=== PATIENT | male | born 1955 | race Caucasian/White ===

== ENCOUNTER 2018-03-29 10:01 | Emergency (ER) | payer BC ==
[2018-03-29 10:10] VITALS: RESP 18
[2018-03-29] MEDS ORDERED: SODIUM CHLORIDE 0.9% 1,000 ML IV STA (10:27)
--- NOTE | 2018-03-29 10:34 | ED ---
General Adult HPI <Raimundo Barksdale - Last Filed: 03/29/18 13:55> - General Source: patient Mode of arrival: ambulatory Limitations: no limitations <William Frazier - Last Filed: 03/29/18 14:09> - General Chief complaint: Urogenital Stated complaint: Not able to urinate Time Seen by Provider: 03/29/18 10:11 - History of Present Illness Initial comments: 62-year-old male with a past medical history of asthma, hypertension presents to the emergency department for a chief complaint of hematuria 4 days. Patient states he was passing clots in his urine 4 days ago. He states that yesterday the hematuria improved but today worsened again. He states he also has urinary urgency and frequency. He denies burning sensation or pain when urinating but does state he has discomfort. Patient states he also has difficulty urinating and is only able to urinate small amounts at a time. He also states he had lab work done that showed worsening renal function and is concerned about this. Patient denies any abdominal or flank pain. Patient denies a history of smoking. Patient has no other complaints at this time including shortness of breath, chest pain, abdominal pain, nausea or vomiting, headache, or visual changes. (William Frazier) - Related Data Home Medications Medication Instructions Recorded Confirmed Advair (Unknown Dose) 1 puff INHALATION RT-BID 03/29/18 03/29/18 Albuterol Inhaler [Ventolin Hfa 1 - 2 puff INHALATION RT-Q6H PRN 03/29/18 Inhaler] Aspirin EC [Ecotrin Low Dose] 81 mg PO DAILY 03/29/18 03/29/18 Calcium Carbonate [Calcium] 600 mg PO DAILY 03/29/18 03/29/18 Cholecalciferol [Vitamin D3] 400 unit PO DAILY 03/29/18 03/29/18 Fluticasone Nasal [place] [Flonase 2 spr EA NOSTRIL DAILY 03/29/18 03/29/18 Nasal [place]] Glucosamine Sulfate 500 mg PO DAILY 03/29/18 03/29/18 Lisinopril-Hctz 20-12.5 mg 1 tab PO DAILY 03/29/18 03/29/18 [Zestoretic 20-12.5] Montelukast [Singulair] 10 mg PO HS 03/29/18 03/29/18 Multivitamins, Thera [Multivitamin 1 tab PO DAILY 03/29/18 03/29/18 (formulary)] [place]-3 Fatty Acids/Fish Oil [Fish 1 cap PO DAILY 03/29/18 03/29/18 Oil 1,000 mg Softgel] Tadalafil [Cialis] 5 mg PO DAILY 03/29/18 03/29/18 Ubidecarenone [Co Q-10] 100 mg PO DAILY 03/29/18 03/29/18 Vitamin B Complex 1 cap PO DAILY 03/29/18 03/29/18 Allergies Allergy/AdvReac Type Severity Reaction Status Date / Time No Known Allergies Allergy Verified 03/29/18 10:34 Review of Systems ROS Other: All systems not noted in ROS Statement are negative. <Raimundo Barksdale - Last Filed: 03/29/18 13:55> ROS Other: All systems not noted in ROS Statement are negative. <William Frazier P - Last Filed: 03/29/18 14:09> ROS Statement: Those systems with pertinent positive or pertinent negative responses have been documented in the HPI. Past Medical History Past Medical History: Asthma, Hypertension Additional Past Medical History / Comment(s): erectile dysfunction History of Any Multi-Drug Resistant Organisms: None Reported Past Surgical History: Adenoidectomy, Tonsillectomy Additional Past Surgical History / Comment(s): Rhinoplasty, Uvula removed Past Psychological History: No Psychological Hx Reported Smoking Status: Never smoker Past Alcohol Use History: Occasional Past Drug Use History: None Reported <William Frazier P - Last Filed: 03/29/18 14:09> General Exam Limitations: no limitations General appearance: alert, in no apparent distress Head exam: Present: atraumatic, normocephalic, normal inspection Eye exam: Present: normal appearance, PERRL, EOMI. Absent: scleral icterus, conjunctival injection, periorbital swelling ENT exam: Present: normal exam, mucous membranes moist Neck exam: Present: normal inspection, full ROM. Absent: tenderness, meningismus, lymphadenopathy Respiratory exam: Present: normal lung sounds bilaterally. Absent: respiratory distress, wheezes, rales, rhonchi, stridor Cardiovascular Exam: Present: regular rate, normal rhythm, normal heart sounds. Absent: systolic murmur, diastolic murmur, rubs, gallop, clicks GI/Abdominal exam: Present: soft, tenderness (minimal tenderness over suprapubic area without gaurding), normal bowel sounds. Absent: distended, guarding, rebound, rigid Back exam: Absent: CVA tenderness (R), CVA tenderness (L) Neurological exam: Present: alert, oriented X3, CN II-XII intact Psychiatric exam: Present: normal affect, normal mood <William Frazier - Last Filed: 03/29/18 14:09> Course <Raimundo Barksdale - Last Filed: 03/29/18 13:55> <William Frazier - Last Filed: 03/29/18 14:09> Vital Signs 03/29/18 10:04 Temperature 97.8 F Pulse Rate 87 Respiratory 18 Rate Blood Pressure 130/87 O2 Sat by Pulse 100 Oximetry - Reevaluation(s) Reevaluation #1: 03/29/18 14:06 Patient informed that vascular surgeon at [facility] feels the are of the IVC may be part of the mass rather than thrombus. (William Frazier) Medical Decision Making - Lab Data Result diagrams: 03/29/18 10:49 03/29/18 10:49 <Raimundo Barksdale - Last Filed: 03/29/18 13:55> - Lab Data Result diagrams: 03/29/18 10:49 03/29/18 10:49 <William Frazier - Last Filed: 03/29/18 14:09> - Medical Decision Making Patient with yves hematuria. Imaging reveals left renal mass, there is concern for left renal vein thrombosis with extension and IVC. I did discuss this with vascular surgery Dr. Sheth, he recommends transfer. I discussed the case with Dr. Alston, vascular surgeon at [facility]. He feels this may represent tumor extension rather than thrombus. At this time patient will be transferred for both vascular surgery and urology evaluation. Mary catheter in place. Vitals stable, hemoglobin stable. ER accepting physician Dr. Morales. (Raimundo Barksdale) 62-year-old male presents to the emergency department for a chief complaint of hematuria and difficulty urinating 3 days. Patient states that hematuria worsened today. Patient does admit to minor left flank pain over the past few weeks but denies any pain today. On exam no abdominal tenderness or CVA tenderness. Patient does appear to have dark red blood in the urine. He complains of difficulty urinating and cannot give a sample so indwelling Mary catheter is placed. CBC shows a hgb of 10.7 which is stable from 2 weeks ago. INR 1.1. CMP shows a creatinine of 1.84 which is increased from 1.62 weeks ago. Ultrasound was initially ordered to evaluate for mass which did show a mass like area lateral to the left kidney with the hemorrhage or mass filling the left renal pelvis and the dependent portion of the urinary bladder. CT with contrast was recommended. However I did contact radiology and as patient does have worsening renal function with elevated creatinine radiologist recommends against IV contrast. CT abdomen and pelvis does show a large left renal mass or neoplasm with metastatic disease to the liver. 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 Tumor filled IVC on recent ultrasound as well. Dr. Barksdale spoke with vascular surgeon Dr. Sheth due to IVC thrombus. Dr. Singh recommends against anticoagulation at this time as patient is having significant hematuria. Coupled with patient's hematuria he recommends transfer to another facility for higher level of care. Dr. Barksdale also spoke with the patient and he is informed he has a renal mass as well as a possible thrombus in the IVC and this is why he will be transferred. Patient agrees with this and voices understanding. Patient and patient's agree with transfer to [facility]. (William Frazier) - Lab Data Lab Results 03/29/18 03/29/18 03/29/18 Range/Units 10:49 10:49 10:49 WBC 10.5 (3.8-10.6) k/uL RBC 4.10 L (4.30-5.90) m/uL Hgb 10.7 L (13.0-17.5) gm/dL Hct 34.5 L (39.0-53.0) % MCV 84.1 (80.0-100.0) fL MCH 26.0 (25.0-35.0) pg MCHC 30.9 L (31.0-37.0) g/dL RDW 13.2 (11.5-15.5) % Plt Count 438 (150-450) k/uL Neutrophils % 78 % Lymphocytes % 12 % Monocytes % 7 % Eosinophils % 2 % Basophils % 1 % Neutrophils # 8.2 H (1.3-7.7) k/uL Lymphocytes # 1.3 (1.0-4.8) k/uL Monocytes # 0.7 (0-1.0) k/uL Eosinophils # 0.2 (0-0.7) k/uL Basophils # 0.1 (0-0.2) k/uL Hypochromasia Slight PT 11.0 (9.0-12.0) sec INR 1.1 (<1.2) APTT 23.5 (22.0-30.0) sec Sodium 142 (137-145) mmol/L Potassium 4.9 (3.5-5.1) mmol/L Chloride 104 (98-107) mmol/L Carbon Dioxide 27 (22-30) mmol/L Anion Gap 11 mmol/L BUN 31 H (9-20) mg/dL Creatinine 1.84 H (0.66-1.25) mg/dL Est GFR (CKD-EPI)AfAm 44 (>60 ml/min/1.73 sqM) Est GFR (CKD-EPI)NonAf 38 (>60 ml/min/1.73 sqM) Glucose 100 H (74-99) mg/dL Calcium 10.6 H (8.4-10.2) mg/dL Total Bilirubin 0.5 (0.2-1.3) mg/dL AST 31 (17-59) U/L ALT 32 (21-72) U/L Alkaline Phosphatase 74 (38-126) U/L Total Protein 8.3 H (6.3-8.2) g/dL Albumin 4.1 (3.5-5.0) g/dL Urine Color Urine Appearance (Clear) Urine RBC (0-5) /hpf Urine WBC (0-5) /hpf 03/29/18 Range/Units 11:35 WBC (3.8-10.6) k/uL RBC (4.30-5.90) m/uL Hgb (13.0-17.5) gm/dL Hct (39.0-53.0) % MCV (80.0-100.0) fL MCH (25.0-35.0) pg MCHC (31.0-37.0) g/dL RDW (11.5-15.5) % Plt Count (150-450) k/uL Neutrophils % % Lymphocytes % % Monocytes % % Eosinophils % % Basophils % % Neutrophils # (1.3-7.7) k/uL Lymphocytes # (1.0-4.8) k/uL Monocytes # (0-1.0) k/uL Eosinophils # (0-0.7) k/uL Basophils # (0-0.2) k/uL Hypochromasia PT (9.0-12.0) sec INR (<1.2) APTT (22.0-30.0) sec Sodium (137-145) mmol/L Potassium (3.5-5.1) mmol/L Chloride (98-107) mmol/L Carbon Dioxide (22-30) mmol/L Anion Gap mmol/L BUN (9-20) mg/dL Creatinine (0.66-1.25) mg/dL Est GFR (CKD-EPI)AfAm (>60 ml/min/1.73 sqM) Est GFR (CKD-EPI)NonAf (>60 ml/min/1.73 sqM) Glucose (74-99) mg/dL Calcium (8.4-10.2) mg/dL Total Bilirubin (0.2-1.3) mg/dL AST (17-59) U/L ALT (21-72) U/L Alkaline Phosphatase (38-126) U/L Total Protein (6.3-8.2) g/dL Albumin (3.5-5.0) g/dL Urine Color Dark Red Urine Appearance Bloody (Clear) Urine RBC >182 H (0-5) /hpf Urine WBC >182 H (0-5) /hpf Disposition - Out of Hospital Transfer - Req. Specs Out of Hospital Transfer - Requested Specifics: Other Emergency Center ( Transferred to [facility]) <Raimundo Barksdale N - Last Filed: 03/29/18 13:55> Is patient prescribed a controlled substance at d/c from ED?: No <William Frazier - Last Filed: 11/06/18 14:09> Clinical Impression: Renal mass, Hematuria Disposition: OTHER INSTITUTION NOT DEFINED Condition: Good Referrals: Eli Owen III, MD [Primary Care Provider] - 1-2 days
[2018-03-29 11:00] LABS: Basophils # (A) 0.1 k/uL (0-0.2); Basophils % (A) 1 %; Eosinophils # (A) 0.2 k/uL (0-0.7); Eosinophils % (A) 2 %; HCT 34.5 % (39.0-53.0); HGB 10.7 gm/dL (13.0-17.5); Hypochromasia Slight; Lymphocytes # (A) 1.3 k/uL (1.0-4.8); Lymphocytes % (A) 12 %; MCHC 30.9 g/dL (31.0-37.0); MCV 84.1 fL (80.0-100.0); Monocytes # (A) 0.7 k/uL (0-1.0); Monocytes % (A) 7 %; Neutrophils # (A) 8.2 k/uL (1.3-7.7); Neutrophils % (A) 78 %; Platelet Count 438 k/uL (150-450); RDW 13.2 % (11.5-15.5); WBC 10.5 k/uL (3.8-10.6)
[2018-03-29 11:08] LABS: INR 1.1 (<1.2); Partial Thromboplastin Time 23.5 sec (22.0-30.0)
[2018-03-29 11:12] LABS: Albumin 4.1 g/dL (3.5-5.0); Calcium 10.6 mg/dL (8.4-10.2); Potassium 4.9 mmol/L (3.5-5.1); Total Bilirubin 0.5 mg/dL (0.2-1.3); Total Protein 8.3 g/dL (6.3-8.2)
[2018-03-29 12:06] LABS: RBC,Urine >182 /hpf (0-5); WBC,Urine >182 /hpf (0-5)
[2018-03-29 12:07] LABS: Appearance,Urine Bloody (Clear); Color,Urine Dark Red
--- NOTE | 2018-03-29 12:07 | US ---
EXAMINATION TYPE: US kidneys/renal and bladder DATE OF EXAM: 03/29/2018 COMPARISON: NONE CLINICAL HISTORY: Pain. Difficulty urinating, hematuria for 2 days EXAM MEASUREMENTS: Right Kidney: 12.9 x 5.0 x 5.9 cm Left Kidney: 15.9 x 7.5 x 5.0 cm Right Kidney: enlarged, no evidence of hydronephrosis Left Kidney: enlarged. There is a simple cystic area upper pole = 2.6cm. Mass-like area laterally = 1 5.6 x 8.9 x 8.7cm . There may be hypoechoic but solid or debris filled renal pelvis. Bladder: solid component posteriorly = 5.8 x 4.4cm Bilateral Jets seen: no Isoechoic area adjacent to liver and right kidney = 8.8 x 4.1 x 4.1cm IMPRESSION: 1. Masslike area lateral to the left kidney. Workup for renal cell carcinoma is recommended. 2. Debris, hemorrhage, or mass filling the left renal pelvis and dependent portion of the urinary anusha dder. Differential could include transitional cell carcinoma. Recommendations: 1. CT abdomen pelvis w contrast. Renal and renal collecting system neoplasm and/or urinary bladder ne oplasm should be worked up. 2. Report was called to the ER, [facility] by Dr Long by Telephone 03-29-18 12:04 hours.
[2018-03-29] MEDS ORDERED: LIDOCAINE URO-JET JELLY 2% 5 ML KIT URETHRAL ONE (12:10)
--- NOTE | 2018-03-29 13:09 | CT ---
EXAMINATION TYPE: CT abdomen pelvis wo con DATE OF EXAM: 03/29/2018 HISTORY: Pain. Abnormal ultrasound. CT DLP: 847 mGycm. Automated Exposure Control for Dose Reduction was Utilized. TECHNIQUE: CT scan of the abdomen and pelvis is performed without oral or IV contrast. COMPARISON: Same day renal ultrasound FINDINGS: Within the limitations of a non-contrast study, the following observations are made. LUNG BASES: Coronary artery calcification distal RCA distribution is present which is noted marker fo r underlying coronary artery disease. LIVER/GB: There are at least 3 suspicious heterogeneous hypodense lesions throughout the liver, for r eference posterior segment right hepatic dome lesion measures 3.9 cm long axis image 11. For referenc e anterior segment right hepatic lobe lesion measures 2.2 cm long axis axial image 17. For reference lateral inferior posterior segment right hepatic lobe lesion measures 3.1 cm long axis axial image 31 . PANCREAS: No significant abnormality is seen. SPLEEN: No significant abnormality is seen. ADRENALS: No significant abnormality is seen. KIDNEYS: Right kidney is normal in size without calculus or hydronephrosis. Left kidney is asymmetric ally enlarged with heterogeneous tissue and partial calcification felt to reflect large mass or neopl asm occupying majority of left kidney. Adjacent nodularity could reflect prominent collateral vessels , cannot exclude adjacent adenopathy. There is enlarged slightly hyperdense left renal vein extending into IVC. Tumor thrombus is suspected. Mary catheter is seen within urinary bladder which is decompressed and thus suboptimally evaluated. BOWEL: Small hiatal hernia is present. No suspicious bowel dilatation is seen. GENITAL ORGANS: No gross abnormality seen. LYMPH NODES: No greater than 1cm abdominal or pelvic lymph nodes are appreciated. OSSEOUS STRUCTURES: Severe disc space narrowing with moderate spurring L5-S1 level is present. There is facet arthropathy lower lumbar spine. There is mild to moderate narrowing and spurring bilateral h ip joints. OTHER: Few scattered pelvic phleboliths are seen. IMPRESSION: Suspect large left renal mass or neoplasm. Metastatic disease to liver is noted. 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 This is likely w hat is causing the suspicious lesion near lisa hepatis, tumor filled IVC on recent ultrasound.
[2018-03-29 14:52] VITALS: BP 161/95; PULSE 72; TEMP 98.3
== END 2018-03-29 14:52 | disposition other institution (70) ==
LOC: EC 10:01
DX: N28.89 Other specified disorders of kidney and ureter (principal); R79.89 Other specified abnormal findings of blood chemistry; J45.909 Unspecified asthma, uncomplicated; I10 Essential (primary) hypertension; Z79.51 Long term (current) use of inhaled steroids; Z79.82 Long term (current) use of aspirin; Z79.899 Other long term (current) drug therapy
CPT/HCPCS: 36415; 51702; 74176; 76770; 80053; 81001; 85025; 85610; 85730; 96360; 96361; 99284

== ENCOUNTER 2018-04-02 02:55 | Emergency (ER) | payer BC ==
[2018-04-02 03:02] VITALS: BP 162/90; PULSE 86; RESP 16; TEMP 98
[2018-04-02] MEDS ORDERED: LIDOCAINE URO-JET JELLY 2% 5 ML KIT URETHRAL ONE (03:11)
--- NOTE | 2018-04-02 03:16 | ED ---
General Adult HPI - General Chief complaint: Urogenital Stated complaint: Male Time Seen by Provider: 04/02/18 03:04 Source: patient Mode of arrival: ambulatory Limitations: no limitations - History of Present Illness Initial comments: This patient is a 62-year-old man presenting with complaint that he has not been able to pass any urine this morning. The patient states that he woke with an urge to urinate around 2 AM and then was not able to pass any urine. He has recently had urinary retention, being seen here for this same problem on Wednesday. He was discharged with a Mary catheter in and saw the neurologists at [facility] on . He had a the catheter removed at that consultation, and had been able to urinate until this morning. There had been some blood in the urine. Patient denies fever or chills. No chest pain or dyspnea. No diaphoresis. No abdominal pain though there is the suprapubic pressure and sensation urinate. -: hour(s) Location: abdomen Quality: other (Pressure) Consistency: constant Improves with: none Worsens with: none Associated Symptoms: denies other symptoms Treatments Prior to Arrival: none - Related Data Home Medications Medication Instructions Recorded Confirmed Advair (Unknown Dose) 1 puff INHALATION RT-BID 03/29/18 03/29/18 Albuterol Inhaler [Ventolin Hfa 1 - 2 puff INHALATION RT-Q6H PRN 03/29/18 Inhaler] Aspirin EC [Ecotrin Low Dose] 81 mg PO DAILY 03/29/18 03/29/18 Calcium Carbonate [Calcium] 600 mg PO DAILY 03/29/18 03/29/18 Cholecalciferol [Vitamin D3] 400 unit PO DAILY 03/29/18 03/29/18 Fluticasone Nasal [place] [Flonase 2 spr EA NOSTRIL DAILY 03/29/18 03/29/18 Nasal [place]] Glucosamine Sulfate 500 mg PO DAILY 03/29/18 03/29/18 Lisinopril-Hctz 20-12.5 mg 1 tab PO DAILY 03/29/18 03/29/18 [Zestoretic 20-12.5] Montelukast [Singulair] 10 mg PO HS 03/29/18 03/29/18 Multivitamins, Thera [Multivitamin 1 tab PO DAILY 03/29/18 03/29/18 (formulary)] [place]-3 Fatty Acids/Fish Oil [Fish 1 cap PO DAILY 03/29/18 03/29/18 Oil 1,000 mg Softgel] Tadalafil [Cialis] 5 mg PO DAILY 03/29/18 03/29/18 Ubidecarenone [Co Q-10] 100 mg PO DAILY 03/29/18 03/29/18 Vitamin B Complex 1 cap PO DAILY 03/29/18 03/29/18 Allergies Allergy/AdvReac Type Severity Reaction Status Date / Time No Known Allergies Allergy Verified 04/02/18 03:02 Review of Systems ROS Statement: Those systems with pertinent positive or pertinent negative responses have been documented in the HPI. ROS Other: All systems not noted in ROS Statement are negative. Constitutional: Denies: fever, chills, weakness Respiratory: Denies: cough, dyspnea Cardiovascular: Denies: chest pain, palpitations Gastrointestinal: Reports: as per HPI. Denies: abdominal pain, nausea, vomiting Genitourinary: Reports: urgency, hematuria. Denies: dysuria, frequency, discharge, testicular pain, testicular mass Musculoskeletal: Denies: back pain Skin: Denies: rash Past Medical History Past Medical History: Asthma, Hypertension Additional Past Medical History / Comment(s): erectile dysfunction History of Any Multi-Drug Resistant Organisms: None Reported Past Surgical History: Adenoidectomy, Tonsillectomy Additional Past Surgical History / Comment(s): Rhinoplasty, Uvula removed Past Psychological History: No Psychological Hx Reported Smoking Status: Never smoker Past Alcohol Use History: Occasional Past Drug Use History: None Reported General Exam Limitations: no limitations General appearance: alert, in no apparent distress Head exam: Present: atraumatic, normocephalic Respiratory exam: Present: normal lung sounds bilaterally. Absent: respiratory distress, wheezes, rales, rhonchi, stridor Cardiovascular Exam: Present: regular rate, normal rhythm, normal heart sounds. Absent: systolic murmur, diastolic murmur, rubs, gallop GI/Abdominal exam: Present: soft, tenderness (Minimal suprapubic tenderness.). Absent: distended, guarding, rebound, rigid, mass Extremities exam: Present: normal inspection Back exam: Present: normal inspection. Absent: CVA tenderness (R), CVA tenderness (L) Neurological exam: Present: alert, normal gait Skin exam: Present: warm, dry, intact, normal color. Absent: rash Course Vital Signs 04/02/18 02:59 Temperature 98 F Pulse Rate 86 Respiratory 16 Rate Blood Pressure 162/90 O2 Sat by Pulse 97 Oximetry Disposition Clinical Impression: Hematuria, Urinary retention Disposition: HOME SELF-CARE Condition: Fair Instructions: Urinary Retention in Men (ED) Is patient prescribed a controlled substance at d/c from ED?: No Referrals: Eli Owen III, MD [Primary Care Provider] - 1-2 days Claude Erwin MD [STAFF PHYSICIAN] - 1-2 days
== END 2018-04-02 03:41 | disposition home or self-care (01) ==
LOC: EC 02:55
DX: R33.9 Retention of urine, unspecified (principal); R31.9 Hematuria, unspecified; J45.909 Unspecified asthma, uncomplicated; I10 Essential (primary) hypertension; N52.9 Male erectile dysfunction, unspecified; Z79.51 Long term (current) use of inhaled steroids; Z79.82 Long term (current) use of aspirin; Z79.899 Other long term (current) drug therapy
CPT/HCPCS: 99283

== ENCOUNTER 2018-04-12 06:56 | Emergency (ER) | payer BC ==
--- NOTE | 2018-04-12 07:49 | ED ---
General Adult HPI - General Chief complaint: Urogenital Stated complaint: Urine Retention Time Seen by Provider: 04/12/18 07:38 Source: patient, RN notes reviewed Mode of arrival: ambulatory Limitations: no limitations - History of Present Illness Initial comments: Patient is a 62-year-old male presenting to the emergency room today with a chief complaint of blocked Mary catheter. Patient does admit that he has a history of a left-sided kidney mass. He states he's been seen here in the emergency room approximately a week and a half ago had a Mary catheter placed. He states he was in for 2 days he follow-up with his urologist through [facility] took the Mary catheter out. He states 2 days later he was having difficulty with urination and had to return here to the emergency room abdomen the Mary catheter placed. He states he's had this catheter now for the past 10 days. States he was doing well until early this morning noticed that he was passing some large clots. He states he does not feel that anything is passed into the bag and does feel some discomfort to the lower abdomen with some fullness. Patient does admit to feeling tired at times the last few days. He denies any other complaints or symptoms. Patient denies any recent fever, chills, shortness of breath, chest pain, back pain, abdominal pain, nausea or vomiting, numbness or tingling, headaches or visual changes, or any other complaints. - Related Data Home Medications Medication Instructions Recorded Confirmed Advair (Unknown Dose) 1 puff INHALATION RT-BID 03/29/18 04/12/18 Montelukast [Singulair] 10 mg PO HS 03/29/18 04/12/18 Acetaminophen [Tylenol Extra 500 mg PO Q6H PRN 04/12/18 04/12/18 Strength] Cetirizine HCl [Zyrtec] 10 mg PO DAILY 04/12/18 04/12/18 Eye Vitamin (Unknown) 1 tab PO DAILY 04/12/18 04/12/18 Fluticasone Nasal [place] [Flonase 2 spr EA NOSTRIL DAILY 04/12/18 04/12/18 Nasal [place]] amLODIPine [Norvasc] 5 mg PO DAILY 04/12/18 04/12/18 Previous Rx's Medication Instructions Recorded Sulfamethox-Tmp 800-160Mg [Bactrim 1 tab PO Q12HR #20 tab 04/12/18 DS 800-160 mg] Allergies Allergy/AdvReac Type Severity Reaction Status Date / Time No Known Allergies Allergy Verified 04/12/18 07:56 Review of Systems ROS Statement: Those systems with pertinent positive or pertinent negative responses have been documented in the HPI. ROS Other: All systems not noted in ROS Statement are negative. Past Medical History Past Medical History: Asthma, Hypertension Additional Past Medical History / Comment(s): erectile dysfunction History of Any Multi-Drug Resistant Organisms: None Reported Past Surgical History: Adenoidectomy, Tonsillectomy Additional Past Surgical History / Comment(s): Rhinoplasty, Uvula removed Past Psychological History: No Psychological Hx Reported Smoking Status: Never smoker Past Alcohol Use History: Occasional Past Drug Use History: None Reported General Exam - General Exam Comments Initial Comments: General: The patient is awake and alert, in no distress, and does not appear acutely ill. Eye: There is normal conjunctiva bilaterally. No signs of icterus. Ears, nose, mouth and throat: There are moist mucous membranes and no oral lesions. Neck: The neck is supple, there is no tenderness or JVD. Cardiovascular: There is a regular rate and rhythm. No murmur, rub or gallop is appreciated. Respiratory: Lungs are clear to auscultation, respirations are non-labored, breath sounds are equal. No wheezes, stridor, rales, or rhonchi. Gastrointestinal: Soft and palpation. No CVA tenderness, rebound or guarding. Musculoskeletal: Normal ROM, no tenderness. Sensation intact. Neurological: A&O x 3. CN II-XII intact, There are no obvious motor or sensory deficits. Coordination appears grossly intact. Speech is normal. Skin: Skin is warm and dry and no rashes or lesions are noted. Psychiatric: Cooperative, appropriate mood & affect, normal judgment. Limitations: no limitations Course Vital Signs 04/12/18 04/12/18 04/12/18 07:31 08:16 09:18 Temperature 98.3 F Pulse Rate 123 H 78 66 Respiratory 18 18 18 Rate Blood Pressure 150/95 151/95 O2 Sat by Pulse 96 98 97 Oximetry Medical Decision Making - Medical Decision Making Patient's labs been reviewed. Hemoglobin 10.5 stem compared to previous. Patient's urinalysis does show greater than 2 red and white cells. Patient doing well at this time. Full catheter was flushed by nursing staff has flowing freely. Patient will be started on antibiotic to cover for possible infection. Advised follow-up urologist over the next 2 days. Advised return if any symptoms increase worsen. - Lab Data Result diagrams: 04/12/18 08:00 04/12/18 08:00 Lab Results 04/12/18 04/12/18 04/12/18 Range/Units 08:00 08:00 08:15 WBC 8.2 (3.8-10.6) k/uL RBC 3.94 L (4.30-5.90) m/uL Hgb 10.5 L (13.0-17.5) gm/dL Hct 33.4 L (39.0-53.0) % MCV 84.9 (80.0-100.0) fL MCH 26.6 (25.0-35.0) pg MCHC 31.3 (31.0-37.0) g/dL RDW 14.3 (11.5-15.5) % Plt Count 405 (150-450) k/uL Neutrophils % 80 % Lymphocytes % 11 % Monocytes % 6 % Eosinophils % 2 % Basophils % 0 % Neutrophils # 6.6 (1.3-7.7) k/uL Lymphocytes # 0.9 L (1.0-4.8) k/uL Monocytes # 0.5 (0-1.0) k/uL Eosinophils # 0.2 (0-0.7) k/uL Basophils # 0.0 (0-0.2) k/uL Hypochromasia Slight Sodium 141 (137-145) mmol/L Potassium 4.4 (3.5-5.1) mmol/L Chloride 104 (98-107) mmol/L Carbon Dioxide 26 (22-30) mmol/L Anion Gap 11 mmol/L BUN 18 (9-20) mg/dL Creatinine 1.30 H (0.66-1.25) mg/dL Est GFR (CKD-EPI)AfAm 67 (>60 ml/min/1.73 sqM) Est GFR (CKD-EPI)NonAf 58 (>60 ml/min/1.73 sqM) Glucose 116 H (74-99) mg/dL Calcium 9.7 (8.4-10.2) mg/dL Total Bilirubin 0.5 (0.2-1.3) mg/dL AST 21 (17-59) U/L ALT 30 (21-72) U/L Alkaline Phosphatase 72 (38-126) U/L Total Protein 7.9 (6.3-8.2) g/dL Albumin 4.0 (3.5-5.0) g/dL Urine Color Red Urine Appearance Bloody (Clear) Urine RBC >182 H (0-5) /hpf Urine WBC >182 H (0-5) /hpf Disposition Clinical Impression: Hematuria, UTI (urinary tract infection) Disposition: HOME SELF-CARE Condition: Good Instructions: Urinary Tract Infection in Men (ED) Additional Instructions: Please use medication as discussed. Please follow-up with urologist/family doctor in the next 2 days of symptoms have not improved. Please return to emergency room if the symptoms increase or worsen or for any other concerns. Prescriptions: Sulfamethox-Tmp 800-160Mg [Bactrim DS 800-160 mg] 1 tab PO Q12HR #20 tab Is patient prescribed a controlled substance at d/c from ED?: No Referrals: Eli Owen III, MD [Primary Care Provider] - 1-2 days Time of Disposition: 10:25
[2018-04-12 08:38] LABS: Calcium 9.7 mg/dL (8.4-10.2); Potassium 4.4 mmol/L (3.5-5.1); Total Bilirubin 0.5 mg/dL (0.2-1.3); Total Protein 7.9 g/dL (6.3-8.2)
[2018-04-12 09:35] LABS: Basophils % (A) 0 %; Eosinophils # (A) 0.2 k/uL (0-0.7); Eosinophils % (A) 2 %; HCT 33.4 % (39.0-53.0); HGB 10.5 gm/dL (13.0-17.5); Hypochromasia Slight; Lymphocytes # (A) 0.9 k/uL (1.0-4.8); Lymphocytes % (A) 11 %; MCH 26.6 pg (25.0-35.0); MCHC 31.3 g/dL (31.0-37.0); MCV 84.9 fL (80.0-100.0); Mean Platelet Volume 6.6; Monocytes # (A) 0.5 k/uL (0-1.0); Monocytes % (A) 6 %; Neutrophils # (A) 6.6 k/uL (1.3-7.7); Neutrophils % (A) 80 %; Platelet Count 405 k/uL (150-450); RBC 3.94 m/uL (4.30-5.90); RDW 14.3 % (11.5-15.5); WBC 8.2 k/uL (3.8-10.6)
[2018-04-12 10:07] LABS: RBC,Urine >182 /hpf (0-5); WBC,Urine >182 /hpf (0-5)
[2018-04-12 10:13] LABS: Color,Urine Red
[2018-04-12 10:14] LABS: Appearance,Urine Bloody (Clear)
[2018-04-12 11:03] VITALS: BP 171/97; PULSE 68; RESP 16; TEMP 97.7
== END 2018-04-12 11:03 | disposition home or self-care (01) ==
LOC: EC 06:56
DX: N39.0 Urinary tract infection, site not specified (principal); J45.909 Unspecified asthma, uncomplicated; I10 Essential (primary) hypertension; Z79.51 Long term (current) use of inhaled steroids; Z79.899 Other long term (current) drug therapy
CPT/HCPCS: 36415; 80053; 81001; 85025; 87086; 99283

== ENCOUNTER 2018-04-12 13:14 | Emergency (ER) | payer BC ==
[2018-04-12 13:21] VITALS: RESP 18; TEMP 97.8
--- NOTE | 2018-04-12 14:41 | ED ---
General Adult HPI - General Chief complaint: Urogenital Stated complaint: catheter problems-revisit Time Seen by Provider: 04/12/18 13:24 Source: patient, RN notes reviewed Mode of arrival: ambulatory Limitations: no limitations - History of Present Illness Initial comments: Patient 62-year-old male presented to the emergency room today with a chief complaint of hematuria. Patient was seen here the emergency room by myself earlier this morning for the same complaint. He did have a Mary catheter was placed 10 days ago. Has been following up with his urologist. Patient was seen this morning because he noticed that the Mary catheter was not draining. Patient did have Mary catheter irrigated here in the emergency room was straining prior to discharge. He states he went home. He states the symptoms that the catheter is plugged up once again. He did talk to his urologist office in the medical system advised come back here to the emergency room. Patient denies any other complaints or symptoms at this time. Patient denies any recent fever, chills, shortness of breath, chest pain, back pain, abdominal pain, nausea or vomiting, numbness or tingling, constipation or diarrhea, headaches or visual changes, or any other complaints. - Related Data Home Medications Medication Instructions Recorded Confirmed Advair (Unknown Dose) 1 puff INHALATION RT-BID 03/29/18 04/12/18 Montelukast [Singulair] 10 mg PO HS 03/29/18 04/12/18 Acetaminophen [Tylenol Extra 500 mg PO Q6H PRN 04/12/18 04/12/18 Strength] Cetirizine HCl [Zyrtec] 10 mg PO DAILY 04/12/18 04/12/18 Eye Vitamin (Unknown) 1 tab PO DAILY 04/12/18 04/12/18 Fluticasone Nasal [place] [Flonase 2 spr EA NOSTRIL DAILY 04/12/18 04/12/18 Nasal [place]] Lisinopril-Hctz 20-12.5 mg 1 tab PO DAILY 04/12/18 04/12/18 [Zestoretic 20-12.5] Tamsulosin [Flomax] 0.4 mg PO DAILY 04/12/18 04/12/18 amLODIPine [Norvasc] 5 mg PO DAILY 04/12/18 04/12/18 Previous Rx's Medication Instructions Recorded Sulfamethox-Tmp 800-160Mg [Bactrim 1 tab PO Q12HR #20 tab 04/12/18 DS 800-160 mg] Allergies Allergy/AdvReac Type Severity Reaction Status Date / Time No Known Allergies Allergy Verified 04/12/18 13:27 Review of Systems ROS Statement: Those systems with pertinent positive or pertinent negative responses have been documented in the HPI. ROS Other: All systems not noted in ROS Statement are negative. Past Medical History Past Medical History: Asthma, Hypertension Additional Past Medical History / Comment(s): erectile dysfunction History of Any Multi-Drug Resistant Organisms: None Reported Past Surgical History: Adenoidectomy, Tonsillectomy Additional Past Surgical History / Comment(s): Rhinoplasty, Uvula removed Past Psychological History: No Psychological Hx Reported Smoking Status: Never smoker Past Alcohol Use History: Occasional Past Drug Use History: None Reported General Exam - General Exam Comments Initial Comments: General: The patient is awake and alert, in no distress, and does not appear acutely ill. Eye: There is normal conjunctiva bilaterally. No signs of icterus. Ears, nose, mouth and throat: There are moist mucous membranes and no oral lesions. Neck: The neck is supple. Cardiovascular: There is a regular rate and rhythm. No murmur, rub or gallop is appreciated. Respiratory: Lungs are clear to auscultation, respirations are non-labored, breath sounds are equal. No wheezes, stridor, rales, or rhonchi. Gastrointestinal: Soft on palpation. Musculoskeletal: Normal ROM, no tenderness. Neurological: A&O x 3. CN II-XII intact, There are no obvious motor or sensory deficits. Coordination appears grossly intact. Speech is normal. Skin: Skin is warm and dry and no rashes or lesions are noted. Psychiatric: Cooperative, appropriate mood & affect, normal judgment. Limitations: no limitations Course Vital Signs 04/12/18 13:19 Temperature 97.8 F Pulse Rate 86 Respiratory 18 Rate Blood Pressure 125/79 O2 Sat by Pulse 99 Oximetry Medical Decision Making - Medical Decision Making Patient's Mary catheter was irrigated emergency room by nursing staff. They' re able to get the Mary catheter clear of clots. A larger Mary catheter was placed. Patient doing well at this time. Does admit to some spasms. Patient advised continue antibiotics of her previous prescribed. We'll given a prescription Pyridium. Patient is advised to follow-up with his urologist tomorrow. Advised to return here to the emergency room if symptoms increase or worsen or for any other concerns. Disposition Clinical Impression: Hematuria, Urinary retention, UTI (urinary tract infection) Disposition: HOME SELF-CARE Condition: Good Instructions: Urinary Tract Infection in Men (ED) Additional Instructions: Please follow-up with the urologist tomorrow as discussed. Please return to emergency room if symptoms increase or worsen or for concerns. Is patient prescribed a controlled substance at d/c from ED?: No Referrals: Eli Owen III, MD [Primary Care Provider] - 1-2 days
[2018-04-12] MEDS ORDERED: LIDOCAINE URO-JET JELLY 2% 5 ML KIT URETHRAL ONE (14:56)
[2018-04-12 17:33] VITALS: BP 161/64; PULSE 60
== END 2018-04-12 17:54 | disposition home or self-care (01) ==
LOC: EC 13:14
DX: N39.0 Urinary tract infection, site not specified (principal); T83.098A Other mechanical complication of other urinary catheter, initial encounter; J45.909 Unspecified asthma, uncomplicated; I10 Essential (primary) hypertension; Z79.51 Long term (current) use of inhaled steroids; Z79.899 Other long term (current) drug therapy
CPT/HCPCS: 51702; 99283

== ENCOUNTER → 2018-04-20 | Outpatient (CLI) | payer BC ==
--- NOTE | 2018-04-20 11:34 | CT ---
EXAMINATION TYPE: CT brain wo/w con DATE OF EXAM: 04/20/2018 COMPARISON: Correlation CT abdomen 03/29/2018 HISTORY: 62-year-old male diagnosed with Kidney cancer TECHNIQUE: Examination was done in axial plane before and after intravenous contrast. 100 mL Isovue -300 was administered. Coronal and sagittal reconstructions performed. CT DLP: 2197.60 mGycm Automated exposure control for dose reduction was used. FINDINGS: There is no evidence of acute intracranial hemorrhage, acute ischemic changes, mass, mass-effect, or extra-axial fluid collection. There is no effacement of cerebral sulci or basal subarachnoid cister ns. There is no hydrocephalus. There is no midline shift. Vernon-white matter distinction is preserv ed. Mild patchy white matter hypodensities in both cerebral hemispheres with focal patchy areas such as i n the right cross radiata likely relating to changes of chronic small vessel ischemic disease. No enhancing intracranial lesion. Dural venous sinuses are patent. Moderate mucosal thickening ethmoid air cells and mild to moderate within the maxillary sinuses. Mast oid air cells well pneumatized. Orbits and globes appear intact. IMPRESSION: 1. Mild patchy changes of chronic small vessel ischemic disease. No acute intracranial abnormality se en. No suspicious intracranial enhancing lesions by CT. MRI could provide more sensitive evaluation i f indicated. 2. Moderate chronic maxillary and ethmoid sinus disease.
--- NOTE | 2018-04-20 12:15 | CT ---
EXAMINATION TYPE: CT chest wo/w con DATE OF EXAM: 04/20/2018 COMPARISON: Correlation CT abdomen 03/29/2018 HISTORY: 62-year-old male diagnosed with Kidney cancer TECHNIQUE: Contiguous axial scanning of the chest before and after the administration of 100 ml mL of Isovue 300. Coronal/sagittal reconstructions performed. CT DLP: 954.10mGycm. Automatic exposure control utilized for a dose reduction. FINDINGS: Heart normal size without pericardial effusion. Coronary vessel calcifications are present. Mild aneurysm ascending aorta measured at 4.0 cm. Conventional arch vessel branching anatomy. No thoracic lymphadenopathy by CT size criteria. Minimal subpleural scarring posterior left apex. Strandy atelectasis at both lung bases without pleur al effusion. No suspicious pulmonary nodule identified. Small hiatal hernia. Liver lesions as described on recent body CT. Additional abnormal dilatation and some nodular enhance ment within the visualized IVC and large very heterogeneously enhancing left renal mass. Abnormal dis tention and some enhancement within the left renal vein is well also is described on patient's recent abdominal CT. Bones: 1.8 cm lytic lesion within the left T12 pedicle is suspicious. IMPRESSION: 1. No suspicious pulmonary nodule or thoracic lymphadenopathy. 2. 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 Hepatic lesions suspicious for liver metastases also described previously. 3. A 1.8 cm lytic lesion within the left T12 pedicle is suspicious for a lytic osseous metastasis. 4. Incidental mild aneurysm ascending aorta 4.0 cm. Small hiatal hernia.
== END | disposition home or self-care (01) ==
LOC: RADCTMAIN 09:29
PROVIDERS: ATTEND Urology
DX: I67.82 Cerebral ischemia (principal); K76.9 Liver disease, unspecified; M89.9 Disorder of bone, unspecified; C64.2 Malignant neoplasm of left kidney, except renal pelvis
CPT/HCPCS: 70470; 71270; Q9967

== ENCOUNTER 2018-09-25 17:00 | Observation (INO) | payer BC ==
[2018-09-25] MEDS ORDERED: DIPH,PERTUS(ACELL)TETVAC-LF 0.5 ML VIAL IM ONE (17:11)
[2018-09-25] MEDS ORDERED: HYDROmorphone 1 MG/ML 1 ML SYRINGE IVP STA (17:12)
[2018-09-25] MEDS ORDERED: ceFAZolin IN SWFI 2 GM/20 ML SYRINGE IVP STA (17:12)
[2018-09-25 17:35] LABS: Anisocytosis Slight; Basophils # (A) 0.1 k/uL (0-0.2); Basophils % (A) 1 %; Eosinophils # (A) 0.7 k/uL (0-0.7); Eosinophils % (A) 9 %; HGB 12.2 gm/dL (13.0-17.5); Lymphocytes # (A) 1.5 k/uL (1.0-4.8); Lymphocytes % (A) 18 %; MCH 28.2 pg (25.0-35.0); MCV 85.5 fL (80.0-100.0); Mean Platelet Volume 6.8; Monocytes # (A) 0.5 k/uL (0-1.0); Monocytes % (A) 6 %; Neutrophils # (A) 5.5 k/uL (1.3-7.7); Neutrophils % (A) 65 %; Platelet Count 223 k/uL (150-450); RBC 4.33 m/uL (4.30-5.90); RDW 16.3 % (11.5-15.5); WBC 8.4 k/uL (3.8-10.6)
--- NOTE | 2018-09-25 17:37 | ED ---
Skin/Abscess/FB HPI - General Chief complaint: Skin/Abscess/Foreign Body Stated complaint: Impaled Object Time Seen by Provider: 09/25/18 17:05 Source: patient, RN notes reviewed, old records reviewed Mode of arrival: EMS Limitations: no limitations - History of Present Illness Initial comments: 62-year-old male with history of renal carcinoma currently on immunotherapy for renal carcinoma presents emergency department today after being impaled on his right leg with a piece of Baobaberry hoffmann. Patient reports he was gardening and had the which sticks in a pile. He tripped over some chicken wire and reports the raspberry hoffmann branch ran into his leg. Patient reports that he has normal sensation of his lower extremities. With history of renal carcinoma he has been off of his diuretic medication due to worsening kidney function. Therefore he is had some lower extremity edema. He reports that been chronic. Patient is nondiabetic. - Related Data Home Medications Medication Instructions Recorded Confirmed Montelukast [Singulair] 10 mg PO HS 03/29/18 09/25/18 Acetaminophen [Tylenol Extra 500 mg PO Q6H PRN 04/12/18 09/25/18 Strength] Cetirizine HCl [Zyrtec] 10 mg PO DAILY 04/12/18 09/25/18 Eye Vitamin (Unknown) 1 tab PO DAILY 04/12/18 09/25/18 Fluticasone Nasal [place] [Flonase 2 spr EA NOSTRIL DAILY 04/12/18 09/25/18 Nasal [place]] Fluticasone/Salmeterol [Advair 1 puff INHALATION RT-BID 09/25/18 09/25/18 250-50 Diskus] Metoprolol Tartrate [Lopressor] 12.5 mg PO BID 09/25/18 09/25/18 Opdivo (Mg Unknown) dose IV Q14D 09/25/18 amLODIPine [Norvasc] 10 mg PO DAILY 09/25/18 09/25/18 Allergies Allergy/AdvReac Type Severity Reaction Status Date / Time No Known Allergies Allergy Verified 09/25/18 17:50 Review of Systems ROS Statement: Those systems with pertinent positive or pertinent negative responses have been documented in the HPI. ROS Other: All systems not noted in ROS Statement are negative. Past Medical History Past Medical History: Asthma, Cancer, Hypertension Additional Past Medical History / Comment(s): erectile dysfunction History of Any Multi-Drug Resistant Organisms: None Reported Past Surgical History: Adenoidectomy, Tonsillectomy Additional Past Surgical History / Comment(s): Rhinoplasty, Uvula removed, renal CA Past Psychological History: No Psychological Hx Reported Smoking Status: Never smoker Past Alcohol Use History: Occasional Past Drug Use History: None Reported General Exam - General Exam Comments Initial Comments: 62-year-old male. Pleasant. No significant distress. Limitations: no limitations General appearance: alert, in no apparent distress Head exam: Present: atraumatic, normocephalic, normal inspection Eye exam: Present: normal appearance, PERRL, EOMI. Absent: scleral icterus, conjunctival injection, periorbital swelling ENT exam: Present: normal exam, mucous membranes moist Neck exam: Present: normal inspection. Absent: tenderness, meningismus, lymp hadenopathy Respiratory exam: Present: normal lung sounds bilaterally. Absent: respiratory distress, wheezes, rales, rhonchi, stridor Cardiovascular Exam: Present: regular rate, normal rhythm, normal heart sounds. Absent: systolic murmur, diastolic murmur, rubs, gallop, clicks GI/Abdominal exam: Present: soft, normal bowel sounds. Absent: distended, tenderness, guarding, rebound, rigid Extremities exam: Present: normal inspection, full ROM, normal capillary refill, other (Bilateral peripheral edema. 2 second capillary refill. 2+ dorsalis pedis pulse.). Absent: tenderness, pedal edema, joint swelling, calf tenderness Right Lower Leg exam: Present: full ROM, swelling. Absent: normal inspection (Patient has a 0.5 inch wooden stick impaled within the mid leg, thorns noted from stick. Stick was greater than 1 foot sticking out. ) Ankle exam: Present: normal inspection, full ROM, swelling Foot/Toe exam: Present: normal inspection, swelling Neurovascular tendon exam: Present: no vascular compromise Gait: observed and limited by pain Back exam: Present: normal inspection Neurological exam: Present: alert, oriented X3, CN II-XII intact Psychiatric exam: Present: normal affect Skin exam: Present: warm, dry, intact, normal color. Absent: rash Course Vital Signs 09/25/18 17:16 Temperature 98.2 F Pulse Rate 78 Respiratory 18 Rate Blood Pressure 162/100 O2 Sat by Pulse 98 Oximetry Medical Decision Making - Medical Decision Making 62-year-old male presents emergency department today for injury of a raspberry hoffmann branch being impaled in his right lower extremity. Patient was started on Kefzol and given updated TDAP. Patient x-ray does show that the retained foreign body is somewhat deep in the soft tissue. Concern for possible injury to the anterior tibial artery if we remove this, as well as susceptible to infection due to immunocompromise from immunosuppression. He has a 2+ to self pedis pulse. Normal sensation distally. Patient case discussed with Dr. Sesay. Recommended discussing with on-call orthopedic. Discussed case with ANGELA Sarkar. She recommended with the Patient to OR for concern for retained foreign body due to thorns attached at this stick. He was started on Zosyn as well. I did administer possibly 10 mL of lidocaine around the area of the entry point from this branch, and trimmed the branch to 3 inches from wound. Tolerated procedure well. Patiently going straight to the OR from em ergency room. - Lab Data Result diagrams: 09/25/18 17:18 09/25/18 17:18 Lab Results 09/25/18 09/25/18 09/25/18 Range/Units 17:18 17:18 17:18 WBC 8.4 (3.8-10.6) k/uL RBC 4.33 (4.30-5.90) m/uL Hgb 12.2 L (13.0-17.5) gm/dL Hct 37.0 L (39.0-53.0) % MCV 85.5 (80.0-100.0) fL MCH 28.2 (25.0-35.0) pg MCHC 33.0 (31.0-37.0) g/dL RDW 16.3 H (11.5-15.5) % Plt Count 223 (150-450) k/uL Neutrophils % 65 % Lymphocytes % 18 % Monocytes % 6 % Eosinophils % 9 % Basophils % 1 % Neutrophils # 5.5 (1.3-7.7) k/uL Lymphocytes # 1.5 (1.0-4.8) k/uL Monocytes # 0.5 (0-1.0) k/uL Eosinophils # 0.7 (0-0.7) k/uL Basophils # 0.1 (0-0.2) k/uL Anisocytosis Slight PT 10.4 (9.0-12.0) sec INR 1.0 (<1.2) APTT 22.6 (22.0-30.0) sec Sodium 140 (137-145) mmol/L Potassium 4.7 (3.5-5.1) mmol/L Chloride 107 (98-107) mmol/L Carbon Dioxide 25 (22-30) mmol/L Anion Gap 8 mmol/L BUN 29 H (9-20) mg/dL Creatinine 1.84 H (0.66-1.25) mg/dL Est GFR (CKD-EPI)AfAm 44 (>60 ml/min/1.73 sqM) Est GFR (CKD-EPI)NonAf 38 (>60 ml/min/1.73 sqM) Glucose 108 H (74-99) mg/dL Calcium 10.0 (8.4-10.2) mg/dL Total Bilirubin 0.5 (0.2-1.3) mg/dL AST 20 (17-59) U/L ALT 27 (21-72) U/L Alkaline Phosphatase 73 (38-126) U/L Total Protein 8.3 H (6.3-8.2) g/dL Albumin 4.9 (3.5-5.0) g/dL - Radiology Data Radiology results: report reviewed X-ray shows evidence of soft tissue foreign body, no fracture. Disposition Clinical Impression: Foreign body of lower leg, History of renal carcinoma, Peripheral edema Disposition: ADMITTED IP TO THIS [facility] Condition: Stable Is patient prescribed a controlled substance at d/c from ED?: No Referrals: Nonstaff,Physician [Primary Care Provider] - 1-2 days Time of Disposition: 19:28
[2018-09-25 17:54] LABS: Albumin 4.9 g/dL (3.5-5.0); Potassium 4.7 mmol/L (3.5-5.1); Total Bilirubin 0.5 mg/dL (0.2-1.3); Total Protein 8.3 g/dL (6.3-8.2)
[2018-09-25 17:56] LABS: Partial Thromboplastin Time 22.6 sec (22.0-30.0); Prothrombin Time 10.4 sec (9.0-12.0)
--- NOTE | 2018-09-25 18:12 | XR ---
EXAMINATION TYPE: XR tibia fibula RT DATE OF EXAM: 09/25/2018 COMPARISON: NONE HISTORY: Pain TECHNIQUE: 4 views FINDINGS: I see no fracture nor dislocation. Joint spaces are normal. There is linear density at the anterior mid tibia consistent with of foreign body in the soft tissues. Knee joint and ankle joint ap pear intact. IMPRESSION: Soft tissue foreign body. No fracture.
[2018-09-25] MEDS ORDERED: PIPERACILLIN-TAZOBACTAM 3.375 GM in SODIUM CHLORIDE 0.9% 100 ML IVPB STA (19:20)
[2018-09-25] MEDS ORDERED: ONDANSETRON 4 MG/2 ML VIAL IVP PRN (19:28)
[2018-09-25] MEDS ORDERED: IBUPROFEN 400 MG TAB PO PRN (19:28)
[2018-09-25] MEDS ORDERED: HYDROmorphone 1 MG/ML 1 ML SYRINGE IVP PRN ×2 (19:28→20:45)
[2018-09-25] MEDS ORDERED: NALOXONE 0.4 MG/ML 1 ML VIAL IV PRN (19:28)
[2018-09-25] MEDS ORDERED: HYDROmorphone 0.5 MG/0.5 ML SYRINGE IVP PRN ×3 (19:28→20:45)
[2018-09-25] MEDS ORDERED: ACETAMINOPHEN TAB 325 MG TAB PO PRN (19:28)
[2018-09-25] MEDS ORDERED: LORazepam 2 MG/ML INJ IV PRN (19:28)
[2018-09-25] MEDS ORDERED: fentaNYL (PF) 50 MCG/ML 2 ML AMP IV PRN (19:48)
[2018-09-25] MEDS ORDERED: ACETAMINOPHEN TAB 500 MG TAB PO PRN (19:50)
--- NOTE | 2018-09-25 19:59 | P.HPOR ---
History of Present Illness H&P Date: 09/25/18 Chief Complaint: Right leg foreign body, puncture This is a 62-year-old male admitted through the emergency department with history of fall in his yard, sustaining injury to his right anterior leg. He states that the branch of a raspberry [place] went into his lower leg. He presents to the ER with the branches sticking out the anterior aspect of the lower leg. He has past medical history of current treatment for renal cell carcinoma which is metastatic. He is currently receiving immunotherapy with Opdivo. He recently had his seventh treatment. He states that he is otherwise fairly healthy. Past Medical History Past Medical History: Asthma, Cancer, Hypertension Additional Past Medical History / Comment(s): erectile dysfunction History of Any Multi-Drug Resistant Organisms: None Reported Past Surgical History: Adenoidectomy, Tonsillectomy Additional Past Surgical History / Comment(s): Rhinoplasty, Uvula removed, renal CA Past Psychological History: No Psychological Hx Reported Smoking Status: Never smoker Past Alcohol Use History: Occasional Past Drug Use History: None Reported Medications and Allergies Home Medications Medication Instructions Recorded Confirmed Type Montelukast [Singulair] 10 mg PO HS 03/29/18 09/25/18 History Acetaminophen [Tylenol Extra 500 mg PO Q6H PRN 04/12/18 09/25/18 History Strength] Cetirizine HCl [Zyrtec] 10 mg PO DAILY 04/12/18 09/25/18 History Eye Vitamin (Unknown) 1 tab PO DAILY 04/12/18 09/25/18 History Fluticasone Nasal [place] [Flonase 2 spr EA NOSTRIL DAILY 04/12/18 09/25/18 History Nasal [place]] Fluticasone/Salmeterol [Advair 1 puff INHALATION RT-BID 09/25/18 09/25/18 History 250-50 Diskus] Metoprolol Tartrate [Lopressor] 12.5 mg PO BID 09/25/18 09/25/18 History Opdivo (Mg Unknown) dose IV Q14D 09/25/18 History amLODIPine [Norvasc] 10 mg PO DAILY 09/25/18 09/25/18 History Allergies Allergy/AdvReac Type Severity Reaction Status Date / Time No Known Allergies Allergy Verified 09/25/18 17:50 Physical Examination This is a pleasant 62-year-old male in no acute distress. He is alert and oriented 3. Exam of the lower extremities reveals a dressing in place. Photos of the leg prior to dressing reveals a long branch measuring about 1 inch in diameter impaling the proximal aspect of the lower leg anteriorly. He currently has full foot and ankle motion. Pedal pulses +1/4. Neurovascular status to the lower extremity is intact. No other orthopedic injuries noted. Results X-rays of the right lower extremity reveal a radiopaque oblong foreign body in the proximal aspect of the lower leg. No bony injury noted. - Labs Labs: Abnormal Lab Results - Last 24 Hours (Table) 09/25/18 09/25/18 Range/Units 17:18 17:18 Hgb 12.2 L (13.0-17.5) gm/dL Hct 37.0 L (39.0-53.0) % RDW 16.3 H (11.5-15.5) % BUN 29 H (9-20) mg/dL Creatinine 1.84 H (0.66-1.25) mg/dL Glucose 108 H (74-99) mg/dL Total Protein 8.3 H (6.3-8.2) g/dL H & H 09/25/18 Range/Units 17:18 Hgb 12.2 L (13.0-17.5) gm/dL Hct 37.0 L (39.0-53.0) % Coagulation 09/25/18 Range/Units 17:18 INR 1.0 (<1.2) Result Diagrams: 09/25/18 17:18 09/25/18 17:18 Assessment and Plan (1) Foreign body of lower leg Current Visit: Yes Status: Acute Code(s): S80.859A - SUPERFICIAL FOREIGN BODY, UNSPECIFIED LOWER LEG, INIT ENCNTR SNOMED Code(s): 678262853 (2) History of renal carcinoma Current Visit: Yes Status: Acute Code(s): Z85.528 - PERSONAL HISTORY OF OTHER MALIGNANT NEOPLASM OF KIDNEY SNOMED Code(s): 371034443 (3) Peripheral edema Current Visit: Yes Status: Acute Code(s): R60.9 - EDEMA, UNSPECIFIED SNOMED Code(s): 965596926 Plan: The clinical and x-ray findings are discussed with the patient and his . It is recommended he go to OR this evening for removal foreign body and irrigation and debridement of the wound. We discussed the possibility of a second procedure. We may pack the wound open depending on her findings today. We'll consult Dr. Licea for infectious disease evaluation and internal medicine for medical management.
[2018-09-25] MEDS ORDERED: PROPOFOL 10 MG/ML 20 ML VIAL IV ONE (20:13)
[2018-09-25] MEDS ORDERED: LIDOCAINE 1% INJ 10MG/ML (20 ML MDV) ONE (20:13)
[2018-09-25] MEDS ORDERED: fentaNYL (PF) 50 MCG/ML 2 ML AMP ONE (20:13)
[2018-09-25] MEDS ORDERED: KETAMINE 10 MG/ML 20 ML VIAL ONE (20:13)
[2018-09-25] MEDS ORDERED: IV FLUID CONTINUATION 900 ML IV ONE (20:13)
[2018-09-25] MEDS ORDERED: BUPIVACAINE (PF) 0.5% 30 ML VIAL SQ ONE (20:34)
--- NOTE | 2018-09-25 20:39 | P.OP ---
Date of Procedure: 09/25/18 Preoperative Diagnosis: Foreign body right lower leg Postoperative Diagnosis: Foreign body right lower leg Procedure(s) Performed: Removal foreign body right lower leg and irrigation and debridement of the right lower leg Anesthesia: CARLEEN Surgeon: Helio Quintana Private Duty Aide #1: Pam Stephens Estimated Blood Loss (ml): 25 Pathology: none sent Condition: stable Disposition: PACU Indications for Procedure: This is a 62-year-old gentleman that was working in his yard earlier today. He apparently slipped and fell and landed onto a raspberry branch which was impaled into his right lower leg. The branch has thorns which prohibited the emergency room from removing the branch. The patient was then seen and evaluated, and after discussing the surgical and nonsurgical treatment options with him at length, I recommended that we remove the branch in the operating room with a thorough irrigation debridement to remove any remaining thorns which may be left behind. We also discussed the possibility of infection from this injury and informed consent was obtained. Operative Findings: The operative findings are consistent with a foreign body in the right lower leg. Description of Procedure: Patient was seen and evaluated in the preoperative area, consent was reviewed, and the operative site was marked with a skin marker. The patient was then brought to the operating room and given preoperative intravenous antibiotics. A general anesthetic was administered by the anesthesia department. His right lower leg was then prepped and draped in usual sterile fashion. A universal timeout was then performed which confirmed the patient's name, surgical site, ALLERGIES, and consent. The entry point of the branch was then inspected. The branch was then removed without incident and the wound was carefully inspected. Any remaining debris was removed. Was then irrigated with antibiotic solution. The wound was left open with moist dressing. Sterile dressing was then applied, the patient was transferred recovery room in stable condition. The medical assistant cardiology ANGELA Sarkar was required due the complexity of the surgery, the need for skilled catering assistant.
[2018-09-25] MEDS ORDERED: HYDROcodone/APAP 5-325MG 1 EACH TAB PO PRN ×2 (20:45)
[2018-09-25] MEDS: SYMBICORT 80-4.5 MCG INHALER INHALATION SCH (21:24)
[2018-09-25] MEDS: MONTELUKAST 10 MG TAB PO SCH (22:19)
[2018-09-25] MEDS: METOPROLOL TARTRATE 12.5 MG TAB PO SCH (22:19)
[2018-09-25] MEDS: SODIUM CHLORIDE 0.9% 1,000 ML IV SCH (22:20)
[2018-09-26] MEDS ORDERED: ceFAZolin 2 GM in SODIUM CHLORIDE 0.9% 100 ML IVPB SCH ×2
[2018-09-26] MEDS ORDERED: ceFAZolin IN SWFI 2 GM/20 ML SYRINGE IVP SCH (02:00)
[2018-09-26] MEDS ORDERED: PIPERACILLIN-TAZOBACTAM 3.375 GM in SODIUM CHLORIDE 0.9% 100 ML IVPB SCH (04:00)
--- NOTE | 2018-09-26 05:19 | P.CONS ---
History of Present Illness - Reason for Consult Consult date: 09/26/18 medical management of hypertension Requesting physician: Helio Quintana - Chief Complaint Medical management of hypertension - History of Present Illness The patient is a 62-year-old male with a past medical history of stage IV renal cell carcinoma with metastasis to liver IVC and thoracic vertebrae status post renal embolization currently on immunotherapy with Optivo, who presents to the ER with injury to his right anterior leg. Apparently the patient was doing yard work earlier today attempted to climb over a chicken wire fence and fell and a raspberry bushes and impaled his right anterior leg, patient was in significant pain 10 out of 10. Orthopedics was consulted patient was seen by Dr. Quintana and the patient had a removal of the foreign body of the right lower leg and irrigation and debridement of the right lower leg secondary to the foreign body, patient reports receiving a tetanus shot. He also has a history of hypertension he denies any chest pain or shortness of breath, he otherwise has no other complaints. X-rays of his right tibia-fibula shows soft tissue foreign body with no fracture Review of Systems Pertinent positives per HPI all other systems otherwise negative Past Medical History Past Medical History: Asthma, Cancer, Hypertension Additional Past Medical History / Comment(s): erectile dysfunction History of Any Multi-Drug Resistant Organisms: None Reported Past Surgical History: Adenoidectomy, Tonsillectomy Additional Past Surgical History / Comment(s): Rhinoplasty, Uvula removed, renal CA Past Anesthesia/Blood Transfusion Reactions: No Reported Reaction Past Psychological History: No Psychological Hx Reported Smoking Status: Never smoker Past Alcohol Use History: Occasional Past Drug Use History: None Reported - Past Family History Mother Family Medical History: Hypertension Brother(s) Family Medical History: Rheumatoid Arthritis (RA) Father Family Medical History: No Reported History Medications and Allergies Home Medications Medication Instructions Recorded Confirmed Type Montelukast [Singulair] 10 mg PO HS 03/29/18 09/25/18 History Acetaminophen [Tylenol Extra 500 mg PO Q6H PRN 04/12/18 09/25/18 History Strength] Cetirizine HCl [Zyrtec] 10 mg PO DAILY 04/12/18 09/25/18 History Eye Vitamin (Unknown) 1 tab PO DAILY 04/12/18 09/25/18 History Fluticasone Nasal [place] [Flonase 2 spr EA NOSTRIL DAILY 04/12/18 09/25/18 Histo ry Nasal [place]] Fluticasone/Salmeterol [Advair 1 puff INHALATION RT-BID 09/25/18 09/25/18 His tory 250-50 Diskus] Metoprolol Tartrate [Lopressor] 12.5 mg PO BID 09/25/18 09/25/18 History Opdivo (Mg Unknown) dose IV Q14D 09/25/18 History amLODIPine [Norvasc] 10 mg PO DAILY 09/25/18 09/25/18 History Allergies Allergy/AdvReac Type Severity Reaction Status Date / Time No Known Allergies Allergy Verified 09/25/18 17:50 Physical Exam Vitals: Vital Signs Temp Pulse Pulse Resp BP BP Pulse Ox 09/26/18 01:49 98.0 F 75 18 164/78 94 L 09/25/18 23:30 61 151/80 94 L 09/25/18 23:15 62 18 161/85 95 09/25/18 23:00 62 162/88 97 09/25/18 22:45 61 169/87 97 09/25/18 22:30 60 162/85 94 L 09/25/18 22:15 68 176/66 91 L 09/25/18 22:00 61 166/86 96 09/25/18 21:45 65 175/90 96 09/25/18 21:30 70 173/90 97 09/25/18 21:15 97.8 F 70 18 173/90 95 09/25/18 21:01 69 20 170/87 98 09/25/18 20:45 99.6 F 71 14 181/87 97 09/25/18 19:53 68 18 154/95 98 09/25/18 17:16 98.2 F 78 18 162/100 98 Intake and Output 09/25/18 09/25/18 09/26/18 14:59 22:59 06:59 Intake Total 20 580 Output Total 1000 Balance -980 580 Intake: IV 20 Intake, IV Titration 40 Amount Sodium Chloride 0.9% 1, 40 000 ml @ 20 mls/hr IV . Q24H [facility] Rx#:[id number] Oral 540 Output: Urine 1000 Other: Voiding Method Toilet Urinal Weight 117.934 kg Constitutional: No acute distress, conversant, pleasant Eyes: Anicteric sclerae, moist conjunctiva, no lid-lag, PERRLA ENMT: NC/AT,Oropharynx clear, no erythema, exudates Neck:Supple, FROM, no masses, or JVD, No carotid bruits; No thyromegaly Lungs: Clear to auscultation, Clear to percussion, Normal respiratory effort, no accessory muscle use Cardiovascular: Heart regular in rate and rhythm, No murmurs, gallops, or rubs no peripheral edema Abdominal: Soft Nontender, nom distended, no guarding, no rebound or rigidity, Normoactive bowel sounds No hepatomegaly, No splenomegaly, No palpable mass No abdominal wall hernia noted Skin: Normal temperature, tone, texture, turgor, No induration No subcutaneous nodules, No rash, lesions, No ulcers Extremities: Right anterior leg wrapped in Jimmy wraps at the level of the calf, normal sensation and neurovascular intact Psychiatric: Alert and oriented to person, place and time, Appropriate affect Intact judgement Neuro: Muscles Strength 5/5 in all 4 extremities, Sensation to light touch grossly present throughout, Cranial nerves II-XII grossly intact. No focal sensory deficits Results CBC & Chem 7: 09/25/18 17:18 09/25/18 17:18 Labs: Abnormal Lab Results - Last 24 Hours (Table) 09/25/18 09/25/18 Range/Units 17:18 17:18 Hgb 12.2 L (13.0-17.5) gm/dL Hct 37.0 L (39.0-53.0) % RDW 16.3 H (11.5-15.5) % BUN 29 H (9-20) mg/dL Creatinine 1.84 H (0.66-1.25) mg/dL Glucose 108 H (74-99) mg/dL Total Protein 8.3 H (6.3-8.2) g/dL Assessment and Plan (1) Essential hypertension Current Visit: Yes Status: Acute Code(s): I10 - ESSENTIAL (PRIMARY) HYPERTENSION SNOMED Code(s): 80627764 (2) Foreign body of lower leg Current Visit: Yes Status: Acute Code(s): S80.859A - SUPERFICIAL FOREIGN BODY, UNSPECIFIED LOWER LEG, INIT ENCNTR SNOMED Code(s): 149854213 (3) History of renal carcinoma Current Visit: Yes Status: Acute Code(s): Z85.528 - PERSONAL HISTORY OF OTHER MALIGNANT NEOPLASM OF KIDNEY SNOMED Code(s): 060243005 (4) Chronic kidney disease, stage 3 Current Visit: Yes Status: Acute Code(s): N18.3 - CHRONIC KIDNEY DISEASE, STAGE 3 (MODERATE) SNOMED Code(s): 976923338 Plan: The patient is admitted to the primary orthopedic service after having impaled his leg with a foreign body after fall while doing yard work at home, the patient is status post debridement and irrigation and removal of the foreign body. We'll defer all analgesic therapy to primary team. The patient is doing well he denies any chest pain but his blood pressure is elevated. Patient reports he does have a follow-up appointment with his primary care physician in couple weeks and would like to discuss this hypertensive regimen with his PCP. Patient stable for discharge when ready by the primary team. We appreciate this opportunity to be involved in this patient's care for any further questions please not hesitate to contact the [facility] inpatient team
[2018-09-26] MEDS: SYMBICORT 80-4.5 MCG INHALER INHALATION SCH ×2 (07:37→20:32)
[2018-09-26 09:05] LABS: Anisocytosis Slight; Basophils % (A) 0 %; Eosinophils # (A) 0.1 k/uL (0-0.7); Eosinophils % (A) 1 %; HCT 36.9 % (39.0-53.0); HGB 11.7 gm/dL (13.0-17.5); Lymphocytes # (A) 1.1 k/uL (1.0-4.8); Lymphocytes % (A) 12 %; MCH 27.5 pg (25.0-35.0); MCHC 31.8 g/dL (31.0-37.0); MCV 86.5 fL (80.0-100.0); Mean Platelet Volume 7.1; Monocytes # (A) 0.7 k/uL (0-1.0); Monocytes % (A) 8 %; Neutrophils # (A) 7.1 k/uL (1.3-7.7); Neutrophils % (A) 78 %; Platelet Count 231 k/uL (150-450); RBC 4.27 m/uL (4.30-5.90); RDW 16.6 % (11.5-15.5); WBC 9.2 k/uL (3.8-10.6)
[2018-09-26] MEDS: LORATADINE 10 MG TAB PO SCH (09:22)
[2018-09-26] MEDS: VIT A,C & E-LUTEIN-MINERALS 1 EACH TAB PO SCH (09:22)
[2018-09-26] MEDS: FLUTICASONE 50MCG/SPRAY NASAL 16GM EA NOSTRIL SCH (09:22)
[2018-09-26] MEDS: METOPROLOL TARTRATE 12.5 MG TAB PO SCH ×2 (09:22→21:51)
[2018-09-26] MEDS: amLODIPine 10 MG TAB PO SCH (09:22)
--- NOTE | 2018-09-26 09:26 | P.PN ---
Subjective Progress Note Date: 09/26/18 The patient was seen and examined at the bedside on 09/26/18. He reports continued RLE pain which has improved. He also endorsed chronic LLE edema since his forestry technical officer discontinued his diuretic due to worsening CKD. He is otherwise denying any active complaints. Denying fever, chills, chest pain, or SOB. Objective - Vital Signs Vital signs: Vital Signs Temp 98.8 F 09/26/18 08:08 Pulse 70 09/26/18 08:08 Resp 15 09/26/18 08:08 BP 165/84 09/26/18 08:08 Pulse Ox 99 09/26/18 08:08 Intake & Output 09/25/18 09/26/18 09/26/18 18:59 06:59 18:59 Intake Total 600 480 Output Total 1000 Balance -400 480 Weight 117.934 kg Intake: IV 20 Intake, IV Titration 40 Amount Sodium Chloride 0.9% 1, 40 000 ml @ 20 mls/hr IV . Q24H [facility] Rx#:[id number] Oral 540 480 Output: Urine 1000 Other: Voiding Method Toilet Urinal # Voids 3 - Exam General: Non-toxic, in no acute distress, appears stated age, obese HEENT: NC/AT, anicteric sclerae, moist conjunctiva, no lid-lag, PERRLA Cardiovascular: S1/S2 wnl, no murmurs, rubs, or gallops Lungs: Clear to auscultation, normal respiratory effort, no accessory muscle use Abdominal: Soft, non-tender, non-distended, no guarding, rebound, or rigidity Skin: Warm, dry Extremities: RLE RANDY bandage from ankle to mid-thigh in place, clean, and dry; LLE 2+ pitting edema, non-tender, some chronic venous stasis changes Psychiatric: Alert and oriented to person, place and time, appropriate affect Neuro: CN II-XII grossly intact, Speech intact, Sensation to light touch grossly intact throughout - Labs CBC & Chem 7: 09/25/18 17:18 09/25/18 17:18 Labs: Abnormal Lab Results - Last 24 Hours (Table) 09/25/18 09/25/18 Range/Units 17:18 17:18 Hgb 12.2 L (13.0-17.5) gm/dL Hct 37.0 L (39.0-53.0) % RDW 16.3 H (11.5-15.5) % BUN 29 H (9-20) mg/dL Creatinine 1.84 H (0.66-1.25) mg/dL Glucose 108 H (74-99) mg/dL Total Protein 8.3 H (6.3-8.2) g/dL Assessment and Plan Plan: LLE trauma s/p debridement and foreign body removal -Management and pain control as per the primary team HTN -Patient wishes to f/u with his PCP and Cane Pusher regarding his HTN CKD stage 3b -Stable, monitor Metastatic renal cell carcinoma, on immunotherapy -Follows w/ Oncology We appreciate the opportunity to be involved in this patient's care. We will follow the patient along with you. Please feel free to contact the [facility] inpatient team for any further questions.
--- NOTE | 2018-09-26 09:28 | P.PN ---
Subjective Progress Note Date: 09/26/18 Principal diagnosis: This is a 62-year-old male who is status post removal of foreign body and irrigation and debridement of the right lower leg. This is postoperative day #1. Patient states that he has been up and walking to the bathroom and back. Patient states that his pain is controlled, but he does have some pain with weightbearing. Patient denies any new complaints today. Objective - Vital Signs Vital signs: Vital Signs Temp 98.8 F 09/26/18 08:08 Pulse 70 09/26/18 08:08 Resp 15 09/26/18 08:08 BP 165/84 09/26/18 08:08 Pulse Ox 99 09/26/18 08:08 Intake & Output 09/25/18 09/26/18 09/26/18 18:59 06:59 18:59 Intake Total 600 480 Output Total 1000 Balance -400 480 Weight 117.934 kg Intake: IV 20 Intake, IV Titration 40 Amount Sodium Chloride 0.9% 1, 40 000 ml @ 20 mls/hr IV . Q24H [facility] Rx#:[id number] Oral 540 480 Output: Urine 1000 Other: Voiding Method Toilet Urinal # Voids 3 - Exam On exam patient is resting comfortably in bed no acute distress. Dressing is removed and there is mild bloody drainage present on bandage. Minimal erythema. No active drainage. Patient has full range of motion of the right ankle and foot. Sensation intact. There is mild swelling of the left lower extremity. Calf is soft and nontender to palpation. Neurovascular status and circulatory status are intact. - Labs CBC & Chem 7: 09/26/18 08:08 09/25/18 17:18 Labs: Abnormal Lab Results - Last 24 Hours (Table) 09/25/18 09/25/18 09/26/18 Range/Units 17:18 17:18 08:08 RBC 4.27 L (4.30-5.90) m/uL Hgb 12.2 L 11.7 L (13.0-17.5) gm/dL Hct 37.0 L 36.9 L (39.0-53.0) % RDW 16.3 H 16.6 H (11.5-15.5) % BUN 29 H (9-20) mg/dL Creatinine 1.84 H (0.66-1.25) mg/dL Glucose 108 H (74-99) mg/dL Total Protein 8.3 H (6.3-8.2) g/dL Assessment and Plan Assessment: Status post removal of foreign body and I&D of the right lower leg. Puncture wound (1) Foreign body of lower leg Current Visit: Yes Status: Acute Code(s): S80.859A - SUPERFICIAL FOREIGN BODY, UNSPECIFIED LOWER LEG, INIT ENCNTR SNOMED Code(s): 641060840 Plan: #1.Daily dressing changes. #2.IV antibiotics per Dr. Licea. #3. Continue routine postoperative care and pain control. #4. Rest and elevate the right lower extremity. #5. Weightbearing as tolerated. #6. Anticipate discharge home in the next 1-2 days.
[2018-09-26] MEDS: MONTELUKAST 10 MG TAB PO SCH (21:51)
[2018-09-26] MEDS: SODIUM CHLORIDE 0.9% 1,000 ML IV SCH (21:51)
[2018-09-26] MEDS: AMPICILLIN-SULBACTAM 3 GM in SODIUM CHLORIDE 0.9% 100 ML IVPB SCH (21:51)
--- NOTE | 2018-09-26 23:35 | P.CON ---
Consult Note - . Consult date: 09/26/18 Assessment/Plan:: This is a 62-year-old male who gives history of working in his yard and fell onto a raspberry branch that if held into his leg proximal 0.3 inches. EMS was called and patient came into [facility] emergency ce nter for evaluation. He was afebrile with white count of 8.4, creatinine 1.84 with baseline of 1.6. Patient was started on Zosyn and his tetanus status was updated. Blood culture status received. Patient was taken to surgery by Dr. Quintana with removal of the foreign body right lower extremity and irrigation and debridement was done. Patient has significant history for stage IV renal carcinoma status post arterial embolization and currently on immunotherapy with Opdivo. His last infusion was on and he receives this every 2 weeks. Patient states that he has chronic lower extremity edema which she believes is medication related. Please see the consult note is dictated by nurse practitioner Mrs. Martha Ramirez. Pleasant 62-year-old male who has a history of renal cell carcinoma and immunotherapy and has been doing quite well. Was doing yardwork as noted and lost his balance stepping over a chicken wire fence. As he fell and landed on a pile of branches and became impaled on his right leg with a branch. This is been surgically removed and is feeling somewhat better. He was immunocompromised status the consult was requested. At this time the patient is being treated with antibiotic therapy with Unasyn for the pathogen is related to with type injuries. Was suggested at the time of dressing change today silver alginate rope deep applied into the site. And then with home care this can be changed in the outpatient setting. As long as he does well overnight should be ready for transition to oral antibiotic therapy with Augmentin. Surgical note relates that there was no bony involvement. I agree with evaluation, assessment and plan is to see by nurse practitioner Mrs. Martha Ramirez.
[2018-09-27 01:13] VITALS: RESP 16; TEMP 98.1
[2018-09-27] MEDS: AMPICILLIN-SULBACTAM 3 GM in SODIUM CHLORIDE 0.9% 100 ML IVPB SCH ×2 (04:12→08:41)
[2018-09-27] MEDS: SYMBICORT 80-4.5 MCG INHALER INHALATION SCH (07:39)
[2018-09-27 08:28] VITALS: PULSE 61
[2018-09-27] MEDS: METOPROLOL TARTRATE 12.5 MG TAB PO SCH (08:42)
[2018-09-27] MEDS: VIT A,C & E-LUTEIN-MINERALS 1 EACH TAB PO SCH (08:42)
[2018-09-27] MEDS: amLODIPine 10 MG TAB PO SCH (08:42)
[2018-09-27] MEDS: LORATADINE 10 MG TAB PO SCH (08:42)
[2018-09-27] MEDS: FLUTICASONE 50MCG/SPRAY NASAL 16GM EA NOSTRIL SCH (08:42)
--- NOTE | 2018-09-27 11:28 | P.PN ---
Subjective Progress Note Date: 09/27/18 The patient was seen and examined at the bedside on 09/27/18. The patient notes that his right lower extremity pain has improved significantly, brought on only with ambulation. He is otherwise in good spirits and denying any additional complaints including fever, chills, chest pain, SOB, nausea, or vomiting. Objective - Vital Signs Vital signs: Vital Signs Temp 98.1 F 09/27/18 08:28 Pulse 61 09/27/18 08:28 Resp 16 09/27/18 08:28 BP 152/76 09/27/18 08:28 Pulse Ox 96 09/27/18 08:28 Intake & Output 09/26/18 09/27/18 09/27/18 18:59 06:59 18:59 Intake Total 1280 1580 240 Balance 1280 1580 240 Intake: Intake, IV Titration 440 Amount Ampicillin-Sulbactam 3 gm 200 In Sodium Chloride 0.9% 100 ml @ 200 mls/hr IVPB Q6H [facility] Rx#:[id number] Sodium Chloride 0.9% 1, 240 000 ml @ 20 mls/hr IV . Q24H [facility] Rx#:[id number] Oral 1280 1140 240 Other: Voiding Method Toilet Urinal # Voids 2 2 - Exam General: Non-toxic, in no acute distress, appears stated age, obese HEENT: NC/AT, anicteric sclerae, moist conjunctiva, no lid-lag, PERRLA Cardiovascular: S1/S2 wnl, no murmurs, rubs, or gallops Lungs: Clear to auscultation, normal respiratory effort, no accessory muscle use Abdominal: Soft, non-tender, non-distended, no guarding, rebound, or rigidity Skin: Warm, dry Extremities: RLE RANDY bandage from ankle to mid-thigh in place, clean, and dry; LLE 2+ pitting edema, non-tender, some chronic venous stasis changes Psychiatric: Alert and oriented to person, place and time, appropriate affect Neuro: CN II-XII grossly intact, Speech intact, Sensation to light touch grossly intact throughout - Labs CBC & Chem 7: 09/26/18 08:08 09/25/18 17:18 Labs: Microbiology - Last 24 Hours (Table) 09/25/18 17:18 Blood Culture - Preliminary Blood No Growth after 24 hours Assessment and Plan Plan: RLE trauma s/p debridement and foreign body removal -Management and pain control as per the primary team -Infectious disease consulted, recommendations appreciated, currently on Unasyn, for likely switch to Augmentin today HTN -Patient wishes to f/u with his PCP and Silviculture Forester regarding his HTN CKD stage 3b -Stable, monitor Metastatic renal cell carcinoma, on immunotherapy -Follows w/ Oncology We appreciate the opportunity to be involved in this patient's care. We will follow the patient along with you. Please feel free to contact the [facility] inpatient team for any further questions.
--- NOTE | 2018-09-27 12:04 | P.DS ---
Providers Date of admission: 09/25/18 19:09 Expected date of discharge: 09/27/18 Attending physician: Helio Quintana Consults: 09/25/18 19:28 Consult Physician Stat Consulting Provider: Paulie Licea Consult Reason/Comments: Foreign body leg Do you want consulting provider notified?: Yes 09/25/18 20:45 Consult Physician Routine Consulting Provider: La Millan Consult Reason/Comments: Medical management Do you want consulting provider notified?: Yes Primary care physician: Physician Nonstaff - Discharge Diagnosis(es) (1) Foreign body of lower leg Current Visit: Yes Status: Acute Hospital Course: This is a 62-year-old male who sustained an injury to the right lower leg. Patient had a fall at home and his right lower leg was punctured by a raspberry hoffmann. The patient presented for evaluation in the emergency room. After discussion and consideration patient elects to proceed with foreign body removal and irrigation and debridement of the right lower leg. The patient is seen preoperatively by Dr. Quintana. Patient is admitted to [facility] on 09/25/2018 for foreign body removal and irrigation and debridement of the right lower leg. The procedures performed without complication or sequelae. The patient is doing well postoperatively. Labs and vital signs are stable on day of discharge. On day of discharge patient's wound is healing well. There is minimal erythema. There is no drainage noted at this time. There is minimal soft tissue swelling to the knee. Patient has full foot and ankle motion without difficulty or pain. Calf is soft and nontender to palpation. Neurovascular status to the right lower extremity is intact. Patient is discharged home in good condition. Opioid start talking form is reviewed and signed at patient bedside. Please see med rec for accurate list of home medications. Patient Condition at Discharge: Stable Plan - Discharge Summary Discharge Rx Participant: No New Discharge Prescriptions: New HYDROcodone/APAP 5-325MG [Lisman 5-325] 1 - 2 tab PO Q6HR PRN #30 tab PRN Reason: Pain Sennosides [Senokot] 1 tab PO BID #60 tablet No Action Montelukast [Singulair] 10 mg PO HS Cetirizine HCl [Zyrtec] 10 mg PO DAILY Acetaminophen [Tylenol Extra Strength] 500 mg PO Q6H PRN PRN Reason: Pain Eye Vitamin (Unknown) 1 tab PO DAILY Fluticasone Nasal [place] [Flonase Nasal [place]] 2 spr EA NOSTRIL DAILY Metoprolol Tartrate [Lopressor] 12.5 mg PO BID Fluticasone/Salmeterol [Advair 250-50 Diskus] 1 puff INHALATION RT-BID amLODIPine [Norvasc] 10 mg PO DAILY Discharge Medication List Montelukast [Singulair] 10 mg PO HS 03/29/18 [History] Acetaminophen [Tylenol Extra Strength] 500 mg PO Q6H PRN 04/12/18 [History] Cetirizine HCl [Zyrtec] 10 mg PO DAILY 04/12/18 [History] Eye Vitamin (Unknown) 1 tab PO DAILY 04/12/18 [History] Fluticasone Nasal [place] [Flonase Nasal [place]] 2 spr EA NOSTRIL DAILY 04/12/18 [History] Fluticasone/Salmeterol [Advair 250-50 Diskus] 1 puff INHALATION RT-BID 09/25/18 [History] Metoprolol Tartrate [Lopressor] 12.5 mg PO BID 09/25/18 [History] amLODIPine [Norvasc] 10 mg PO DAILY 09/25/18 [History] HYDROcodone/APAP 5-325MG [Lisman 5-325] 1 - 2 tab PO Q6HR PRN #30 tab 09/27/18 [Rx] Sennosides [Senokot] 1 tab PO BID #60 tablet 09/27/18 [Rx] Follow up Appointment(s)/Referral(s): [facility], [NON-STAFF] - Nonstaff,Physician [Primary Care Provider] - 1-2 days Helio Quintana DO [Doctor of Osteopathic Medicine] - 10/07/18 9:45 am Activity/Diet/Wound Care/Special Instructions: Per Dr. Licea's order: cleanse leg wound with normal saline then apply Aquacel Silver, cover with 4x4, and wrap with Kerlix every two days. Antibiotics per Dr. Licea. Please follow up with [facility] and call with any questions or concerns, . Discharge Disposition: HOME SELF-CARE
[2018-09-27 15:05] VITALS: BP 162/85
--- NOTE | 2018-09-27 21:54 | P.PN ---
Subjective Progress Note Date: 09/27/18 This is a 62-year-old male who gives history of working in his yard and fell onto a raspberry branch that if held into his leg proximal 0.3 inches. EMS was called and patient came into [facility] emergency center for evaluation. He was afebrile with white count of 8.4, creatinine 1.84 with baseline of 1.6. Patient was started on Zosyn and his tetanus status was updated. Blood culture status received. Patient was taken to surgery by Dr. Quintana with removal of the foreign body right lower extremity and irrigation and debridement was done. Patient has significant history for stage IV renal carcinoma status post arterial embolization and currently on immunotherapy with Opdivo. His last infusion was on and he receives this every 2 weeks. Patient states that he has chronic lower extremity edema which she believes is medication related. 09/27/2018 the patient is feeling somewhat better today. For discharge home. Dressing change will occur today. Objective - Vital Signs Vital signs: Vital Signs Temp 98.1 F 09/27/18 14:53 Pulse 61 09/27/18 14:53 Resp 16 09/27/18 14:53 BP 162/85 09/27/18 14:53 Pulse Ox 97 09/27/18 14:53 Intake & Output 09/27/18 09/27/18 09/28/18 06:59 18:59 06:59 Intake Total 1580 600 Balance 1580 600 Intake: Intake, IV Titration 440 Amount Ampicillin-Sulbactam 3 gm 200 In Sodium Chloride 0.9% 100 ml @ 200 mls/hr IVPB Q6H ROSALIO Rx#:[id number] Sodium Chloride 0.9% 1, 240 000 ml @ 20 mls/hr IV . Q24H ROSALIO Rx#:[id number] Oral 1140 600 Other: Voiding Method Toilet Urinal # Voids 2 - Exam Gen: This is a 62-year-old male. He is resting bed appears to be comfortable and in no acute distress. HEENT: Head is atraumatic, normocephalic. Pupils equal, round. Sclerae is anicteric. Conjunctiva pink. Mucous members of the mouth are moist. NECK: Supple. No JVD. No lymphadenopathy. No thyromegaly. LUNGS: Clear to auscultation. No wheezes or rhonchi. No intercostal retractions. HEART: Regular rate and rhythm. No murmur. ABDOMEN: Soft. Bowel sounds are present. No masses. No tenderness. EXTREMITIES: 1+ bilateral pedal edema. Right lower dressing is removed. Injury site is cleansed with saline and the packing is removed. Silver alginate rope is packed into the site. Tolerates it well Dorsalis pedis +2 bilaterally. Capillary refill immediate. NEUROLOGICAL: Patient is awake, alert and oriented x3. - Labs CBC & Chem 7: 09/26/18 08:08 09/25/18 17:18 Labs: Microbiology - Last 24 Hours (Table) 09/25/18 17:18 Blood Culture - Preliminary Blood No Growth after 48 hours Laboratory Results WBC 9.2 k/uL (3.8-10.6) 09/26/18 08:08 RBC 4.27 m/uL (4.30-5.90) L 09/26/18 08:08 Hgb 11.7 gm/dL (13.0-17.5) L 09/26/18 08:08 Hct 36.9 % (39.0-53.0) L 09/26/18 08:08 MCV 86.5 fL (80.0-100.0) 09/26/18 08:08 MCH 27.5 pg (25.0-35.0) 09/26/18 08:08 MCHC 31.8 g/dL (31.0-37.0) 09/26/18 08:08 RDW 16.6 % (11.5-15.5) H 09/26/18 08:08 Plt Count 231 k/uL (150-450) 09/26/18 08:08 Neutrophils % 78 % 09/26/18 08:08 Lymphocytes % 12 % 09/26/18 08:08 Monocytes % 8 % 09/26/18 08:08 Eosinophils % 1 % 09/26/18 08:08 Basophils % 0 % 09/26/18 08:08 Neutrophils # 7.1 k/uL (1.3-7.7) 09/26/18 08:08 Lymphocytes # 1.1 k/uL (1.0-4.8) 09/26/18 08:08 Monocytes # 0.7 k/uL (0-1.0) 09/26/18 08:08 Eosinophils # 0.1 k/uL (0-0.7) 09/26/18 08:08 Basophils # 0.0 k/uL (0-0.2) 09/26/18 08:08 Anisocytosis Slight 09/26/18 08:08 PT 10.4 sec (9.0-12.0) 09/25/18 17:18 INR 1.0 (<1.2) 09/25/18 17:18 APTT 22.6 sec (22.0-30.0) 09/25/18 17:18 Sodium 140 mmol/L (137-145) 09/25/18 17:18 Potassium 4.7 mmol/L (3.5-5.1) 09/25/18 17:18 Chloride 107 mmol/L (98-107) 09/25/18 17:18 Carbon Dioxide 25 mmol/L (22-30) 09/25/18 17:18 Anion Gap 8 mmol/L 09/25/18 17:18 BUN 29 mg/dL (9-20) H 09/25/18 17:18 Creatinine 1.84 mg/dL (0.66-1.25) H 09/25/18 17:18 Est GFR (CKD-EPI)AfAm 44 (>60 ml/min/1.73 sqM) 09/25/18 17:18 Est GFR (CKD-EPI)NonAf 38 (>60 ml/min/1.73 sqM) 09/25/18 17:18 Glucose 108 mg/dL (74-99) H 09/25/18 17:18 Calcium 10.0 mg/dL (8.4-10.2) 09/25/18 17:18 Total Bilirubin 0.5 mg/dL (0.2-1.3) 09/25/18 17:18 AST 20 U/L (17-59) 09/25/18 17:18 ALT 27 U/L (21-72) 09/25/18 17:18 Alkaline Phosphatase 73 U/L (38-126) 09/25/18 17:18 Total Protein 8.3 g/dL (6.3-8.2) H 09/25/18 17:18 Albumin 4.9 g/dL (3.5-5.0) 09/25/18 17:18 Microbiology 09/25/18 17:18 Blood Blood Culture - Preliminary No Growth after 48 hours Assessment and Plan (1) Foreign body of lower leg Narrative/Plan: Pleasant 62-year-old male who has a history of renal cell carcinoma and immunotherapy and has been doing quite well. Was doing yardwork as noted and lo st his balance stepping over a chicken wire fence. As he fell and landed on a pile of branches and became impaled on his right leg with a branch. This is been surgically removed and is feeling somewhat better. He was immunocompromised status the consult was requested. At this time the patient is being treated with antibiotic therapy with Unasyn for the pathogen is related to with type injuries. Was suggested at the time of dressing change today silver alginate rope deep applied into the site. And then with home care this can be changed in the outpatient setting. As long as he does well overnight should be ready for transition to oral antibiotic therapy with Augmentin. Surgical note r elates that there was no bony involvement. 09/27/2018 patient is now had marked improvement. The surgical site is cleansed and the wound is packed with the silver alginate rope. Tolerates that well. He will be changed 3 times a week with home health care. If any further concerns he can follow in the office. Status: Acute Code(s): S80.859A - SUPERFICIAL FOREIGN BODY, UNSPECIFIED LOWER LEG, INIT ENCNTR SNOMED Code(s): 821922531 (2) History of renal carcinoma Status: Acute Code(s): Z85.528 - PERSONAL HISTORY OF OTHER MALIGNANT NEOPLASM OF KIDNEY SNOMED Code(s): 982588333 (3) Peripheral edema Status: Acute Code(s): R60.9 - EDEMA, UNSPECIFIED SNOMED Code(s): 897656640
--- NOTE | 2018-09-30 11:29 | CDI ---
Outpatient Documentation Clarification Form Date: 09-30-18 CDS/Gravel Roofer Name: BATSHEVA PERKINS Phone: If you have question, contact Karen Christianson Cat Breeder at [phone] M-F 8:30 am to 6pm. Patient Name: NICK SPRINGER Admit Date: 09-25-18 Discharge Date: 09-25-18 ATTENTION: The Clinical Documentation Specialists (CDI) and [facility] Coding Staff appreciate your assistance in clarifying documentation. Please respond to the clarification below the line at the bottom and electronically sign. The CDI & [facility] Coding staff will review the response and follow-up if needed. Please note: Queries are made part of the Legal Health Record. If you have any questions, please contact the author of this message via ITS or call the Cat Breeder. Dr. Quintana, Please specify the size of the surface area for debridement on patient's lower leg. Thank you, ANEUDY Nichols The surface area of the debridement was 2 x 2 centimeters MTDD
== END 2018-09-27 17:14 | disposition home or self-care (01) ==
LOC: EC 17:00 → 4SSUR 19:09
PROVIDERS: ADMIT Orthopaedic Surgery; ATTEND Orthopaedic Surgery
DX: M79.5 Residual foreign body in soft tissue (principal); N52.9 Male erectile dysfunction, unspecified; J45.909 Unspecified asthma, uncomplicated; I12.9 Hypertensive chronic kidney disease with stage 1 through stage 4 chronic kidney disease, or unspecified chronic kidney disease; N18.4 Chronic kidney disease, stage 4 (severe); E66.9 Obesity, unspecified; Z68.32 Body mass index [BMI] 32.0-32.9, adult; C64.9 Malignant neoplasm of unspecified kidney, except renal pelvis; C78.7 Secondary malignant neoplasm of liver and intrahepatic bile duct; C79.51 Secondary malignant neoplasm of bone; Y93.H2 Activity, gardening and landscaping; Y92.007 Garden or yard of unspecified non-institutional (private) residence as the place of occurrence of the external cause; W01.0XXA Fall on same level from slipping, tripping and stumbling without subsequent striking against object, initial encounter; Z79.899 Other long term (current) drug therapy; Z82.49 Family history of ischemic heart disease and other diseases of the circulatory system; Z82.61 Family history of arthritis; Z23 Encounter for immunization
CPT/HCPCS: 11043; 90471; 96374; 96375; 99285; 36415; 94640 ×4; 80053; 85025 ×2; 85610; 85730; 87040; 73590; 90715; G0378 ×3; J2543; J2001; J3010; J1170 ×2; J0295 ×2; J2704; J0690

== ENCOUNTER → 2019-05-23 | Outpatient (CLI) | payer BC ==
[2019-05-23 10:12] LABS: Basophils # (A) 0.1 k/uL (0-0.2); Basophils % (A) 1 %; Eosinophils # (A) 0.8 k/uL (0-0.7); Eosinophils % (A) 11 %; HCT 49.6 % (39.0-53.0); HGB 16.8 gm/dL (13.0-17.5); Lymphocytes # (A) 1.1 k/uL (1.0-4.8); Lymphocytes % (A) 16 %; MCH 30.9 pg (25.0-35.0); MCHC 33.9 g/dL (31.0-37.0); MCV 91.2 fL (80.0-100.0); Mean Platelet Volume 6.8; Monocytes # (A) 0.6 k/uL (0-1.0); Monocytes % (A) 9 %; Neutrophils # (A) 4.3 k/uL (1.3-7.7); Neutrophils % (A) 61 %; Platelet Count 224 k/uL (150-450); RBC 5.44 m/uL (4.30-5.90); RDW 12.7 % (11.5-15.5)
[2019-05-23 17:02] LABS: Albumin 5.3 g/dL (3.80-4.90); Albumin/Globulin Ratio 2.04 (1.60-3.17); Anion Gap 11.7 mmol/L (4.00-12.00); BUN/Creat Ratio 11.76 Ratio (12.00-20.00); Carbon Dioxide 30.3 mmol/L (21.6-31.8); Globulin 2.6 g/dL (1.6-3.3); Non-African American GFR(CKD) 41.4 (60.0-200.0); Potassium 3.8 mmol/L (3.5-5.5); Total Bilirubin 0.6 mg/dL (0.2-1.2); Total Protein 7.9 g/dL (6.2-8.2)
== END | disposition home or self-care (01) ==
LOC: LABWHC1 09:32
PROVIDERS: ATTEND Internal Medicine Hematology & Oncology
DX: C64.2 Malignant neoplasm of left kidney, except renal pelvis (principal)
CPT/HCPCS: 36415; 80053; 82533; 84443; 85025

== ENCOUNTER → 2019-06-20 | Outpatient (CLI) | payer BC ==
[2019-06-20 09:12] LABS: Basophils # (A) 0.1 k/uL (0-0.2); Basophils % (A) 1 %; Eosinophils # (A) 0.7 k/uL (0-0.7); Eosinophils % (A) 9 %; HCT 47.9 % (39.0-53.0); Lymphocytes # (A) 1.4 k/uL (1.0-4.8); Lymphocytes % (A) 18 %; MCH 30.4 pg (25.0-35.0); MCHC 33.4 g/dL (31.0-37.0); MCV 90.8 fL (80.0-100.0); Monocytes # (A) 0.5 k/uL (0-1.0); Monocytes % (A) 6 %; Neutrophils % (A) 64 %; Platelet Count 253 k/uL (150-450); RBC 5.28 m/uL (4.30-5.90); RDW 12.5 % (11.5-15.5); WBC 7.8 k/uL (3.8-10.6)
[2019-06-20 18:08] LABS: Albumin 4.9 g/dL (3.80-4.90); Albumin/Globulin Ratio 2.23 (1.60-3.17); Anion Gap 10.8 mmol/L (4.00-12.00); BUN/Creat Ratio 16.47 Ratio (12.00-20.00); Calcium 9.4 mg/dL (8.7-10.3); Carbon Dioxide 27.2 mmol/L (21.6-31.8); Globulin 2.2 g/dL (1.6-3.3); Non-African American GFR(CKD) 41.4 (60.0-200.0); Total Bilirubin 0.7 mg/dL (0.2-1.2); Total Protein 7.1 g/dL (6.2-8.2)
== END | disposition home or self-care (01) ==
LOC: LABWHC1 08:34
PROVIDERS: ATTEND Internal Medicine Hematology & Oncology
DX: C64.2 Malignant neoplasm of left kidney, except renal pelvis (principal)
CPT/HCPCS: 36415; 80053; 82533; 83615; 84443; 85025

== ENCOUNTER → 2019-08-15 | Outpatient (CLI) | payer BC ==
[2019-08-15 08:42] LABS: Basophils # (A) 0.1 k/uL (0-0.2); Basophils % (A) 1 %; Eosinophils # (A) 0.8 k/uL (0-0.7); Eosinophils % (A) 11 %; HCT 49.1 % (39.0-53.0); HGB 16.1 gm/dL (13.0-17.5); Lymphocytes # (A) 1.4 k/uL (1.0-4.8); Lymphocytes % (A) 19 %; MCH 29.8 pg (25.0-35.0); MCHC 32.9 g/dL (31.0-37.0); MCV 90.5 fL (80.0-100.0); Mean Platelet Volume 6.9; Monocytes # (A) 0.5 k/uL (0-1.0); Monocytes % (A) 7 %; Neutrophils # (A) 4.4 k/uL (1.3-7.7); Neutrophils % (A) 60 %; Platelet Count 281 k/uL (150-450); RBC 5.42 m/uL (4.30-5.90); RDW 12.6 % (11.5-15.5); WBC 7.3 k/uL (3.8-10.6)
[2019-08-15 16:50] LABS: African American GFR (CKD) 41.9 (60.0-200.0); Albumin 5.1 g/dL (3.80-4.90); Albumin/Globulin Ratio 1.96 (1.60-3.17); Anion Gap 10.2 mmol/L (4.00-12.00); BUN/Creat Ratio 12.63 Ratio (12.00-20.00); Calcium 10.1 mg/dL (8.7-10.3); Carbon Dioxide 30.8 mmol/L (21.6-31.8); Globulin 2.6 g/dL (1.6-3.3); Non-African American GFR(CKD) 36.2 (60.0-200.0); Total Bilirubin 0.7 mg/dL (0.2-1.2); Total Protein 7.7 g/dL (6.2-8.2)
== END | disposition home or self-care (01) ==
LOC: LABWHC1 08:31
PROVIDERS: ATTEND Internal Medicine Hematology & Oncology
DX: C64.2 Malignant neoplasm of left kidney, except renal pelvis (principal)
CPT/HCPCS: 36415; 80053; 82533; 84443; 85025

== ENCOUNTER → 2019-09-12 | Outpatient (CLI) | payer BC ==
[2019-09-12 09:07] LABS: Basophils # (A) 0.1 k/uL (0-0.2); Basophils % (A) 1 %; Eosinophils # (A) 0.6 k/uL (0-0.7); Eosinophils % (A) 9 %; HCT 47.8 % (39.0-53.0); HGB 15.5 gm/dL (13.0-17.5); Lymphocytes # (A) 1.4 k/uL (1.0-4.8); Lymphocytes % (A) 20 %; MCH 29.4 pg (25.0-35.0); MCHC 32.4 g/dL (31.0-37.0); MCV 90.8 fL (80.0-100.0); Mean Platelet Volume 6.9; Monocytes # (A) 0.5 k/uL (0-1.0); Monocytes % (A) 8 %; Neutrophils # (A) 4.1 k/uL (1.3-7.7); Neutrophils % (A) 61 %; Platelet Count 289 k/uL (150-450); RBC 5.26 m/uL (4.30-5.90); RDW 12.5 % (11.5-15.5); WBC 6.8 k/uL (3.8-10.6)
[2019-09-12 15:36] LABS: African American GFR (CKD) 44.8 (60.0-200.0); Albumin 4.9 g/dL (3.80-4.90); Albumin/Globulin Ratio 2.04 (1.60-3.17); Anion Gap 13.1 mmol/L (4.00-12.00); BUN/Creat Ratio 15.56 Ratio (12.00-20.00); Calcium 9.7 mg/dL (8.7-10.3); Carbon Dioxide 25.9 mmol/L (21.6-31.8); Globulin 2.4 g/dL (1.6-3.3); Non-African American GFR(CKD) 38.6 (60.0-200.0); Potassium 4.2 mmol/L (3.5-5.5); Total Bilirubin 0.8 mg/dL (0.2-1.2); Total Protein 7.3 g/dL (6.2-8.2)
== END | disposition home or self-care (01) ==
LOC: LABWHC1 08:10
PROVIDERS: ATTEND Internal Medicine Hematology & Oncology
DX: C64.2 Malignant neoplasm of left kidney, except renal pelvis (principal)
CPT/HCPCS: 36415; 80053; 82533; 84443; 85025

== ENCOUNTER → 2019-11-07 | Outpatient (CLI) | payer BC ==
[2019-11-07 10:01] LABS: Basophils # (A) 0.1 k/uL (0-0.2); Basophils % (A) 1 %; Eosinophils # (A) 0.7 k/uL (0-0.7); Eosinophils % (A) 9 %; HCT 47.2 % (39.0-53.0); HGB 15.6 gm/dL (13.0-17.5); Lymphocytes % (A) 14 %; MCH 30.1 pg (25.0-35.0); MCHC 33.1 g/dL (31.0-37.0); MCV 90.7 fL (80.0-100.0); Monocytes # (A) 0.4 k/uL (0-1.0); Monocytes % (A) 6 %; Neutrophils # (A) 4.9 k/uL (1.3-7.7); Neutrophils % (A) 67 %; Platelet Count 279 k/uL (150-450); RBC 5.21 m/uL (4.30-5.90); RDW 12.5 % (11.5-15.5); WBC 7.2 k/uL (3.8-10.6)
[2019-11-07 16:42] LABS: African American GFR (CKD) 60.7 (60.0-200.0); Albumin 4.9 g/dL (3.80-4.90); Albumin/Globulin Ratio 2.04 (1.60-3.17); Anion Gap 7.1 mmol/L (4.00-12.00); BUN/Creat Ratio 23.57 Ratio (12.00-20.00); Carbon Dioxide 28.9 mmol/L (21.6-31.8); Globulin 2.4 g/dL (1.6-3.3); Non-African American GFR(CKD) 52.4 (60.0-200.0); Potassium 4.1 mmol/L (3.5-5.5); Total Bilirubin 0.5 mg/dL (0.2-1.2); Total Protein 7.3 g/dL (6.2-8.2)
== END | disposition home or self-care (01) ==
LOC: LABWHC1 08:30
PROVIDERS: ATTEND Internal Medicine Hematology & Oncology
DX: R53.82 Chronic fatigue, unspecified (principal)
CPT/HCPCS: 36415; 80053; 84443; 85025

== ENCOUNTER → 2019-12-05 | Outpatient (CLI) | payer BC ==
[2019-12-05 10:00] LABS: Basophils # (A) 0.1 k/uL (0-0.2); Basophils % (A) 1 %; Eosinophils # (A) 0.6 k/uL (0-0.7); Eosinophils % (A) 8 %; HCT 46.9 % (39.0-53.0); HGB 15.1 gm/dL (13.0-17.5); Lymphocytes # (A) 1.1 k/uL (1.0-4.8); Lymphocytes % (A) 15 %; MCHC 32.1 g/dL (31.0-37.0); MCV 90.3 fL (80.0-100.0); Mean Platelet Volume 7.1; Monocytes # (A) 0.6 k/uL (0-1.0); Monocytes % (A) 8 %; Neutrophils # (A) 4.9 k/uL (1.3-7.7); Neutrophils % (A) 67 %; Platelet Count 259 k/uL (150-450); RBC 5.19 m/uL (4.30-5.90); RDW 12.9 % (11.5-15.5); WBC 7.4 k/uL (3.8-10.6)
[2019-12-05 16:47] LABS: African American GFR (CKD) 44.5 (60.0-200.0); Albumin 4.9 g/dL (3.80-4.90); Albumin/Globulin Ratio 1.81 (1.60-3.17); Anion Gap 10.4 mmol/L (4.00-12.00); BUN/Creat Ratio 18.33 Ratio (12.00-20.00); Calcium 9.6 mg/dL (8.7-10.3); Carbon Dioxide 26.6 mmol/L (21.6-31.8); Globulin 2.7 g/dL (1.6-3.3); Non-African American GFR(CKD) 38.4 (60.0-200.0); Potassium 4.2 mmol/L (3.5-5.5); Total Bilirubin 0.8 mg/dL (0.2-1.2); Total Protein 7.6 g/dL (6.2-8.2)
== END | disposition home or self-care (01) ==
LOC: LABWHC1 08:24
PROVIDERS: ATTEND Internal Medicine Hematology & Oncology
DX: C64.2 Malignant neoplasm of left kidney, except renal pelvis (principal)
CPT/HCPCS: 36415; 80053; 85025

== ENCOUNTER → 2020-01-02 | Outpatient (CLI) | payer BC ==
[2020-01-02 10:58] LABS: Basophils # (A) 0.1 k/uL (0-0.2); Basophils % (A) 1 %; Eosinophils # (A) 0.6 k/uL (0-0.7); Eosinophils % (A) 7 %; HCT 43.8 % (39.0-53.0); Lymphocytes # (A) 1.2 k/uL (1.0-4.8); Lymphocytes % (A) 16 %; MCH 28.9 pg (25.0-35.0); MCV 90.3 fL (80.0-100.0); Mean Platelet Volume 7.5; Monocytes # (A) 0.5 k/uL (0-1.0); Monocytes % (A) 7 %; Neutrophils # (A) 5.4 k/uL (1.3-7.7); Neutrophils % (A) 68 %; Platelet Count 260 k/uL (150-450); RBC 4.85 m/uL (4.30-5.90); RDW 12.8 % (11.5-15.5)
[2020-01-02 16:21] LABS: African American GFR (CKD) 47.6 (60.0-200.0); Albumin 4.7 g/dL (3.80-4.90); Albumin/Globulin Ratio 1.74 (1.60-3.17); Anion Gap 7.8 mmol/L (4.00-12.00); BUN/Creat Ratio 16.47 Ratio (12.00-20.00); Calcium 9.8 mg/dL (8.7-10.3); Carbon Dioxide 29.2 mmol/L (21.6-31.8); Globulin 2.7 g/dL (1.6-3.3); Non-African American GFR(CKD) 41.1 (60.0-200.0); Potassium 4.1 mmol/L (3.5-5.5); Total Bilirubin 0.7 mg/dL (0.2-1.2); Total Protein 7.4 g/dL (6.2-8.2)
== END | disposition home or self-care (01) ==
LOC: LABWHC1 08:18
PROVIDERS: ATTEND Internal Medicine Hematology & Oncology
DX: C64.2 Malignant neoplasm of left kidney, except renal pelvis (principal); R53.82 Chronic fatigue, unspecified
CPT/HCPCS: 36415; 80053; 82533; 84443; 85025

== ENCOUNTER → 2021-01-15 | Outpatient (CLI) | payer BC ==
[2021-01-15 15:24] LABS: Basophils # (A) 0.03 X 10*3/uL (0.00-0.10); Basophils % (A) 0.3 %; Eosinophils # (A) 0.17 X 10*3/uL (0.04-0.35); Eosinophils % (A) 1.8 %; HCT 35.8 % (39.6-50.0); HGB 10.7 g/dL (13.0-17.0); Lymphocytes # (A) 1.13 X 10*3/uL (0.90-5.00); Lymphocytes % (A) 11.8 %; MCH 23.4 pg (27.0-32.0); MCHC 29.9 g/dL (32.0-37.0); MCV 78.3 fL (80.0-97.0); Mean Platelet Volume 8.8 fL (9.5-12.2); Monocytes % (A) 11.5 %; Platelet Count 600 X 10*3/uL (140-440); RBC 4.57 X 10*6/uL (4.40-5.60); RDW 17.2 % (11.5-14.5); WBC 9.59 X 10*3/uL (4.50-10.00)
[2021-01-15 19:01] LABS: African American GFR (CKD) 72.1 (60.0-200.0); Albumin 3.8 g/dL (3.80-4.90); Albumin/Globulin Ratio 1.27 (1.60-3.17); Anion Gap 13.7 mmol/L (4.00-12.00); Calcium 8.8 mg/dL (8.7-10.3); Carbon Dioxide 24.3 mmol/L (21.6-31.8); Ferritin 564.5 ng/mL (22.0-322.0); Non-African American GFR(CKD) 62.2 (60.0-200.0); Potassium 4.2 mmol/L (3.5-5.5); Total Bilirubin 0.3 mg/dL (0.3-1.2); Total Protein 6.8 g/dL (6.2-8.2)
== END | disposition home or self-care (01) ==
LOC: LABWHC1 08:54
PROVIDERS: ATTEND Internal Medicine Hematology & Oncology
DX: C64.2 Malignant neoplasm of left kidney, except renal pelvis (principal)
CPT/HCPCS: 36415; 80053; 82728; 83540; 85025

== ENCOUNTER 2021-01-31 10:42 | Day surgery (SDC) | payer BC ==
[2021-01-30 13:19] VITALS: BMI 23.7
[2021-01-31 11:11] VITALS: RESP 16; TEMP 98.1
[2021-01-31] MEDS: LACTATED RINGERS 1,000 ML IV SCH ×2 (11:16→11:27)
[2021-01-31] MEDS ORDERED: LIDOCAINE 1% INJ 10MG/ML (20 ML MDV) ONE (11:37)
[2021-01-31] MEDS ORDERED: PROPOFOL 10 MG/ML 20 ML VIAL IV ONE (11:37)
--- NOTE | 2021-01-31 11:55 | P.PCN ---
Date of Procedure: 01/31/21 Procedure(s) Performed: BRIEF HISTORY: Patient is a 65-year-old, pleasant, white male scheduled for an upper endoscopy as a part of evaluation of chronic persistent nausea vomiting for the last 4 months duration. He lost 20 pounds since onset of the symptoms. He was recently started on omeprazole 20 mg daily and symptoms are gradually improving and he scheduled for an upper endoscopy to evaluate further. PROCEDURE PERFORMED: Esophagogastroduodenoscopy with biopsy. PREOPERATIVE DIAGNOSIS: Chronic nausea vomiting and progressive weight loss of 20 pounds for the last 4 months duration. IV sedation per anesthesia. PROCEDURE: After informed consent was obtained, the patient was brought into the endoscopy unit. IV sedation was administered by Anesthesia under continuous monitoring. Initially the Olympus GIF-140 video endoscope was inserted into the mouth. Esophagus intubated without any difficulty. It was gradually advanced into the stomach and duodenum and carefully examined. The bulb and the second part of the duodenum appeared normal. The scope at this time was withdrawn to the stomach, adequately insufflated with air, and upon careful examination, mucosa of the antrum appeared normal. In the proximal antrum there was a large patch of mucosa that appeared abnormal with mucosal friability exudates superficial ulcerations and multiple biopsies were done from this area. In the proximal body the stomach there was a 3 cm linear clean-based ulcer with raised margins and multiple biopsies were done from this area to rule out neoplasm. The rest of the, body, cardia and the fundus appeared normal. The scope was then withdrawn into the esophagus. The GE junction was located at 39 cm from the incisors. The esophagus appeared normal. There were no erosions or ulcerations seen and the patient tolerated the procedure well. IMPRESSION: 1. 3 cm clean-based ulcer in the proximal body the stomach with raised margins status post multiple biopsies. 2. A large patch of area measuring 4-5 cm in the proximal of antral the stomach with mucosal friability with exudates and superficial ulcerations noted status post multiple biopsies. RECOMMENDATIONS: The findings of this examination were discussed with the patient as well as his family. He was advised to continue with omeprazole 20 mg twice daily and follow up with the biopsy results. He'll be seen in office in 2 weeks.
[2021-01-31 12:11] VITALS: BP 138/78
[2021-01-31 12:27] VITALS: PULSE 67
== END 2021-01-31 12:43 | disposition home or self-care (01) ==
LOC: ORWHC2ENDO 10:42
PROVIDERS: ATTEND Internal Medicine Gastroenterology
DX: K29.50 Unspecified chronic gastritis without bleeding (principal); D72.820 Lymphocytosis (symptomatic)
CPT/HCPCS: 43239; 88305; 88342; J2001; J2704

== ENCOUNTER → 2021-02-03 | Outpatient (CLI) | payer BC ==
[2021-02-03 15:15] LABS: Basophils # (A) 0.02 X 10*3/uL (0.00-0.10); Basophils % (A) 0.2 %; Eosinophils % (A) 2.2 %; HCT 33.3 % (39.6-50.0); HGB 9.5 g/dL (13.0-17.0); Lymphocytes # (A) 0.94 X 10*3/uL (0.90-5.00); Lymphocytes % (A) 10.2 %; MCH 23.1 pg (27.0-32.0); MCHC 28.5 g/dL (32.0-37.0); MCV 80.8 fL (80.0-97.0); Mean Platelet Volume 8.8 fL (9.5-12.2); Monocytes # (A) 1.04 X 10*3/uL (0.20-1.00); Monocytes % (A) 11.3 %; Neutrophils # (A) 6.95 X 10*3/uL (1.80-7.70); Neutrophils % (A) 75.4 %; Platelet Count 474 X 10*3/uL (140-440); RBC 4.12 X 10*6/uL (4.40-5.60); RDW 18.2 % (11.5-14.5); WBC 9.21 X 10*3/uL (4.50-10.00)
[2021-02-03 18:08] LABS: Ferritin 948.3 ng/mL (22.0-322.0)
[2021-02-03 18:09] LABS: % Iron Saturation 7.41 (15.00-50.00); African American GFR (CKD) 72.1 (60.0-200.0); Albumin 3.9 g/dL (3.80-4.90); Albumin/Globulin Ratio 1.34 (1.60-3.17); Anion Gap 8.8 mmol/L (4.00-12.00); BUN/Creat Ratio 12.5 Ratio (12.00-20.00); Calcium 8.6 mg/dL (8.7-10.3); Carbon Dioxide 27.2 mmol/L (21.6-31.8); Globulin 2.9 g/dL (1.6-3.3); Non-African American GFR(CKD) 62.2 (60.0-200.0); Potassium 4.1 mmol/L (3.5-5.5); Total Bilirubin 0.3 mg/dL (0.3-1.2); Total Protein 6.8 g/dL (6.2-8.2)
== END | disposition home or self-care (01) ==
LOC: LABWHC1 08:25
PROVIDERS: ATTEND Internal Medicine Hematology & Oncology
DX: C64.2 Malignant neoplasm of left kidney, except renal pelvis (principal)
CPT/HCPCS: 36415; 80053; 82533; 82728; 83540; 83550; 84443; 85025

== ENCOUNTER 2021-03-28 10:39 | Day surgery (SDC) | payer BC ==
[2021-03-25 10:16] VITALS: BMI 24.5
[~2021-03-28 10:39] MED LIST: LACTATED RINGERS 1,000 ML IV SCH; LIDOCAINE 1% (10MG/ML) FOR IV START INTRADERMA PRN
[2021-03-28 11:42] VITALS: TEMP 97
[2021-03-28] MEDS ORDERED: LIDOCAINE 1% INJ 10MG/ML (20 ML MDV) ONE (12:41)
[2021-03-28] MEDS ORDERED: PROPOFOL 10 MG/ML 20 ML VIAL IV ONE (12:41)
--- NOTE | 2021-03-28 12:59 | P.PCN ---
Date of Procedure: 03/28/21 Procedure(s) Performed: BRIEF HISTORY: Patient is a 65-year-old, pleasant, male scheduled for an upper endoscopy as a part of follow-up of large gastric ulcer that was diagnosed An upper endoscopy in January 2021 when he presented with nausea vomiting and weight loss of 20 pounds of 4 months duration. 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 He was started on Prilosec 20 mg twice daily and symptoms are gradually improving. Hemoglobin of 10 pounds. He scheduled for an elective upper endoscopy to evaluate for ulcer healing PROCEDURE PERFORMED: Esophagogastroduodenoscopy with biopsy . PREOPERATIVE DIAGNOSIS: Follow-up large gastric ulcers IV sedation per anesthesia. PROCEDURE: After informed consent was obtained, the patient was brought into the endoscopy unit. IV sedation was administered by Anesthesia under continuous monitoring. Initially the Olympus GIF-140 video endoscope was inserted into the mouth. Esophagus intubated without any difficulty. It was gradually advanced into the stomach and duodenum and carefully examined. The bulb and the second part of the duodenum appeared normal. The scope at this time was withdrawn to the stomach, adequately insufflated with air, and upon careful examination, mucosa of the antrum had mild gastritis. In the proximal antrum along the lesser care which are there was an abdominal large patch measuring 4-5 cm in size with some exudates, mucosal friability and multiple biopsies were done from this area. The previously noted proximal gastric ulcer has healed. Mucosa of the body, cardia and the fundus appeared normal. The scope was then withdrawn into the esophagus. The GE junction was located at 39 cm from the incisors. The esophagus appeared normal. There were no erosions or ulcerations seen and the patient tolerated the procedure well. IMPRESSION: 1. Abnormal appearing mucosa in the proximal antrum measuring about 4-5 cm, flat friable mucosa and exudates status post biopsies 2. Previously noted ulcer in the proximal body the stomach appears to have healed RECOMMENDATIONS: The findings of this examination were discussed with the patient as well as his family. He was advised to continue with omeprazole 20 mg twice daily and in the meantime will await biopsy results. Reason the biopsy results will plan a repeat upper endoscopy in 3
[2021-03-28 13:16] VITALS: BP 133/85; PULSE 70; RESP 18
== END 2021-03-28 13:45 | disposition home or self-care (01) ==
LOC: ORWHC2ENDO 10:39
PROVIDERS: ATTEND Internal Medicine Gastroenterology
DX: K29.50 Unspecified chronic gastritis without bleeding (principal); K25.9 Gastric ulcer, unspecified as acute or chronic, without hemorrhage or perforation
CPT/HCPCS: 43239; 88305; 88342; J2001; J2704

== ENCOUNTER → 2021-04-21 | Outpatient (CLI) | payer BC ==
[2021-04-21 14:15] LABS: Basophils # (A) 0.02 X 10*3/uL (0.00-0.10); Basophils % (A) 0.3 %; Eosinophils # (A) 0.09 X 10*3/uL (0.04-0.35); Eosinophils % (A) 1.2 %; HGB 10.5 g/dL (13.0-17.0); Lymphocytes # (A) 0.92 X 10*3/uL (0.90-5.00); Lymphocytes % (A) 11.9 %; MCH 23.5 pg (27.0-32.0); MCHC 29.2 g/dL (32.0-37.0); MCV 80.7 fL (80.0-97.0); Mean Platelet Volume 8.7 fL (9.5-12.2); Monocytes # (A) 0.87 X 10*3/uL (0.20-1.00); Monocytes % (A) 11.3 %; Neutrophils # (A) 5.81 X 10*3/uL (1.80-7.70); Platelet Count 608 X 10*3/uL (140-440); RBC 4.46 X 10*6/uL (4.40-5.60); RDW 14.9 % (11.5-14.5); WBC 7.73 X 10*3/uL (4.50-10.00)
[2021-04-21 15:07] LABS: African American GFR (CKD) 85.7 (60.0-200.0); Albumin 3.5 g/dL (3.8-4.9); Albumin/Globulin Ratio 1.02 (1.60-3.17); Anion Gap 13.7 mmol/L (10.00-18.00); BUN/Creat Ratio 11.06 Ratio (12.00-20.00); Blood Urea Nitrogen 11.5 mg/dL (9.0-27.0); Calcium 9.1 mg/dL (8.7-10.3); Carbon Dioxide 25.8 mmol/L (20.0-27.5); Globulin 3.5 g/dL (1.6-3.3); Non-African American GFR(CKD) 73.9 (60.0-200.0); Potassium 4.1 mmol/L (3.5-5.5); Total Bilirubin 0.2 mg/dL (0.30-1.20)
== END | disposition home or self-care (01) ==
LOC: LABWHC1 11:09
PROVIDERS: ATTEND Internal Medicine Hematology & Oncology
DX: C64.2 Malignant neoplasm of left kidney, except renal pelvis (principal)
CPT/HCPCS: 36415; 80053; 82533; 84443; 85025

== ENCOUNTER → 2021-04-23 | Outpatient (CLI) | payer BC ==
--- NOTE | 2021-04-24 07:38 | CT ---
EXAMINATION TYPE: CT ChestAbdPelvis wo con, CT abdomen pelvis w con DATE OF EXAM: 04/23/2021 COMPARISON: Chest CT April 20, 2018 HISTORY: prep for left-sided nephrectomy. CT DLP: 1547.2 combined with abd w/ (accession [id number]), 1547.2 combined with CAP (accession [id number]) mGycm. Automated Exposure Control for Dose Reduction was Utilized. TECHNIQUE: CT scan of the thorax, abdomen and pelvis is performed without oral or IV contrast. CT scan of the abdomen and pelvis was then performed without oral but with IV contrast. FINDINGS: LUNGS: Mild underlying emphysematous change. In the medial aspect of the right lower lobe there is ne w irregular masslike consolidation measuring 2.5 x 1.4 cm for reference axial image 32. Additional ar ea of 1.1 x 1.0 cm nodularity axial image 28 is present for reference. Finding new from 2018 CT. Mild bibasilar linear atelectasis and/or scarring is redemonstrated. Slightly elevated left hemidiaphragm again seen. No pleural effusion or pneumothorax noted bilaterally. MEDIASTINUM: There are no greater than 1 cm mediastinal lymph nodes. No cardiomegaly or pericardial effusion is seen. Moderate to severe three-vessel coronary artery calcification redemonstrated. LIVER/GB: There are areas of concern in the liver. Heterogeneous lesion measuring 4.4 cm posterior ri ght hepatic lobe series 6 image 25 less well-seen on 2018 CT. Inferior and lateral to this there is h eterogeneous larger mass thought present measuring 5.7 cm long axis that has peripheral hyperdensity and more central hypodensity. This is causing new inferior posterior exophytic lobulation of the righ t hepatic lobe coronal image 56 were measures 6.6 cm long axis. On coronal images it appears to have more irregular central hypodensity or scarring. This is at least enlarged from prior study 2018. Ther e are concern for additional subtle smaller hypodense lesions throughout the liver for reference axia l image 11 1.3 cm lesion posterior right hepatic lobe and noncontrast anterior hypodense lesion serie s 3 image 50. Further workup advised. No biliary dilatation. PANCREAS: No significant abnormality is seen. SPLEEN: No significant abnormality is seen. ADRENALS: No significant abnormality is seen. KIDNEYS: Persistent large left renal heterogeneous enhancing mass or neoplasm measuring approximately 12 x 13 x 14 cm axial image 25 and coronal image 59 causing mass effect on the left kidney which is deviated anteriorly and laterally. There is symmetric cortical medullary uptake and excretion from piedad th kidneys without hydronephrosis. Incidental benign 2.9 cm thin-walled cyst laterally left kidney. The large mass nearly abuts the aorta making poor visualization of origin of the left renal artery. N ormal draining left renal vein into IVC now seen series 8 image 28 not dilated. BOWEL: Few slightly more prominent fluid-filled small bowel loops in the left abdomen. No greater fay n 3.0 cm dilatation. GENITAL ORGANS: Normal sized prostate. Scattered pelvic phleboliths. LYMPH NODES: No greater than 1cm abdominal or pelvic lymph nodes are appreciated. Prominent collatera l vessels in the retroperitoneum are present. OSSEOUS STRUCTURES: Moderate to severe disc space narrowing lumbosacral junction. Prominent Schmorl n ode inferior T12 level. Moderate axial joint space loss in both hips. OTHER: No significant additional abnormality is seen. IMPRESSION: Large left renal mass or neoplasm redemonstrated. Local mass effect seen. Nonspecific li howard lesions are concerning given interval change in size and number of lesions. Metastatic disease ca nnot be excluded. Further investigation with liver protocol contrast-enhanced MRI should be considere d based on clinical correlation. Nonspecific findings the medial aspect right lower lobe. Findings fa vor inflammatory process but neoplastic involvement cannot be excluded. At minimum short-term follow- up is advised to reassess.
== END | disposition home or self-care (01) ==
LOC: RADCTMAIN 15:03
PROVIDERS: ATTEND Surgery
DX: D41.02 Neoplasm of uncertain behavior of left kidney (principal)
CPT/HCPCS: 71250; 74176; 74177; Q9967

== ENCOUNTER 2021-06-04 09:31 | Day surgery (SDC) | payer BC ==
[2021-06-04 10:07] VITALS: RESP 16; TEMP 97.1
[2021-06-04] MEDS ORDERED: PROPOFOL 10 MG/ML 20 ML VIAL IV ONE (10:42)
[2021-06-04] MEDS ORDERED: LIDOCAINE 1% INJ 10MG/ML (20 ML MDV) ONE (10:42)
--- NOTE | 2021-06-04 11:04 | P.PCN ---
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 . He did have an upper endoscopy done in January of this year and was noted to have a proximal antral ulceration biopsies which revealed chronic gastritis. Repeat upper endoscopy in March 2021 was a persistent symptoms which revealed partial healing of the ulcer but abnormal-appearing mucosa in the proximal antrum measuring 4-5 cm with friable mucosa and multiple biopsies were done from that area and once again revealed chronic active gastritis and mucosal erosions. In the meantime his been on omeprazole 20 mg twice daily and continues remains symptomatic with progressive weight loss. PROCEDURE PERFORMED: Esophagogastroduodenoscopy with biopsy PREOPERATIVE DIAGNOSIS: Persistent abdominal area in the proximal antrum of stomach, abdominal pain and progressive weight loss. IV sedation per anesthesia. PROCEDURE: After informed consent was obtained, the patient was brought into the endoscopy unit. IV sedation was administered by Anesthesia under continuous monitoring. Initially the Olympus GIF-140 video endoscope was inserted into the mouth. Esophagus intubated without any difficulty. It was gradually advanced into the stomach and duodenum and carefully examined. The bulb and the second part of the duodenum appeared normal. The scope at this time was withdrawn to the stomach, adequately insufflated with air, and upon careful examination, mucosa of the antrum appeared normal. However in the proximal antrum there was once again abnormal-appearing mucosa spanned about 4-5 cm which had some cobblestoning with exudates noted. There was no obvious ulcerations identified in this area. Multiple biopsies were done from the normal-appearing area. Mucosa of the , body, cardia and the fundus appeared normal. The scope was then withdrawn into the esophagus. The GE junction was located at 39 cm from the incisors. The esophagus appeared normal. There were no erosions or ulcerations seen and the patient tolerated the procedure well. IMPRESSION: 1. Persistent abnormal-appearing mucosa in the proximal antrum of the stomach similar in appearance of the previous upper endoscopy, measuring approximately 4-5 cm with almost cobblestoning-like appearance with exudates status post multiple biopsies. 2. Rest of the some stomach appeared normal. RECOMMENDATIONS: The findings of this examination were discussed with the patien t as well as her his family. He was advised to follow with the biopsy results. Continue with omeprazole 20 mg twice daily and avoid NSAIDs.
[2021-06-04 11:36] VITALS: BP 128/75; PULSE 71
== END 2021-06-04 11:54 | disposition home or self-care (01) ==
LOC: ORWHC2ENDO 09:31
PROVIDERS: ATTEND Internal Medicine Gastroenterology
DX: C64.9 Malignant neoplasm of unspecified kidney, except renal pelvis (principal); C78.7 Secondary malignant neoplasm of liver and intrahepatic bile duct
CPT/HCPCS: 43239; 88305; 88342; J2001; J2704

== ENCOUNTER → 2021-06-11 | Outpatient (CLI) | payer BC ==
[2021-06-11 19:15] LABS: Basophils # (A) 0.03 X 10*3/uL (0.00-0.10); Basophils % (A) 0.3 %; Eosinophils # (A) 0.38 X 10*3/uL (0.04-0.35); Eosinophils % (A) 4.3 %; HCT 33.8 % (39.6-50.0); HGB 9.4 g/dL (13.0-17.0); Lymphocytes # (A) 0.99 X 10*3/uL (0.90-5.00); Lymphocytes % (A) 11.2 %; MCHC 27.8 g/dL (32.0-37.0); Mean Platelet Volume 8.6 fL (9.5-12.2); Monocytes # (A) 1.04 X 10*3/uL (0.20-1.00); Monocytes % (A) 11.8 %; Neutrophils # (A) 6.33 X 10*3/uL (1.80-7.70); Neutrophils % (A) 71.7 %; Platelet Count 576 X 10*3/uL (140-440); RBC 4.28 X 10*6/uL (4.40-5.60); RDW 15.9 % (11.5-14.5); WBC 8.83 X 10*3/uL (4.50-10.00)
[2021-06-11 19:33] LABS: ALT 12 U/L (10-49); AST 19 U/L (14-35); African American GFR (CKD) 83.8 (60.0-200.0); Albumin 3.2 g/dL (3.8-4.9); Albumin/Globulin Ratio 0.79 (1.60-3.17); Alkaline Phosphatase 88 U/L (41-126); BUN/Creat Ratio 12.92 Ratio (12.00-20.00); Blood Urea Nitrogen 13.7 mg/dL (9.0-27.0); Carbon Dioxide 22.8 mmol/L (20.0-27.5); Chloride 99 mmol/L (96-109); Glucose 100 mg/dL (70-110); Non-African American GFR(CKD) 72.3 (60.0-200.0); Potassium 4.2 mmol/L (3.5-5.5); Sodium 135 mmol/L (135-145); Total Bilirubin <0.20 mg/dL (0.30-1.20); Total Protein 7.1 g/dL (6.2-8.2)
== END | disposition home or self-care (01) ==
LOC: LABWHC1 10:47
PROVIDERS: ATTEND Internal Medicine Hematology & Oncology
DX: C64.2 Malignant neoplasm of left kidney, except renal pelvis (principal)
CPT/HCPCS: 36415; 80053; 82533; 84443; 85025

== ENCOUNTER → 2021-07-15 | Outpatient (CLI) | payer BC ==
[2021-07-15 14:55] LABS: Basophils # (A) 0.02 X 10*3/uL (0.00-0.10); Basophils % (A) 0.2 %; Eosinophils # (A) 0.02 X 10*3/uL (0.04-0.35); Eosinophils % (A) 0.2 %; HCT 34.4 % (39.6-50.0); HGB 9.6 g/dL (13.0-17.0); Immature Grans, Automated 0.8 %; Lymphocytes # (A) 0.65 X 10*3/uL (0.90-5.00); Lymphocytes % (A) 6.6 %; MCH 22.3 pg (27.0-32.0); MCHC 27.9 g/dL (32.0-37.0); Mean Platelet Volume 8.7 fL (9.5-12.2); Monocytes # (A) 1.04 X 10*3/uL (0.20-1.00); Monocytes % (A) 10.6 %; NRBC Per 100 WBC 0 /100 WBCS (0.0-0.0); Neutrophils # (A) 7.97 X 10*3/uL (1.80-7.70); Neutrophils % (A) 81.6 %; Platelet Count 493 X 10*3/uL (140-440); RDW 17.3 % (11.5-14.5); WBC 9.78 X 10*3/uL (4.50-10.00)
[2021-07-15 15:36] LABS: African American GFR (CKD) 80.1 (60.0-200.0); Albumin/Globulin Ratio 0.86 (1.60-3.17); Anion Gap 13.9 mmol/L (10.00-18.00); BUN/Creat Ratio 13.73 Ratio (12.00-20.00); Blood Urea Nitrogen 15.1 mg/dL (9.0-27.0); Calcium 8.5 mg/dL (8.7-10.3); Carbon Dioxide 23.1 mmol/L (20.0-27.5); Globulin 3.5 g/dL (1.6-3.3); Non-African American GFR(CKD) 69.1 (60.0-200.0); Potassium 4.2 mmol/L (3.5-5.5); Total Bilirubin 0.2 mg/dL (0.30-1.20); Total Protein 6.5 g/dL (6.2-8.2)
== END | disposition home or self-care (01) ==
LOC: LABWHC1 09:06
PROVIDERS: ATTEND Internal Medicine Hematology & Oncology
DX: C64.2 Malignant neoplasm of left kidney, except renal pelvis (principal); D50.9 Iron deficiency anemia, unspecified
CPT/HCPCS: 36415; 80053; 82533; 82728; 83540; 84443; 85025

== ENCOUNTER → 2021-08-18 | Outpatient (CLI) | payer BC ==
[2021-08-18 22:20] LABS: Basophils # (A) 0.05 X 10*3/uL (0.00-0.10); Basophils % (A) 0.7 %; Eosinophils # (A) 0.43 X 10*3/uL (0.04-0.35); Eosinophils % (A) 5.7 %; HGB 12.5 g/dL (13.0-17.0); Immature Grans, Automated 0.4 %; Lymphocytes # (A) 1.26 X 10*3/uL (0.90-5.00); Lymphocytes % (A) 16.7 %; MCH 23.3 pg (27.0-32.0); MCHC 28.4 g/dL (32.0-37.0); MCV 82.1 fL (80.0-97.0); Mean Platelet Volume 9.3 fL (9.5-12.2); Monocytes # (A) 0.82 X 10*3/uL (0.20-1.00); Monocytes % (A) 10.9 %; NRBC Per 100 WBC 0 /100 WBCS (0.0-0.0); Neutrophils # (A) 4.94 X 10*3/uL (1.80-7.70); Neutrophils % (A) 65.6 %; Platelet Count 374 X 10*3/uL (140-440); RBC 5.36 X 10*6/uL (4.40-5.60); RDW 17.9 % (11.5-14.5); WBC 7.53 X 10*3/uL (4.50-10.00)
[2021-08-18 22:45] LABS: African American GFR (CKD) 80.1 (60.0-200.0); Albumin 3.6 g/dL (3.8-4.9); Albumin/Globulin Ratio 0.9 (1.60-3.17); Anion Gap 12.3 mmol/L (10.00-18.00); BUN/Creat Ratio 15.73 Ratio (12.00-20.00); Blood Urea Nitrogen 17.3 mg/dL (9.0-27.0); Calcium 9.2 mg/dL (8.7-10.3); Carbon Dioxide 26.7 mmol/L (20.0-27.5); Non-African American GFR(CKD) 69.1 (60.0-200.0); Potassium 4.2 mmol/L (3.5-5.5); Total Bilirubin 0.3 mg/dL (0.30-1.20); Total Protein 7.6 g/dL (6.2-8.2)
== END | disposition home or self-care (01) ==
LOC: LABWHC1 14:36
PROVIDERS: ATTEND Internal Medicine Hematology & Oncology
DX: C64.2 Malignant neoplasm of left kidney, except renal pelvis (principal)
CPT/HCPCS: 36415; 80053; 82533; 84443; 85025

== ENCOUNTER → 2021-09-10 | Outpatient (CLI) | payer BC ==
[2021-09-10 14:41] LABS: Basophils # (A) 0.01 X 10*3/uL (0.00-0.10); Basophils % (A) 0.2 %; Eosinophils % (A) 1.6 %; HGB 10.9 g/dL (13.0-17.0); Immature Grans, Automated 0.5 %; Lymphocytes # (A) 0.65 X 10*3/uL (0.90-5.00); Lymphocytes % (A) 10.6 %; MCH 24.4 pg (27.0-32.0); MCHC 28.7 g/dL (32.0-37.0); Mean Platelet Volume 8.9 fL (9.5-12.2); Monocytes # (A) 0.79 X 10*3/uL (0.20-1.00); Monocytes % (A) 12.9 %; NRBC Per 100 WBC 0 /100 WBCS (0.0-0.0); Neutrophils # (A) 4.53 X 10*3/uL (1.80-7.70); Neutrophils % (A) 74.2 %; Platelet Count 419 X 10*3/uL (140-440); RBC 4.47 X 10*6/uL (4.40-5.60); RDW 17.9 % (11.5-14.5); WBC 6.11 X 10*3/uL (4.50-10.00)
[2021-09-10 15:20] LABS: African American GFR (CKD) 102.1 (60.0-200.0); Albumin 3.3 g/dL (3.8-4.9); Anion Gap 10.8 mmol/L (10.00-18.00); BUN/Creat Ratio 15.33 Ratio (12.00-20.00); Blood Urea Nitrogen 13.8 mg/dL (9.0-27.0); Calcium 8.9 mg/dL (8.7-10.3); Carbon Dioxide 27.2 mmol/L (20.0-27.5); Globulin 3.3 g/dL (1.6-3.3); Non-African American GFR(CKD) 88.1 (60.0-200.0); Potassium 3.8 mmol/L (3.5-5.5); Total Bilirubin 0.2 mg/dL (0.30-1.20); Total Protein 6.6 g/dL (6.2-8.2)
== END | disposition home or self-care (01) ==
LOC: LABWHC1 09:11
PROVIDERS: ATTEND Internal Medicine Hematology & Oncology
DX: C64.2 Malignant neoplasm of left kidney, except renal pelvis (principal); R53.82 Chronic fatigue, unspecified
CPT/HCPCS: 36415; 80053; 84443; 85025

== ENCOUNTER → 2021-10-14 | Outpatient (CLI) | payer BC ==
--- NOTE | 2021-10-14 18:02 | US ---
EXAMINATION TYPE: US venous doppler duplex LE BI DATE OF EXAM: 10/14/2021 1:22 PM COMPARISON: NONE CLINICAL HISTORY: 65-year-old male R60.9 EDEMA, UNSPECIFIED. Bilateral leg swelling SIDE PERFORMED: Bilateral TECHNIQUE: The lower extremity deep venous system is examined utilizing real time linear array sonog delvin with graded compression, doppler sonography and color-flow sonography. FINDINGS: VESSELS IMAGED: Common Femoral Vein Deep Femoral Vein Greater Saphenous Vein * Femoral Vein Popliteal Vein Small Saphenous Vein * Proximal Calf Veins Posterior tibial veins (* superficial vessels) Right Leg: Negative for DVT Left Leg: Negative for DVT IMPRESSION: No evidence for DVT within the bilateral lower extremities.
== END | disposition home or self-care (01) ==
LOC: RADUSWWP 12:56
PROVIDERS: ATTEND Family Medicine
DX: R60.9 Edema, unspecified (principal)
CPT/HCPCS: 93970

== ENCOUNTER → 2021-10-22 | Outpatient (CLI) | payer BC ==
[2021-10-22 14:46] LABS: Basophils # (A) 0.04 X 10*3/uL (0.00-0.10); Basophils % (A) 0.6 %; Eosinophils # (A) 0.14 X 10*3/uL (0.04-0.35); HCT 35.6 % (39.6-50.0); HGB 10.4 g/dL (13.0-17.0); Immature Grans, Automated 0.4 %; Lymphocytes # (A) 0.72 X 10*3/uL (0.90-5.00); Lymphocytes % (A) 10.4 %; MCH 24.9 pg (27.0-32.0); MCHC 29.2 g/dL (32.0-37.0); MCV 85.4 fL (80.0-97.0); Mean Platelet Volume 8.7 fL (9.5-12.2); Monocytes # (A) 1.06 X 10*3/uL (0.20-1.00); Monocytes % (A) 15.3 %; NRBC Per 100 WBC 0 /100 WBCS (0.0-0.0); Neutrophils # (A) 4.92 X 10*3/uL (1.80-7.70); Neutrophils % (A) 71.3 %; Platelet Count 458 X 10*3/uL (140-440); RBC 4.17 X 10*6/uL (4.40-5.60); WBC 6.91 X 10*3/uL (4.50-10.00)
[2021-10-22 15:56] LABS: ALT 6 U/L (10-49); AST 12 U/L (14-35); African American GFR (CKD) 86.7 (60.0-200.0); Albumin 3.2 g/dL (3.8-4.9); Albumin/Globulin Ratio 0.79 (1.60-3.17); Alkaline Phosphatase 84 U/L (41-126); BUN/Creat Ratio 13.79 Ratio (12.00-20.00); Blood Urea Nitrogen 14.2 mg/dL (9.0-27.0); Carbon Dioxide 27.5 mmol/L (20.0-27.5); Chloride 98 mmol/L (96-109); Glucose 92 mg/dL (70-110); Non-African American GFR(CKD) 74.8 (60.0-200.0); Potassium 3.9 mmol/L (3.5-5.5); Sodium 136 mmol/L (135-145); Total Protein 7.2 g/dL (6.2-8.2)
== END | disposition home or self-care (01) ==
LOC: LABWHC1 09:34
PROVIDERS: ATTEND Internal Medicine Hematology & Oncology
DX: C64.2 Malignant neoplasm of left kidney, except renal pelvis (principal)
CPT/HCPCS: 36415; 80053; 82533; 84443; 85025

== ENCOUNTER → 2021-12-04 | Outpatient (CLI) | payer BC ==
[2021-12-04 18:20] LABS: Basophils # (A) 0.02 X 10*3/uL (0.00-0.10); Basophils % (A) 0.3 %; Eosinophils # (A) 0.12 X 10*3/uL (0.04-0.35); Eosinophils % (A) 1.7 %; HCT 35.5 % (39.6-50.0); HGB 10.2 g/dL (13.0-17.0); Immature Grans, Automated 0.3 %; Lymphocytes # (A) 0.68 X 10*3/uL (0.90-5.00); Lymphocytes % (A) 9.9 %; MCH 24.5 pg (27.0-32.0); MCHC 28.7 g/dL (32.0-37.0); MCV 85.1 fL (80.0-97.0); Monocytes # (A) 0.97 X 10*3/uL (0.20-1.00); Monocytes % (A) 14.1 %; NRBC Per 100 WBC 0 /100 WBCS (0.0-0.0); Neutrophils # (A) 5.08 X 10*3/uL (1.80-7.70); Neutrophils % (A) 73.7 %; Platelet Count 471 X 10*3/uL (140-440); RBC 4.17 X 10*6/uL (4.40-5.60); RDW 13.9 % (11.5-14.5); WBC 6.89 X 10*3/uL (4.50-10.00)
[2021-12-04 18:54] LABS: African American GFR (CKD) 101.4 (60.0-200.0); Albumin/Globulin Ratio 0.88 (1.60-3.17); Anion Gap 10.6 mmol/L (10.00-18.00); BUN/Creat Ratio 15.24 Ratio (12.00-20.00); Blood Urea Nitrogen 13.7 mg/dL (9.0-27.0); Calcium 8.8 mg/dL (8.7-10.3); Globulin 3.5 g/dL (1.6-3.3); Non-African American GFR(CKD) 87.5 (60.0-200.0); Potassium 4.4 mmol/L (3.5-5.5); T4, Free (Free Thyroxine) 1.11 ng/dL (0.800-1.800); Total Bilirubin 0.2 mg/dL (0.30-1.20); Total Protein 6.5 g/dL (6.2-8.2)
== END | disposition home or self-care (01) ==
LOC: LABWHC1 09:48
PROVIDERS: ATTEND Internal Medicine Hematology & Oncology
DX: C64.9 Malignant neoplasm of unspecified kidney, except renal pelvis (principal)
CPT/HCPCS: 36415; 80053; 82533; 83625; 84439; 84443; 84481; 85025

== ENCOUNTER → 2022-01-29 | Outpatient (CLI) | payer BC ==
[2022-01-29 19:09] LABS: Iron 10 ug/dL (65-175)
[2022-01-29 19:19] LABS: ALT 14 U/L (10-49); AST 15 U/L (14-35); African American GFR (CKD) 79.5 (60.0-200.0); Albumin/Globulin Ratio 0.88 (1.60-3.17); Alkaline Phosphatase 116 U/L (41-126); BUN/Creat Ratio 18.73 Ratio (12.00-20.00); Blood Urea Nitrogen 20.6 mg/dL (9.0-27.0); Carbon Dioxide 29.9 mmol/L (20.0-27.5); Chloride 101 mmol/L (96-109); Globulin 3.4 g/dL (1.6-3.3); Glucose 149 mg/dL (70-110); Non-African American GFR(CKD) 68.6 (60.0-200.0); Potassium 6.6 mmol/L (3.5-5.5); Sodium 141 mmol/L (135-145); Total Bilirubin <0.15 mg/dL (0.30-1.20); Total Protein 6.4 g/dL (6.2-8.2)
[2022-01-29 19:51] LABS: Basophils # (A) 0.03 X 10*3/uL (0.00-0.10); Basophils % (A) 0.2 %; Eosinophils # (A) 0.01 X 10*3/uL (0.04-0.35); Eosinophils % (A) 0.1 %; HCT 27.7 % (39.6-50.0); HGB 7.7 g/dL (13.0-17.0); Immature Grans, Automated 0.9 %; Lymphocytes # (A) 0.89 X 10*3/uL (0.90-5.00); Lymphocytes % (A) 6.4 %; MCH 23.8 pg (27.0-32.0); MCHC 27.8 g/dL (32.0-37.0); MCV 85.5 fL (80.0-97.0); Mean Platelet Volume 8.6 fL (9.5-12.2); Monocytes # (A) 1.31 X 10*3/uL (0.20-1.00); Monocytes % (A) 9.4 %; NRBC Per 100 WBC 0 /100 WBCS (0.0-0.0); Neutrophils # (A) 11.61 X 10*3/uL (1.80-7.70); Platelet Count 754 X 10*3/uL (140-440); RBC 3.24 X 10*6/uL (4.40-5.60); RBC Morphology NORMAL; RDW 15.3 % (11.5-14.5); WBC 13.97 X 10*3/uL (4.50-10.00)
== END | disposition home or self-care (01) ==
LOC: LABWHC1 11:14
PROVIDERS: ATTEND Internal Medicine Hematology & Oncology
DX: C64.2 Malignant neoplasm of left kidney, except renal pelvis (principal); D50.9 Iron deficiency anemia, unspecified
CPT/HCPCS: 36415; 80053; 82533; 82728; 83540; 85025

== ENCOUNTER → 2022-02-06 | Outpatient (CLI) | payer BC ==
--- NOTE | 2022-02-07 10:36 | CA ---
Transthoracic Echo Report Name: Fritz Aly Age: 66 Gender: M : 1955 Exam Date: 02/06/2022 14:06 Exam Location: [facility] Ht (in): 75 Wt (lb): 190 Ordering Physician: Hesham Vinson DO Attending/Referring Phys: [id number], Karel Anime Designer Shante Resendiz, [facility] Procedure CPT: Indications: Z02.1 ENCOUNTER FOR PRE-EMPLOYMENT EXAMINATION Cardiac Hx: Technical Quality: Fair Contrast 1: Total Dose (mL): Contrast 2: Total Dose (mL): MEASUREMENTS (Male / Female) Normal Values 2D ECHO LV Diastolic Diameter PLAX 3.5 cm 4.2 - 5.9 / 3.9 - 5.3 cm LV Systolic Diameter PLAX 2.7 cm IVS Diastolic Thickness 1.5 cm 0.6 - 1.0 / 0.6 - 0.9 cm LVPW Diastolic Thickness 1.8 cm 0.6 - 1.0 / 0.6 - 0.9 cm LV Relative Wall Thickness 0.9 RV Internal Dim ED PLAX 2.7 cm LA Volume 88.1 cm??? 18 - 58 / 22 - 52 cm??? M-MODE Aortic Root Diameter MM 3.2 cm LA Systolic Diameter MM 4.7 cm LA Ao Ratio MM 1.4 AV Cusp Separation MM 2.1 cm DOPPLER AV Peak Velocity 160.0 cm/s AV Peak Gradient 10.2 mmHg AI Peak Velocity 426.6 cm/s AI Peak Gradient 72.8 mmHg AI Pressure Half Time 318.5 ms LVOT Peak Velocity 120.8 cm/s LVOT Peak Gradient 5.8 mmHg MV Area PHT 3.0 cm??? Mitral E Point Velocity 88.1 cm/s Mitral A Point Velocity 109.7 cm/s Mitral E to A Ratio 0.8 MV Deceleration Time 255.8 ms MV E' Velocity 8.7 cm/s Mitral E to MV E' Ratio 10.1 TR Peak Velocity 266.8 cm/s TR Peak Gradient 28.5 mmHg Right Ventricular Systolic Press 33.1 mmHg FINDINGS Left Ventricle Moderately increased left ventricular wall thickness. Normal left ventricular systolic function with no obvious regional wall motion abnormalities. Left ventricular ejection fraction is estimated at 55-60 %. Right Ventricle Normal right ventricular size. Right Atrium Normal right atrial size. Left Atrium Moderate left atrial dilatation. Mitral Valve Mild mitral annular calcification. No mitral stenosis. Mild mitral regurgitation. Aortic Valve Trileaflet aortic valve. No aortic stenosis. Trace to mild aortic regurgitation. Tricuspid Valve Structurally normal tricuspid valve. Mild tricuspid regurgitation. Pulmonic Valve Trace pulmonic regurgitation. Pericardium No pericardial effusion. Aorta Normal size aortic root and proximal ascending aorta. CONCLUSIONS Normal left ventricular dimension and systolic function Mild aortic regurgitation Previewed by: Dr. Arias Elias MD (Electronically Signed) Final Date: 07 February 2022 10:36
== END | disposition home or self-care (01) ==
LOC: RADECHMAIN 14:02
PROVIDERS: ATTEND Surgery
DX: I50.9 Heart failure, unspecified (principal)
CPT/HCPCS: 93306

== ENCOUNTER → 2022-03-02 | Outpatient (CLI) | payer BC ==
[2022-03-02 17:44] LABS: Basophils # (A) 0.04 X 10*3/uL (0.00-0.10); Basophils % (A) 0.3 %; Eosinophils # (A) 0.16 X 10*3/uL (0.04-0.35); Eosinophils % (A) 1.3 %; HCT 29.6 % (39.6-50.0); HGB 7.8 g/dL (13.0-17.0); Immature Grans, Automated 0.8 %; Lymphocytes # (A) 1.18 X 10*3/uL (0.90-5.00); Lymphocytes % (A) 9.8 %; MCH 21.7 pg (27.0-32.0); MCHC 26.4 g/dL (32.0-37.0); MCV 82.2 fL (80.0-97.0); Mean Platelet Volume 9.2 fL (9.5-12.2); Monocytes # (A) 1.32 X 10*3/uL (0.20-1.00); Monocytes % (A) 10.9 %; NRBC Per 100 WBC 0 /100 WBCS (0.0-0.0); Neutrophils # (A) 9.29 X 10*3/uL (1.80-7.70); Neutrophils % (A) 76.9 %; Platelet Count 625 X 10*3/uL (140-440); RDW 16.3 % (11.5-14.5); WBC 12.09 X 10*3/uL (4.50-10.00)
[2022-03-02 17:59] LABS: INR 1.12 (0.90-1.11); Prothrombin Time 12.3 sec (9.9-11.9)
[2022-03-02 19:37] LABS: ALT 13 U/L (10-49); AST 17 U/L (14-35); African American GFR (CKD) 79.5 (60.0-200.0); Albumin/Globulin Ratio 0.79 (1.60-3.17); Alkaline Phosphatase 143 U/L (41-126); Blood Urea Nitrogen 19.8 mg/dL (9.0-27.0); Calcium 8.9 mg/dL (8.7-10.3); Carbon Dioxide 27.8 mmol/L (20.0-27.5); Chloride 104 mmol/L (96-109); Chol/HDL Ratio 2.68 Ratio; Globulin 3.8 g/dL (1.6-3.3); Glucose 126 mg/dL (70-110); LDL Cholesterol,Calculated 40.6 mg/dL (0.0-131.0); Non-African American GFR(CKD) 68.6 (60.0-200.0); Potassium 4.9 mmol/L (3.5-5.5); Sodium 142 mmol/L (135-145); Total Bilirubin <0.15 mg/dL (0.30-1.20); Total Protein 6.8 g/dL (6.2-8.2)
[2022-03-02 21:00] LABS: Creatine Kinase 20 U/L (35-257)
== END | disposition home or self-care (01) ==
LOC: LABWHC1 13:03
PROVIDERS: ATTEND Family Medicine
DX: C64.9 Malignant neoplasm of unspecified kidney, except renal pelvis (principal); C64.2 Malignant neoplasm of left kidney, except renal pelvis; I10 Essential (primary) hypertension; E78.49 Other hyperlipidemia; N40.0 Benign prostatic hyperplasia without lower urinary tract symptoms; E53.8 Deficiency of other specified B group vitamins; E55.9 Vitamin D deficiency, unspecified
CPT/HCPCS: 36415; 80053; 80061; 82306; 82550; 82607; 84153; 84439; 84443; 85025; 85610

== ENCOUNTER → 2022-03-05 | Outpatient (CLI) | payer BC ==
--- NOTE | 2022-03-05 12:48 | XR ---
EXAMINATION TYPE: XR chest 2V DATE OF EXAM: 03/05/2022 COMPARISON: 03/10/2012 HISTORY: 66-year-old male Z01.818, encounter for other procedural examination. TECHNIQUE: Frontal and lateral views FINDINGS: Heart normal size. Aorta and pulmonary vasculature within normal limits. Some focal patchy opacity at the retrocardiac region has a somewhat streaky configuration. No consolidation or pleural effusion o therwise seen. IMPRESSION: Some patchy retrocardiac density favored to represent atelectasis rather than infiltrate. Clinically correlate.
== END | disposition home or self-care (01) ==
LOC: RADXRMAIN 11:06
PROVIDERS: ATTEND Family Medicine
DX: Z01.818 Encounter for other preprocedural examination (principal)
CPT/HCPCS: 71046

== ENCOUNTER → 2022-05-09 | Outpatient (CLI) | payer BC ==
[2022-05-09 22:39] LABS: HCT 30.9 % (39.6-50.0); HGB 8.6 g/dL (13.0-17.0); MCH 23.9 pg (27.0-32.0); MCHC 27.8 g/dL (32.0-37.0); MCV 85.8 fL (80.0-97.0); Mean Platelet Volume 10.6 fL (9.5-12.2); NRBC Per 100 WBC 0 /100 WBCS (0.0-0.0); Platelet Count 352 X 10*3/uL (140-440); RDW 24.5 % (11.5-14.5); WBC 16.11 X 10*3/uL (4.50-10.00)
[2022-05-09 23:08] LABS: Anisocytosis (M) 2+; Basophils # (A) 0.02 X 10*3/uL (0.00-0.10); Basophils % (A) 0.1 %; Eosinophils # (A) 0.05 X 10*3/uL (0.04-0.35); Eosinophils % (A) 0.3 %; Immature Grans, Automated 1.2 %; Lymphocytes # (A) 1.32 X 10*3/uL (0.90-5.00); Lymphocytes % (A) 8.2 %; Macrocytosis (M) 2+; Microcytosis (M) 2+; Monocytes # (A) 1.18 X 10*3/uL (0.20-1.00); Monocytes % (A) 7.3 %; Neutrophils # (A) 13.34 X 10*3/uL (1.80-7.70); Neutrophils % (A) 82.9 %
[2022-05-09 23:42] LABS: T4, Free (Free Thyroxine) 1.02 ng/dL (0.800-1.800)
[2022-05-09 23:47] LABS: African American GFR (CKD) 85.1 (60.0-200.0); Albumin 2.4 g/dL (3.8-4.9); Albumin/Globulin Ratio 0.58 (1.60-3.17); Anion Gap 11.9 mmol/L (10.00-18.00); BUN/Creat Ratio 12.69 Ratio (12.00-20.00); Blood Urea Nitrogen 13.2 mg/dL (9.0-27.0); Calcium 8.3 mg/dL (8.7-10.3); Carbon Dioxide 28.2 mmol/L (20.0-27.5); Globulin 4.2 g/dL (1.6-3.3); Non-African American GFR(CKD) 73.4 (60.0-200.0); Potassium 3.9 mmol/L (3.5-5.5); Total Bilirubin 1.3 mg/dL (0.30-1.20); Total Protein 6.7 g/dL (6.2-8.2)
== END | disposition home or self-care (01) ==
LOC: LABWHC1 10:04
PROVIDERS: ATTEND Internal Medicine Hematology & Oncology
DX: C22.9 Malignant neoplasm of liver, not specified as primary or secondary (principal); C64.2 Malignant neoplasm of left kidney, except renal pelvis; D50.9 Iron deficiency anemia, unspecified
CPT/HCPCS: 36415; 80053; 82024; 82533; 84439; 84443; 84481; 85025

== ENCOUNTER 2022-06-01 17:44 | Inpatient (IN) | payer BC, MEDICARE ==
--- NOTE | 2022-06-01 18:04 | ED ---
Weakness HPI - General Chief complaint: Weakness Stated complaint: dehydration Time Seen by Provider: 06/01/22 17:46 Source: patient Mode of arrival: EMS Limitations: physical limitation - History of Present Illness Initial comments: This patient is a 66-year-old man with history of stage IV renal cancer, states he is receiving radiation, last treatment being 6 days ago and immunotherapy, last treatment 3 weeks ago. The patient comes today for evaluation of generalized weakness and fatigue. He denies any focal weakness. He states this is been going on for days to weeks. He also has been complaining of bilateral leg edema also going on for weeks. Patient states that he saw his oncologist, Dr. Simon on Wednesday, who stated that if he wasn't feeling any better after the weekend to come to the emergency department. The patient did not have i mprovement with oral diuretics. He is not having leg pain. No chest pain, dyspnea, palpitations, hemoptysis or syncope. MD Complaint: generalized weakness -: days(s) Location: generalized Consistency: constant Improves with: none Worsens with: exertion Associated Symptoms: other (Leg swelling) - Related Data Home Medications Medication Instructions Recorded Confirmed Montelukast [Singulair] 10 mg PO HS 03/29/18 03/04/22 Acetaminophen [Tylenol Extra 500 mg PO Q6H PRN 04/12/18 03/04/22 Strength] Cetirizine HCl [Zyrtec] 10 mg PO DAILY 04/12/18 03/04/22 Fluticasone Nasal [place] [Flonase 2 spr EA NOSTRIL DAILY 04/12/18 03/04/22 Nasal [place]] Fluticasone Propion/Salmeterol 1 puff INHALATION RT-BID 09/25/18 03/04/22 [Advair 250-50 Diskus] Optidivo 1 applicate IV QMONTHLY 01/30/21 03/04/22 Retinavites 2 tab PO DAILY 01/30/21 03/04/22 Vitamin B1+ Iron 1 tab PO BID 01/30/21 03/04/22 hydrALAZINE HCL 75 mg PO TID 01/30/21 03/04/22 Omeprazole 20 mg PO BID 03/25/21 03/04/22 Sennosides [Senokot] 1 tab PO BID PRN 05/30/21 03/04/22 Allergies Allergy/AdvReac Type Severity Reaction Status Date / Time No Known Allergies Allergy Verified 06/01/22 17:50 Review of Systems ROS Statement: Those systems with pertinent positive or pertinent negative responses have been documented in the HPI. ROS Other: All systems not noted in ROS Statement are negative. Constitutional: Reports: weakness. Denies: fever, chills Eyes: Denies: vision change Respiratory: Denies: cough, dyspnea, hemoptysis Cardiovascular: Reports: edema. Denies: chest pain, palpitations, orthopnea, syncope Gastrointestinal: Reports: diarrhea. Denies: abdominal pain, nausea, vomiting, constipation Genitourinary: Denies: dysuria, hematuria Musculoskeletal: Denies: back pain Skin: Denies: rash Neurological: Denies: headache, weakness, numbness Past Medical History Past Medical History: Asthma, Cancer, Hypertension, Sleep Apnea/CPAP/BIPAP Additional Past Medical History / Comment(s): Gastric Ulcer. Anemia. Stage 4 left kidney cancer(IS CURRENTLY ON IMMUNOPRESSOR PROTOCOL AND EVENTUALLY HAVE KIDNEY REMOVED.) HAD COVID IN AUGUST 2019. NO CPAP History of Any Multi-Drug Resistant Organisms: None Reported Past Surgical History: Adenoidectomy, Tonsillectomy Additional Past Surgical History / Comment(s): Rhinoplasty, Uvula removed, left kidney embolization, EGD. Past Anesthesia/Blood Transfusion Reactions: No Reported Reaction Past Psychological History: No Psychological Hx Reported Smoking Status: Never smoker Past Alcohol Use History: Occasional Past Drug Use History: None Reported - Past Family History Mother Family Medical History: No Reported History Brother(s) Family Medical History: Rheumatoid Arthritis (RA) Father Family Medical History: No Reported History General Exam Limitations: physical limitation General appearance: alert, in no apparent distress Head exam: Present: atraumatic, normocephalic Eye exam: Present: normal appearance. Absent: scleral icterus, conjunctival injection Neck exam: Present: normal inspection Respiratory exam: Present: normal lung sounds bilaterally. Absent: respiratory distress, wheezes, rales, rhonchi, stridor Cardiovascular Exam: Present: regular rate, normal rhythm, normal heart sounds. Absent: systolic murmur, diastolic murmur, rubs GI/Abdominal exam: Present: soft. Absent: distended, tenderness, guarding, rebound, rigid, mass Extremities exam: Present: normal inspection, normal capillary refill, pedal edema, other (There is symmetric bilateral edema. No Homans sign or palpable cord.). Absent: calf tenderness Back exam: Present: normal inspection. Absent: CVA tenderness (R), CVA tenderness (L) Neurological exam: Present: alert, oriented X3. Absent: motor sensory deficit Skin exam: Present: warm, dry, intact, normal color. Absent: rash Course Vital Signs 06/01/22 06/01/22 17:46 18:00 Temperature 97.3 F L Pulse Rate 101 H 100 Respiratory 18 18 Rate Blood Pressure 115/85 111/73 O2 Sat by Pulse 100 97 Oximetry EKG Findings - EKG Comments: EKG Findings:: Possible old anterior infarct - EKG Results: EKG: interpreted by ANDI, sinus rhythm (Rate 99 bpm) Medical Decision Making - Medical Decision Making This patient is 66-year-old man with history of metastatic cancer, here for worsening of generalized weakness, fatigue, leg edema. The workup was concerning for possible pneumonia. There is elevated lactic acid reflecting possible sepsis versus dehydration. Patient will be admitted for antibiotic therapy, and to have consultations. At this time aggressive hydration will be held given patient with some evidence of fluid overload, possible CHF. Was pt. sent in by a medical professional or institution? @ -[Patient's oncologist Did you speak to anyone other than the patient for history? @ -[Patient's Did you review nursing and triage notes? @ -[agree Were old charts reviewed? @ -[Previous record Differential Diagnosis? @ -[Differential Weakness: Hypoglycemia, shock, sepsis, hyponatremia, anemia, infection, TX, adverse medicine reaction, overdose, stroke, this is not meant to be an all-inclusive list. EKG interpreted by me (3pts min.)? @ -[See chart X-rays interpreted by me (1pt min.)? @ -[I interpreted the chest x-ray as showing possible left lower lobe in filtrate, vascular congestion CT interpreted by me (1pt min.)? @ -[none] U/S interpreted by me (1pt. min.)? @ -[none] What testing was considered but not performed? (CT, X-rays, U/S, labs)? Why? @ [CT, X-rays, U/S, labs? Why?] What meds were considered but not given? Why? @ -[none] Did you discuss the management of the patient with other professionals? @ -Admitting physician Did you reconcile home meds? @ -[Yes Was smoking cessation discussed for >3mins.? @ -[none] Was critical care preformed (if so, how long)? @ -[none] Were there social determinants of health that impacted care today? How? (Homelessness, low income, unemployed, alcoholism, drug addiction, transportati on, low edu. Level, literacy, decrease access to med. care, prison, rehab)? @ -[none Was there de-escalation of care discussed even if they declined? (Discuss DNR or withdrawal of care, Hospice)? @ -[no What co-morbidities impacted this encounter? (DM, HTN, Smoking, COPD, CAD, Cancer, CVA, Hep., AIDS, mental health diagnosis, sleep apnea, morbid obesity)? @ -[Cancer Was patient admitted / discharged? @ -[Admitted Undiagnosed new problem with uncertain prognosis? @ -[none] Drug Therapy requiring intensive monitoring for toxicity (Heparin, Nitro, Insulin, Cardizem)? @ -[none] Were any procedures done? @ -[none] Diagnosis/symptom? @ -[1. Generalized weakness 2. Dehydration versus sepsis. 3. Pneumonia 4. Bilateral leg edema Acute, or Chronic, or Acute on Chronic? @ -[1-3 acute 4. Acute on chronic Uncomplicated (without systemic symptoms) or Complicated (systemic symptoms)? @ -[default] Side effects of treatment? @ -[none] Exacerbation, Progression, or Severe Exacerbation] @ -[no] Poses a threat to life or bodily function? @ -Yes - Lab Data Result diagrams: 06/01/22 17:56 06/01/22 17:56 Lab Results 06/01/22 06/01/22 06/01/22 Range/Units 17:56 17:56 17:56 WBC 14.3 H (3.8-10.6) k/uL RBC 2.98 L (4.30-5.90) m/uL Hgb 8.0 L (13.0-17.5) gm/dL Hct 27.8 L (39.0-53.0) % MCV 93.3 (80.0-100.0) fL MCH 26.8 (25.0-35.0) pg MCHC 28.8 L (31.0-37.0) g/dL RDW 19.0 H (11.5-15.5) % Plt Count 133 L (150-450) k/uL MPV 8.3 Neutrophils % 88 % Lymphocytes % 5 % Monocytes % 5 % Eosinophils % 0 % Basophils % 0 % Neutrophils # 12.6 H (1.3-7.7) k/uL Lymphocytes # 0.7 L (1.0-4.8) k/uL Monocytes # 0.7 (0-1.0) k/uL Eosinophils # 0.1 (0-0.7) k/uL Basophils # 0.0 (0-0.2) k/uL Hypochromasia Marked Anisocytosis Slight Macrocytosis Slight PT 14.0 H (9.0-12.0) sec INR 1.4 H (<1.2) APTT 30.5 H (22.0-30.0) sec Sodium 140 (137-145) mmol/L Potassium 3.9 (3.5-5.1) mmol/L Chloride 108 H (98-107) mmol/L Carbon Dioxide 28 (22-30) mmol/L Anion Gap 4 mmol/L BUN 25 H (9-20) mg/dL Creatinine 0.91 (0.66-1.25) mg/dL Est GFR (CKD-EPI)AfAm >90 (>60 ml/min/1.73 sqM) Est GFR (CKD-EPI)NonAf 86 (>60 ml/min/1.73 sqM) Glucose 66 L (74-99) mg/dL Lactic Ac Sepsis Rflx Plasma Lactic Acid Kee (0.7-2.0) mmol/L Calcium 7.4 L (8.4-10.2) mg/dL Magnesium 2.0 (1.6-2.3) mg/dL Total Bilirubin 2.2 H (0.2-1.3) mg/dL AST 52 (17-59) U/L ALT 22 (4-49) U/L Alkaline Phosphatase 553 H (38-126) U/L Troponin I (0.000-0.034) ng/mL NT-Pro-B Natriuret Pep pg/mL Total Protein 6.2 L (6.3-8.2) g/dL Albumin 2.2 L (3.5-5.0) g/dL 06/01/22 06/01/22 06/01/22 Range/Units 17:56 17:56 17:56 WBC (3.8-10.6) k/uL RBC (4.30-5.90) m/uL Hgb (13.0-17.5) gm/dL Hct (39.0-53.0) % MCV (80.0-100.0) fL MCH (25.0-35.0) pg MCHC (31.0-37.0) g/dL RDW (11.5-15.5) % Plt Count (150-450) k/uL MPV Neutrophils % % Lymphocytes % % Monocytes % % Eosinophils % % Basophils % % Neutrophils # (1.3-7.7) k/uL Lymphocytes # (1.0-4.8) k/uL Monocytes # (0-1.0) k/uL Eosinophils # (0-0.7) k/uL Basophils # (0-0.2) k/uL Hypochromasia Anisocytosis Macrocytosis PT (9.0-12.0) sec INR (<1.2) APTT (22.0-30.0) sec Sodium (137-145) mmol/L Potassium (3.5-5.1) mmol/L Chloride (98-107) mmol/L Carbon Dioxide (22-30) mmol/L Anion Gap mmol/L BUN (9-20) mg/dL Creatinine (0.66-1.25) mg/dL Est GFR (CKD-EPI)AfAm (>60 ml/min/1.73 sqM) Est GFR (CKD-EPI)NonAf (>60 ml/min/1.73 sqM) Glucose (74-99) mg/dL Lactic Ac Sepsis Rflx Plasma Lactic Acid Kee 2.4 H* (0.7-2.0) mmol/L Calcium (8.4-10.2) mg/dL Magnesium (1.6-2.3) mg/dL Total Bilirubin (0.2-1.3) mg/dL AST (17-59) U/L ALT (4-49) U/L Alkaline Phosphatase (38-126) U/L Troponin I <0.012 (0.000-0.034) ng/mL NT-Pro-B Natriuret Pep 4880 pg/mL Total Protein (6.3-8.2) g/dL Albumin (3.5-5.0) g/dL 06/01/22 Range/Units 18:33 WBC (3.8-10.6) k/uL RBC (4.30-5.90) m/uL Hgb (13.0-17.5) gm/dL Hct (39.0-53.0) % MCV (80.0-100.0) fL MCH (25.0-35.0) pg MCHC (31.0-37.0) g/dL RDW (11.5-15.5) % Plt Count (150-450) k/uL MPV Neutrophils % % Lymphocytes % % Monocytes % % Eosinophils % % Basophils % % Neutrophils # (1.3-7.7) k/uL Lymphocytes # (1.0-4.8) k/uL Monocytes # (0-1.0) k/uL Eosinophils # (0-0.7) k/uL Basophils # (0-0.2) k/uL Hypochromasia Anisocytosis Macrocytosis PT (9.0-12.0) sec INR (<1.2) APTT (22.0-30.0) sec Sodium (137-145) mmol/L Potassium (3.5-5.1) mmol/L Chloride (98-107) mmol/L Carbon Dioxide (22-30) mmol/L Anion Gap mmol/L BUN (9-20) mg/dL Creatinine (0.66-1.25) mg/dL Est GFR (CKD-EPI)AfAm (>60 ml/min/1.73 sqM) Est GFR (CKD-EPI)NonAf (>60 ml/min/1.73 sqM) Glucose (74-99) mg/dL Lactic Ac Sepsis Rflx Y Plasma Lactic Acid Kee (0.7-2.0) mmol/L Calcium (8.4-10.2) mg/dL Magnesium (1.6-2.3) mg/dL Total Bilirubin (0.2-1.3) mg/dL AST (17-59) U/L ALT (4-49) U/L Alkaline Phosphatase (38-126) U/L Troponin I (0.000-0.034) ng/mL NT-Pro-B Natriuret Pep pg/mL Total Protein (6.3-8.2) g/dL Albumin (3.5-5.0) g/dL Disposition Clinical Impression: Peripheral edema, Generalized weakness, Lactic acidosis, Pneumonia Disposition: ADMITTED IP TO THIS HOSP Condition: Poor Is patient prescribed a controlled substance at d/c from ED?: No Referrals: Natividad Li MD [Primary Care Provider] - 1-2 days
[2022-06-01 18:11] LABS: Anisocytosis Slight; Basophils % (A) 0 %; Eosinophils # (A) 0.1 k/uL (0-0.7); Eosinophils % (A) 0 %; HCT 27.8 % (39.0-53.0); Hypochromasia Marked; Lymphocytes # (A) 0.7 k/uL (1.0-4.8); Lymphocytes % (A) 5 %; MCH 26.8 pg (25.0-35.0); MCHC 28.8 g/dL (31.0-37.0); MCV 93.3 fL (80.0-100.0); Macrocytosis Slight; Mean Platelet Volume 8.3; Monocytes # (A) 0.7 k/uL (0-1.0); Monocytes % (A) 5 %; Neutrophils # (A) 12.6 k/uL (1.3-7.7); Neutrophils % (A) 88 %; Platelet Count 133 k/uL (150-450); RBC 2.98 m/uL (4.30-5.90); WBC 14.3 k/uL (3.8-10.6)
[2022-06-01 18:22] LABS: INR 1.4 (<1.2); Partial Thromboplastin Time 30.5 sec (22.0-30.0)
--- NOTE | 2022-06-01 18:25 | XR ---
EXAMINATION TYPE: XR chest 2V DATE OF EXAM: 06/01/2022 COMPARISON: 03/05/2022 HISTORY: Weakness TECHNIQUE: 2 views FINDINGS: There is patchy airspace consolidation left lower lobe. There is coarse interstitial densit y in the lung pepe. There are chest leads. Bony thorax is intact. IMPRESSION: There is left lower lobe pneumonia and atelectasis and pleural fluid significantly increa sed compared to old exam. Mild pulmonary congestion. Mild heart failure is possible. Pulmonary vascul arity increased compared to the old exam.
[2022-06-01 18:29] LABS: ALT 22 U/L (4-49); AST 52 U/L (17-59); African American GFR (CKD) >90 (>60 ml/min/1.73 sqM); Albumin 2.2 g/dL (3.5-5.0); Alkaline Phosphatase 553 U/L (38-126); Anion Gap 4 mmol/L; Blood Urea Nitrogen 25 mg/dL (9-20); Calcium 7.4 mg/dL (8.4-10.2); Carbon Dioxide 28 mmol/L (22-30); Chloride 108 mmol/L (98-107); Glucose 66 mg/dL (74-99); Non-African American GFR(CKD) 86 (>60 ml/min/1.73 sqM); Potassium 3.9 mmol/L (3.5-5.1); Sodium 140 mmol/L (137-145); Total Bilirubin 2.2 mg/dL (0.2-1.3); Total Protein 6.2 g/dL (6.3-8.2)
[2022-06-01] MEDS ORDERED: SODIUM CHLORIDE 0.9% 500 ML 500 ML IV STA (20:10)
[2022-06-01] MEDS ORDERED: NALOXONE 0.4 MG/ML 1 ML VIAL IV PRN (22:51)
[2022-06-01] MEDS ORDERED: ACETAMINOPHEN TAB 325 MG TAB PO PRN (22:51)
[2022-06-01] MEDS ORDERED: MAG HYDROX/AL HYDROX/SIMETH 30 ML CUP PO PRN (22:51)
[2022-06-02] MEDS ORDERED: SENNOSIDES 8.6 MG TAB PO PRN (01:19)
[2022-06-02] MEDS: SODIUM CHLORIDE 0.9% 1,000 ML IV SCH (02:09)
[2022-06-02] MEDS: AZITHROMYCIN 500 MG in SODIUM CHLORIDE 0.9% 250 ML IVPB SCH (02:10)
[2022-06-02 02:15] LABS: Appearance,Urine Cloudy (Clear); Bacteria,Urine Rare /hpf; Bilirubin,Urine Negative (Negative); Blood,Urine Trace (Negative); Color,Urine Dark Yellow; Glucose,Urine (UA) Negative (Negative); Hyaline Casts,Urine 9 /lpf (0-2); Ketones,Urine Negative (Negative); Leukocyte Esterase,Urine Trace (Negative); Mucus,Urine Rare /hpf; Nitrite,Urine Negative (Negative); PH, Urine 5.5 (5.0-8.0); Protein,Urine 1+ (Negative); RBC,Urine 7 /hpf (0-5); Specific Gravity,Urine 1.026 (1.001-1.035); Squamous Epithelial Cell,Urine <1 /hpf (0-4); Triple Phosphate Crystal,Urine Occasional /hpf; WBC,Urine 2 /hpf (0-5)
[2022-06-02] MEDS: SYMBICORT 80-4.5 MCG INHALER INHALATION SCH ×2 (07:42→20:11)
[2022-06-02] MEDS: FAMOTIDINE 20 MG TAB PO SCH ×2 (08:34→20:35)
[2022-06-02] MEDS: PANTOPRAZOLE 40 MG TABLET PO SCH (08:34)
[2022-06-02] MEDS ORDERED: FUROSEMIDE 10 MG/ML 2 ML VIAL IV ONE (09:51)
[2022-06-02 12:24] LABS: Anisocytosis Slight; Basophils % (A) 0 %; Eosinophils # (A) 0.2 k/uL (0-0.7); Eosinophils % (A) 1 %; HCT 27.8 % (39.0-53.0); Hypochromasia Marked; Lymphocytes # (A) 0.6 k/uL (1.0-4.8); Lymphocytes % (A) 5 %; MCH 27.8 pg (25.0-35.0); MCHC 28.9 g/dL (31.0-37.0); Macrocytosis Slight; Mean Platelet Volume 8.7; Monocytes # (A) 0.5 k/uL (0-1.0); Monocytes % (A) 4 %; Neutrophils # (A) 11.1 k/uL (1.3-7.7); Neutrophils % (A) 89 %; Platelet Count 107 k/uL (150-450); RBC 2.89 m/uL (4.30-5.90); RDW 18.1 % (11.5-15.5); WBC 12.4 k/uL (3.8-10.6)
[2022-06-02] MEDS ORDERED: CALCIUM CARBONATE 500 MG CHEWABLE PO PRN (12:36)
[2022-06-02 13:46] LABS: African American GFR (CKD) >90 (>60 ml/min/1.73 sqM); Anion Gap 3 mmol/L; Blood Urea Nitrogen 24 mg/dL (9-20); Calcium 7.4 mg/dL (8.4-10.2); Carbon Dioxide 29 mmol/L (22-30); Chloride 110 mmol/L (98-107); Glucose 64 mg/dL (74-99); Non-African American GFR(CKD) 80 (>60 ml/min/1.73 sqM); Potassium 3.8 mmol/L (3.5-5.1); Sodium 142 mmol/L (137-145)
--- NOTE | 2022-06-02 14:44 | P.HPIM ---
History of Present Illness H&P Date: 06/02/22 This is a 66-year-old male who follows with Dr. Li, medical conditions include asthma, hypertension, sleep apnea, anemia and gastric ulcer, stage IV left kidney cancer patient is currently on immunosuppressive therapy and radiation. Diagnosed with renal cancer back in 2018, he is currently on radi ation cycle 11/30. Medical records discuss there is liver metastasis and family at bedside reports there is a tumor which is pressing on the IVC. Presents with concern for generalized weakness and fatigue ongoing for the last week, he is also reporting peripheral edema. Denies any leg pain, states he has had lower extremity edema for the last 6 months, and has been taking his oral diuretic at home. Denies shortness of breath, denies chest pain. Denies cough, fever or chills. Last Wednesday he became significant more weak and was unable to ambulate and was taken by EMS to his radiation appointment. His radiologist felt he was to weak to undergo radiation and recommended patient to come into the ER if symptoms did not improve. He had an episode of diarrhea Wednesday night, and has had decreased appetite. He presents to the [facility] yesterday afternoon with worsening weakness. Chest x-ray shows left lower lobe pneumonia and atelectasis and pleural fluid significantly increased compared to old exam with mild pulmonary congestion with mild heart failure possible. There is a retrocardiac infiltrate on lateral view. He is found to have proBNP of 4880 on admission, troponin level is negative. Lactic acid is elevated at 2.4. He does have leukocytosis with left shift. Urine is showing trace blood. He is afebrile and on room air. Has been started on IV azithromycin and IV ceftriaxone, Received a fluid bolus in [facility] as well. Had a prior echocardiogram in January of this year showing an EF of 55- 60% with mild mitral regurgitation, mild aortic regurgitation and mild tricuspid regurgitation. Patient will be admitted and will be started on IV lasix and will repeat echocardiogram. He will continue on antibiotics and check procalcitonin level. Oncology and Radiology have been consulted. REVIEW OF SYSTEMS: CONSTITUTIONAL: No fever, no malaise, Reports fatigue HEENT: No recent visual problems or hearing problems. Denied any sore throat. CARDIOVASCULAR: No chest pain, orthopnea, PND, no palpitations, no syncope. PULMONARY: No shortness of breath, no cough, no hemoptysis. GASTROINTESTINAL: Diarrhea 2 days ago, no nausea, no vomiting, no abdominal pain. Has decreased appetite. NEUROLOGICAL: No headaches, no numbness, Reports generalized weakness. HEMATOLOGICAL: Denies any bleeding or petechiae. GENITOURINARY: Denies any burning micturition, frequency, or urgency. MUSCULOSKELETAL/RHEUMATOLOGICAL: Denies any joint pain, swelling, or any muscle pain. ENDOCRINE: Denies any polyuria or polydipsia. The rest of the 14-point review of systems is negative. PHYSICAL EXAMINATION: GENERAL: The patient is alert and oriented x3, not in any acute distress. Well developed, well nourished. HEENT: Pupils are round and equally reacting to light. EOMI. No scleral icterus. No conjunctival pallor. Normocephalic, atraumatic. No pharyngeal erythema. No thyromegaly. CARDIOVASCULAR: S1 and S2 present. No murmurs, rubs, or gallops. PULMONARY: Chest is clear to auscultation, no wheezing or crackles. ABDOMEN: Soft, nontender, nondistended, normoactive bowel sounds. No palpable organomegaly. MUSCULOSKELETAL: No joint swelling or deformity. EXTREMITIES: No cyanosis, clubbing. He has +2 lower extremity pitting edema. NEUROLOGICAL: Gross neurological examination did not reveal any focal deficits. SKIN: No rashes. Assessment and plan Assessment Generalized weakness Left lower lobe pneumonia, community acquired with sepsis present on admission, there is infiltrate on xray and patient presents with lactic acidosis and elevated white count. Mild acute heart failure likely diastolic with preserved EF on recent echocardiogram Lower extremity edema Bicytopenia Hypoglycemia from poor oral intake Stage 4 left renal cancer with liver metastasis currently undergoing immunotherapy/radiation Hypertension Sleep apnea History iron deficiency anemia History asthma stable History of gastric ulcer GI prophylaxis DVT prophylaxis Full Code Plan Continue IV ceftriaxone/IV azithromycin Check procalcitonin level IV lasix 40 Q 12 with strict intake and output monitoring Echocardiogram ordered Venous doppler ordered Accuchecks and monitor for hypoglycemia Repeat labs in AM Resume appropriate home medications Oncology/radiology consultation The impression and plan of care has been dictated by Alma Rondon, Nurse Practitioner as directed. Dr. Félix MD I have performed a history and physical examination and medical decision making of this patient, discussed the same with the dictator, and agree with the dictators assessment and plan as written, documented as a scribe. Based on total visit time, I have performed more than 50% of this visit. Past Medical History Past Medical History: Asthma, Cancer, Hypertension, Sleep Apnea/CPAP/BIPAP Additional Past Medical History / Comment(s): Gastric Ulcer. Anemia. Stage 4 left kidney cancer(IS CURRENTLY ON IMMUNOPRESSOR PROTOCOL AND EVENTUALLY HAVE KIDNEY REMOVED.) HAD COVID IN AUGUST 2019. NO CPAP History of Any Multi-Drug Resistant Organisms: None Reported Past Surgical History: Adenoidectomy, Tonsillectomy Additional Past Surgical History / Comment(s): Rhinoplasty, Uvula removed, left kidney embolization, EGD. Past Anesthesia/Blood Transfusion Reactions: No Reported Reaction Past Psychological History: No Psychological Hx Reported Smoking Status: Never smoker Past Alcohol Use History: Occasional Additional Past Alcohol Use History / Comment(s): . Past Drug Use History: Marijuana - Past Family History Mother Family Medical History: No Reported History Brother(s) Family Medical History: Rheumatoid Arthritis (RA) Father Family Medical History: No Reported History Medications and Allergies Home Medications Medication Instructions Recorded Confirmed Type Montelukast [Singulair] 10 mg PO HS 03/29/18 06/02/22 History Acetaminophen [Tylenol Extra 1,000 mg PO Q6H PRN 04/12/18 06/02/22 History Strength] Cetirizine HCl [Zyrtec] 10 mg PO HS 04/12/18 06/02/22 History Fluticasone Nasal [place] [Flonase 1 spr EA NOSTRIL HS 04/12/18 06/02/22 History Nasal [place]] Fluticasone Propion/Salmeterol 1 puff INHALATION RT-HS 09/25/18 06/02/22 History [Advair 250-50 Diskus] Retinavites 1 tab PO BID 01/30/21 06/02/22 History Albuterol Inhaler [Ventolin Hfa 1 - 2 puff INHALATION RT-QID PRN 06/02/2206/02 History Inhaler] Blood Builder Mini Supplement 1 tab PO BID 06/02/22 06/02/22 History Calcium Carbonate [Tums] 500 - 1,000 mg PO QID PRN 06/02/22 06/02/22 History Diltiazem Oral [Cardizem Oral] 30 mg PO BID 06/02/22 06/02/22 History Furosemide [Lasix] 20 mg PO DAILY 06/02/22 06/02/22 History Opdivo(Unknown Dose) 1 dose IV Q28D 06/02/22 06/02/22 History Potassium Chloride ER [K-Dur 20] 20 meq PO DAILY 06/02/22 06/02/22 History Simethicone 180 mg PO ACHS 06/02/22 06/02/22 History Triamcinolone 0.1% Ointment 1 applic TOPICAL TID PRN 06/02/22 06/02/22 History [Kenalog 0.1% Ointment] bisacodyL [Dulcolax] 5 mg PO HS 06/02/22 06/02/22 History hydrALAZINE HCL [Apresoline] 100 mg PO BID 06/02/22 06/02/22 History predniSONE 5 mg PO DAILY 06/02/22 06/02/22 History Allergies Allergy/AdvReac Type Severity Reaction Status Date / Time No Known Allergies Allergy Verified 06/02/22 07:40 Physical Exam Vitals: Vital Signs Temp Pulse Pulse Resp BP BP Pulse Ox 06/02/22 07:37 97.9 F 96 18 127/74 95 06/02/22 03:45 97.5 F L 82 16 121/69 96 06/02/22 03:08 84 15 119/85 99 06/01/22 18:00 100 18 111/73 97 06/01/22 17:46 97.3 F L 101 H 18 115/85 100 Intake and Output 06/01/22 06/02/22 06/02/22 22:59 06:59 14:59 Intake Total 400 Balance 400 Intake: Intake, IV Titration 400 Amount Azithromycin 500 mg In 250 Sodium Chloride 0.9% 250 ml @ 250 mls/hr IVPB DAILY@0100 [facility] Rx#: [id number] Sodium Chloride 0.9% 1, 100 000 ml @ 20 mls/hr IV . Q24H [facility] Rx#:[id number] cefTRIAXone 2 gm In 50 Sodium Chloride 0.9% 50 ml @ 100 mls/hr IVPB DAILY@0200 [facility] Rx#: [id number] Other: Voiding Method Urinal External Catheter # Voids 1 Weight 86.183 kg 86.183 kg Results CBC & Chem 7: 06/02/22 12:10 06/02/22 12:10 Labs: Abnormal Lab Results - Last 24 Hours (Table) 06/01/22 06/01/22 06/01/22 Range/Units 17:56 17:56 17:56 WBC 14.3 H (3.8-10.6) k/uL RBC 2.98 L (4.30-5.90) m/uL Hgb 8.0 L (13.0-17.5) gm/dL Hct 27.8 L (39.0-53.0) % MCHC 28.8 L (31.0-37.0) g/dL RDW 19.0 H (11.5-15.5) % Plt Count 133 L (150-450) k/uL Neutrophils # 12.6 H (1.3-7.7) k/uL Lymphocytes # 0.7 L (1.0-4.8) k/uL PT 14.0 H (9.0-12.0) sec INR 1.4 H (<1.2) APTT 30.5 H (22.0-30.0) sec Chloride 108 H (98-107) mmol/L BUN 25 H (9-20) mg/dL Glucose 66 L (74-99) mg/dL Plasma Lactic Acid Kee (0.7-2.0) mmol/L Calcium 7.4 L (8.4-10.2) mg/dL Total Bilirubin 2.2 H (0.2-1.3) mg/dL Alkaline Phosphatase 553 H (38-126) U/L Total Protein 6.2 L (6.3-8.2) g/dL Albumin 2.2 L (3.5-5.0) g/dL Urine Protein (Negative) Urine Blood (Negative) Ur Leukocyte Esterase (Negative) Urine RBC (0-5) /hpf Triple Phos Crystals (None) /hpf Urine Bacteria (None) /hpf Hyaline Casts (0-2) /lpf Urine Mucus (None) /hpf 06/01/22 06/02/22 Range/Units 17:56 01:19 WBC (3.8-10.6) k/uL RBC (4.30-5.90) m/uL Hgb (13.0-17.5) gm/dL Hct (39.0-53.0) % MCHC (31.0-37.0) g/dL RDW (11.5-15.5) % Plt Count (150-450) k/uL Neutrophils # (1.3-7.7) k/uL Lymphocytes # (1.0-4.8) k/uL PT (9.0-12.0) sec INR (<1.2) APTT (22.0-30.0) sec Chloride (98-107) mmol/L BUN (9-20) mg/dL Glucose (74-99) mg/dL Plasma Lactic Acid Kee 2.4 H* (0.7-2.0) mmol/L Calcium (8.4-10.2) mg/dL Total Bilirubin (0.2-1.3) mg/dL Alkaline Phosphatase (38-126) U/L Total Protein (6.3-8.2) g/dL Albumin (3.5-5.0) g/dL Urine Protein 1+ H (Negative) Urine Blood Trace H (Negative) Ur Leukocyte Esterase Trace H (Negative) Urine RBC 7 H (0-5) /hpf Triple Phos Crystals Occasional H (None) /hpf Urine Bacteria Rare H (None) /hpf Hyaline Casts 9 H (0-2) /lpf Urine Mucus Rare H (None) /hpf Assessment and Plan Time with Patient: Greater than 30
--- NOTE | 2022-06-02 16:15 | US ---
EXAMINATION TYPE: US venous doppler duplex LE BI DATE OF EXAM: 06/02/2022 3:49 PM COMPARISON: NONE CLINICAL HISTORY: 66-year-old male lower extremity edema. Chronic swelling in legs, no h/o DVT. SIDE PERFORMED: Bilateral TECHNIQUE: The lower extremity deep venous system is examined utilizing real time linear array sonog delvin with graded compression, doppler sonography and color-flow sonography. FINDINGS: VESSELS IMAGED: Common Femoral Vein Deep Femoral Vein Greater Saphenous Vein * Femoral Vein Popliteal Vein Small Saphenous Vein * Proximal Calf Veins (* superficial vessels) Right Leg: Negative for DVT Left Leg: Negative for DVT Scattered mild to moderate subcutaneous soft tissue edema within the calves IMPRESSION: No evidence for DVT within the bilateral lower extremities. Some soft tissue swelling at the calves.
--- NOTE | 2022-06-02 16:55 | P.CONS ---
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 Caro, he is currently receiving radiation with Dr. Simon, he is on monthly opdivo treatment. Radiation was held this past wednesday due to progressing weakness. Patient reports on Wednesday he had 16 episodes of diarrhea within 1 hour, subsequent weakness and dizziness, which prompted him to present to the ER on Wednesday when was unable help pt to his feet. Reports diarrhea has since subsided. He also c/o bilateral leg edema for the last couple weeks, without improvement with oral diuretics. Denies Fevers, difficulty swallowing, chest pain, dyspnea, palpitations, hemoptysis or syncope. CXR showed left lower lobe pneumonia, currently on IV abx treatment. WBC 12.4, Hgb 8.0, HCT 27.8, PLT 107 Oncology Hx; Patient f/u with Dr. Caro for his Oncology treatment, and Dr. Simon for radiation. Initial therapy was opdivo, then was switched to more of an aggressive regimen with keytruda/cabometyx but due to severe mouth sores and continued weight loss, treatment was held for about 3 months and he was treated with prednisone. Currently on 5mg prednsione daily and resumed on monthly. Next treatment is 06/08/22, has 3 radiation treatments remaining. Review of Systems 10 point ROS negative except as stated in HPI Past Medical History Past Medical History: Asthma, Cancer, Hypertension, Sleep Apnea/CPAP/BIPAP Additional Past Medical History / Comment(s): Gastric Ulcer. Anemia. Stage 4 left kidney cancer(IS CURRENTLY ON IMMUNOPRESSOR PROTOCOL AND EVENTUALLY HAVE K IDNEY REMOVED.) HAD COVID IN AUGUST 2019. NO CPAP History of Any Multi-Drug Resistant Organisms: None Reported Past Surgical History: Adenoidectomy, Tonsillectomy Additional Past Surgical History / Comment(s): Rhinoplasty, Uvula removed, left kidney embolization, EGD. Past Anesthesia/Blood Transfusion Reactions: No Reported Reaction Past Psychological History: No Psychological Hx Reported Smoking Status: Never smoker Past Alcohol Use History: Occasional Additional Past Alcohol Use History / Comment(s): . Past Drug Use History: Marijuana - Past Family History Mother Family Medical History: No Reported History Brother(s) Family Medical History: Rheumatoid Arthritis (RA) Father Family Medical History: No Reported History Medications and Allergies Home Medications Medication Instructions Recorded Confirmed Type Montelukast [Singulair] 10 mg PO HS 03/29/18 06/02/22 History Acetaminophen [Tylenol Extra 1,000 mg PO Q6H PRN 04/12/18 06/02/22 History Strength] Cetirizine HCl [Zyrtec] 10 mg PO HS 04/12/18 06/02/22 History Fluticasone Nasal [place] [Flonase 1 spr EA NOSTRIL HS 04/12/18 06/02/22 History Nasal [place]] Fluticasone Propion/Salmeterol 1 puff INHALATION RT-HS 09/25/18 06/02/22 History [Advair 250-50 Diskus] Retinavites 1 tab PO BID 01/30/21 06/02/22 History Albuterol Inhaler [Ventolin Hfa 1 - 2 puff INHALATION RT-QID PRN 06/02/22 06/02/22 History Inhaler] Blood Builder Mini Supplement 1 tab PO BID 06/02/22 06/02/22 History Calcium Carbonate [Tums] 500 - 1,000 mg PO QID PRN 06/02/22 06/02/22 History Diltiazem Oral [Cardizem Oral] 30 mg PO BID 06/02/22 06/02/22 History Furosemide [Lasix] 20 mg PO DAILY 06/02/22 06/02/22 History Opdivo(Unknown Dose) 1 dose IV Q28D 06/02/22 06/02/22 History Potassium Chloride ER [K-Dur 20] 20 meq PO DAILY 06/02/22 06/02/22 History Simethicone 180 mg PO ACHS 06/02/22 06/02/22 History Triamcinolone 0.1% Ointment 1 applic TOPICAL TID PRN 06/02/22 06/02/22 History [Kenalog 0.1% Ointment] bisacodyL [Dulcolax] 5 mg PO HS 06/02/22 06/02/22 History hydrALAZINE HCL [Apresoline] 100 mg PO BID 06/02/22 06/02/22 History predniSONE 5 mg PO DAILY 06/02/22 06/02/22 History Allergies Allergy/AdvReac Type Severity Reaction Status Date / Time No Known Allergies Allergy Verified 06/02/22 07:40 Physical Exam Vitals: Vital Signs Temp Pulse Pulse Resp BP BP Pulse Ox 06/02/22 07:37 97.9 F 96 18 127/74 95 06/02/22 03:45 97.5 F L 82 16 121/69 96 06/02/22 03:08 84 15 119/85 99 06/01/22 18:00 100 18 111/73 97 06/01/22 17:46 97.3 F L 101 H 18 115/85 100 Intake and Output 06/01/22 06/02/22 06/02/22 22:59 06:59 14:59 Intake Total 400 Balance 400 Intake: Intake, IV Titration 400 Amount Azithromycin 500 mg In 250 Sodium Chloride 0.9% 250 ml @ 250 mls/hr IVPB DAILY@0100 [facility] Rx#: [id number] Sodium Chloride 0.9% 1, 100 000 ml @ 20 mls/hr IV . Q24H [facility] Rx#:[id number] cefTRIAXone 2 gm In 50 Sodium Chloride 0.9% 50 ml @ 100 mls/hr IVPB DAILY@0200 [facility] Rx#: [id number] Other: Voiding Method Urinal External Catheter Weight 86.183 kg 86.183 kg - Constitutional General appearance: cooperative, no acute distress, thin - EENT Eyes: anicteric sclerae, EOMI ENT: hearing grossly normal, normal oropharynx - Neck Neck: no lymphadenopathy, normal ROM - Respiratory Respiratory: bilateral: diminished - Cardiovascular Rhythm: regular Heart sounds: normal: S1, S2 Abnormal Heart Sounds: no systolic murmur, no diastolic murmur, no rub, no S3 Gallop, no S4 Gallop, no click, no other leg Peripheral Edema: bilateral: 3+, Pitting - Gastrointestinal General gastrointestinal: no absent bowel sounds, no decreased bowel sounds, no distended, no hepatomegaly, no hyperactive bowel sounds, normal bowel sounds, no organomegaly, no rigid, no scaphoid, soft, no splenomegaly, no tenderness, no umbilical hernia, no ventral hernia - Integumentary Integumentary: pale - Neurologic grossly intact Neurologic: CNII-XII intact - Musculoskeletal Musculoskeletal: generalized weakness - Psychiatric Psychiatric: A&O x's 3, appropriate affect, intact judgment & insight Results CBC & Chem 7: 06/02/22 12:10 06/02/22 12:10 Labs: Abnormal Lab Results - Last 24 Hours (Table) 06/01/22 06/01/22 06/01/22 Range/Units 17:56 17:56 17:56 WBC 14.3 H (3.8-10.6) k/uL RBC 2.98 L (4.30-5.90) m/uL Hgb 8.0 L (13.0-17.5) gm/dL Hct 27.8 L (39.0-53.0) % MCHC 28.8 L (31.0-37.0) g/dL RDW 19.0 H (11.5-15.5) % Plt Count 133 L (150-450) k/uL Neutrophils # 12.6 H (1.3-7.7) k/uL Lymphocytes # 0.7 L (1.0-4.8) k/uL PT 14.0 H (9.0-12.0) sec INR 1.4 H (<1.2) APTT 30.5 H (22.0-30.0) sec Chloride 108 H (98-107) mmol/L BUN 25 H (9-20) mg/dL Glucose 66 L (74-99) mg/dL Plasma Lactic Acid Kee (0.7-2.0) mmol/L Calcium 7.4 L (8.4-10.2) mg/dL Total Bilirubin 2.2 H (0.2-1.3) mg/dL Alkaline Phosphatase 553 H (38-126) U/L Total Protein 6.2 L (6.3-8.2) g/dL Albumin 2.2 L (3.5-5.0) g/dL Urine Protein (Negative) Urine Blood (Negative) Ur Leukocyte Esterase (Negative) Urine RBC (0-5) /hpf Triple Phos Crystals (None) /hpf Urine Bacteria (None) /hpf Hyaline Casts (0-2) /lpf Urine Mucus (None) /hpf 06/01/22 06/02/22 Range/Units 17:56 01:19 WBC (3.8-10.6) k/uL RBC (4.30-5.90) m/uL Hgb (13.0-17.5) gm/dL Hct (39.0-53.0) % MCHC (31.0-37.0) g/dL RDW (11.5-15.5) % Plt Count (150-450) k/uL Neutrophils # (1.3-7.7) k/uL Lymphocytes # (1.0-4.8) k/uL PT (9.0-12.0) sec INR (<1.2) APTT (22.0-30.0) sec Chloride (98-107) mmol/L BUN (9-20) mg/dL Glucose (74-99) mg/dL Plasma Lactic Acid Kee 2.4 H* (0.7-2.0) mmol/L Calcium (8.4-10.2) mg/dL Total Bilirubin (0.2-1.3) mg/dL Alkaline Phosphatase (38-126) U/L Total Protein (6.3-8.2) g/dL Albumin (3.5-5.0) g/dL Urine Protein 1+ H (Negative) Urine Blood Trace H (Negative) Ur Leukocyte Esterase Trace H (Negative) Urine RBC 7 H (0-5) /hpf Triple Phos Crystals Occasional H (None) /hpf Urine Bacteria Rare H (None) /hpf Hyaline Casts 9 H (0-2) /lpf Urine Mucus Rare H (None) /hpf Chest x-ray: report reviewed Venous US: report reviewed Assessment and Plan (1) Generalized weakness Current Visit: Yes Status: Acute Priority: High Code(s): R53.1 - WEAKNESS SNOMED Code(s): 37900384 (2) History of renal carcinoma Current Visit: No Status: Acute Priority: High Code(s): Z85.528 - PERSONAL HISTORY OF OTHER MALIGNANT NEOPLASM OF KIDNEY SNOMED Code(s): 82961885038929 Plan: Renal cell cancer: -On discharge patient will follow-up with Dr Caro and continue therapy as prescribed -Due to Recent and ongoing IO treatment, cortisol, T3, T4, and TSH ordered To workup patient's generalized weakness Generalized weakness -Multifactorial including malignancy, treatment of malignancy, Infection, poor nutrition. -Patient is being treated for pneumonia -Dietitian consulted Bicytopenia -Hemoglobin 8.0, transfuse for hgb less than 7 or if symptomatic. Immunotherapy is not typically associated with low blood counts. Hemolysis workup ordered. Anemia workup ordered -Platelets just slightly under normal at 133,000. No acute intervention. C ontinue to monitor. -Coags elevated. DIC workup ordered
[2022-06-02 17:14] LABS: Glucose,Whole Blood 71 mg/dL (70-110)
[2022-06-02 20:25] LABS: Glucose,Whole Blood 74 mg/dL (70-110)
[2022-06-02] MEDS: MONTELUKAST 10 MG TAB PO SCH (20:34)
[2022-06-02] MEDS: LORATADINE 10 MG TAB PO SCH (20:34)
[2022-06-02] MEDS: DILTIAZEM ORAL 30 MG TAB PO SCH (20:34)
[2022-06-02] MEDS: FUROSEMIDE 10 MG/ML 4 ML VIAL IV SCH (20:35)
[2022-06-02] MEDS ORDERED: bisacodyL 5 MG TABLET.DR PO SCH (21:00)
[2022-06-02] MEDS: FLUTICASONE 50MCG/SPRAY NASAL 16GM EA NOSTRIL SCH (22:27)
[2022-06-03] MEDS: AZITHROMYCIN 500 MG in SODIUM CHLORIDE 0.9% 250 ML IVPB SCH (01:51)
[2022-06-03 06:13] LABS: LDH 456 U/L (120-246)
[2022-06-03] MEDS: SODIUM CHLORIDE 0.9% 1,000 ML IV SCH (06:19)
[2022-06-03 06:32] LABS: INR 1.6 (<1.2); Partial Thromboplastin Time 33.1 sec (22.0-30.0)
[2022-06-03 07:48] LABS: Glucose,Whole Blood 64 mg/dL (70-110)
[2022-06-03 08:01] LABS: Glucose,Whole Blood 72 mg/dL (70-110)
[2022-06-03] MEDS: SYMBICORT 80-4.5 MCG INHALER INHALATION SCH ×2 (08:13→19:54)
[2022-06-03] MEDS: POTASSIUM CHLORIDE ER 20 MEQ TAB.ER PO SCH (08:29)
[2022-06-03] MEDS: FUROSEMIDE 10 MG/ML 4 ML VIAL IV SCH ×2 (08:29→21:49)
[2022-06-03] MEDS: predniSONE 5 MG TAB PO SCH (08:29)
[2022-06-03] MEDS: DILTIAZEM ORAL 30 MG TAB PO SCH ×2 (08:29→21:48)
[2022-06-03] MEDS: FAMOTIDINE 20 MG TAB PO SCH ×2 (08:29→21:49)
[2022-06-03] MEDS: PANTOPRAZOLE 40 MG TABLET PO SCH (08:29)
[2022-06-03] MEDS: ACETAMINOPHEN TAB 500 MG TAB PO PRN ×2 (08:32→16:28)
[2022-06-03] MEDS ORDERED: ONDANSETRON 4 MG/2 ML VIAL IVP PRN (08:44)
[2022-06-03] MEDS ORDERED: FUROSEMIDE 20 MG TAB PO SCH (09:00)
[2022-06-03 10:11] LABS: % Iron Saturation 17.02 (15.00-50.00); Iron 14 ug/dL (65-175); Total Iron Binding Capacity 81 ug/dL (228-460)
[2022-06-03 10:54] LABS: African American GFR (CKD) 77.8 (60.0-200.0); Anion Gap 10.2 mmol/L (10.00-18.00); BUN/Creat Ratio 18.13 Ratio (12.00-20.00); Basophils # (A) 0.03 X 10*3/uL (0.00-0.10); Basophils % (A) 0.2 %; Blood Urea Nitrogen 20.3 mg/dL (9.0-27.0); Calcium 7.5 mg/dL (8.7-10.3); Carbon Dioxide 27.1 mmol/L (20.0-27.5); Eosinophils % (A) 0.8 %; HCT 24.7 % (39.6-50.0); HGB 6.9 g/dL (13.0-17.0); Immature Grans, Automated 0.9 %; Lymphocytes # (A) 0.89 X 10*3/uL (0.90-5.00); Lymphocytes % (A) 7.3 %; MCH 27.1 pg (27.0-32.0); MCHC 27.9 g/dL (32.0-37.0); MCV 96.9 fL (80.0-97.0); Mean Platelet Volume 10.4 fL (9.5-12.2); Monocytes # (A) 1.05 X 10*3/uL (0.20-1.00); Monocytes % (A) 8.6 %; NRBC Per 100 WBC 0 /100 WBCS (0.0-0.0); Neutrophils # (A) 10.02 X 10*3/uL (1.80-7.70); Neutrophils % (A) 82.2 %; Non-African American GFR(CKD) 67.1 (60.0-200.0); Platelet Count 83 X 10*3/uL (140-440); Potassium 3.8 mmol/L (3.5-5.5); RBC 2.55 X 10*6/uL (4.40-5.60); RDW 20.4 % (11.5-14.5)
[2022-06-03 11:27] LABS: Glucose,Whole Blood 114 mg/dL (70-110)
--- NOTE | 2022-06-03 13:07 | P.CONS ---
History of Present Illness - Reason for Consult Consult date: 06/03/22 renal cell carcinoma Requesting physician: Zhane Ragland - Chief Complaint fatigue, weakness, failure to thrive - History of Present Illness The patient is a 66-year-old male initially diagnosed with renal cell carcinoma of the left kidney with metastatic disease to the liver in 2017. The patient has been on several lines of systemic therapy, most recently on immunotherapy. He presents to discuss if there is any role for palliative radiotherapy for his liver disease. Of note, the patient has had embolization treatment for the left kidney in 2017, and more recently in May 2021. He initiated a palliative course of radiotherapy to the liver, but unfortunately he did not complete this course of treatment as he had progressive decline in performance status and was admitted to the hospital. The patient was hospitalized on June 01, 2022. Chest x-ray was concerning for left lower lobe pneumonia and mild pulmonary congestion with questionable unde rlying CHF. Doppler ultrasound of the bilateral lower extremities was negative. Despite the chest x-ray showing possible pneumonia, the patient reports no difficulty with cough or dyspnea. He states he is overall not feeling very well. His appetite is still poor. Physical therapy had the patient sit up in a chair today for a short period of time. He has had some improvement in the swelling of his lower extremities at least. He is not reporting any significant pain at this time. He has been undergoing immunotherapy through the care of Dr. Caro at [facility]. He is scheduled for further immunotherapy this coming week. However, I spoke with his medical oncologist and he does not want to give the patient further treatment in light of this decline in performance status. Of note, the patient's hemoglobin was found to be 6.9 today. Review of Systems Constitutional: Reports lethargy, Reports poor appetite Ears, nose, mouth and throat: Denies sore throat Cardiovascular: Denies chest pain Respiratory: Denies cough, Denies dyspnea Gastrointestinal: Reports diarrhea (improving), Reports loss of appetite, Denies vomiting Musculoskeletal: Reports atrophy Neurological: Denies ataxia, Denies confusion Psychiatric: Denies anxiety, Denies confusion Past Medical History Past Medical History: Asthma, Cancer, Hypertension, Sleep Apnea/CPAP/BIPAP Additional Past Medical History / Comment(s): Gastric Ulcer. Anemia. Stage 4 left kidney cancer(IS CURRENTLY ON IMMUNOPRESSOR PROTOCOL AND EVENTUALLY HAVE KIDNEY REMOVED.) HAD COVID IN AUGUST 2019. NO CPAP History of Any Multi-Drug Resistant Organisms: None Reported Past Surgical History: Adenoidectomy, Tonsillectomy Additional Past Surgical History / Comment(s): Rhinoplasty, Uvula removed, left kidney embolization, EGD. Past Anesthesia/Blood Transfusion Reactions: No Reported Reaction Past Psychological History: No Psychological Hx Reported Smoking Status: Never smoker Past Alcohol Use History: Occasional Additional Past Alcohol Use History / Comment(s): . Past Drug Use History: Marijuana - Past Family History Mother Family Medical History: No Reported History Brother(s) Family Medical History: Rheumatoid Arthritis (RA) Father Family Medical History: No Reported History Medications and Allergies Home Medications Medication Instructions Recorded Confirmed Type Montelukast [Singulair] 10 mg PO HS 03/29/18 06/02/22 History Acetaminophen [Tylenol Extra 1,000 mg PO Q6H PRN 04/12/18 06/02/22 History Strength] Cetirizine HCl [Zyrtec] 10 mg PO HS 04/12/18 06/02/22 History Fluticasone Nasal [place] [Flonase 1 spr EA NOSTRIL HS 04/12/18 06/02/22 History Nasal [place]] Fluticasone Propion/Salmeterol 1 puff INHALATION RT-HS 09/25/18 06/02/22 History [Advair 250-50 Diskus] Retinavites 1 tab PO BID 01/30/21 06/02/22 History Albuterol Inhaler [Ventolin Hfa 1 - 2 puff INHALATION RT-QID PRN 06/02/22 06/02/22 History Inhaler] Blood Builder Mini Supplement 1 tab PO BID 06/02/22 06/02/22 History Calcium Carbonate [Tums] 500 - 1,000 mg PO QID PRN 06/02/22 06/02/22 History Diltiazem Oral [Cardizem Oral] 30 mg PO BID 06/02/22 06/02/22 History Furosemide [Lasix] 20 mg PO DAILY 06/02/22 06/02/22 History Opdivo(Unknown Dose) 1 dose IV Q28D 06/02/22 06/02/22 History Potassium Chloride ER [K-Dur 20] 20 meq PO DAILY 06/02/22 06/02/22 History Simethicone 180 mg PO ACHS 06/02/22 06/02/22 History Triamcinolone 0.1% Ointment 1 applic TOPICAL TID PRN 06/02/22 06/02/22 History [Kenalog 0.1% Ointment] bisacodyL [Dulcolax] 5 mg PO HS 06/02/22 06/02/22 History hydrALAZINE HCL [Apresoline] 100 mg PO BID 06/02/22 06/02/22 History predniSONE 5 mg PO DAILY 06/02/22 06/02/22 History Allergies Allergy/AdvReac Type Severity Reaction Status Date / Time No Known Allergies Allergy Verified 06/02/22 07:40 Physical Exam Vitals: Vital Signs Temp Pulse Resp BP Pulse Ox 06/03/22 08:02 95 06/03/22 07:26 97.8 F 87 16 113/67 94 L 06/03/22 01:48 97.4 F L 94 15 113/74 95 06/02/22 18:50 98.6 F 104 H 14 112/68 93 L 06/02/22 13:15 98.5 F 106 H 18 118/68 94 L Intake and Output 06/02/22 06/03/22 06/03/22 22:59 06:59 14:59 Intake Total 540 Output Total 225 750 Balance -225 -210 Intake: Intake, IV Titration 540 Amount Azithromycin 500 mg In 250 Sodium Chloride 0.9% 250 ml @ 250 mls/hr IVPB DAILY@0100 [facility] Rx#: [id number] Sodium Chloride 0.9% 1, 240 000 ml @ 20 mls/hr IV . Q24H [facility] Rx#:[id number] cefTRIAXone 2 gm In 50 Sodium Chloride 0.9% 50 ml @ 100 mls/hr IVPB DAILY@0200 [facility] Rx#: [id number] Output: Urine 225 750 Other: Voiding Method External Catheter # Voids 1 - Constitutional General appearance: no acute distress, thin - EENT Eyes: EOMI, PERRLA ENT: hearing grossly normal - Neck Neck: no lymphadenopathy - Respiratory Respiratory: bilateral: CTA - Cardiovascular Rhythm: regular - Gastrointestinal General gastrointestinal: no distended, no tenderness - Integumentary Integumentary: no calor, no cellulitis - Musculoskeletal Musculoskeletal: generalized weakness - Psychiatric Psychiatric: A&O x's 3, appropriate affect Results CBC & Chem 7: 06/03/22 06:11 06/03/22 06:11 Labs: Abnormal Lab Results - Last 24 Hours (Table) 06/02/22 06/02/22 06/02/22 Range/Units 12:10 12:10 12:14 WBC (4.50-10.00) X 10*3/uL RBC (4.40-5.60) X 10*6/uL Hgb (13.0-17.0) g/dL Hct (39.6-50.0) % MCHC (32.0-37.0) g/dL RDW (11.5-14.5) % Plt Count (140-440) X 10*3/uL Immature Gran # (0.00-0.04) X 10*3/uL Neutrophils # (1.80-7.70) X 10*3/uL Lymphocytes # (0.90-5.00) X 10*3/uL Monocytes # (0.20-1.00) X 10*3/uL Haptoglobin (31.2-198.0) mg/dL PT (9.0-12.0) sec INR (<1.2) APTT (22.0-30.0) sec Fibrinogen (200-500) mg/dL Chloride 110 H (98-107) mmol/L BUN 24 H (9-20) mg/dL Glucose 64 L (74-99) mg/dL POC Glucose (mg/dL) (70-110) mg/dL Plasma Lactic Acid Kee 2.2 H* (0.7-2.0) mmol/L Calcium 7.4 L (8.4-10.2) mg/dL Iron (65-175) ug/dL TIBC (228-460) ug/dL Transferrin (204.0-354.0) mg/dL Ferritin (22.0-322.0) ng/mL Lactate Dehydrogenase (120-246) U/L Vitamin B12 (200.0-944.0) pg/mL Procalcitonin 1.16 H (0.02-0.09) ng/mL Free T3 pg/mL (2.30-4.20) pg/mL 06/02/22 06/02/22 06/02/22 Range/Units 15:42 19:02 19:02 WBC (4.50-10.00) X 10*3/uL RBC (4.40-5.60) X 10*6/uL Hgb (13.0-17.0) g/dL Hct (39.6-50.0) % MCHC (32.0-37.0) g/dL RDW (11.5-14.5) % Plt Count (140-440) X 10*3/uL Immature Gran # (0.00-0.04) X 10*3/uL Neutrophils # (1.80-7.70) X 10*3/uL Lymphocytes # (0.90-5.00) X 10*3/uL Monocytes # (0.20-1.00) X 10*3/uL Haptoglobin (31.2-198.0) mg/dL PT (9.0-12.0) sec INR (<1.2) APTT (22.0-30.0) sec Fibrinogen 557 H (200-500) mg/dL Chloride (98-107) mmol/L BUN (9-20) mg/dL Glucose (74-99) mg/dL POC Glucose (mg/dL) (70-110) mg/dL Plasma Lactic Acid Kee 2.9 H* (0.7-2.0) mmol/L Calcium (8.4-10.2) mg/dL Iron 14 L (65-175) ug/dL TIBC 81 L (228-460) ug/dL Transferrin 57.9 L (204.0-354.0) mg/dL Ferritin 1609.0 H (22.0-322.0) ng/mL Lactate Dehydrogenase 456 H (120-246) U/L Vitamin B12 3537.0 H (200.0-944.0) pg/mL Procalcitonin (0.02-0.09) ng/mL Free T3 pg/mL 1.40 L (2.30-4.20) pg/mL 06/02/22 06/02/22 06/02/22 Range/Units 19:02 19:02 22:56 WBC (4.50-10.00) X 10*3/uL RBC (4.40-5.60) X 10*6/uL Hgb (13.0-17.0) g/dL Hct (39.6-50.0) % MCHC (32.0-37.0) g/dL RDW (11.5-14.5) % Plt Count (140-440) X 10*3/uL Immature Gran # (0.00-0.04) X 10*3/uL Neutrophils # (1.80-7.70) X 10*3/uL Lymphocytes # (0.90-5.00) X 10*3/uL Monocytes # (0.20-1.00) X 10*3/uL Haptoglobin 305.0 H (31.2-198.0) mg/dL PT (9.0-12.0) sec INR (<1.2) APTT (22.0-30.0) sec Fibrinogen (200-500) mg/dL Chloride (98-107) mmol/L BUN (9-20) mg/dL Glucose (74-99) mg/dL POC Glucose (mg/dL) (70-110) mg/dL Plasma Lactic Acid Kee 2.6 H* 2.8 H* (0.7-2.0) mmol/L Calcium (8.4-10.2) mg/dL Iron (65-175) ug/dL TIBC (228-460) ug/dL Transferrin (204.0-354.0) mg/dL Ferritin (22.0-322.0) ng/mL Lactate Dehydrogenase (120-246) U/L Vitamin B12 (200.0-944.0) pg/mL Procalcitonin (0.02-0.09) ng/mL Free T3 pg/mL (2.30-4.20) pg/mL 06/03/22 06/03/22 06/03/22 Range/Units 06:11 06:11 06:11 WBC 12.20 H (4.50-10.00) X 10*3/uL RBC 2.55 L (4.40-5.60) X 10*6/uL Hgb 6.9 L* (13.0-17.0) g/dL Hct 24.7 L (39.6-50.0) % MCHC 27.9 L (32.0-37.0) g/dL RDW 20.4 H (11.5-14.5) % Plt Count 83 L (140-440) X 10*3/uL Immature Gran # 0.11 H (0.00-0.04) X 10*3/uL Neutrophils # 10.02 H (1.80-7.70) X 10*3/uL Lymphocytes # 0.89 L (0.90-5.00) X 10*3/uL Monocytes # 1.05 H (0.20-1.00) X 10*3/uL Haptoglobin (31.2-198.0) mg/dL PT 16.0 H (9.0-12.0) sec INR 1.6 H (<1.2) APTT 33.1 H (22.0-30.0) sec Fibrinogen (200-500) mg/dL Chloride (98-107) mmol/L BUN (9-20) mg/dL Glucose 66 L (74-99) mg/dL POC Glucose (mg/dL) (70-110) mg/dL Plasma Lactic Acid Kee (0.7-2.0) mmol/L Calcium 7.5 L (8.4-10.2) mg/dL Iron (65-175) ug/dL TIBC (228-460) ug/dL Transferrin (204.0-354.0) mg/dL Ferritin (22.0-322.0) ng/mL Lactate Dehydrogenase (120-246) U/L Vitamin B12 (200.0-944.0) pg/mL Procalcitonin (0.02-0.09) ng/mL Free T3 pg/mL (2.30-4.20) pg/mL 06/03/22 06/03/22 Range/Units 07:39 11:19 WBC (4.50-10.00) X 10*3/uL RBC (4.40-5.60) X 10*6/uL Hgb (13.0-17.0) g/dL Hct (39.6-50.0) % MCHC (32.0-37.0) g/dL RDW (11.5-14.5) % Plt Count (140-440) X 10*3/uL Immature Gran # (0.00-0.04) X 10*3/uL Neutrophils # (1.80-7.70) X 10*3/uL Lymphocytes # (0.90-5.00) X 10*3/uL Monocytes # (0.20-1.00) X 10*3/uL Haptoglobin (31.2-198.0) mg/dL PT (9.0-12.0) sec INR (<1.2) APTT (22.0-30.0) sec Fibrinogen (200-500) mg/dL Chloride (98-107) mmol/L BUN (9-20) mg/dL Glucose (74-99) mg/dL POC Glucose (mg/dL) 64 L 114 H (70-110) mg/dL Plasma Lactic Acid Kee (0.7-2.0) mmol/L Calcium (8.4-10.2) mg/dL Iron (65-175) ug/dL TIBC (228-460) ug/dL Transferrin (204.0-354.0) mg/dL Ferritin (22.0-322.0) ng/mL Lactate Dehydrogenase (120-246) U/L Vitamin B12 (200.0-944.0) pg/mL Procalcitonin (0.02-0.09) ng/mL Free T3 pg/mL (2.30-4.20) pg/mL Chest x-ray: report reviewed, image reviewed Venous US: report reviewed Assessment and Plan Assessment: The patient is a 66-year-old male initially diagnosed with renal cell carcinoma of the left kidney with metastatic disease to the liver in 2018. The patient has been on several lines of systemic therapy, most recently on immunotherapy. He presents to discuss if there is any role for palliative radiotherapy for his liver disease. Of note, the patient has had embolization treatment for the left kidney in 2018, and more recently in May 2021. He initiated a palliative course of radiotherapy to the liver, but unfortunately he did not complete this course of treatment as he had progressive decline in performance status and was admitted to the hospital. Plan: 1. Failure to thrive: Likely multifactorial, patient has long-standing history of metastatic malignancy. He is due for immunotherapy this coming week, but his oncologist has recommended holding this therapy in light of his recent performance status decline. He is anemic and will have transfusion today. Consider appetite stimulant (Marinol?). 2. Pneumonia: Possible based on CXR despite not having significant symptoms, under treatment with broad spectrum antibiotics. 3. Inability to ambulate: Likely due to the patient's ongoing malignancy, but at least part may be due to leg swelling, which seems somewhat improved on current diuretic regimen. Continue PT. 4. Metastatic RCC: As noted above, the patient previously had immunotherapy help this past summer secondary to significant anorexia. He seems to be now having trouble tolerating restarting immunotherapy. I spoke at length with his medical oncologist at [facility], and he did feel the patient was appropriate for hospice care. However, the patient and his stated they are not yet ready to pursue this. He is hopeful to get stronger, and understands that therapy will be on hold at this time. I expressed some concern about him being able to stay at home without the ability to ambulate. I explained he may be recommended to go to rehabilitation prior to discharge home. For now, we will continue to try an medically optimize the patient's condition. If he does not have improvement in his performance status, he'll be unlikely to resume further systemic therapy. Time with Patient: Greater than 30
--- NOTE | 2022-06-03 14:22 | P.PN ---
Subjective Progress Note Date: 06/03/22 This is a 66-year-old male who follows with Dr. Li, medical conditions include asthma, hypertension, sleep apnea, anemia and gastric ulcer, stage IV left kidney cancer patient is currently on immunosuppressive therapy and radiation. Diagnosed with renal cancer back in 2018, he is currently on radiation cycle 11/30. Medical records discuss there is liver metastasis and family at bedside reports there is a tumor which is pressing on the IVC. Presents with concern for generalized weakness and fatigue ongoing for the last week, he is also reporting peripheral edema. Denies any leg pain, states he has had lower extremity edema for the last 6 months, and has been taking his oral diuretic at home. Denies shortness of breath, denies chest pain. Denies cough, fever or chills. Last Wednesday he became significant more weak and was unable to ambulate and was taken by EMS to his radiation appointment. His radiologist felt he was to weak to undergo radiation and recommended patient to come into the ER if symptoms did not improve. He had an episode of diarrhea Wednesday night, and has had decreased appetite. He presents to the [facility] yesterday afternoon with worsening weakness. Chest x-ray shows left lower lobe pneumonia and atelectasis and pleural fluid significantly increased compared to old exam with mild pulmonary congestion with mild heart failure possible. There is a retrocardiac infiltrate on lateral view. He is found to have proBNP of 4880 on admission, troponin level is negative. Lactic acid is elevated at 2.4. He does have leukocytosis with left shift. Urine is showing trace blood. He is afebrile and on room air. Has been started on IV azithromycin and IV ceftriaxone, Received a fluid bolus in [facility] as well. Had a prior echocardiogram in January of this year showing an EF of 55- 60% with mild mitral regurgitation, mild aortic regurgitation and mild tricuspid regurgitation. Patient will be admitted and will be started on IV lasix and will repeat echocardiogram. He will continue on antibiotics and check procalcitonin level. Oncology and Radiology have been consulted. 06/03/2022 Patient feels more fatigued today. Denies shortness of breath, no cough, no fever/chills reported. Patient continues on IV Lasix with about 900 mL of urine output overnight. Had an episode of nausea this morning mostly pills per at bedside. He denies feeling nausea, no hematemesis or coffee ground emesis reported. No abdominal pain. Hemoglobin today found to be 6.9 and he will receive 1 unit of PRBC's, lactic acid has normalized to 2.0, blood glucose remains in the 70s. Ferritin and LDH are elevated as well as Procalcitonin level of 1.16. White count stable at 12.20. Blood culture is currently pending. Patient remains on IV azithromycin and IV ceftriaxone. Review of Systems Constitutional: Denied any fatigue denied any fever. Cardio vascular: denied any chest pain, palpitations Gastrointestinal: denied any nausea, no diarrhea. Had an episode of emesis today. Pulmonary: Denied any shortness of breath cough Neurologic denied any new focal deficits All inpatient medications were reviewed and appropriate changes in these medications as dictated in the interval history and assessment and plan. PHYSICAL EXAMINATION: GENERAL: The patient is alert and oriented x3, not in any acute distress. Well developed, well nourished. HEENT: Pupils are round and equally reacting to light. EOMI. No scleral icterus. No conjunctival pallor. Normocephalic, atraumatic. No pharyngeal erythema. No thyromegaly. CARDIOVASCULAR: S1 and S2 present. No murmurs, rubs, or gallops. PULMONARY: Chest is clear to auscultation, no wheezing or crackles. ABDOMEN: Soft, nontender, nondistended, normoactive bowel sounds. No palpable organomegaly. MUSCULOSKELETAL: No joint swelling or deformity. EXTREMITIES: No cyanosis, clubbing. He has +2 lower extremity pitting edema improving some. NEUROLOGICAL: Gross neurological examination did not reveal any focal deficits. SKIN: No rashes. Assessment and plan Assessment Generalized weakness Left lower lobe pneumonia, community acquired with sepsis present on admission, there is infiltrate on xray and patient presents with lactic acidosis and elevated white count. Mild acute heart failure likely diastolic with preserved EF on recent echocardiogram Lower extremity edema Bicytopenia Hypoglycemia from poor oral intake Stage 4 left renal cancer with liver metastasis currently undergoing immunotherapy/radiation Hypertension Sleep apnea History iron deficiency anemia History asthma stable History of gastric ulcer GI prophylaxis DVT prophylaxis Full Code Plan Continue IV ceftriaxone/IV azithromycin IV lasix 40 Q 12 with strict intake and output monitoring Echocardiogram ordered Accuchecks and monitor for hypoglycemia 1 unit PRBC today repeat labs in AM PT/OT and dietary consultation The impression and plan of care has been dictated by Alma Rondon, Nurse Practitioner as directed. Dr. Félix MD I have performed a history and physical examination and medical decision making of this patient, discussed the same with the dictator, and agree with the dictators assessment and plan as written, documented as a scribe. Based on total visit time, I have performed more than 50% of this visit. Objective - Vital Signs Vital signs: Vital Signs Temp 97.8 F 06/03/22 07:26 Pulse 87 06/03/22 07:26 Resp 16 06/03/22 07:26 BP 113/67 06/03/22 07:26 Pulse Ox 95 06/03/22 08:02 FiO2 Intake & Output 06/02/22 06/03/22 06/03/22 18:59 06:59 18:59 Intake Total 540 Output Total 225 750 Balance -225 -210 Weight 86.183 kg Intake: Intake, IV Titration 540 Amount Azithromycin 500 mg In 250 Sodium Chloride 0.9% 250 ml @ 250 mls/hr IVPB DAILY@0100 [facility] Rx#: [id number] Sodium Chloride 0.9% 1, 240 000 ml @ 20 mls/hr IV . Q24H [facility] Rx#:[id number] cefTRIAXone 2 gm In 50 Sodium Chloride 0.9% 50 ml @ 100 mls/hr IVPB DAILY@0200 [facility] Rx#: [id number] Output: Urine 225 750 Other: Voiding Method External Catheter External Catheter # Voids 1 1 # Bowel Movements 1 - Labs CBC & Chem 7: 06/03/22 06:11 06/03/22 06:11 Labs: Abnormal Lab Results - Last 24 Hours (Table) 06/02/22 06/02/22 06/02/22 Range/Units 12:10 12:10 12:10 WBC 12.4 H (3.8-10.6) k/uL RBC 2.89 L (4.30-5.90) m/uL Hgb 8.0 L (13.0-17.5) gm/dL Hct 27.8 L (39.0-53.0) % MCHC 28.9 L (31.0-37.0) g/dL RDW 18.1 H (11.5-15.5) % Plt Count 107 L (150-450) k/uL Neutrophils # 11.1 H (1.3-7.7) k/uL Lymphocytes # 0.6 L (1.0-4.8) k/uL PT (9.0-12.0) sec INR (<1.2) APTT (22.0-30.0) sec Fibrinogen (200-500) mg/dL Chloride 110 H (98-107) mmol/L BUN 24 H (9-20) mg/dL Glucose 64 L (74-99) mg/dL POC Glucose (mg/dL) (70-110) mg/dL Plasma Lactic Acid Kee 2.2 H* (0.7-2.0) mmol/L Calcium 7.4 L (8.4-10.2) mg/dL Ferritin (22.0-322.0) ng/mL Lactate Dehydrogenase (120-246) U/L Procalcitonin (0.02-0.09) ng/mL Free T3 pg/mL (2.30-4.20) pg/mL 06/02/22 06/02/22 06/02/22 Range/Units 12:14 15:42 19:02 WBC (3.8-10.6) k/uL RBC (4.30-5.90) m/uL Hgb (13.0-17.5) gm/dL Hct (39.0-53.0) % MCHC (31.0-37.0) g/dL RDW (11.5-15.5) % Plt Count (150-450) k/uL Neutrophils # (1.3-7.7) k/uL Lymphocytes # (1.0-4.8) k/uL PT (9.0-12.0) sec INR (<1.2) APTT (22.0-30.0) sec Fibrinogen (200-500) mg/dL Chloride (98-107) mmol/L BUN (9-20) mg/dL Glucose (74-99) mg/dL POC Glucose (mg/dL) (70-110) mg/dL Plasma Lactic Acid Kee 2.9 H* (0.7-2.0) mmol/L Calcium (8.4-10.2) mg/dL Ferritin 1609.0 H (22.0-322.0) ng/mL Lactate Dehydrogenase 456 H (120-246) U/L Procalcitonin 1.16 H (0.02-0.09) ng/mL Free T3 pg/mL 1.40 L (2.30-4.20) pg/mL 06/02/22 06/02/22 06/02/22 Range/Units 19:02 19:02 22:56 WBC (3.8-10.6) k/uL RBC (4.30-5.90) m/uL Hgb (13.0-17.5) gm/dL Hct (39.0-53.0) % MCHC (31.0-37.0) g/dL RDW (11.5-15.5) % Plt Count (150-450) k/uL Neutrophils # (1.3-7.7) k/uL Lymphocytes # (1.0-4.8) k/uL PT (9.0-12.0) sec INR (<1.2) APTT (22.0-30.0) sec Fibrinogen 557 H (200-500) mg/dL Chloride (98-107) mmol/L BUN (9-20) mg/dL Glucose (74-99) mg/dL POC Glucose (mg/dL) (70-110) mg/dL Plasma Lactic Acid Kee 2.6 H* 2.8 H* (0.7-2.0) mmol/L Calcium (8.4-10.2) mg/dL Ferritin (22.0-322.0) ng/mL Lactate Dehydrogenase (120-246) U/L Procalcitonin (0.02-0.09) ng/mL Free T3 pg/mL (2.30-4.20) pg/mL 06/03/22 06/03/22 Range/Units 06:11 07:39 WBC (3.8-10.6) k/uL RBC (4.30-5.90) m/uL Hgb (13.0-17.5) gm/dL Hct (39.0-53.0) % MCHC (31.0-37.0) g/dL RDW (11.5-15.5) % Plt Count (150-450) k/uL Neutrophils # (1.3-7.7) k/uL Lymphocytes # (1.0-4.8) k/uL PT 16.0 H (9.0-12.0) sec INR 1.6 H (<1.2) APTT 33.1 H (22.0-30.0) sec Fibrinogen (200-500) mg/dL Chloride (98-107) mmol/L BUN (9-20) mg/dL Glucose (74-99) mg/dL POC Glucose (mg/dL) 64 L (70-110) mg/dL Plasma Lactic Acid Kee (0.7-2.0) mmol/L Calcium (8.4-10.2) mg/dL Ferritin (22.0-322.0) ng/mL Lactate Dehydrogenase (120-246) U/L Procalcitonin (0.02-0.09) ng/mL Free T3 pg/mL (2.30-4.20) pg/mL Assessment and Plan Time with Patient: Less than 30
[2022-06-03 17:07] LABS: Glucose,Whole Blood 125 mg/dL (70-110)
--- NOTE | 2022-06-03 18:35 | P.PN ---
Subjective Progress Note Date: 06/03/22 Principal diagnosis: RCC, failure to thrive In follow-up today patient is sleeping during our conversation, he was easily aroused to voice and soft touch. He was oriented and pleasant, he denied any pain, nausea. His was at the bedside. Objective - Vital Signs Vital signs: Vital Signs Temp 97.8 F 06/03/22 07:26 Pulse 87 06/03/22 07:26 Resp 16 06/03/22 07:26 BP 113/67 06/03/22 07:26 Pulse Ox 95 06/03/22 08:02 FiO2 Intake & Output 06/02/22 06/03/22 06/03/22 18:59 06:59 18:59 Intake Total 540 Output Total 225 750 Balance -225 -210 Weight 86.183 kg Intake: Intake, IV Titration 540 Amount Azithromycin 500 mg In 250 Sodium Chloride 0.9% 250 ml @ 250 mls/hr IVPB DAILY@0100 [facility] Rx#: [id number] Sodium Chloride 0.9% 1, 240 000 ml @ 20 mls/hr IV . Q24H [facility] Rx#:[id number] cefTRIAXone 2 gm In 50 Sodium Chloride 0.9% 50 ml @ 100 mls/hr IVPB DAILY@0200 [facility] Rx#: [id number] Output: Urine 225 750 Other: Voiding Method External Catheter External Catheter # Voids 1 1 # Bowel Movements 1 - Constitutional General appearance: Present: cooperative, no acute distress, thin - EENT EENT Comment(s): dry mucus membranes Eyes: Present: EOMI ENT: Present: hearing grossly normal - Respiratory Respiratory: bilateral: CTA - Cardiovascular Details: bounding at PMI Rhythm: regular Heart sounds: normal: S1, S2 Abnormal Heart Sounds: Absent: systolic murmur, diastolic murmur, rub, S3 Gallop, S4 Gallop, click, other - Gastrointestinal General gastrointestinal: Present: normal bowel sounds, soft - Integumentary Integumentary Comment(s): Bronze skin - Neurologic Neurologic: Present: CNII-XII intact (Grossly) - Musculoskeletal Musculoskeletal: Present: generalized weakness - Psychiatric Psychiatric: Present: A&O x's 3, appropriate affect, intact judgment & insight - Labs CBC & Chem 7: 06/03/22 06:11 06/03/22 06:11 Labs: Abnormal Lab Results - Last 24 Hours (Table) 06/02/22 06/02/22 06/02/22 Range/Units 12:10 12:10 12:14 WBC (4.50-10.00) X 10*3/uL RBC (4.40-5.60) X 10*6/uL Hgb (13.0-17.0) g/dL Hct (39.6-50.0) % MCHC (32.0-37.0) g/dL RDW (11.5-14.5) % Plt Count (140-440) X 10*3/uL Immature Gran # (0.00-0.04) X 10*3/uL Neutrophils # (1.80-7.70) X 10*3/uL Lymphocytes # (0.90-5.00) X 10*3/uL Monocytes # (0.20-1.00) X 10*3/uL Haptoglobin (31.2-198.0) mg/dL PT (9.0-12.0) sec INR (<1.2) APTT (22.0-30.0) sec Fibrinogen (200-500) mg/dL Chloride 110 H (98-107) mmol/L BUN 24 H (9-20) mg/dL Glucose 64 L (74-99) mg/dL POC Glucose (mg/dL) (70-110) mg/dL Plasma Lactic Acid Kee 2.2 H* (0.7-2.0) mmol/L Calcium 7.4 L (8.4-10.2) mg/dL Iron (65-175) ug/dL TIBC (228-460) ug/dL Transferrin (204.0-354.0) mg/dL Ferritin (22.0-322.0) ng/mL Lactate Dehydrogenase (120-246) U/L Vitamin B12 (200.0-944.0) pg/mL Procalcitonin 1.16 H (0.02-0.09) ng/mL Free T3 pg/mL (2.30-4.20) pg/mL 06/02/22 06/02/22 06/02/22 Range/Units 15:42 19:02 19:02 WBC (4.50-10.00) X 10*3/uL RBC (4.40-5.60) X 10*6/uL Hgb (13.0-17.0) g/dL Hct (39.6-50.0) % MCHC (32.0-37.0) g/dL RDW (11.5-14.5) % Plt Count (140-440) X 10*3/uL Immature Gran # (0.00-0.04) X 10*3/uL Neutrophils # (1.80-7.70) X 10*3/uL Lymphocytes # (0.90-5.00) X 10*3/uL Monocytes # (0.20-1.00) X 10*3/uL Haptoglobin (31.2-198.0) mg/dL PT (9.0-12.0) sec INR (<1.2) APTT (22.0-30.0) sec Fibrinogen 557 H (200-500) mg/dL Chloride (98-107) mmol/L BUN (9-20) mg/dL Glucose (74-99) mg/dL POC Glucose (mg/dL) (70-110) mg/dL Plasma Lactic Acid Kee 2.9 H* (0.7-2.0) mmol/L Calcium (8.4-10.2) mg/dL Iron 14 L (65-175) ug/dL TIBC 81 L (228-460) ug/dL Transferrin 57.9 L (204.0-354.0) mg/dL Ferritin 1609.0 H (22.0-322.0) ng/mL Lactate Dehydrogenase 456 H (120-246) U/L Vitamin B12 3537.0 H (200.0-944.0) pg/mL Procalcitonin (0.02-0.09) ng/mL Free T3 pg/mL 1.40 L (2.30-4.20) pg/mL 06/02/22 06/02/22 06/02/22 Range/Units 19:02 19:02 22:56 WBC (4.50-10.00) X 10*3/uL RBC (4.40-5.60) X 10*6/uL Hgb (13.0-17.0) g/dL Hct (39.6-50.0) % MCHC (32.0-37.0) g/dL RDW (11.5-14.5) % Plt Count (140-440) X 10*3/uL Immature Gran # (0.00-0.04) X 10*3/uL Neutrophils # (1.80-7.70) X 10*3/uL Lymphocytes # (0.90-5.00) X 10*3/uL Monocytes # (0.20-1.00) X 10*3/uL Haptoglobin 305.0 H (31.2-198.0) mg/dL PT (9.0-12.0) sec INR (<1.2) APTT (22.0-30.0) sec Fibrinogen (200-500) mg/dL Chloride (98-107) mmol/L BUN (9-20) mg/dL Glucose (74-99) mg/dL POC Glucose (mg/dL) (70-110) mg/dL Plasma Lactic Acid Kee 2.6 H* 2.8 H* (0.7-2.0) mmol/L Calcium (8.4-10.2) mg/dL Iron (65-175) ug/dL TIBC (228-460) ug/dL Transferrin (204.0-354.0) mg/dL Ferritin (22.0-322.0) ng/mL Lactate Dehydrogenase (120-246) U/L Vitamin B12 (200.0-944.0) pg/mL Procalcitonin (0.02-0.09) ng/mL Free T3 pg/mL (2.30-4.20) pg/mL 06/03/22 06/03/22 06/03/22 Range/Units 06:11 06:11 06:11 WBC 12.20 H (4.50-10.00) X 10*3/uL RBC 2.55 L (4.40-5.60) X 10*6/uL Hgb 6.9 L* (13.0-17.0) g/dL Hct 24.7 L (39.6-50.0) % MCHC 27.9 L (32.0-37.0) g/dL RDW 20.4 H (11.5-14.5) % Plt Count 83 L (140-440) X 10*3/uL Immature Gran # 0.11 H (0.00-0.04) X 10*3/uL Neutrophils # 10.02 H (1.80-7.70) X 10*3/uL Lymphocytes # 0.89 L (0.90-5.00) X 10*3/uL Monocytes # 1.05 H (0.20-1.00) X 10*3/uL Haptoglobin (31.2-198.0) mg/dL PT 16.0 H (9.0-12.0) sec INR 1.6 H (<1.2) APTT 33.1 H (22.0-30.0) sec Fibrinogen (200-500) mg/dL Chloride (98-107) mmol/L BUN (9-20) mg/dL Glucose 66 L (74-99) mg/dL POC Glucose (mg/dL) (70-110) mg/dL Plasma Lactic Acid Kee (0.7-2.0) mmol/L Calcium 7.5 L (8.4-10.2) mg/dL Iron (65-175) ug/dL TIBC (228-460) ug/dL Transferrin (204.0-354.0) mg/dL Ferritin (22.0-322.0) ng/mL Lactate Dehydrogenase (120-246) U/L Vitamin B12 (200.0-944.0) pg/mL Procalcitonin (0.02-0.09) ng/mL Free T3 pg/mL (2.30-4.20) pg/mL 06/03/22 06/03/22 Range/Units 07:39 11:19 WBC (4.50-10.00) X 10*3/uL RBC (4.40-5.60) X 10*6/uL Hgb (13.0-17.0) g/dL Hct (39.6-50.0) % MCHC (32.0-37.0) g/dL RDW (11.5-14.5) % Plt Count (140-440) X 10*3/uL Immature Gran # (0.00-0.04) X 10*3/uL Neutrophils # (1.80-7.70) X 10*3/uL Lymphocytes # (0.90-5.00) X 10*3/uL Monocytes # (0.20-1.00) X 10*3/uL Haptoglobin (31.2-198.0) mg/dL PT (9.0-12.0) sec INR (<1.2) APTT (22.0-30.0) sec Fibrinogen (200-500) mg/dL Chloride (98-107) mmol/L BUN (9-20) mg/dL Glucose (74-99) mg/dL POC Glucose (mg/dL) 64 L 114 H (70-110) mg/dL Plasma Lactic Acid Kee (0.7-2.0) mmol/L Calcium (8.4-10.2) mg/dL Iron (65-175) ug/dL TIBC (228-460) ug/dL Transferrin (204.0-354.0) mg/dL Ferritin (22.0-322.0) ng/mL Lactate Dehydrogenase (120-246) U/L Vitamin B12 (200.0-944.0) pg/mL Procalcitonin (0.02-0.09) ng/mL Free T3 pg/mL (2.30-4.20) pg/mL Assessment and Plan (1) Generalized weakness Current Visit: Yes Status: Acute Priority: High Code(s): R53.1 - WEAKNESS SNOMED Code(s): 31247624 (2) History of renal carcinoma Current Visit: No Status: Acute Priority: High Code(s): Z85.528 - PERSONAL HISTORY OF OTHER MALIGNANT NEOPLASM OF KIDNEY SNOMED Code(s): 93464044501121 Plan: Renal cell cancer: -Case discussed with Radiation Oncologist who has spoken with Dr Caro. They have discussed the plan of care and will communicate with patient and his -Due to Recent and ongoing IO treatment, cortisol, T3, T4, and TSH ordered to workup patient's generalized weakness-No abnormal findings Generalized weakness -Multifactorial including malignancy, treatment of malignancy, Infection, poor nutrition. -Patient is being treated for pneumonia -Dietitian consulted -PT / OT ordered Bicytopenia -Hemoglobin 6.9, 1 unit PRBCs today. Hemolysis workup ordered, LDH is elevated. Anemia workup most consistent with anemia of inflammation. No iron supplements needed. No other minerals supplementation based on lab workup at this time is needed -Platelets Down to 83,000 today. No acute intervention. Continue to monitor. -Coags continue to be elevated, Fibrinogen elevated. No evidence of DIC. Continue to monitor labs closely
[2022-06-03 20:28] LABS: Glucose,Whole Blood 137 mg/dL (70-110)
[2022-06-03] MEDS: LORATADINE 10 MG TAB PO SCH (21:49)
[2022-06-03] MEDS: MONTELUKAST 10 MG TAB PO SCH (21:49)
[2022-06-03] MEDS: FLUTICASONE 50MCG/SPRAY NASAL 16GM EA NOSTRIL SCH (21:49)
[2022-06-04] MEDS: AZITHROMYCIN 500 MG in SODIUM CHLORIDE 0.9% 250 ML IVPB SCH (00:23)
[2022-06-04] MEDS: SODIUM CHLORIDE 0.9% 1,000 ML IV SCH (01:53)
[2022-06-04 06:35] LABS: INR 1.6 (<1.2); Partial Thromboplastin Time 34.4 sec (22.0-30.0); Prothrombin Time 15.7 sec (9.0-12.0)
[2022-06-04 07:15] LABS: Glucose,Whole Blood 73 mg/dL (70-110)
[2022-06-04] MEDS: SYMBICORT 80-4.5 MCG INHALER INHALATION SCH ×2 (07:59→19:42)
[2022-06-04] MEDS: ACETAMINOPHEN TAB 500 MG TAB PO PRN (08:18)
[2022-06-04] MEDS: PANTOPRAZOLE 40 MG TABLET PO SCH (08:48)
[2022-06-04] MEDS: DILTIAZEM ORAL 30 MG TAB PO SCH ×2 (08:48→21:25)
[2022-06-04] MEDS: FAMOTIDINE 20 MG TAB PO SCH ×2 (08:48→21:20)
[2022-06-04] MEDS: FUROSEMIDE 10 MG/ML 4 ML VIAL IV SCH ×2 (08:48→21:24)
[2022-06-04] MEDS: POTASSIUM CHLORIDE ER 20 MEQ TAB.ER PO SCH (08:48)
[2022-06-04] MEDS: predniSONE 5 MG TAB PO SCH (08:48)
[2022-06-04 09:09] LABS: African American GFR (CKD) 89.2 (60.0-200.0); Anion Gap 9.8 mmol/L (10.00-18.00); BUN/Creat Ratio 18.4 Ratio (12.00-20.00); Blood Urea Nitrogen 18.4 mg/dL (9.0-27.0); Calcium 7.6 mg/dL (8.7-10.3); Carbon Dioxide 26.2 mmol/L (20.0-27.5); Potassium 3.9 mmol/L (3.5-5.5)
--- NOTE | 2022-06-04 09:19 | CA ---
Transthoracic Echo Report Name: Fritz Aly Age: 66 Gender: M : 1955 Exam Date: 06/03/2022 12:13 Exam Location: [facility] Ht (in): 72 Wt (lb): 194 Ordering Physician: Alma Rondon Attending/Referring Phys: Alcon MORGAN Final Inspector Macy Hernandez RDCS Procedure CPT: Indications: chf Cardiac Hx: Technical Quality: Contrast 1: Total Dose (mL): Contrast 2: Total Dose (mL): MEASUREMENTS (Male / Female) Normal Values 2D ECHO LV Diastolic Diameter PLAX 5.6 cm 4.2 - 5.9 / 3.9 - 5.3 cm LV Systolic Diameter PLAX 4.1 cm IVS Diastolic Thickness 0.7 cm 0.6 - 1.0 / 0.6 - 0.9 cm LVPW Diastolic Thickness 1.6 cm 0.6 - 1.0 / 0.6 - 0.9 cm LV Relative Wall Thickness 0.4 RV Internal Dim ED PLAX 2.7 cm LA Systolic Diameter LX 4.3 cm 3.0 - 4.0 / 2.7 - 3.8 cm LA Volume 79.2 cm??? 18 - 58 / 22 - 52 cm??? M-MODE Aortic Root Diameter MM 3.9 cm LA Systolic Diameter MM 3.8 cm LA Ao Ratio MM 1.0 MV E Point Septal Separation 0.9 cm AV Cusp Separation MM 2.3 cm DOPPLER MV Area PHT 3.4 cm??? Mitral E Point Velocity 57.3 cm/s Mitral A Point Velocity 75.1 cm/s Mitral E to A Ratio 0.8 MV Deceleration Time 222.0 ms MV E' Velocity 8.4 cm/s Mitral E to MV E' Ratio 6.8 FINDINGS Left Ventricle Left ventricular ejection fraction is estimated at 55%. Left ventricular cavity size normal. Right Ventricle Normal right ventricular size and function. Right ventricular systolic pressure within normal limits. Right Atrium Normal right atrial size. Left Atrium Mildly increased left atrial diameter. Severely increased left atrial volume. Mildly increased left atrial area. Mitral Valve Structurally normal mitral valve. Mild mitral regurgitation. Aortic Valve Trileaflet aortic valve. Aortic valve sclerosis. Tricuspid Valve Structurally normal tricuspid valve. Mild tricuspid regurgitation. Pulmonic Valve Structurally normal pulmonic valve. Pericardium Normal pericardium.Mild Pleural effusion. Aorta Normal size aortic root and proximal ascending aorta. CONCLUSIONS Left ventricle is of normal size with preserved systolic function and ejection fraction of 50-55%. There is mitral annular calcification and aortic sclerosis. There is mild mitral and tricuspid insufficiency. No pericardial effusion. Cannot exclude a small pleural effusion Previewed by: Dr. Bianca Downey MD (Electronically Signed) Final Date: 04 June 2022 09:18
[2022-06-04 09:52] LABS: Basophils # (A) 0.03 X 10*3/uL (0.00-0.10); Basophils % (A) 0.2 %; Eosinophils # (A) 0.14 X 10*3/uL (0.04-0.35); Eosinophils % (A) 1.1 %; HCT 27.5 % (39.6-50.0); HGB 7.8 g/dL (13.0-17.0); Immature Grans, Automated 0.9 %; Immature Platelet Fraction 6.2 % (1.1-6.1); Lymphocytes % (A) 6.1 %; MCH 27.7 pg (27.0-32.0); MCHC 28.4 g/dL (32.0-37.0); MCV 97.5 fL (80.0-97.0); Mean Platelet Volume 10.8 fL (9.5-12.2); Monocytes # (A) 1.06 X 10*3/uL (0.20-1.00); Monocytes % (A) 8.1 %; NRBC Per 100 WBC 0 /100 WBCS (0.0-0.0); Neutrophils % (A) 83.6 %; Platelet Count 63 X 10*3/uL (140-440); RBC 2.82 X 10*6/uL (4.40-5.60); RDW 19.4 % (11.5-14.5); WBC 13.05 X 10*3/uL (4.50-10.00)
--- NOTE | 2022-06-04 10:58 | XR ---
EXAMINATION TYPE: XR chest 2V DATE OF EXAM: 06/04/2022 COMPARISON: 06/01/2022 HISTORY: 66-year-old male follow-up left lower lobe pneumonia TECHNIQUE: Frontal and lateral views FINDINGS: Heart and lungs are normal in size. Redemonstration moderate left and small right pleural effusions. Prominent left retrocardiac and basilar consolidation. Currently, there is suggestion of underlying n odules on both sides. Measuring up to 1.6 cm at the left apex. Symmetric round densities within the h umeral heads likely superposition shadow. IMPRESSION: 1. Bilateral nodularity better seen on the current exam measuring up to 1.6 cm. Unable to exclude met astatic pulmonary nodules. 2. Ongoing moderate left and small right pleural effusions. Adjacent consolidation at the left lower lung persists.
[2022-06-04 11:34] LABS: Glucose,Whole Blood 92 mg/dL (70-110)
--- NOTE | 2022-06-04 15:40 | P.PN ---
Subjective Progress Note Date: 06/04/22 This is a 66-year-old male who follows with Dr. Li, medical conditions include asthma, hypertension, sleep apnea, anemia and gastric ulcer, stage IV left kidney cancer patient is currently on immunosuppressive therapy and radiation. Diagnosed with renal cancer back in 2018, he is currently on radiation cycle 11/30. Medical records discuss there is liver metastasis and family at bedside reports there is a tumor which is pressing on the IVC. Presents with concern for generalized weakness and fatigue ongoing for the last week, he is also reporting peripheral edema. Denies any leg pain, states he has had lower extremity edema for the last 6 months, and has been taking his oral diuretic at home. Denies shortness of breath, denies chest pain. Denies cough, fever or chills. Last Wednesday he became significant more weak and was unable to ambulate and was taken by EMS to his radiation appointment. His radiologist felt he was to weak to undergo radiation and recommended patient to come into the ER if symptoms did not improve. He had an episode of diarrhea Wednesday night, and has had decreased appetite. He presents to the [facility] yesterday afternoon with worsening weakness. Chest x-ray shows left lower lobe pneumonia and atelectasis and pleural fluid significantly increased compared to old exam with mild pulmonary congestion with mild heart failure possible. There is a retrocardiac infiltrate on lateral view. He is found to have proBNP of 4880 on admission, troponin level is negative. Lactic acid is elevated at 2.4. He does have leukocytosis with left shift. Urine is showing trace blood. He is afebrile and on room air. Has been started on IV azithromycin and IV ceftriaxone, Received a fluid bolus in [facility] as well. Had a prior echocardiogram in January of this year showing an EF of 55- 60% with mild mitral regurgitation, mild aortic regurgitation and mild tricuspid regurgitation. Patient will be admitted and will be started on IV lasix and will repeat echocardiogram. He will continue on antibiotics and check procalcitonin level. Oncology and Radiology have been consulted. 06/03/2022 Patient feels more fatigued today. Denies shortness of breath, no cough, no fever/chills reported. Patient continues on IV Lasix with about 900 mL of urine output overnight. Had an episode of nausea this morning mostly pills per at bedside. He denies feeling nausea, no hematemesis or coffee ground emesis reported. No abdominal pain. Hemoglobin today found to be 6.9 and he will receive 1 unit of PRBC's, lactic acid has normalized to 2.0, blood glucose remains in the 70s. Ferritin and LDH are elevated as well as Procalcitonin level of 1.16. White count stable at 12.20. Blood culture is currently pending. Patient remains on IV azithromycin and IV ceftriaxone. 06/04/2022 Patient evaluated today resting in bed. Working with physical therapy. His oncology team at this time is recommending to hold further treatments secondary to poor overall clinical condition and hospice had been discussed with patient and at this time they do not feel ready for hospice. He does report some difficulty swallowing and coughing with thin liquids today. He has been maintained on IV antibiotics for left lower lobe pneumonia. Chest xray follow up today showing bilateral nodularity better seen on current exam measuring up to 1.6 cm unable to exclude metastatic pulmonary nodules, with ongoing moderate left and small right pleural effusions. Left lower lung consolidation persists. Echocardiogram completed showing an EF of 50 to 55% with mild mitral and tricuspid insufficiency. Possible small pleural effusion. White count today 13.05, hemoglobin improved to 7.8. Platelet count of 63. BUN 18.4, creatinine 1.0. Glucose in the 90s. He remains afebrile, heart rate in the 90s, blood pressure 122/66, and 95% room air. Review of Systems Constitutional: Reports fatigue denied any fever. Cardio vascular: denied any chest pain, palpitations Gastrointestinal: denied any nausea, no diarrhea, no emesis, decreased appetite, difficulty swallowing and coughing with oral intake. Pulmonary: Denied any shortness of breath cough Neurologic denied any new focal deficits All inpatient medications were reviewed and appropriate changes in these medications as dictated in the interval history and assessment and plan. PHYSICAL EXAMINATION: GENERAL: The patient is alert and oriented x3, not in any acute distress. Well developed, well nourished. HEENT: Pupils are round and equally reacting to light. EOMI. No scleral icterus. No conjunctival pallor. Normocephalic, atraumatic. No pharyngeal erythema. No thyromegaly. CARDIOVASCULAR: S1 and S2 present. No murmurs, rubs, or gallops. PULMONARY: Chest is clear to auscultation, no wheezing or crackles. Left base diminished. ABDOMEN: Soft, nontender, nondistended, normoactive bowel sounds. No palpable organomegaly. MUSCULOSKELETAL: No joint swelling or deformity. EXTREMITIES: No cyanosis, clubbing. He has +2 lower extremity pitting edema. NEUROLOGICAL: Gross neurological examination did not reveal any focal deficits. Diffuse generalized weakness. SKIN: No rashes. Assessment and plan Assessment Generalized weakness Left lower lobe pneumonia, community acquired with sepsis present on admission, there is infiltrate on xray and patient presents with lactic acidosis and elevated white count. Follow up chest xray showing bilateral pulmonary nodules unable to exclude neoplasm. Pneumonia could be post obstructive vs. component of aspiration as well he did do poor on his swallow evaluation today. Dysphagia diet will be changed to thickened liquids. Mild acute heart failure diastolic with preserved EF Lower extremity edema likely combination of CHF and third spacing Bicytopenia Hypoglycemia from poor oral intake Stage 4 left renal cancer with liver metastasis currently undergoing immunotherapy/palliative radiation which current treatments have been placed on hold at this time. Hypertension currently normotensive Sleep apnea History iron deficiency anemia History asthma stable History of gastric ulcer GI prophylaxis DVT prophylaxis Full Code Plan Continue IV ceftriaxone/IV azithromycin IV lasix 40 Q 12 with strict intake and output monitoring Bilateral knee high MELINA hose Diet has been downgraded to thickened liquid Accuchecks and monitor for hypoglycemia PT/OT and speech therapy consultation Patients overall prognosis remains poor at this time. Current treatment for stage IV left renal carcinoma has been placed on hold by his care team pending clinical improvement. They feel patient is an appropriate candidate for hospice which patient has refused at this time. The impression and plan of care has been dictated by Alma Rondon, Nurse Practitioner as directed. Dr. Félix MD I have performed a history and physical examination and medical decision making of this patient, discussed the same with the dictator, and agree with the dictators assessment and plan as written, documented as a scribe. Based on total visit time, I have performed more than 50% of this visit. Objective - Vital Signs Vital signs: Vital Signs Temp 97.6 F 06/04/22 12:55 Pulse 92 06/04/22 12:55 Resp 18 06/04/22 12:55 BP 122/66 06/04/22 12:55 Pulse Ox 95 06/04/22 12:55 FiO2 Intake & Output 06/03/22 06/04/22 06/04/22 18:59 06:59 18:59 Intake Total 310 Balance 310 Intake: Blood Product 310 Rc As-1 Unit 310 [id number] Other: # Voids 1 - Labs CBC & Chem 7: 06/04/22 05:49 06/04/22 05:49 Labs: Abnormal Lab Results - Last 24 Hours (Table) 06/03/22 06/03/22 06/03/22 Range/Units 12:24 17:02 20:26 WBC (4.50-10.00) X 10*3/uL RBC (4.40-5.60) X 10*6/uL Hgb (13.0-17.0) g/dL Hct (39.6-50.0) % MCV (80.0-97.0) fL MCHC (32.0-37.0) g/dL RDW (11.5-14.5) % Plt Count (140-440) X 10*3/uL Immature Gran # (0.00-0.04) X 10*3/uL Neutrophils # (1.80-7.70) X 10*3/uL Lymphocytes # (0.90-5.00) X 10*3/uL Monocytes # (0.20-1.00) X 10*3/uL Immature Plt Fraction (1.1-6.1) % PT (9.0-12.0) sec INR (<1.2) APTT (22.0-30.0) sec Fibrinogen (200-500) mg/dL Anion Gap (10.00-18.00) mmol/L POC Glucose (mg/dL) 125 H 137 H (70-110) mg/dL Calcium (8.7-10.3) mg/dL Crossmatch See Detail 06/04/22 06/04/22 06/04/22 Range/Units 05:49 05:49 05:49 WBC 13.05 H (4.50-10.00) X 10*3/uL RBC 2.82 L (4.40-5.60) X 10*6/uL Hgb 7.8 L (13.0-17.0) g/dL Hct 27.5 L (39.6-50.0) % MCV 97.5 H (80.0-97.0) fL MCHC 28.4 L (32.0-37.0) g/dL RDW 19.4 H (11.5-14.5) % Plt Count 63 L (140-440) X 10*3/uL Immature Gran # 0.12 H (0.00-0.04) X 10*3/uL Neutrophils # 10.90 H (1.80-7.70) X 10*3/uL Lymphocytes # 0.80 L (0.90-5.00) X 10*3/uL Monocytes # 1.06 H (0.20-1.00) X 10*3/uL Immature Plt Fraction 6.2 H (1.1-6.1) % PT 15.7 H (9.0-12.0) sec INR 1.6 H (<1.2) APTT 34.4 H (22.0-30.0) sec Fibrinogen 524 H (200-500) mg/dL Anion Gap 9.80 L (10.00-18.00) mmol/L POC Glucose (mg/dL) (70-110) mg/dL Calcium 7.6 L (8.7-10.3) mg/dL Crossmatch Microbiology - Last 24 Hours (Table) 06/02/22 14:49 Blood Culture - Preliminary Blood No Growth after 24 hours Assessment and Plan Time with Patient: Greater than 30
[2022-06-04 17:07] LABS: Glucose,Whole Blood 139 mg/dL (70-110)
[2022-06-04 20:28] LABS: Glucose,Whole Blood 159 mg/dL (70-110)
[2022-06-04] MEDS: MELATONIN 5 MG TABLET PO SCH (21:20)
[2022-06-04] MEDS: FLUTICASONE 50MCG/SPRAY NASAL 16GM EA NOSTRIL SCH (21:20)
[2022-06-04] MEDS: MONTELUKAST 10 MG TAB PO SCH (21:20)
[2022-06-04] MEDS: LORATADINE 10 MG TAB PO SCH (21:20)
[2022-06-05] MEDS: SODIUM CHLORIDE 0.9% 1,000 ML IV SCH ×2 (00:22→23:15)
[2022-06-05 06:45] LABS: Methylmalonic Acid 0.52 umol/L (<0.40)
[2022-06-05 07:45] LABS: Glucose,Whole Blood 77 mg/dL (70-110)
[2022-06-05 07:48] LABS: INR 1.5 (<1.2); Partial Thromboplastin Time 32.4 sec (22.0-30.0); Prothrombin Time 14.8 sec (9.0-12.0)
[2022-06-05] MEDS: SYMBICORT 80-4.5 MCG INHALER INHALATION SCH ×2 (08:13→20:09)
[2022-06-05] MEDS: DILTIAZEM ORAL 30 MG TAB PO SCH ×2 (08:15→20:46)
[2022-06-05] MEDS: FUROSEMIDE 10 MG/ML 4 ML VIAL IV SCH ×2 (08:15→20:42)
[2022-06-05] MEDS: FAMOTIDINE 20 MG TAB PO SCH ×2 (08:15→20:43)
[2022-06-05] MEDS: POTASSIUM CHLORIDE ER 20 MEQ TAB.ER PO SCH (08:15)
[2022-06-05] MEDS: predniSONE 5 MG TAB PO SCH (08:15)
[2022-06-05] MEDS: PANTOPRAZOLE 40 MG TABLET PO SCH (08:15)
[2022-06-05] MEDS: ACETAMINOPHEN TAB 500 MG TAB PO PRN ×2 (10:56→20:42)
[2022-06-05 12:11] LABS: Glucose,Whole Blood 89 mg/dL (70-110)
[2022-06-05 14:09] LABS: Basophils # (A) 0.03 X 10*3/uL (0.00-0.10); Basophils % (A) 0.2 %; Eosinophils # (A) 0.17 X 10*3/uL (0.04-0.35); Eosinophils % (A) 1.1 %; Immature Grans, Automated 0.7 %; Lymphocytes % (A) 5.2 %; MCH 27.9 pg (27.0-32.0); MCHC 28.6 g/dL (32.0-37.0); MCV 97.6 fL (80.0-97.0); Mean Platelet Volume 12.4 fL (9.5-12.2); Monocytes % (A) 8.5 %; NRBC Per 100 WBC 0 /100 WBCS (0.0-0.0); Neutrophils # (A) 12.89 X 10*3/uL (1.80-7.70); Neutrophils % (A) 84.3 %; Platelet Count 48 X 10*3/uL (140-440); RBC 2.87 X 10*6/uL (4.40-5.60); RDW 18.8 % (11.5-14.5)
[2022-06-05 14:10] LABS: Immature Platelet Fraction 7.8 % (1.1-6.1)
[2022-06-05 17:20] LABS: Glucose,Whole Blood 102 mg/dL (70-110)
--- NOTE | 2022-06-05 17:48 | P.PN ---
Subjective Progress Note Date: 06/05/22 This is a 66-year-old male who follows with Dr. Li, medical conditions include asthma, hypertension, sleep apnea, anemia and gastric ulcer, stage IV left kidney cancer patient is currently on immunosuppressive therapy and radiation. Diagnosed with renal cancer back in 2018, he is currently on radiation cycle 11/30. Medical records discuss there is liver metastasis and family at bedside reports there is a tumor which is pressing on the IVC. Presents with concern for generalized weakness and fatigue ongoing for the last week, he is also reporting peripheral edema. Denies any leg pain, states he has had lower extremity edema for the last 6 months, and has been taking his oral diuretic at home. Denies shortness of breath, denies chest pain. Denies cough, fever or chills. Last Wednesday he became significant more weak and was unable to ambulate and was taken by EMS to his radiation appointment. His radiologist felt he was to weak to undergo radiation and recommended patient to come into the ER if symptoms did not improve. He had an episode of diarrhea Wednesday night, and has had decreased appetite. He presents to the [facility] yesterday afternoon with worsening weakness. Chest x-ray shows left lower lobe pneumonia and atelectasis and pleural fluid significantly increased compared to old exam with mild pulmonary congestion with mild heart failure possible. There is a retrocardiac infiltrate on lateral view. He is found to have proBNP of 4880 on admission, troponin level is negative. Lactic acid is elevated at 2.4. He does have leukocytosis with left shift. Urine is showing trace blood. He is afebrile and on room air. Has been started on IV azithromycin and IV ceftriaxone, Received a fluid bolus in [facility] as well. Had a prior echocardiogram in January of this year showing an EF of 55- 60% with mild mitral regurgitation, mild aortic regurgitation and mild tricuspid regurgitation. Patient will be admitted and will be started on IV lasix and will repeat echocardiogram. He will continue on antibiotics and check procalcitonin level. Oncology and Radiology have been consulted. 06/03/2022 Patient feels more fatigued today. Denies shortness of breath, no cough, no fever/chills reported. Patient continues on IV Lasix with about 900 mL of urine output overnight. Had an episode of nausea this morning mostly pills per at bedside. He denies feeling nausea, no hematemesis or coffee ground emesis reported. No abdominal pain. Hemoglobin today found to be 6.9 and he will receive 1 unit of PRBC's, lactic acid has normalized to 2.0, blood glucose remains in the 70s. Ferritin and LDH are elevated as well as Procalcitonin level of 1.16. White count stable at 12.20. Blood culture is currently pending. Patient remains on IV azithromycin and IV ceftriaxone. 06/04/2022 Patient evaluated today resting in bed. Working with physical therapy. His oncology team at this time is recommending to hold further treatments secondary to poor overall clinical condition and hospice had been discussed with patient and at this time they do not feel ready for hospice. He does report some difficulty swallowing and coughing with thin liquids today. He has been maintained on IV antibiotics for left lower lobe pneumonia. Chest xray follow up today showing bilateral nodularity better seen on current exam measuring up to 1.6 cm unable to exclude metastatic pulmonary nodules, with ongoing moderate left and small right pleural effusions. Left lower lung consolidation persists. Echocardiogram completed showing an EF of 50 to 55% with mild mitral and tricuspid insufficiency. Possible small pleural effusion. White count today 13.05, hemoglobin improved to 7.8. Platelet count of 63. BUN 18.4, creatinine 1.0. Glucose in the 90s. He remains afebrile, heart rate in the 90s, blood pressure 122/66, and 95% room air. 06/05/2022 Patient is evaluated today lying in bed. No acute events overnight. He continues on IV lasix. Completed 3 days of IV azithromycin. Continues on IV ceftriaxone. Discussed chest xray findings with and patient. When he was first diagnosed with cancer back in 2018 he did have evidence for possible lung cancer however the area seemed to have gone away on follow up imaging. His diet has been downgraded to thickened liquid and has been started on dronabinol for appetite stimulant. Hospice was discussed and they both feel not ready for hospice at this time and hopeful for patient to get stronger and be able to resume cancer treatment. However, the does not want patient to go to rehab and would like him to return home which they would require bed and logan lift at this time. Currently he is total assist and unable to ambulate with poor appetite and dietary intake. His oncology team feels he is appropriate for hospice and are currently recommending to hold palliative radiation. The would like him to resume the radiation or have follow up imaging for liver mass hoping that he will eventually be able to have surgery to remove the primary tumor. White count today is 15.30, hemoglobin 8.0, platelet count of 48, INR of 1.5. He is afebrile, heart rate 63, blood pressure 104/67, 96% room air. Followed by hematology/oncology. Review of Systems Constitutional: Reports fatigue denied any fever. Cardio vascular: denied any chest pain, palpitations Gastrointestinal: denied any nausea, no diarrhea, no emesis, decreased appetite, difficulty swallowing and coughing with oral intake. Pulmonary: Denied any shortness of breath cough Neurologic denied any new focal deficits All inpatient medications were reviewed and appropriate changes in these medic ations as dictated in the interval history and assessment and plan. PHYSICAL EXAMINATION: GENERAL: The patient is alert and oriented x3, not in any acute distress. Well developed, well nourished. HEENT: Pupils are round and equally reacting to light. EOMI. No scleral icterus. No conjunctival pallor. Normocephalic, atraumatic. No pharyngeal erythema. No thyromegaly. CARDIOVASCULAR: S1 and S2 present. No murmurs, rubs, or gallops. PULMONARY: Chest is clear to auscultation, no wheezing or crackles. Left base diminished. ABDOMEN: Soft, nontender, nondistended, normoactive bowel sounds. No palpable organomegaly. MUSCULOSKELETAL: No joint swelling or deformity. EXTREMITIES: No cyanosis, clubbing. He has +2 lower extremity pitting edema. NEUROLOGICAL: Gross neurological examination did not reveal any focal deficits. Diffuse generalized weakness. SKIN: No rashes. Assessment and plan Assessment Generalized weakness Left lower lobe pneumonia, community acquired with sepsis present on admission, there is infiltrate on xray and patient presents with lactic acidosis and elevated white count. Follow up chest xray showing bilateral pulmonary nodules unable to exclude neoplasm. Pneumonia could be post obstructive vs. component of aspiration as well he did do poor on his swallow evaluation today. Dysphagia diet will be changed to thickened liquids. Mild acute heart failure diastolic with preserved EF Lower extremity edema likely combination of CHF and third spacing Bicytopenia Hypoglycemia from poor oral intake Stage 4 left renal cancer with liver metastasis currently undergoing immunotherapy/palliative radiation which current treatments have been placed on hold at this time. Hypertension currently normotensive Sleep apnea History iron deficiency anemia History asthma stable History of gastric ulcer GI prophylaxis DVT prophylaxis Full Code Plan Continue IV ceftriaxone IV lasix 40 Q 12 with strict intake and output monitoring Bilateral knee high MELINA hose Diet has been downgraded to thickened liquid Accuchecks and monitor for hypoglycemia PT/OT and speech therapy consultation Patients overall prognosis remains poor at this time. Current treatment for stage IV left renal carcinoma has been placed on hold by his care team pending clinical improvement. They feel patient is an appropriate candidate for hospice which patient has refused at this time. He has been started on appetite stimulant. Consider pulmonary consultation if pneumonia not improving. Enc ouraged patient to work with his IS and increase oral intake. The impression and plan of care has been dictated by Alma Rondon, Nurse Practitioner as directed. Dr. Félix MD I have performed a history and physical examination and medical decision making of this patient, discussed the same with the dictator, and agree with the dictators assessment and plan as written, documented as a scribe. Based on total visit time, I have performed more than 50% of this visit. Objective - Vital Signs Vital signs: Vital Signs Temp 97.9 F 06/05/22 12:55 Pulse 63 06/05/22 12:55 Resp 18 06/05/22 12:55 BP 104/67 06/05/22 12:55 Pulse Ox 96 06/05/22 12:55 FiO2 Intake & Output 06/04/22 06/05/22 06/05/22 18:59 06:59 18:59 Intake Total 870 Balance 870 Weight 86.183 kg Intake: Oral 870 Other: Voiding Method External Catheter External Catheter # Voids 3 1 - Labs CBC & Chem 7: 06/05/22 06:47 06/04/22 05:49 Labs: Abnormal Lab Results - Last 24 Hours (Table) 06/02/22 06/04/22 06/04/22 Range/Units 19:02 17:05 20:25 WBC (4.50-10.00) X 10*3/uL RBC (4.40-5.60) X 10*6/uL Hgb (13.0-17.0) g/dL Hct (39.6-50.0) % MCV (80.0-97.0) fL MCHC (32.0-37.0) g/dL RDW (11.5-14.5) % Plt Count (140-440) X 10*3/uL Plt Count Comment MPV (9.5-12.2) fL Immature Gran # (0.00-0.04) X 10*3/uL Neutrophils # (1.80-7.70) X 10*3/uL Lymphocytes # (0.90-5.00) X 10*3/uL Monocytes # (0.20-1.00) X 10*3/uL Immature Plt Fraction (1.1-6.1) % PT (9.0-12.0) sec INR (<1.2) APTT (22.0-30.0) sec POC Glucose (mg/dL) 139 H 159 H (70-110) mg/dL Methylmalonic Acid 0.52 H (<0.40) umol/L RBC Folate 1,453 H (280 - 791) ng/mL 06/05/22 06/05/22 Range/Units 06:47 06:47 WBC 15.30 H (4.50-10.00) X 10*3/uL RBC 2.87 L (4.40-5.60) X 10*6/uL Hgb 8.0 L (13.0-17.0) g/dL Hct 28.0 L (39.6-50.0) % MCV 97.6 H (80.0-97.0) fL MCHC 28.6 L (32.0-37.0) g/dL RDW 18.8 H (11.5-14.5) % Plt Count 48 L (140-440) X 10*3/uL Plt Count Comment A MPV 12.4 H (9.5-12.2) fL Immature Gran # 0.11 H (0.00-0.04) X 10*3/uL Neutrophils # 12.89 H (1.80-7.70) X 10*3/uL Lymphocytes # 0.80 L (0.90-5.00) X 10*3/uL Monocytes # 1.30 H (0.20-1.00) X 10*3/uL Immature Plt Fraction 7.8 H (1.1-6.1) % PT 14.8 H (9.0-12.0) sec INR 1.5 H (<1.2) APTT 32.4 H (22.0-30.0) sec POC Glucose (mg/dL) (70-110) mg/dL Methylmalonic Acid (<0.40) umol/L RBC Folate (280 - 791) ng/mL Microbiology - Last 24 Hours (Table) 06/02/22 14:49 Blood Culture - Preliminary Blood No Growth after 48 hours Assessment and Plan Time with Patient: Greater than 30
[2022-06-05 20:19] LABS: Glucose,Whole Blood 123 mg/dL (70-110)
[2022-06-05] MEDS: LORATADINE 10 MG TAB PO SCH (20:43)
[2022-06-05] MEDS: MONTELUKAST 10 MG TAB PO SCH (20:43)
[2022-06-05] MEDS: FLUTICASONE 50MCG/SPRAY NASAL 16GM EA NOSTRIL SCH (20:44)
[2022-06-05] MEDS: MELATONIN 5 MG TABLET PO SCH (23:16)
[2022-06-06 07:18] LABS: Glucose,Whole Blood 71 mg/dL (70-110)
[2022-06-06] MEDS: SYMBICORT 80-4.5 MCG INHALER INHALATION SCH ×2 (07:41→19:56)
[2022-06-06 07:44] LABS: Glucose,Whole Blood 74 mg/dL (70-110)
[2022-06-06 08:22] LABS: Glucose,Whole Blood 93 mg/dL (70-110)
[2022-06-06] MEDS: FAMOTIDINE 20 MG TAB PO SCH ×2 (08:27→20:56)
[2022-06-06] MEDS: FUROSEMIDE 10 MG/ML 4 ML VIAL IV SCH ×2 (08:28→20:56)
[2022-06-06] MEDS: POTASSIUM CHLORIDE ER 20 MEQ TAB.ER PO SCH (08:28)
[2022-06-06] MEDS: PANTOPRAZOLE 40 MG TABLET PO SCH (08:28)
[2022-06-06] MEDS: DILTIAZEM ORAL 30 MG TAB PO SCH ×2 (08:28→20:56)
[2022-06-06] MEDS ORDERED: IOPAMIDOL CONTRAST (ORAL USE) VIAL PO PRN (10:00)
--- NOTE | 2022-06-06 11:07 | CT ---
EXAMINATION TYPE: CT ChestAbdPelvis wo con CT DLP: 898.6 mGycm, Automated exposure control for dose reduction was used. DATE OF EXAM: 06/06/2022 10:47 AM COMPARISON: 04/23/2021 CT chest in the pelvis, outside imaging 03/08/2022 CLINICAL INDICATION:Male, 66 years old with history of pneumonia/mets; Generalized weakness, stage IV renal cancer Technique: Multiple axial images of the chest, abdomen, and pelvis were obtained. Two-dimensional cor onal and sagittal reconstructions were obtained. Contrast used: None Oral contrast used: without Oral Contrast Findings: CHEST: LUNGS/ PLEURA: Innumerable new pulmonary nodules. The largest in the left upper lobe measuring 1.8 cm largest in the right upper lobe measuring 8 mm. New bilateral pleural effusions. Right upper lobe gr oundglass opacity of uncertain significance this is new from prior. AIRWAY: Patent and unremarkable. HEART: Heart is enlarged for size with coronary artery atherosclerosis. MEDIASTINUM: No gross evidence of adenopathy. VASCULATURE: No aortic aneurysm. MUSCULOSKELETAL: Suspected T12 metastatic lytic lesions. SOFT TISSUES/LYMPH NODES: There is supraclavicular lymph node measuring up to 12 mm in short axis. LOWER NECK: No significant findings. ABDOMEN: ABDOMEN LIVER: Increase in size and number of multiple hepatic lesions the largest in the right hepatic lobe measuring to 6.9 cm. GALLBLADDER AND BILE DUCTS: Unremarkable. PANCREAS: Unremarkable. SPLEEN: Unremarkable. ADRENAL GLANDS: Unremarkable. KIDNEYS AND URETERS: Left renal fossa mass measuring up to 14.7 x 12.5 cm which is increase in size f rom prior. The right kidney is unremarkable without evidence of hydronephrosis or nephrolithiasis. PELVIS BLADDER: Unremarkable REPRODUCTIVE: Unremarkable. ABDOMEN & PELVIS STOMACH AND BOWEL: No evidence of bowel obstruction. PERITONEUM: No evidence of pneumoperitoneum. Small amount of fluid in the abdomen. Nohemy mesentery is present and not significantly changed. VASCULATURE: No evidence of aortic aneurysm. MUSCULOSKELETAL: No acute osseous abnormalities LYMPH NODES: Lymphadenopathy in the retroperitoneum the largest measuring 3.6 x 2.9 cm has increased in size. SOFT TISSUE/ABDOMINAL WALL: Diffuse anasarca of the soft tissues. Bilateral inguinal fat-containing h ernias. IMPRESSION: 1. Progression of diffuse metastatic disease when compared to prior 03/08/2022 with increasing size of left renal fossa mass, increased in size and number of hepatic masses increase in size and number of retroperitoneal and supraclavicular lymph nodes lymph nodes. New pulmonary metastatic disease with diffuse pulmonary nodules. 2. New bilateral small pleural effusions. 3. Diffuse anasarca and trace ascites.
[2022-06-06 11:27] LABS: Glucose,Whole Blood 111 mg/dL (70-110)
[2022-06-06 11:45] LABS: Anisocytosis Slight; Basophils # (A) 0.1 k/uL (0-0.2); Basophils % (A) 0 %; Eosinophils # (A) 0.1 k/uL (0-0.7); Eosinophils % (A) 1 %; HCT 25.6 % (39.0-53.0); HGB 7.5 gm/dL (13.0-17.5); Hypochromasia Marked; Lymphocytes # (A) 0.6 k/uL (1.0-4.8); Lymphocytes % (A) 5 %; MCHC 29.2 g/dL (31.0-37.0); MCV 95.7 fL (80.0-100.0); Macrocytosis Slight; Mean Platelet Volume 9.5; Monocytes # (A) 0.8 k/uL (0-1.0); Monocytes % (A) 6 %; Neutrophils # (A) 10.6 k/uL (1.3-7.7); Neutrophils % (A) 86 %; RBC 2.68 m/uL (4.30-5.90); RDW 17.2 % (11.5-15.5); WBC 12.3 k/uL (3.8-10.6)
[2022-06-06 11:47] LABS: Platelet Count 54 k/uL (150-450)
[2022-06-06 12:02] LABS: African American GFR (CKD) >90 (>60 ml/min/1.73 sqM); Anion Gap 6 mmol/L; Blood Urea Nitrogen 19 mg/dL (9-20); Calcium 7.1 mg/dL (8.4-10.2); Carbon Dioxide 28 mmol/L (22-30); Chloride 102 mmol/L (98-107); Glucose 102 mg/dL (74-99); Non-African American GFR(CKD) 81 (>60 ml/min/1.73 sqM); Potassium 3.7 mmol/L (3.5-5.1); Sodium 136 mmol/L (137-145)
[2022-06-06 17:31] LABS: Glucose,Whole Blood 94 mg/dL (70-110)
[2022-06-06 20:17] LABS: Glucose,Whole Blood 90 mg/dL (70-110)
[2022-06-06] MEDS: LORATADINE 10 MG TAB PO SCH (20:56)
[2022-06-06] MEDS: MELATONIN 5 MG TABLET PO SCH (20:56)
[2022-06-06] MEDS: MONTELUKAST 10 MG TAB PO SCH (20:56)
[2022-06-06] MEDS: FLUTICASONE 50MCG/SPRAY NASAL 16GM EA NOSTRIL SCH (20:57)
--- NOTE | 2022-06-06 23:45 | P.PN ---
Subjective Progress Note Date: 06/06/22 This is a 66-year-old male who follows with Dr. Li, medical conditions include asthma, hypertension, sleep apnea, anemia and gastric ulcer, stage IV left kidney cancer patient is currently on immunosuppressive therapy and radiation. Diagnosed with renal cancer back in 2018, he is currently on radiation cycle 11/30. Medical records discuss there is liver metastasis and family at bedside reports there is a tumor which is pressing on the IVC. Presents with concern for generalized weakness and fatigue ongoing for the last week, he is also reporting peripheral edema. Denies any leg pain, states he has had lower extremity edema for the last 6 months, and has been taking his oral diuretic at home. Denies shortness of breath, denies chest pain. Denies cough, fever or chills. Last Wednesday he became significant more weak and was unable to ambulate and was taken by EMS to his radiation appointment. His radiologist felt he was to weak to undergo radiation and recommended patient to come into the ER if symptoms did not improve. He had an episode of diarrhea Wednesday night, and has had decreased appetite. He presents to the [facility] yesterday afternoon with worsening weakness. Chest x-ray shows left lower lobe pneumonia and atelectasis and pleural fluid significantly increased compared to old exam with mild pulmonary congestion with mild heart failure possible. There is a retrocardiac infiltrate on lateral view. He is found to have proBNP of 4880 on admission, troponin level is negative. Lactic acid is elevated at 2.4. He does have leukocytosis with left shift. Urine is showing trace blood. He is afebrile and on room air. Has been started on IV azithromycin and IV ceftriaxone, Received a fluid bolus in [facility] as well. Had a prior echocardiogram in January of this year showing an EF of 55- 60% with mild mitral regurgitation, mild aortic regurgitation and mild tricuspid regurgitation. Patient will be admitted and will be started on IV lasix and will repeat echocardiogram. He will continue on antibiotics and check procalcitonin level. Oncology and Radiology have been consulted. 06/03/2022 Patient feels more fatigued today. Denies shortness of breath, no cough, no fever/chills reported. Patient continues on IV Lasix with about 900 mL of urine output overnight. Had an episode of nausea this morning mostly pills per at bedside. He denies feeling nausea, no hematemesis or coffee ground emesis reported. No abdominal pain. Hemoglobin today found to be 6.9 and he will receive 1 unit of PRBC's, lactic acid has normalized to 2.0, blood glucose remains in the 70s. Ferritin and LDH are elevated as well as Procalcitonin level of 1.16. White count stable at 12.20. Blood culture is currently pending. Patient remains on IV azithromycin and IV ceftriaxone. 06/04/2022 Patient evaluated today resting in bed. Working with physical therapy. His oncology team at this time is recommending to hold further treatments secondary to poor overall clinical condition and hospice had been discussed with patient and at this time they do not feel ready for hospice. He does report some difficulty swallowing and coughing with thin liquids today. He has been maintained on IV antibiotics for left lower lobe pneumonia. Chest xray follow up today showing bilateral nodularity better seen on current exam measuring up to 1.6 cm unable to exclude metastatic pulmonary nodules, with ongoing moderate left and small right pleural effusions. Left lower lung consolidation persists. Echocardiogram completed showing an EF of 50 to 55% with mild mitral and tricuspid insufficiency. Possible small pleural effusion. White count today 13.05, hemoglobin improved to 7.8. Platelet count of 63. BUN 18.4, creatinine 1.0. Glucose in the 90s. He remains afebrile, heart rate in the 90s, blood pressure 122/66, and 95% room air. 06/05/2022 Patient is evaluated today lying in bed. No acute events overnight. He continues on IV lasix. Completed 3 days of IV azithromycin. Continues on IV ceftriaxone. Discussed chest xray findings with and patient. When he was first diagnosed with cancer back in 2018 he did have evidence for possible lung cancer however the area seemed to have gone away on follow up imaging. His diet has been downgraded to thickened liquid and has been started on dronabinol for appetite stimulant. Hospice was discussed and they both feel not ready for hospice at this time and hopeful for patient to get stronger and be able to resume cancer treatment. However, the does not want patient to go to rehab and would like him to return home which they would require bed and logan lift at this time. Currently he is total assist and unable to ambulate with poor appetite and dietary intake. His oncology team feels he is appropriate for hospice and are currently recommending to hold palliative radiation. The would like him to resume the radiation or have follow up imaging for liver mass hoping that he will eventually be able to have surgery to remove the primary tumor. White count today is 15.30, hemoglobin 8.0, platelet count of 48, INR of 1.5. He is afebrile, heart rate 63, blood pressure 104/67, 96% room air. Followed by hematology/oncology. 06/06/2022 Patient is evaluated today resting in bed. PT/OT on consultation and recommending subacute rehab on discharge. CT of the chest abdomen and pelvis taken today showing progression of diffuse metastatic disease when compared to 03/08/22 with increasing size of left renal fossa, there is size and number of hepatic masses increase in size and number of retroperitoneal and supraclavicular lymph nodes. New pulmonary metastatic disease with diffuse pulmonary nodules. New bilateral small pleural effusions and also diffuse anasarca and trace ascites. He is continued on IV ceftriaxone and also IV lasix and recommend bilateral compression stockings for LE edema. He continues on room air. Incentive spirometer has been ordered and encouraged 10 times a hour. Patient is noted to have weak cough reflex and has been placed on thickened liquids. Findings discussed with patient and at bedside they would like to speak with oncology regarding treatment options etc. Discussed that despite treatment options patient will require rehabilitation and needs to increase his oral intake. Pending further recommendations from oncology. Procalcitonin level improving 0.92. White count today is 12.3, hgb today is 7.5, platelet count today is 54, sodium 136, potassium 3.7, BUN 19, creatinine 0.67 Review of Systems Constitutional: Reports fatigue denied any fever. Cardio vascular: denied any chest pain, palpitations Gastrointestinal: denied any nausea, no diarrhea, no emesis, decreased appetite. Pulmonary: Denied any shortness of breath cough Neurologic denied any new focal deficits All inpatient medications were reviewed and appropriate changes in these medications as dictated in the interval history and assessment and plan. PHYSICAL EXAMINATION: GENERAL: The patient is alert and oriented x3, not in any acute distress. Well developed, well nourished. HEENT: Pupils are round and equally reacting to light. EOMI. No scleral icterus. No conjunctival pallor. Normocephalic, atraumatic. No pharyngeal erythema. No thyromegaly. CARDIOVASCULAR: S1 and S2 present. No murmurs, rubs, or gallops. PULMONARY: Chest is clear to auscultation, no wheezing or crackles. Left base diminished. ABDOMEN: Soft, nontender, nondistended, normoactive bowel sounds. No palpable organomegaly. MUSCULOSKELETAL: No joint swelling or deformity. EXTREMITIES: No cyanosis, clubbing. He has +2 lower extremity pitting edema. NEUROLOGICAL: Gross neurological examination did not reveal any focal deficits. Diffuse generalized weakness. SKIN: No rashes. Assessment and plan Assessment Generalized weakness Left lower lobe pneumonia, community acquired with sepsis present on admission, there is infiltrate on xray and patient presents with lactic acidosis and elevated white count. Follow up chest xray showing bilateral pulmonary nodules unable to exclude neoplasm. Pneumonia could be post obstructive vs. component of aspiration as well he did do poor on his swallow evaluation today. Dysphagia diet will be changed to thickened liquids. Mild acute heart failure diastolic with preserved EF Lower extremity edema likely combination of CHF and third spacing Bicytopenia Hypoglycemia from poor oral intake Stage 4 left renal cancer with liver metastasis currently undergoing immunotherapy/palliative radiation which current treatments have been placed on hold at this time. CT imaging reveals new multiple areas of pulmonary neoplasm and increase in size in other areas of metastasis. Hypertension currently normotensive Sleep apnea History iron deficiency anemia History asthma stable History of gastric ulcer GI prophylaxis DVT prophylaxis Full Code Plan Continue IV ceftriaxone procalcitonin level improving. IV lasix 40 Q 12 with strict intake and output monitoring Bilateral knee high MELINA hose Diet has been downgraded to thickened liquid Accuchecks and monitor for hypoglycemia PT/OT and speech therapy consultation Patients overall prognosis remains poor at this time. Current treatment for stage IV left renal carcinoma has been placed on hold by his care team pending clinical improvement. They feel patient is an appropriate candidate for hospice which patient has refused at this time. He has been started on appetite stimulant. Encouraged patient to work with his IS and increase oral intake. Follow up recommendations from oncology. Patient is agreeable at this time for subacute rehab. The impression and plan of care has been dictated by Alma Rondon Nurse Practitioner as directed. Dr. Félix MD I have performed a history and physical examination and medical decision making of this patient, discussed the same with the dictator, and agree with the dictators assessment and plan as written, documented as a scribe. Based on total visit time, I have performed more than 50% of this visit. Objective - Vital Signs Vital signs: Vital Signs Temp 97.4 F L 06/06/22 07:19 Pulse 105 H 06/06/22 07:19 Resp 16 06/06/22 07:19 BP 112/65 06/06/22 07:19 Pulse Ox 94 L 06/06/22 07:41 FiO2 Intake & Output 06/05/22 06/06/22 06/06/22 18:59 06:59 18:59 Output Total 211 Balance -211 Weight 86.183 kg Output: Post Void Residual 211 Other: Voiding Method External Catheter External Catheter # Voids 1 1 - Labs CBC & Chem 7: 06/06/22 11:15 06/06/22 11:15 Labs: Abnormal Lab Results - Last 24 Hours (Table) 06/05/22 06/05/22 Range/Units 06:47 20:18 WBC 15.30 H (4.50-10.00) X 10*3/uL RBC 2.87 L (4.40-5.60) X 10*6/uL Hgb 8.0 L (13.0-17.0) g/dL Hct 28.0 L (39.6-50.0) % MCV 97.6 H (80.0-97.0) fL MCHC 28.6 L (32.0-37.0) g/dL RDW 18.8 H (11.5-14.5) % Plt Count 48 L (140-440) X 10*3/uL Plt Count Comment A MPV 12.4 H (9.5-12.2) fL Immature Gran # 0.11 H (0.00-0.04) X 10*3/uL Neutrophils # 12.89 H (1.80-7.70) X 10*3/uL Lymphocytes # 0.80 L (0.90-5.00) X 10*3/uL Monocytes # 1.30 H (0.20-1.00) X 10*3/uL Immature Plt Fraction 7.8 H (1.1-6.1) % POC Glucose (mg/dL) 123 H (70-110) mg/dL Microbiology - Last 24 Hours (Table) 06/02/22 14:49 Blood Culture - Preliminary Blood No Growth after 72 hours Assessment and Plan Time with Patient: Greater than 30
[2022-06-07] MEDS: SODIUM CHLORIDE 0.9% 1,000 ML IV SCH (01:28)
[2022-06-07] MEDS: SYMBICORT 80-4.5 MCG INHALER INHALATION SCH ×2 (07:08→19:43)
[2022-06-07 07:19] LABS: Glucose,Whole Blood 64 mg/dL (70-110)
[2022-06-07 07:40] LABS: Glucose,Whole Blood 72 mg/dL (70-110)
[2022-06-07] MEDS: FAMOTIDINE 20 MG TAB PO SCH ×2 (08:11→21:46)
[2022-06-07] MEDS: FUROSEMIDE 10 MG/ML 4 ML VIAL IV SCH ×2 (08:11→21:46)
[2022-06-07] MEDS: PANTOPRAZOLE 40 MG TABLET PO SCH (08:11)
[2022-06-07] MEDS: POTASSIUM CHLORIDE ER 20 MEQ TAB.ER PO SCH (08:11)
[2022-06-07] MEDS: DILTIAZEM ORAL 30 MG TAB PO SCH ×2 (08:12→21:46)
[2022-06-07 11:16] LABS: Glucose,Whole Blood 84 mg/dL (70-110)
--- NOTE | 2022-06-07 12:47 | P.PN ---
Subjective Progress Note Date: 06/07/22 Patient with persistent, marked generalized weakness, decreased oral intake. pain is controlled at this time. Objective - Vital Signs Vital signs: Vital Signs Temp 98.0 F 06/07/22 07:20 Pulse 56 L 06/07/22 07:20 Resp 16 06/07/22 07:20 BP 120/72 06/07/22 07:20 Pulse Ox 97 06/07/22 07:20 FiO2 Intake & Output 06/06/22 06/07/22 06/07/22 18:59 06:59 18:59 Intake Total 200 Balance 200 Intake: Oral 200 Other: Voiding Method External Catheter # Voids 3 1 1 - Constitutional General appearance: Present: no acute distress - EENT Eyes: Present: EOMI ENT: Present: hearing grossly normal, normal oropharynx - Respiratory Respiratory: bilateral: diminished - Cardiovascular Rhythm: regular Heart sounds: normal: S1, S2 - Gastrointestinal General gastrointestinal: Present: soft - Integumentary Integumentary Comment(s): Diffuse anasarca involving lower half of the body - Neurologic Neurologic: Present: CNII-XII intact - Musculoskeletal Musculoskeletal: Present: generalized weakness - Psychiatric Psychiatric: Present: A&O x's 3, appropriate affect - Labs CBC & Chem 7: 06/06/22 11:15 06/06/22 11:15 Labs: Abnormal Lab Results - Last 24 Hours (Table) 06/06/22 06/07/22 Range/Units 11:15 07:17 POC Glucose (mg/dL) 64 L (70-110) mg/dL Procalcitonin 0.92 H (0.02-0.09) ng/mL Microbiology - Last 24 Hours (Table) 06/02/22 14:49 Blood Culture - Preliminary Blood No Growth after 96 hours Assessment and Plan (1) History of renal carcinoma Narrative/Plan: The patient's CT chest abdomen and pelvis shows progression, compared to 03/14. This is in concordance with clinical deterioration. The results of the scan and implications were discussed in detail with the patient, and his was at the bedside. - Therefore advised that the patient appears to be having progressive disease, indicating failure of his previous regimen. The case has been discussed with his primary oncologist, with indicated that the patient is not felt to be a candidate for systemic therapy, based on his poor performance status at this time. -The above and the rationale for the same was discussed in detail with the patient and his . We also discussed that later lines of therapy are typically less likely to provide clinical benefit in terms of response rates and duration of disease control. - I stated that I was fully in agreement with the judgment of his primary oncologist, and radiation oncology, the patient is not an optimal candidate for any systemic therapy with his current performance status. They were questioning the possibility of improvement with subacute rehab. I advised him that while this is possible, the likelihood of significant improvement occurring is unfortunately overall unlikely, as his deterioration is due to progression of his malignancy, for which he is not on active treatment at this time. Therefore this is likely to continue to progress and affect his performance status. - The questions were answered in detail. The above was also discussed in detail with the admitting service. The rationale for recommendation of comfort care in this situation as opposed to active treatment also discussed in detail with the patient and his . Current Visit: No Status: Acute Priority: High Code(s): Z85.528 - PERSONAL HISTORY OF OTHER MALIGNANT NEOPLASM OF KIDNEY SNOMED Code(s): 39901925296429
--- NOTE | 2022-06-07 16:03 | P.PN ---
Subjective Progress Note Date: 06/07/22 This is a 66-year-old male who follows with Dr. Li, medical conditions include asthma, hypertension, sleep apnea, anemia and gastric ulcer, stage IV left kidney cancer patient is currently on immunosuppressive therapy and radiation. Diagnosed with renal cancer back in 2018, he is currently on radiation cycle 11/30. Medical records discuss there is liver metastasis and family at bedside reports there is a tumor which is pressing on the IVC. Presents with concern for generalized weakness and fatigue ongoing for the last week, he is also reporting peripheral edema. Denies any leg pain, states he has had lower extremity edema for the last 6 months, and has been taking his oral diuretic at home. Denies shortness of breath, denies chest pain. Denies cough, fever or chills. Last Wednesday he became significant more weak and was unable to ambulate and was taken by EMS to his radiation appointment. His radiologist felt he was to weak to undergo radiation and recommended patient to come into the ER if symptoms did not improve. He had an episode of diarrhea Wednesday night, and has had decreased appetite. He presents to the [facility] yesterday afternoon with worsening weakness. Chest x-ray shows left lower lobe pneumonia and atelectasis and pleural fluid significantly increased compared to old exam with mild pulmonary congestion with mild heart failure possible. There is a retrocardiac infiltrate on lateral view. He is found to have proBNP of 4880 on admission, troponin level is negative. Lactic acid is elevated at 2.4. He does have leukocytosis with left shift. Urine is showing trace blood. He is afebrile and on room air. Has been started on IV azithromycin and IV ceftriaxone, Received a fluid bolus in [facility] as well. Had a prior echocardiogram in January of this year showing an EF of 55- 60% with mild mitral regurgitation, mild aortic regurgitation and mild tricuspid regurgitation. Patient will be admitted and will be started on IV lasix and will repeat echocardiogram. He will continue on antibiotics and check procalcitonin level. Oncology and Radiology have been consulted. 06/03/2022 Patient feels more fatigued today. Denies shortness of breath, no cough, no fever/chills reported. Patient continues on IV Lasix with about 900 mL of urine output overnight. Had an episode of nausea this morning mostly pills per at bedside. He denies feeling nausea, no hematemesis or coffee ground emesis reported. No abdominal pain. Hemoglobin today found to be 6.9 and he will receive 1 unit of PRBC's, lactic acid has normalized to 2.0, blood glucose remains in the 70s. Ferritin and LDH are elevated as well as Procalcitonin level of 1.16. White count stable at 12.20. Blood culture is currently pending. Patient remains on IV azithromycin and IV ceftriaxone. 06/04/2022 Patient evaluated today resting in bed. Working with physical therapy. His oncology team at this time is recommending to hold further treatments secondary to poor overall clinical condition and hospice had been discussed with patient and at this time they do not feel ready for hospice. He does report some difficulty swallowing and coughing with thin liquids today. He has been maintained on IV antibiotics for left lower lobe pneumonia. Chest xray follow up today showing bilateral nodularity better seen on current exam measuring up to 1.6 cm unable to exclude metastatic pulmonary nodules, with ongoing moderate left and small right pleural effusions. Left lower lung consolidation persists. Echocardiogram completed showing an EF of 50 to 55% with mild mitral and tricuspid insufficiency. Possible small pleural effusion. White count today 13.05, hemoglobin improved to 7.8. Platelet count of 63. BUN 18.4, creatinine 1.0. Glucose in the 90s. He remains afebrile, heart rate in the 90s, blood pressure 122/66, and 95% room air. 06/05/2022 Patient is evaluated today lying in bed. No acute events overnight. He continues on IV lasix. Completed 3 days of IV azithromycin. Continues on IV ceftriaxone. Discussed chest xray findings with and patient. When he was first diagnosed with cancer back in 2018 he did have evidence for possible lung cancer however the area seemed to have gone away on follow up imaging. His diet has been downgraded to thickened liquid and has been started on dronabinol for appetite stimulant. Hospice was discussed and they both feel not ready for hospice at this time and hopeful for patient to get stronger and be able to resume cancer treatment. However, the does not want patient to go to rehab and would like him to return home which they would require bed and logan lift at this time. Currently he is total assist and unable to ambulate with poor appetite and dietary intake. His oncology team feels he is appropriate for hospice and are currently recommending to hold palliative radiation. The would like him to resume the radiation or have follow up imaging for liver mass hoping that he will eventually be able to have surgery to remove the primary tumor. White count today is 15.30, hemoglobin 8.0, platelet count of 48, INR of 1.5. He is afebrile, heart rate 63, blood pressure 104/67, 96% room air. Followed by hematology/oncology. 06/06/2022 Patient is evaluated today resting in bed. PT/OT on consultation and recommending subacute rehab on discharge. CT of the chest abdomen and pelvis taken today showing progression of diffuse metastatic disease when compared to 03/08/22 with increasing size of left renal fossa, there is size and number of hepatic masses increase in size and number of retroperitoneal and supraclavicular lymph nodes. New pulmonary metastatic disease with diffuse pulmonary nodules. New bilateral small pleural effusions and also diffuse anasarca and trace ascites. He is continued on IV ceftriaxone and also IV lasix and recommend bilateral compression stockings for LE edema. He continues on room air. Incentive spirometer has been ordered and encouraged 10 times a hour. Patient is noted to have weak cough reflex and has been placed on thickened liquids. Findings discussed with patient and at bedside they would like to speak with oncology regarding treatment options etc. Discussed that despite treatment options patient will require rehabilitation and needs to increase his oral intake. Pending further recommendations from oncology. Procalcitonin level improving 0.92. White count today is 12.3, hgb today is 7.5, platelet count today is 54, sodium 136, potassium 3.7, BUN 19, creatinine 0.67 06/07/2022 Patient is evaluated today resting in bed. He is diffusely weak and requiring 2 person to max assist for repositioning in bed. He continues to report decreased appetite, has been started on marinol for this. He is on dysphagia diet with thickened liquids. He continues on IV ceftriaxone and procalcitonin level is improving, and he continues on room air. He is denying pain, no shortness of breath. He continues with pitting lower extremity edema despite being on IV lasix Q12. He was unable to wear the external catheter for intake and output monitoring and has mostly been incontinent which patient and state they feel he is urinating quite a bit. Unable to record accurate output. Recommend to RANDY wrap bilateral lower extremity. Oncology has met with the patient today and discussed current disease progression and currently recommending for comfort measures at this time. Review of Systems Constitutional: Reports fatigue denied any fever. Cardio vascular: denied any chest pain, palpitations Gastrointestinal: denied any nausea, no diarrhea, no emesis, decreased appetite. Pulmonary: Denied any shortness of breath cough Neurologic denied any new focal deficits All inpatient medications were reviewed and appropriate changes in these medications as dictated in the interval history and assessment and plan. PHYSICAL EXAMINATION: GENERAL: The patient is alert and oriented x3, not in any acute distress. Well developed, well nourished. HEENT: Pupils are round and equally reacting to light. EOMI. No scleral icterus. No conjunctival pallor. Normocephalic, atraumatic. No pharyngeal erythema. No thyromegaly. CARDIOVASCULAR: S1 and S2 present. No murmurs, rubs, or gallops. PULMONARY: Chest is clear to auscultation, no wheezing or crackles. Left base diminished. ABDOMEN: Soft, nontender, nondistended, normoactive bowel sounds. No palpable organomegaly. MUSCULOSKELETAL: No joint swelling or deformity. EXTREMITIES: No cyanosis, clubbing. He has +2 lower extremity pitting edema. NEUROLOGICAL: Gross neurological examination did not reveal any focal deficits. Diffuse generalized weakness. SKIN: No rashes. Assessment and plan Assessment Generalized weakness Left lower lobe pneumonia, community acquired with sepsis present on admission, there is infiltrate on xray and patient presents with lactic acidosis and elevated white count. Follow up chest xray showing bilateral pulmonary nodules unable to exclude neoplasm. Pneumonia could be post obstructive vs. component of aspiration. Dysphagia diet will be changed to thickened liquids. Mild acute heart failure diastolic with preserved EF Lower extremity edema likely combination of CHF and third spacing Bicytopenia Hypoglycemia from poor oral intake Stage 4 left renal cancer with liver metastasis currently undergoing immunothe rapy/palliative radiation which current treatments have been placed on hold at this time. CT imaging reveals new multiple areas of pulmonary neoplasm and increase in size in other areas of metastasis. Hypertension currently normotensive Sleep apnea History iron deficiency anemia History asthma stable History of gastric ulcer GI prophylaxis DVT prophylaxis Full Code Plan Continue IV ceftriaxone procalcitonin level improving. IV lasix 40 Q 12 with strict intake and output monitoring RANDY wrap bilateral lower extremity Diet has been downgraded to thickened liquid Accuchecks and monitor for hypoglycemia PT/OT and speech therapy consultation Patients overall prognosis remains poor at this time. Current treatment for stage IV left renal carcinoma has been placed on hold by his care team pending clinical improvement. They feel patient is an appropriate candidate for hospice which patient has refused at this time. He has been started on appetite stimulant. Encouraged patient to work with his IS and increase oral intake. Follow up recommendations from oncology. Patient is agreeable at this time for subacute rehab however it was discussed that his cancer has progressed and contributing to his overall decline in function. Oncology recommends comfort care measures at this time. Will follow up with patient tomorrow. The impression and plan of care has been dictated by Alma Rondon Nurse Practitioner as directed. Dr. Félix MD I have performed a history and physical examination and medical decision making of this patient, discussed the same with the dictator, and agree with the dictators assessment and plan as written, documented as a scribe. Based on total visit time, I have performed more than 50% of this visit. Objective - Vital Signs Vital signs: Vital Signs Temp 98.1 F 06/07/22 13:20 Pulse 95 06/07/22 13:20 Resp 16 06/07/22 13:20 BP 101/63 06/07/22 13:20 Pulse Ox 93 L 06/07/22 13:20 FiO2 Intake & Output 06/06/22 06/07/22 06/07/22 18:59 06:59 18:59 Intake Total 200 Balance 200 Intake: Oral 200 Other: Voiding Method External Catheter # Voids 3 1 1 - Labs CBC & Chem 7: 06/06/22 11:15 06/06/22 11:15 Labs: Abnormal Lab Results - Last 24 Hours (Table) 06/06/22 06/07/22 Range/Units 11:15 07:17 POC Glucose (mg/dL) 64 L (70-110) mg/dL Procalcitonin 0.92 H (0.02-0.09) ng/mL Microbiology - Last 24 Hours (Table) 06/02/22 14:49 Blood Culture - Preliminary Blood No Growth after 96 hours Assessment and Plan Time with Patient: Less than 30
[2022-06-07 17:19] LABS: Glucose,Whole Blood 77 mg/dL (70-110)
[2022-06-07 21:24] LABS: Glucose,Whole Blood 90 mg/dL (70-110)
[2022-06-07] MEDS: LORATADINE 10 MG TAB PO SCH (21:46)
[2022-06-07] MEDS: MONTELUKAST 10 MG TAB PO SCH (21:46)
[2022-06-07] MEDS: MELATONIN 5 MG TABLET PO SCH (21:46)
[2022-06-07] MEDS: FLUTICASONE 50MCG/SPRAY NASAL 16GM EA NOSTRIL SCH (21:47)
[2022-06-08] MEDS: SODIUM CHLORIDE 0.9% 1,000 ML IV SCH (00:22)
[2022-06-08 07:08] LABS: Glucose,Whole Blood 81 mg/dL (70-110)
[2022-06-08] MEDS: SYMBICORT 80-4.5 MCG INHALER INHALATION SCH ×2 (07:31→19:15)
[2022-06-08] MEDS: PANTOPRAZOLE 40 MG TABLET PO SCH (07:51)
[2022-06-08] MEDS: FAMOTIDINE 20 MG TAB PO SCH ×2 (07:51→20:06)
[2022-06-08] MEDS: POTASSIUM CHLORIDE ER 20 MEQ TAB.ER PO SCH (07:51)
[2022-06-08] MEDS: FUROSEMIDE 10 MG/ML 4 ML VIAL IV SCH (09:29)
[2022-06-08] MEDS: DILTIAZEM ORAL 30 MG TAB PO SCH ×2 (09:29→20:06)
[2022-06-08 11:05] LABS: Anisocytosis Slight; Basophils # (A) 0.1 k/uL (0-0.2); Basophils % (A) 1 %; Eosinophils # (A) 0.1 k/uL (0-0.7); Eosinophils % (A) 1 %; HCT 25.4 % (39.0-53.0); HGB 7.6 gm/dL (13.0-17.5); Hypochromasia Marked; Lymphocytes # (A) 0.6 k/uL (1.0-4.8); Lymphocytes % (A) 5 %; MCH 28.4 pg (25.0-35.0); MCHC 29.8 g/dL (31.0-37.0); MCV 95.3 fL (80.0-100.0); Mean Platelet Volume 8.5; Monocytes # (A) 0.8 k/uL (0-1.0); Monocytes % (A) 7 %; Neutrophils % (A) 86 %; RBC 2.66 m/uL (4.30-5.90); RDW 17.1 % (11.5-15.5); WBC 11.6 k/uL (3.8-10.6)
[2022-06-08 11:20] LABS: Glucose,Whole Blood 78 mg/dL (70-110)
[2022-06-08 11:32] LABS: Platelet Count 61 k/uL (150-450)
--- NOTE | 2022-06-08 13:01 | P.PN ---
Subjective Progress Note Date: 06/08/22 This is a 66-year-old male who follows with Dr. iL, medical conditions include asthma, hypertension, sleep apnea, anemia and gastric ulcer, stage IV left kidney cancer patient is currently on immunosuppressive therapy and radiation. Diagnosed with renal cancer back in 2018, he is currently on radiation cycle 11/30. Medical records discuss there is liver metastasis and family at bedside reports there is a tumor which is pressing on the IVC. Presents with concern for generalized weakness and fatigue ongoing for the last week, he is also reporting peripheral edema. Denies any leg pain, states he has had lower extremity edema for the last 6 months, and has been taking his oral diuretic at home. Denies shortness of breath, denies chest pain. Denies cough, fever or chills. Last Wednesday he became significant more weak and was unable to ambulate and was taken by EMS to his radiation appointment. His radiologist felt he was to weak to undergo radiation and recommended patient to come into the ER if symptoms did not improve. He had an episode of diarrhea Wednesday night, and has had decreased appetite. He presents to the [facility] yesterday afternoon with worsening weakness. Chest x-ray shows left lower lobe pneumonia and atelectasis and pleural fluid significantly increased compared to old exam with mild pulmonary congestion with mild heart failure possible. There is a retrocardiac infiltrate on lateral view. He is found to have proBNP of 4880 on admission, troponin level is negative. Lactic acid is elevated at 2.4. He does have leukocytosis with left shift. Urine is showing trace blood. He is afebrile and on room air. Has been started on IV azithromycin and IV ceftriaxone, Received a fluid bolus in [facility] as well. Had a prior echocardiogram in January of this year showing an EF of 55- 60% with mild mitral regurgitation, mild aortic regurgitation and mild tricuspid regurgitation. Patient will be admitted and will be started on IV lasix and will repeat echocardiogram. He will continue on antibiotics and check procalcitonin level. Oncology and Radiology have been consulted. 06/03/2022 Patient feels more fatigued today. Denies shortness of breath, no cough, no fever/chills reported. Patient continues on IV Lasix with about 900 mL of urine output overnight. Had an episode of nausea this morning mostly pills per at bedside. He denies feeling nausea, no hematemesis or coffee ground emesis reported. No abdominal pain. Hemoglobin today found to be 6.9 and he will receive 1 unit of PRBC's, lactic acid has normalized to 2.0, blood glucose remains in the 70s. Ferritin and LDH are elevated as well as Procalcitonin level of 1.16. White count stable at 12.20. Blood culture is currently pending. Patient remains on IV azithromycin and IV ceftriaxone. 06/04/2022 Patient evaluated today resting in bed. Working with physical therapy. His oncology team at this time is recommending to hold further treatments secondary to poor overall clinical condition and hospice had been discussed with patient and at this time they do not feel ready for hospice. He does report some difficulty swallowing and coughing with thin liquids today. He has been maintained on IV antibiotics for left lower lobe pneumonia. Chest xray follow up today showing bilateral nodularity better seen on current exam measuring up to 1.6 cm unable to exclude metastatic pulmonary nodules, with ongoing moderate left and small right pleural effusions. Left lower lung consolidation persists. Echocardiogram completed showing an EF of 50 to 55% with mild mitral and tricuspid insufficiency. Possible small pleural effusion. White count today 13.05, hemoglobin improved to 7.8. Platelet count of 63. BUN 18.4, creatinine 1.0. Glucose in the 90s. He remains afebrile, heart rate in the 90s, blood pressure 122/66, and 95% room air. 06/05/2022 Patient is evaluated today lying in bed. No acute events overnight. He continues on IV lasix. Completed 3 days of IV azithromycin. Continues on IV ceftriaxone. Discussed chest xray findings with and patient. When he was first diagnosed with cancer back in 2018 he did have evidence for possible lung cancer however the area seemed to have gone away on follow up imaging. His diet has been downgraded to thickened liquid and has been started on dronabinol for appetite stimulant. Hospice was discussed and they both feel not ready for hospice at this time and hopeful for patient to get stronger and be able to resume cancer treatment. However, the does not want patient to go to rehab and would like him to return home which they would require bed and logan lift at this time. Currently he is total assist and unable to ambulate with poor appetite and dietary intake. His oncology team feels he is appropriate for hospice and are currently recommending to hold palliative radiation. The would like him to resume the radiation or have follow up imaging for liver mass hoping that he will eventually be able to have surgery to remove the primary tumor. White count today is 15.30, hemoglobin 8.0, platelet count of 48, INR of 1.5. He is afebrile, heart rate 63, blood pressure 104/67, 96% room air. Followed by hematology/oncology. 06/06/2022 Patient is evaluated today resting in bed. PT/OT on consultation and recommending subacute rehab on discharge. CT of the chest abdomen and pelvis taken today showing progression of diffuse metastatic disease when compared to 03/08/22 with increasing size of left renal fossa, there is size and number of hepatic masses increase in size and number of retroperitoneal and supraclavicular lymph nodes. New pulmonary metastatic disease with diffuse pulmonary nodules. New bilateral small pleural effusions and also diffuse anasarca and trace ascites. He is continued on IV ceftriaxone and also IV lasix and recommend bilateral compression stockings for LE edema. He continues on room air. Incentive spirometer has been ordered and encouraged 10 times a hour. Patient is noted to have weak cough reflex and has been placed on thickened liquids. Findings discussed with patient and at bedside they would like to speak with oncology regarding treatment options etc. Discussed that despite treatment options patient will require rehabilitation and needs to increase his oral intake. Pending further recommendations from oncology. Procalcitonin level improving 0.92. White count today is 12.3, hgb today is 7.5, platelet count today is 54, sodium 136, potassium 3.7, BUN 19, creatinine 0.67 06/07/2022 Patient is evaluated today resting in bed. He is diffusely weak and requiring 2 person to max assist for repositioning in bed. He continues to report decreased appetite, has been started on marinol for this. He is on dysphagia diet with thickened liquids. He continues on IV ceftriaxone and procalcitonin level is improving, and he continues on room air. He is denying pain, no shortness of breath. He continues with pitting lower extremity edema despite being on IV lasix Q12. He was unable to wear the external catheter for intake and output monitoring and has mostly been incontinent which patient and state they feel he is urinating quite a bit. Unable to record accurate output. Recommend to RANDY wrap bilateral lower extremity. Oncology has met with the patient today and discussed current disease progression and currently recommending for comfort measures at this time. 06/08/2022 Patient resting in bed. Reports increased cough yesterday afternoon and was able to expectorate. He continues on IV ceftriaxone at this time and remains on room air. Encouraged to use IS 10 x an hour while awake. He has been placed on marinol for appetite stimulant more at the request of his . He overall is having difficulty swallowing and has been placed on dysphagia diet with thickened liquid and he continues to report having no appetite. Remains on IV lasix with no improvement in his lower extremity edema. He is tolerating RANDY wraps a few hours at a time. He has diffuse generalized weakness and remains a 2 person/max assist. Oncology recommending hospice. had mentioned PEG tube and subacute rehab. It was discussed again that overall cancer progression limits the strength and functionality patient will gain back from rehab. Patient and are waiting to speak with Dr. Simon at this time before deciding on returning home with hospice in place. Review of Systems Constitutional: Reports fatigue denied any fever. Cardio vascular: denied any chest pain, palpitations Gastrointestinal: denied any nausea, no diarrhea, no emesis, decreased appetite. Pulmonary: Denied any shortness of breath, has weak nonproductive cough. Neurologic: Denied any new focal deficits All inpatient medications were reviewed and appropriate changes in these medications as dictated in the interval history and assessment and plan. PHYSICAL EXAMINATION: GENERAL: The patient is alert and oriented x3, not in any acute distress. Well developed, well nourished. HEENT: Pupils are round and equally reacting to light. EOMI. No scleral icterus. No conjunctival pallor. Normocephalic, atraumatic. No pharyngeal erythema. No thyromegaly. CARDIOVASCULAR: S1 and S2 present. No murmurs, rubs, or gallops. PULMONARY: Chest is clear to auscultation, no wheezing or crackles. Left base diminished. ABDOMEN: Soft, nontender, nondistended, normoactive bowel sounds. No palpable organomegaly. MUSCULOSKELETAL: No joint swelling or deformity. EXTREMITIES: No cyanosis, clubbing. He has +2 lower extremity pitting edema. NEUROLOGICAL: Gross neurological examination did not reveal any focal deficits. Diffuse generalized weakness. SKIN: No rashes. Assessment and plan Assessment Diffuse progressive weakness secondary to cancer progression. Left lower lobe pneumonia, community acquired with sepsis present on admission, there is infiltrate on xray and patient presents with lactic acidosis and elevated white count. Follow up chest xray showing bilateral pulmonary nodules unable to exclude neoplasm. Pneumonia could be post obstructive vs. component of aspiration. Improving. Dysphagia diet will be changed to thickened liquids. Mild acute heart failure diastolic with preserved EF Lower extremity edema likely combination of CHF and third spacing Bicytopenia Hypoglycemia from poor oral intake Stage 4 left renal cancer with liver metastasis currently undergoing immunotherapy/palliative radiation which current treatments have been placed on hold at this time. CT imaging reveals new multiple areas of pulmonary neoplasm and increase in size in other areas of metastasis. Hypertension currently normotensive Sleep apnea History iron deficiency anemia History asthma stable History of gastric ulcer GI prophylaxis DVT prophylaxis Full Code Plan Continue IV ceftriaxone while inpatient Transition to oral lasix and RANDY wrap bilateral lower extremity Diet has been downgraded to thickened liquid Accuchecks and monitor for hypoglycemia PT/OT and speech therapy consultation Patients overall prognosis remains poor at this time. Current treatment for stage IV left renal carcinoma has been placed on hold by his care team pending clinical improvement. They feel patient is an appropriate candidate for hospice which patient has refused at this time. He has been started on appetite stimulant. Encouraged patient to work with his IS and increase oral intake. Follow up recommendations from oncology. Patient is agreeable at this time for subacute rehab however it was discussed that his cancer has progressed and contributing to his overall decline in function. Oncology recommends comfort care measures at this time. Family and patient are waiting to speak with Dr. Simon at this time before deciding on hospice. Reinforced that his overall condition and cancer progression are limiting his rehab potential. The impression and plan of care has been dictated by Alam Rondon, Nurse Practitioner as directed. Dr. Félix MD I have performed a history and physical examination and medical decision making of this patient, discussed the same with the dictator, and agree with the dictators assessment and plan as written, documented as a scribe. Based on total visit time, I have performed more than 50% of this visit. Objective - Vital Signs Vital signs: Vital Signs Temp 98.0 F 06/08/22 07:08 Pulse 92 06/08/22 09:25 Resp 16 06/08/22 07:08 BP 102/65 06/08/22 09:25 Pulse Ox 96 06/08/22 07:08 FiO2 Intake & Output 01/15/23 01/16/23 01/16/23 18:59 06:59 18:59 Intake Total 250 Balance 250 Intake: Intake, IV Titration 50 Amount cefTRIAXone 2 gm In 50 Sodium Chloride 0.9% 50 ml @ 100 mls/hr IVPB DAILY@0200 [facility] Rx#: [id number] Oral 200 Other: Voiding Method External Catheter External Catheter External Catheter # Voids 1 6 - Labs CBC & Chem 7: 06/08/22 10:47 06/06/22 11:15 Labs: Abnormal Lab Results - Last 24 Hours (Table) 06/08/22 Range/Units 10:47 WBC 11.6 H (3.8-10.6) k/uL RBC 2.66 L (4.30-5.90) m/uL Hgb 7.6 L (13.0-17.5) gm/dL Hct 25.4 L (39.0-53.0) % MCHC 29.8 L (31.0-37.0) g/dL RDW 17.1 H (11.5-15.5) % Plt Count 61 L (150-450) k/uL Neutrophils # 10.0 H (1.3-7.7) k/uL Lymphocytes # 0.6 L (1.0-4.8) k/uL Microbiology - Last 24 Hours (Table) 06/02/22 14:49 Blood Culture - Preliminary Blood No Growth after 120 hours Assessment and Plan Time with Patient: Greater than 30
--- NOTE | 2022-06-08 16:12 | P.PN ---
Subjective Progress Note Date: 06/08/22 Principal diagnosis: weakness, decline performance status Spoke with patient and this afternoon. Sat at edge of bed with PT today. Still has poor appetite, feeling weak. Had CT of the Chest/Abd/Pelvis on 06/06/22. This was compared with his prior imaging at [place] from 10/2021. New, numerous lung metastases. Similar enlarged left kidney mass; multiple liver lesions (seem somewhat stable from 03/14, but worse compared to 11/12). Objective - Vital Signs Vital signs: Vital Signs Temp 98.3 F 06/08/22 13:12 Pulse 96 06/08/22 13:12 Resp 16 06/08/22 13:12 BP 113/69 06/08/22 13:12 Pulse Ox 99 06/08/22 13:12 FiO2 Intake & Output 06/07/22 06/08/22 06/08/22 18:59 06:59 18:59 Intake Total 250 Balance 250 Weight 86.183 kg Intake: Intake, IV Titration 50 Amount cefTRIAXone 2 gm In 50 Sodium Chloride 0.9% 50 ml @ 100 mls/hr IVPB DAILY@0200 [facility] Rx#: [id number] Oral 200 Other: Voiding Method External Catheter External Catheter External Catheter # Voids 1 6 1 - Constitutional General appearance: Present: thin - EENT Eyes: Present: EOMI, PERRLA ENT: Present: hearing grossly normal - Respiratory Respiratory: bilateral: dullness (lung bases) - Cardiovascular Rhythm: regular - Gastrointestinal General gastrointestinal: Absent: distended, tenderness - Integumentary Integumentary: Present: pale. Absent: jaundiced - Neurologic Neurologic: Present: CNII-XII intact - Psychiatric Psychiatric: Present: A&O x's 3, appropriate affect - Labs CBC & Chem 7: 06/08/22 10:47 06/06/22 11:15 Labs: Abnormal Lab Results - Last 24 Hours (Table) 06/08/22 Range/Units 10:47 WBC 11.6 H (3.8-10.6) k/uL RBC 2.66 L (4.30-5.90) m/uL Hgb 7.6 L (13.0-17.5) gm/dL Hct 25.4 L (39.0-53.0) % MCHC 29.8 L (31.0-37.0) g/dL RDW 17.1 H (11.5-15.5) % Plt Count 61 L (150-450) k/uL Neutrophils # 10.0 H (1.3-7.7) k/uL Lymphocytes # 0.6 L (1.0-4.8) k/uL Microbiology - Last 24 Hours (Table) 06/02/22 14:49 Blood Culture - Preliminary Blood No Growth after 120 hours Assessment and Plan Assessment: 66 year old male with metastatic renal cell carcinoma. Multiple lines of therapy since 2018. Now presents with weakness and worsening performance status. Plan: 1. Renal cell carcinoma: New metastatic disease involving the lungs; mixed response involving liver. Discussed with the patient's family. They understand that he is too weak to proceed with further therapy at this time. They have been reluctant to agree to hospice. Dr. Caro did feel hospice was reasonable for the patient at this time. Family unsure if they want to go home with home care vs rehab. Family is agreeable to a consultation with palliative care. I explained I was uncertain if the patient would be strong enough for further therapy in the future - has not progressed much during this hospital stay. Will discuss with primary team regarding palliative care referral. Time with Patient: Less than 30
[2022-06-08 17:24] LABS: Glucose,Whole Blood 75 mg/dL (70-110)
[2022-06-08] MEDS: ACETAMINOPHEN TAB 500 MG TAB PO PRN (17:48)
[2022-06-08] MEDS: HYDROmorphone 0.5 MG/0.5 ML SYRINGE IVP PRN (18:44)
[2022-06-08] MEDS: MELATONIN 5 MG TABLET PO SCH (20:06)
[2022-06-08] MEDS: LORATADINE 10 MG TAB PO SCH (20:06)
[2022-06-08] MEDS: MONTELUKAST 10 MG TAB PO SCH (20:06)
[2022-06-08] MEDS: FLUTICASONE 50MCG/SPRAY NASAL 16GM EA NOSTRIL SCH (20:07)
[2022-06-08 20:28] LABS: Glucose,Whole Blood 63 mg/dL (70-110)
[2022-06-08 20:43] LABS: Glucose,Whole Blood 65 mg/dL (70-110)
[2022-06-08] MEDS ORDERED: DEXTROSE 50% SYRINGE 50 ML IVP STA (21:00)
[2022-06-08 21:04] LABS: Glucose,Whole Blood 63 mg/dL (70-110)
[2022-06-08 21:36] LABS: Glucose,Whole Blood 113 mg/dL (70-110)
[2022-06-09] MEDS: SODIUM CHLORIDE 0.9% 1,000 ML IV SCH (01:09)
[2022-06-09 07:19] LABS: Glucose,Whole Blood 65 mg/dL (70-110)
[2022-06-09 07:46] LABS: Glucose,Whole Blood 76 mg/dL (70-110)
[2022-06-09] MEDS: POTASSIUM CHLORIDE ER 20 MEQ TAB.ER PO SCH (09:13)
[2022-06-09] MEDS: FUROSEMIDE 40 MG TAB PO SCH (09:13)
[2022-06-09] MEDS: PANTOPRAZOLE 40 MG TABLET PO SCH (09:13)
[2022-06-09] MEDS: FAMOTIDINE 20 MG TAB PO SCH ×2 (09:13→20:30)
[2022-06-09] MEDS: DILTIAZEM ORAL 30 MG TAB PO SCH ×2 (09:17→20:29)
[2022-06-09] MEDS: SYMBICORT 80-4.5 MCG INHALER INHALATION SCH ×2 (10:38→21:25)
[2022-06-09 11:17] LABS: Glucose,Whole Blood 80 mg/dL (70-110)
[2022-06-09 17:14] LABS: Glucose,Whole Blood 92 mg/dL (70-110)
--- NOTE | 2022-06-09 17:31 | P.PN ---
Subjective Progress Note Date: 06/09/22 This is a 66-year-old male who follows with Dr. Li, medical conditions include asthma, hypertension, sleep apnea, anemia and gastric ulcer, stage IV left kidney cancer patient is currently on immunosuppressive therapy and radiation. Diagnosed with renal cancer back in 2018, he is currently on radiation cycle 11/30. Medical records discuss there is liver metastasis and family at bedside reports there is a tumor which is pressing on the IVC. Presents with concern for generalized weakness and fatigue ongoing for the last week, he is also reporting peripheral edema. Denies any leg pain, states he has had lower extremity edema for the last 6 months, and has been taking his oral diuretic at home. Denies shortness of breath, denies chest pain. Denies cough, fever or chills. Last Wednesday he became significant more weak and was unable to ambulate and was taken by EMS to his radiation appointment. His radiologist felt he was to weak to undergo radiation and recommended patient to come into the ER if symptoms did not improve. He had an episode of diarrhea Wednesday night, and has had decreased appetite. He presents to the [facility] yesterday afternoon with worsening weakness. Chest x-ray shows left lower lobe pneumonia and atelectasis and pleural fluid significantly increased compared to old exam with mild pulmonary congestion with mild heart failure possible. There is a retrocardiac infiltrate on lateral view. He is found to have proBNP of 4880 on admission, troponin level is negative. Lactic acid is elevated at 2.4. He does have leukocytosis with left shift. Urine is showing trace blood. He is afebrile and on room air. Has been started on IV azithromycin and IV ceftriaxone, Received a fluid bolus in [facility] as well. Had a prior echocardiogram in January of this year showing an EF of 55- 60% with mild mitral regurgitation, mild aortic regurgitation and mild tricuspid regurgitation. Patient will be admitted and will be started on IV lasix and will repeat echocardiogram. He will continue on antibiotics and check procalcitonin level. Oncology and Radiology have been consulted. 06/03/2022 Patient feels more fatigued today. Denies shortness of breath, no cough, no fever/chills reported. Patient continues on IV Lasix with about 900 mL of urine output overnight. Had an episode of nausea this morning mostly pills per at bedside. He denies feeling nausea, no hematemesis or coffee ground emesis reported. No abdominal pain. Hemoglobin today found to be 6.9 and he will receive 1 unit of PRBC's, lactic acid has normalized to 2.0, blood glucose remains in the 70s. Ferritin and LDH are elevated as well as Procalcitonin level of 1.16. White count stable at 12.20. Blood culture is currently pending. Patient remains on IV azithromycin and IV ceftriaxone. 06/04/2022 Patient evaluated today resting in bed. Working with physical therapy. His oncology team at this time is recommending to hold further treatments secondary to poor overall clinical condition and hospice had been discussed with patient and at this time they do not feel ready for hospice. He does report some difficulty swallowing and coughing with thin liquids today. He has been maintained on IV antibiotics for left lower lobe pneumonia. Chest xray follow up today showing bilateral nodularity better seen on current exam measuring up to 1.6 cm unable to exclude metastatic pulmonary nodules, with ongoing moderate left and small right pleural effusions. Left lower lung consolidation persists. Echocardiogram completed showing an EF of 50 to 55% with mild mitral and tricuspid insufficiency. Possible small pleural effusion. White count today 13.05, hemoglobin improved to 7.8. Platelet count of 63. BUN 18.4, creatinine 1.0. Glucose in the 90s. He remains afebrile, heart rate in the 90s, blood pressure 122/66, and 95% room air. 06/05/2022 Patient is evaluated today lying in bed. No acute events overnight. He continues on IV lasix. Completed 3 days of IV azithromycin. Continues on IV ceftriaxone. Discussed chest xray findings with and patient. When he was first diagnosed with cancer back in 2018 he did have evidence for possible lung cancer however the area seemed to have gone away on follow up imaging. His diet has been downgraded to thickened liquid and has been started on dronabinol for appetite stimulant. Hospice was discussed and they both feel not ready for hospice at this time and hopeful for patient to get stronger and be able to resume cancer treatment. However, the does not want patient to go to rehab and would like him to return home which they would require bed and logan lift at this time. Currently he is total assist and unable to ambulate with poor appetite and dietary intake. His oncology team feels he is appropriate for hospice and are currently recommending to hold palliative radiation. The would like him to resume the radiation or have follow up imaging for liver mass hoping that he will eventually be able to have surgery to remove the primary tumor. White count today is 15.30, hemoglobin 8.0, platelet count of 48, INR of 1.5. He is afebrile, heart rate 63, blood pressure 104/67, 96% room air. Followed by hematology/oncology. 06/06/2022 Patient is evaluated today resting in bed. PT/OT on consultation and recommending subacute rehab on discharge. CT of the chest abdomen and pelvis taken today showing progression of diffuse metastatic disease when compared to 03/08/22 with increasing size of left renal fossa, there is size and number of hepatic masses increase in size and number of retroperitoneal and supraclavicular lymph nodes. New pulmonary metastatic disease with diffuse pulmonary nodules. New bilateral small pleural effusions and also diffuse anasarca and trace ascites. He is continued on IV ceftriaxone and also IV lasix and recommend bilateral compression stockings for LE edema. He continues on room air. Incentive spirometer has been ordered and encouraged 10 times a hour. Patient is noted to have weak cough reflex and has been placed on thickened liquids. Findings discussed with patient and at bedside they would like to speak with oncology regarding treatment options etc. Discussed that despite treatment options patient will require rehabilitation and needs to increase his oral intake. Pending further recommendations from oncology. Procalcitonin level improving 0.92. White count today is 12.3, hgb today is 7.5, platelet count today is 54, sodium 136, potassium 3.7, BUN 19, creatinine 0.67 06/07/2022 Patient is evaluated today resting in bed. He is diffusely weak and requiring 2 person to max assist for repositioning in bed. He continues to report decreased appetite, has been started on marinol for this. He is on dysphagia diet with thickened liquids. He continues on IV ceftriaxone and procalcitonin level is improving, and he continues on room air. He is denying pain, no shortness of breath. He continues with pitting lower extremity edema despite being on IV lasix Q12. He was unable to wear the external catheter for intake and output monitoring and has mostly been incontinent which patient and state they feel he is urinating quite a bit. Unable to record accurate output. Recommend to RANDY wrap bilateral lower extremity. Oncology has met with the patient today and discussed current disease progression and currently recommending for comfort measures at this time. 06/08/2022 Patient resting in bed. Reports increased cough yesterday afternoon and was able to expectorate. He continues on IV ceftriaxone at this time and remains on room air. Encouraged to use IS 10 x an hour while awake. He has been placed on marinol for appetite stimulant more at the request of his . He overall is having difficulty swallowing and has been placed on dysphagia diet with thickened liquid and he continues to report having no appetite. Remains on IV lasix with no improvement in his lower extremity edema. He is tolerating RANDY wraps a few hours at a time. He has diffuse generalized weakness and remains a 2 person/max assist. Oncology recommending hospice. had mentioned PEG tube and subacute rehab. It was discussed again that overall cancer progression limits the strength and functionality patient will gain back from rehab. Patient and are waiting to speak with Dr. Simon at this time before deciding on returning home with hospice in place. 06/09/2022 Patient is resting in bed today. Had some increased pain overnight and received a one time dose of IV dilaudid. Continues on IV ceftriaxone. He will undergo PEG tube placement tomorrow and dietary making recommendations for tube feedings. He will be started on norco for pain management and also bowel regimen to avoid constipation. Hospice has been discussed again with patient. He will need PEG tube placement and initiation on tube feedings before discharge. He is afebrile, heart rate 87, blood pressure 92/58, and 96% on room air. Review of Systems Constitutional: Reports fatigue denied any fever. Cardio vascular: denied any chest pain, palpitations Gastrointestinal: denied any nausea, no diarrhea, no emesis, decreased appetite. Pulmonary: Denied any shortness of breath, has weak nonproductive cough. Neurologic: Denied any new focal deficits All inpatient medications were reviewed and appropriate changes in these medications as dictated in the interval history and assessment and plan. PHYSICAL EXAMINATION: GENERAL: The patient is alert and oriented x3, not in any acute distress. Well developed, well nourished. HEENT: Pupils are round and equally reacting to light. EOMI. No scleral icterus. No conjunctival pallor. Normocephalic, atraumatic. No pharyngeal erythema. No thyromegaly. CARDIOVASCULAR: S1 and S2 present. No murmurs, rubs, or gallops. PULMONARY: Chest is clear to auscultation, no wheezing or crackles. Left base diminished. ABDOMEN: Soft, nontender, nondistended, normoactive bowel sounds. No palpable organomegaly. MUSCULOSKELETAL: No joint swelling or deformity. EXTREMITIES: No cyanosis, clubbing. He has +2 lower extremity pitting edema. NEUROLOGICAL: Gross neurological examination did not reveal any focal deficits. Diffuse generalized weakness. SKIN: No rashes. Assessment and plan Assessment Diffuse progressive weakness secondary to cancer progression. Left lower lobe pneumonia, community acquired with sepsis present on admission, there is infiltrate on xray and patient presents with lactic acidosis and elevated white count. Follow up chest xray showing bilateral pulmonary nodules unable to exclude neoplasm. Pneumonia could be post obstructive vs. component of aspiration. Improving. Dysphagia diet will be changed to thickened liquids. Mild acute heart failure diastolic with preserved EF Lower extremity edema likely combination of CHF and third spacing Bicytopenia Hypoglycemia from poor oral intake Stage 4 left renal cancer with liver metastasis currently undergoing immunotherapy/palliative radiation which current treatments have been placed on hold at this time. CT imaging reveals new multiple areas of pulmonary neoplasm and increase in size in other areas of metastasis. Hypertension currently normotensive Sleep apnea History iron deficiency anemia History asthma stable History of gastric ulcer GI prophylaxis DVT prophylaxis Full Code Plan Continue IV ceftriaxone while inpatient Transition to oral lasix and RANDY wrap bilateral lower extremity Diet has been downgraded to thickened liquid patient will undergo PEG tube placement and begin tube feedings. Accuchecks and monitor for hypoglycemia PT/OT and speech therapy consultation Patients overall prognosis remains poor at this time. Current treatment for stage IV left renal carcinoma has been placed on hold by his care team pending clinical improvement. They feel patient is an appropriate candidate for hospice which patient has refused at this time. He has been started on appetite stimu lant. Encouraged patient to work with his IS and increase oral intake. Follow up recommendations from oncology. Patient is agreeable at this time for subacute rehab however it was discussed that his cancer has progressed and contributing to his overall decline in function. Oncology recommends comfort care measures at this time. After speaking with his oncology care team patient has requested subacute rehab. Hospice has been discussed again. Palliative care has been consulted. He will undergo PEG tube placement tomorrow. D/C planning in progress. The impression and plan of care has been dictated by Alma Rondon, Nurse Practitioner as directed. Dr. Félix MD I have performed a history and physical examination and medical decision making of this patient, discussed the same with the dictator, and agree with the dictators assessment and plan as written, documented as a scribe. Based on total visit time, I have performed more than 50% of this visit. Objective - Vital Signs Vital signs: Vital Signs Temp 97.3 F L 06/09/22 12:06 Pulse 87 06/09/22 12:06 Resp 14 06/09/22 12:06 BP 92/58 06/09/22 12:06 Pulse Ox 96 06/09/22 12:06 FiO2 Intake & Output 06/08/22 06/09/22 06/09/22 18:59 06:59 18:59 Intake Total 200 Balance 200 Weight 86.183 kg Intake: Oral 200 Other: Voiding Method External Catheter External Catheter # Voids 1 1 - Labs CBC & Chem 7: 06/08/22 10:47 06/06/22 11:15 Labs: Abnormal Lab Results - Last 24 Hours (Table) 06/08/22 06/08/22 06/08/22 Range/Units 20:17 20:33 20:54 POC Glucose (mg/dL) 63 L 65 L 63 L (70-110) mg/dL 06/08/22 06/09/22 Range/Units 21:34 07:17 POC Glucose (mg/dL) 113 H 65 L (70-110) mg/dL Microbiology - Last 24 Hours (Table) 06/02/22 14:49 Blood Culture - Final Blood No Growth after 144 hours Assessment and Plan Time with Patient: Greater than 30
[2022-06-09 20:12] LABS: Glucose,Whole Blood 95 mg/dL (70-110)
[2022-06-09] MEDS: MONTELUKAST 10 MG TAB PO SCH (20:29)
[2022-06-09] MEDS: MELATONIN 5 MG TABLET PO SCH (20:29)
[2022-06-09] MEDS: HYDROmorphone 0.5 MG/0.5 ML SYRINGE IVP PRN (20:30)
[2022-06-09] MEDS: SENNOSIDES 8.6 MG TAB PO SCH (20:30)
[2022-06-09] MEDS: LORATADINE 10 MG TAB PO SCH (20:30)
[2022-06-09] MEDS: FLUTICASONE 50MCG/SPRAY NASAL 16GM EA NOSTRIL SCH (20:31)
[2022-06-10] MEDS: SODIUM CHLORIDE 0.9% 1,000 ML IV SCH (01:32)
[2022-06-10 06:56] LABS: Anisocytosis Slight; HCT 25.1 % (39.0-53.0); HGB 7.5 gm/dL (13.0-17.5); Hypochromasia Marked; MCH 28.5 pg (25.0-35.0); MCHC 29.9 g/dL (31.0-37.0); MCV 95.2 fL (80.0-100.0); RBC 2.63 m/uL (4.30-5.90); RDW 17.2 % (11.5-15.5); WBC 12.5 k/uL (3.8-10.6)
[2022-06-10 07:07] LABS: Platelet Count 67 k/uL (150-450)
[2022-06-10 07:10] LABS: African American GFR (CKD) >90 (>60 ml/min/1.73 sqM); Anion Gap 3 mmol/L; Blood Urea Nitrogen 22 mg/dL (9-20); Calcium 7.1 mg/dL (8.4-10.2); Carbon Dioxide 33 mmol/L (22-30); Chloride 103 mmol/L (98-107); Glucose 57 mg/dL (74-99); Magnesium 1.7 mg/dL (1.6-2.3); Non-African American GFR(CKD) 78 (>60 ml/min/1.73 sqM); Potassium 3.7 mmol/L (3.5-5.1); Sodium 139 mmol/L (137-145)
[2022-06-10 07:26] LABS: Glucose,Whole Blood 56 mg/dL (70-110)
[2022-06-10] MEDS: SYMBICORT 80-4.5 MCG INHALER INHALATION SCH ×2 (07:33→22:17)
[2022-06-10] MEDS: DEXTROSE 50% SYRINGE 50 ML IVP ONE (07:34)
[2022-06-10 07:55] LABS: Glucose,Whole Blood 88 mg/dL (70-110)
[2022-06-10] MEDS: SENNOSIDES 8.6 MG TAB PO SCH ×2 (08:11→20:34)
[2022-06-10] MEDS: POTASSIUM CHLORIDE ER 20 MEQ TAB.ER PO SCH (08:11)
[2022-06-10] MEDS: PANTOPRAZOLE 40 MG TABLET PO SCH (08:11)
[2022-06-10] MEDS: FUROSEMIDE 40 MG TAB PO SCH ×2 (08:11→16:29)
[2022-06-10] MEDS: FAMOTIDINE 20 MG TAB PO SCH ×2 (08:11→20:34)
[2022-06-10] MEDS: DILTIAZEM ORAL 30 MG TAB PO SCH ×2 (08:26→20:34)
[2022-06-10] MEDS ORDERED: Potassium Replacement Protocol 1 EACH MISC MISCELLANE PRN (10:05)
[2022-06-10] MEDS ORDERED: Magnesium Replacement Protocol 1 EACH MISC MISCELLANE PRN (10:05)
[2022-06-10] MEDS ORDERED: LIDOCAINE 2% INJ 20 MG/ML (2 ML VIAL) ONE (10:41)
[2022-06-10] MEDS ORDERED: PROPOFOL 10 MG/ML 20 ML VIAL IV ONE (10:41)
[2022-06-10] MEDS ORDERED: IV FLUID CONTINUATION 1,000 ML IV ONE (10:45)
--- NOTE | 2022-06-10 11:06 | P.GSCN ---
History of Present Illness Consult date: 06/09/22 Reason for Consult: Malnutrition History of present illness: This is a 66-year-old male who has a history of metastatic renal cancer. Patient developed progressive dysphagia and malnutrition. Patient has severe protein calorie malnutrition.Appeared request a seam regarding possible PEG tube. Past Medical History Past Medical History: Asthma, Cancer, Hypertension, Sleep Apnea/CPAP/BIPAP Additional Past Medical History / Comment(s): Gastric Ulcer. Anemia. Stage 4 left kidney cancer(IS CURRENTLY ON IMMUNOPRESSOR PROTOCOL AND EVENTUALLY HAVE K IDNEY REMOVED.) HAD COVID IN AUGUST 2019. NO CPAP History of Any Multi-Drug Resistant Organisms: None Reported Past Surgical History: Adenoidectomy, Tonsillectomy Additional Past Surgical History / Comment(s): Rhinoplasty, Uvula removed, left kidney embolization, EGD. Past Anesthesia/Blood Transfusion Reactions: No Reported Reaction Past Psychological History: No Psychological Hx Reported Smoking Status: Never smoker Past Alcohol Use History: Occasional Additional Past Alcohol Use History / Comment(s): . Past Drug Use History: Marijuana - Past Family History Mother Family Medical History: No Reported History Brother(s) Family Medical History: Rheumatoid Arthritis (RA) Father Family Medical History: No Reported History Medications and Allergies Home Medications Medication Instructions Recorded Confirmed Type Montelukast [Singulair] 10 mg PO HS 03/29/18 06/02/22 History Acetaminophen [Tylenol Extra 1,000 mg PO Q6H PRN 04/12/18 06/02/22 History Strength] Cetirizine HCl [Zyrtec] 10 mg PO HS 04/12/18 06/02/22 History Fluticasone Nasal [place] [Flonase 1 spr EA NOSTRIL HS 04/12/18 06/02/22 History Nasal [place]] Fluticasone Propion/Salmeterol 1 puff INHALATION RT-HS 09/25/18 06/02/22 History [Advair 250-50 Diskus] Retinavites 1 tab PO BID 01/30/21 06/02/22 History Albuterol Inhaler [Ventolin Hfa 1 - 2 puff INHALATION RT-QID PRN 06/02/22 06/02/22 History Inhaler] Blood Builder Mini Supplement 1 tab PO BID 06/02/22 06/02/22 History Calcium Carbonate [Tums] 500 - 1,000 mg PO QID PRN 06/02/22 06/02/22 History Diltiazem Oral [Cardizem Oral] 30 mg PO BID 06/02/22 06/02/22 History Furosemide [Lasix] 20 mg PO DAILY 06/02/22 06/02/22 History Opdivo(Unknown Dose) 1 dose IV Q28D 06/02/22 06/02/22 History Potassium Chloride ER [K-Dur 20] 20 meq PO DAILY 06/02/22 06/02/22 History Simethicone 180 mg PO ACHS 06/02/22 06/02/22 History Triamcinolone 0.1% Ointment 1 applic TOPICAL TID PRN 06/02/22 06/02/22 History [Kenalog 0.1% Ointment] bisacodyL [Dulcolax] 5 mg PO HS 06/02/22 06/02/22 History hydrALAZINE HCL [Apresoline] 100 mg PO BID 06/02/22 06/02/22 History predniSONE 5 mg PO DAILY 06/02/22 06/02/22 History Allergies Allergy/AdvReac Type Severity Reaction Status Date / Time No Known Allergies Allergy Verified 06/02/22 07:40 Surgical - Exam Vital Signs Temp Pulse Resp BP Pulse Ox 97.3 F L 101 H 18 115/85 100 06/01/22 17:46 06/01/22 17:46 06/01/22 17:46 06/01/22 17:46 06/01/22 17:46 - General cachectic, chronically ill - Eyes PERRL - ENT normal pinna - Neck no masses - Respiratory normal expansion - Cardiovascular Rhythm: regular - Abdomen Abdomen: soft, non tender Results - Labs 06/10/22 06:39 06/10/22 06:39 Abnormal Lab Results - Last 24 Hours (Table) 06/10/22 06/10/22 06/10/22 Range/Units 06:39 06:39 07:24 WBC 12.5 H (3.8-10.6) k/uL RBC 2.63 L (4.30-5.90) m/uL Hgb 7.5 L (13.0-17.5) gm/dL Hct 25.1 L (39.0-53.0) % MCHC 29.9 L (31.0-37.0) g/dL RDW 17.2 H (11.5-15.5) % Plt Count 67 L (150-450) k/uL Carbon Dioxide 33 H (22-30) mmol/L BUN 22 H (9-20) mg/dL Glucose 57 L (74-99) mg/dL POC Glucose (mg/dL) 56 L (70-110) mg/dL Calcium 7.1 L (8.4-10.2) mg/dL Diabetes panel 06/10/22 Range/Units 06:39 Sodium 139 (137-145) mmol/L Potassium 3.7 (3.5-5.1) mmol/L Chloride 103 (98-107) mmol/L Carbon Dioxide 33 H (22-30) mmol/L BUN 22 H (9-20) mg/dL Creatinine 0.99 (0.66-1.25) mg/dL Glucose 57 L (74-99) mg/dL Calcium 7.1 L (8.4-10.2) mg/dL Calcium panel 06/10/22 Range/Units 06:39 Calcium 7.1 L (8.4-10.2) mg/dL Pituitary panel 06/10/22 Range/Units 06:39 Sodium 139 (137-145) mmol/L Potassium 3.7 (3.5-5.1) mmol/L Chloride 103 (98-107) mmol/L Carbon Dioxide 33 H (22-30) mmol/L BUN 22 H (9-20) mg/dL Creatinine 0.99 (0.66-1.25) mg/dL Glucose 57 L (74-99) mg/dL Calcium 7.1 L (8.4-10.2) mg/dL Adrenal panel 06/10/22 Range/Units 06:39 Sodium 139 (137-145) mmol/L Potassium 3.7 (3.5-5.1) mmol/L Chloride 103 (98-107) mmol/L Carbon Dioxide 33 H (22-30) mmol/L BUN 22 H (9-20) mg/dL Creatinine 0.99 (0.66-1.25) mg/dL Glucose 57 L (74-99) mg/dL Calcium 7.1 L (8.4-10.2) mg/dL Assessment and Plan Assessment: Metastatic cancer Malnutrition Dilantin discussion with the parents to be to place the patient. Patient is adamant that he wants a feeding tube. Patient will have PEG tube placed tomorrow.
--- NOTE | 2022-06-10 11:07 | P.OP ---
Date of Procedure: 06/10/22 Preoperative Diagnosis: Severe protein calorie malnutrition Postoperative Diagnosis: Severe protein calorie malnutrition Procedure(s) Performed: PEG tube placement Anesthesia: MAC Surgeon: Dez De Leon Pathology: none sent Condition: stable Disposition: PACU Description of Procedure: The patient received IV sedation. Next the gastroscope placed oropharynx passed in the esophagus and stomach. There is no evidence of any outlet obstruction. Stomach was insufflated with air. The light reflux seen the anterior abdominal wall. The abdomen was prepped and draped usual fashion. The skin was incised. And the needles placed and stomach under direct visualization. The needle was snared. And the wires placed through the needle and the wire was snared and brought the oropharynx. The PEG tube was placed over top the wire brought down to the stomach. The PEG tube was secured. At the 3 cm zina. The one-piece bolster was used. Patient tolerated procedure well.
[2022-06-10 11:24] LABS: Glucose,Whole Blood 64 mg/dL (70-110)
[2022-06-10] MEDS ORDERED: DEXTROSE 50% SYRINGE 50 ML IVP ONE ×2 (11:35→17:12)
[2022-06-10 11:52] LABS: Glucose,Whole Blood 139 mg/dL (70-110)
[2022-06-10] MEDS: MAGNESIUM SULFATE-D5W PMX 1 GM in DEXTROSE/WATER 1 100ML.BAG IVPB SCH ×2 (12:50→14:31)
--- NOTE | 2022-06-10 13:15 | P.CONS ---
History of Present Illness - Reason for Consult Consult date: 06/10/22 Goals of care Requesting physician: Alma Rondon - Chief Complaint Weakness and fatigue - History of Present Illness Patient is a 66-year-old man with history of stage IV renal cell carcinoma with metastasis to the spine and liver., asthma, hypertension, sleep apnea, and gastric ulcer, and anemia. He is currently receiving radiation with Dr. Simon. Radiation was felt this past Wednesday due to progressive weakness. The patient reports having diarrhea, weakness, and dizziness prompted him to come to the emergency department on 06/01/22. Denied fevers, chest pain, or shortness of breath. Chest x-ray showed left lower lobe pneumonia and he was started on IV antibiotic treatment. The patient's abdomen, pelvis, chest CT shows disease progression when compared to 03/14. Results of the scan and implications were discussed with the patient and his . Due to the patient's poor performance status, he is not a candidate for any systemic therapy. The patient and his were wondering if a subacute rehab would be beneficial. Unfortunately, given his deterioration is due to progression of his malignancy, for which she is not on active treatment for. Therefore, it is likely to progress and affect his performance status. The patient was having difficulty swallowing and was evaluated by COLLECTIONS CURATOR. He has poor oral intake and has severe protein calorie ma lnutrition. He is scheduled to undergo a PE tube placement today. Review of Systems Constitutional: Reports fatigue, Reports weakness, Denies chills, Denies fever Cardiovascular: Denies chest pain, Denies palpitations, Denies shortness of breath Respiratory: Reports cough Gastrointestinal: Denies loss of appetite, Denies nausea, Denies vomiting Past Medical History Past Medical History: Asthma, Cancer, Hypertension, Sleep Apnea/CPAP/BIPAP Additional Past Medical History / Comment(s): Gastric Ulcer. Anemia. Stage 4 left kidney cancer(IS CURRENTLY ON IMMUNOPRESSOR PROTOCOL AND EVENTUALLY HAVE KIDNEY REMOVED.) HAD COVID IN AUGUST 2019. NO CPAP History of Any Multi-Drug Resistant Organisms: None Reported Past Surgical History: Adenoidectomy, Tonsillectomy Additional Past Surgical History / Comment(s): Rhinoplasty, Uvula removed, left kidney embolization, EGD. Past Anesthesia/Blood Transfusion Reactions: No Reported Reaction Past Psychological History: No Psychological Hx Reported Smoking Status: Never smoker Past Alcohol Use History: Occasional Additional Past Alcohol Use History / Comment(s): . Past Drug Use History: Marijuana - Past Family History Mother Family Medical History: No Reported History Brother(s) Family Medical History: Rheumatoid Arthritis (RA) Father Family Medical History: No Reported History Medications and Allergies Home Medications Medication Instructions Recorded Confirmed Type Montelukast [Singulair] 10 mg PO HS 03/29/18 06/02/22 History Acetaminophen [Tylenol Extra 1,000 mg PO Q6H PRN 04/12/18 06/02/22 History Strength] Cetirizine HCl [Zyrtec] 10 mg PO HS 04/12/18 06/02/22 History Fluticasone Nasal [place] [Flonase 1 spr EA NOSTRIL HS 04/12/18 06/02/22 History Nasal [place]] Fluticasone Propion/Salmeterol 1 puff INHALATION RT-HS 09/25/18 06/02/22 History [Advair 250-50 Diskus] Retinavites 1 tab PO BID 01/30/21 06/02/22 History Albuterol Inhaler [Ventolin Hfa 1 - 2 puff INHALATION RT-QID PRN 06/02/22 06/02/22 History Inhaler] Blood Builder Mini Supplement 1 tab PO BID 06/02/22 06/02/22 History Calcium Carbonate [Tums] 500 - 1,000 mg PO QID PRN 06/02/22 06/02/22 History Diltiazem Oral [Cardizem Oral] 30 mg PO BID 06/02/22 06/02/22 History Furosemide [Lasix] 20 mg PO DAILY 06/02/22 06/02/22 History Opdivo(Unknown Dose) 1 dose IV Q28D 06/02/22 06/02/22 History Potassium Chloride ER [K-Dur 20] 20 meq PO DAILY 06/02/22 06/02/22 History Simethicone 180 mg PO ACHS 06/02/22 06/02/22 History Triamcinolone 0.1% Ointment 1 applic TOPICAL TID PRN 06/02/22 06/02/22 History [Kenalog 0.1% Ointment] bisacodyL [Dulcolax] 5 mg PO HS 06/02/22 06/02/22 History hydrALAZINE HCL [Apresoline] 100 mg PO BID 06/02/22 06/02/22 History predniSONE 5 mg PO DAILY 06/02/22 06/02/22 History Allergies Allergy/AdvReac Type Severity Reaction Status Date / Time No Known Allergies Allergy Verified 06/02/22 07:40 Physical Exam Vitals: Vital Signs Temp Pulse Resp BP Pulse Ox 06/10/22 12:32 97.5 F L 97 16 111/71 96 06/10/22 07:27 98.8 F 95 16 111/63 93 L 06/10/22 01:45 97.6 F 89 16 114/68 92 L 06/09/22 20:00 98 F 95 18 102/55 94 L Intake and Output 06/09/22 06/10/22 06/10/22 22:59 06:59 14:59 Intake Total 200 Balance 200 Intake: IV 200 Other: Voiding Method External Catheter External Catheter # Voids 2 2 1 Weight 86.183 kg Results CBC & Chem 7: 06/10/22 06:39 06/10/22 06:39 Labs: Abnormal Lab Results - Last 24 Hours (Table) 06/10/22 06/10/22 06/10/22 Range/Units 06:39 06:39 07:24 WBC 12.5 H (3.8-10.6) k/uL RBC 2.63 L (4.30-5.90) m/uL Hgb 7.5 L (13.0-17.5) gm/dL Hct 25.1 L (39.0-53.0) % MCHC 29.9 L (31.0-37.0) g/dL RDW 17.2 H (11.5-15.5) % Plt Count 67 L (150-450) k/uL Carbon Dioxide 33 H (22-30) mmol/L BUN 22 H (9-20) mg/dL Glucose 57 L (74-99) mg/dL POC Glucose (mg/dL) 56 L (70-110) mg/dL Calcium 7.1 L (8.4-10.2) mg/dL 06/10/22 06/10/22 Range/Units 11:23 11:51 WBC (3.8-10.6) k/uL RBC (4.30-5.90) m/uL Hgb (13.0-17.5) gm/dL Hct (39.0-53.0) % MCHC (31.0-37.0) g/dL RDW (11.5-15.5) % Plt Count (150-450) k/uL Carbon Dioxide (22-30) mmol/L BUN (9-20) mg/dL Glucose (74-99) mg/dL POC Glucose (mg/dL) 64 L 139 H (70-110) mg/dL Calcium (8.4-10.2) mg/dL Assessment and Plan Plan: Summary/Goals - Went to the patient's room. He was gone to the OR for a PEG tube placement. [facility] hospice team happened to be in the hallway. They stated they met with the patient and his today. The patient and his have agreed to hospice at home. Recommendations - Hospice Advanced Directives - none on file Code Status - full code Thank you for this consultation Jane Miguel [facility]- Palliative Care [facility] [id number] Email: [email or web address]
[2022-06-10] MEDS ORDERED: LACTULOSE 20 GM/30 ML CUP PO PRN (16:10)
--- NOTE | 2022-06-10 16:16 | P.PN ---
Subjective Progress Note Date: 06/10/22 This is a 66-year-old male who follows with Dr. Li, medical conditions include asthma, hypertension, sleep apnea, anemia and gastric ulcer, stage IV left kidney cancer patient is currently on immunosuppressive therapy and radiation. Diagnosed with renal cancer back in 2018, he is currently on radiation cycle 11/30. Medical records discuss there is liver metastasis and family at bedside reports there is a tumor which is pressing on the IVC. Presents with concern for generalized weakness and fatigue ongoing for the last week, he is also reporting peripheral edema. Denies any leg pain, states he has had lower extremity edema for the last 6 months, and has been taking his oral diuretic at home. Denies shortness of breath, denies chest pain. Denies cough, fever or chills. Last Wednesday he became significant more weak and was unable to ambulate and was taken by EMS to his radiation appointment. His radiologist felt he was to weak to undergo radiation and recommended patient to come into the ER if symptoms did not improve. He had an episode of diarrhea Wednesday night, and has had decreased appetite. He presents to the EC yesterday afternoon with worsening weakness. Chest x-ray shows left lower lobe pneumonia and atelectasis and pleural fluid significantly increased compared to old exam with mild pulmonary congestion with mild heart failure possible. There is a retrocardiac infiltrate on lateral view. He is found to have proBNP of 4880 on admission, troponin level is negative. Lactic acid is elevated at 2.4. He does have leukocytosis with left shift. Urine is showing trace blood. He is afebrile and on room air. Has been started on IV azithromycin and IV ceftriaxone, Received a fluid bolus in EC as well. Had a prior echocardiogram in January of this year showing an EF of 55- 60% with mild mitral regurgitation, mild aortic regurgitation and mild tricuspid regurgitation. Patient will be admitted and will be started on IV lasix and will repeat echocardiogram. He will continue on antibiotics and check procalcitonin level. Oncology and Radiology have been consulted. 06/03/2022 Patient feels more fatigued today. Denies shortness of breath, no cough, no fever/chills reported. Patient continues on IV Lasix with about 900 mL of urine output overnight. Had an episode of nausea this morning mostly pills per at bedside. He denies feeling nausea, no hematemesis or coffee ground emesis reported. No abdominal pain. Hemoglobin today found to be 6.9 and he will receive 1 unit of PRBC's, lactic acid has normalized to 2.0, blood glucose remains in the 70s. Ferritin and LDH are elevated as well as Procalcitonin level of 1.16. White count stable at 12.20. Blood culture is currently pending. Patient remains on IV azithromycin and IV ceftriaxone. 06/04/2022 Patient evaluated today resting in bed. Working with physical therapy. His oncology team at this time is recommending to hold further treatments secondary to poor overall clinical condition and hospice had been discussed with patient and at this time they do not feel ready for hospice. He does report some difficulty swallowing and coughing with thin liquids today. He has been maintained on IV antibiotics for left lower lobe pneumonia. Chest xray follow up today showing bilateral nodularity better seen on current exam measuring up to 1.6 cm unable to exclude metastatic pulmonary nodules, with ongoing moderate left and small right pleural effusions. Left lower lung consolidation persists. Echocardiogram completed showing an EF of 50 to 55% with mild mitral and tricuspid insufficiency. Possible small pleural effusion. White count today 13.05, hemoglobin improved to 7.8. Platelet count of 63. BUN 18.4, creatinine 1.0. Glucose in the 90s. He remains afebrile, heart rate in the 90s, blood pressure 122/66, and 95% room air. 06/05/2022 Patient is evaluated today lying in bed. No acute events overnight. He continues on IV lasix. Completed 3 days of IV azithromycin. Continues on IV ceftriaxone. Discussed chest xray findings with and patient. When he was first diagnosed with cancer back in 2018 he did have evidence for possible lung cancer however the area seemed to have gone away on follow up imaging. His diet has been downgraded to thickened liquid and has been started on dronabinol for appetite stimulant. Hospice was discussed and they both feel not ready for hospice at this time and hopeful for patient to get stronger and be able to resume cancer treatment. However, the does not want patient to go to rehab and would like him to return home which they would require bed and logan lift at this time. Currently he is total assist and unable to ambulate with poor appetite and dietary intake. His oncology team feels he is appropriate for hospice and are currently recommending to hold palliative radiation. The would like him to resume the radiation or have follow up imaging for liver mass hoping that he will eventually be able to have surgery to remove the primary tumor. White count today is 15.30, hemoglobin 8.0, platelet count of 48, INR of 1.5. He is afebrile, heart rate 63, blood pressure 104/67, 96% room air. Followed by hematology/oncology. 06/06/2022 Patient is evaluated today resting in bed. PT/OT on consultation and recommending subacute rehab on discharge. CT of the chest abdomen and pelvis taken today showing progression of diffuse metastatic disease when compared to 03/08/22 with increasing size of left renal fossa, there is size and number of hepatic masses increase in size and number of retroperitoneal and supraclavicular lymph nodes. New pulmonary metastatic disease with diffuse pulmonary nodules. New bilateral small pleural effusions and also diffuse anasarca and trace ascites. He is continued on IV ceftriaxone and also IV lasix and recommend bilateral compression stockings for LE edema. He continues on room air. Incentive spirometer has been ordered and encouraged 10 times a hour. Patient is noted to have weak cough reflex and has been placed on thickened liquids. Findings discussed with patient and at bedside they would like to speak with oncology regarding treatment options etc. Discussed that despite treatment options patient will require rehabilitation and needs to increase his oral intake. Pending further recommendations from oncology. Procalcitonin level improving 0.92. White count today is 12.3, hgb today is 7.5, platelet count today is 54, sodium 136, potassium 3.7, BUN 19, creatinine 0.67 06/07/2022 Patient is evaluated today resting in bed. He is diffusely weak and requiring 2 person to max assist for repositioning in bed. He continues to report decreased appetite, has been started on marinol for this. He is on dysphagia diet with thickened liquids. He continues on IV ceftriaxone and procalcitonin level is improving, and he continues on room air. He is denying pain, no shortness of breath. He continues with pitting lower extremity edema despite being on IV lasix Q12. He was unable to wear the external catheter for intake and output monitoring and has mostly been incontinent which patient and state they feel he is urinating quite a bit. Unable to record accurate output. Recommend to RANDY wrap bilateral lower extremity. Oncology has met with the patient today and discussed current disease progression and currently recommending for comfort measures at this time. 06/08/2022 Patient resting in bed. Reports increased cough yesterday afternoon and was able to expectorate. He continues on IV ceftriaxone at this time and remains on room air. Encouraged to use IS 10 x an hour while awake. He has been placed on marinol for appetite stimulant more at the request of his . He overall is having difficulty swallowing and has been placed on dysphagia diet with thickened liquid and he continues to report having no appetite. Remains on IV lasix with no improvement in his lower extremity edema. He is tolerating RANDY wraps a few hours at a time. He has diffuse generalized weakness and remains a 2 person/max assist. Oncology recommending hospice. had mentioned PEG tube and subacute rehab. It was discussed again that overall cancer progression limits the strength and functionality patient will gain back from rehab. Patient and are waiting to speak with Dr. Simon at this time before deciding on returning home with hospice in place. 06/09/2022 Patient is resting in bed today. Had some increased pain overnight and received a one time dose of IV dilaudid. Continues on IV ceftriaxone. He will undergo PEG tube placement tomorrow and dietary making recommendations for tube feedings. He will be started on norco for pain management and also bowel regimen to avoid constipation. Hospice has been discussed again with patient. He will need PEG tube placement and initiation on tube feedings before discharge. He is afebrile, heart rate 87, blood pressure 92/58, and 96% on room air. 06/10/2022 Patient is evaluated today with family at the bedside. [facility] hospice has met with patient and family and they have decided on hospice services at this time with plans to return home once he has been initiated and tolerating tube feedings. He underwent PEG tube placement today with Dr De Leon. He has been placed on dextrose at 50 mls/hr for persistent hypoglycemia from poor oral intake. Remains afebrile, heart rate 97, blood pressure 111/71, 96% on room air. Review of Systems Constitutional: Reports fatigue denied any fever. Cardio vascular: denied any chest pain, palpitations Gastrointestinal: denied any nausea, no diarrhea, no emesis, decreased appetite. Pulmonary: Denied any shortness of breath, has weak nonproductive cough. Neurologic: Denied any new focal deficits All inpatient medications were reviewed and appropriate changes in these medications as dictated in the interval history and assessment and plan. PHYSICAL EXAMINATION: GENERAL: The patient is alert and oriented x3, not in any acute distress. Well developed, well nourished. HEENT: Pupils are round and equally reacting to light. EOMI. No scleral icterus. No conjunctival pallor. Normocephalic, atraumatic. No pharyngeal erythema. No thyromegaly. CARDIOVASCULAR: S1 and S2 present. No murmurs, rubs, or gallops. PULMONARY: Chest is clear to auscultation, no wheezing or crackles. Left base diminished. ABDOMEN: Soft, nontender, nondistended, normoactive bowel sounds. No palpable organomegaly. MUSCULOSKELETAL: No joint swelling or deformity. EXTREMITIES: No cyanosis, clubbing. He has +2 lower extremity pitting edema. NEUROLOGICAL: Gross neurological examination did not reveal any focal deficits. Diffuse generalized weakness. SKIN: No rashes. Assessment and plan Assessment Diffuse progressive weakness secondary to cancer progression. Left lower lobe pneumonia, community acquired with sepsis present on admission, there is infiltrate on xray and patient presents with lactic acidosis and elevated white count. Follow up chest xray showing bilateral pulmonary nodules unable to exclude neoplasm. Pneumonia could be post obstructive vs. component of aspiration. Improving. Dysphagia diet will be changed to thickened liquids. Mild acute heart failure diastolic with preserved EF Lower extremity edema likely combination of CHF and third spacing Bicytopenia Hypoglycemia from poor oral intake Stage 4 left renal cancer with liver metastasis currently undergoing immunotherapy/palliative radiation which current treatments have been placed on hold at this time. CT imaging reveals new multiple areas of pulmonary neoplasm and increase in size in other areas of metastasis. Hypertension currently normotensive Sleep apnea History iron deficiency anemia History asthma stable History of gastric ulcer GI prophylaxis DVT prophylaxis No Code Plan Continue IV ceftriaxone while inpatient Transition to oral lasix and RANDY wrap bilateral lower extremity Diet has been downgraded to thickened liquid patient underwent PEG tube placement today and will begin tube feedings tomorrow. Started on D5 for hypoglycemia and will be initiated on tube feedings tomorrow. Discharge home with hospice services The impression and plan of care has been dictated by Alma Rondon Nurse Practitioner as directed. Dr. Félix MD I have performed a history and physical examination and medical decision making of this patient, discussed the same with the dictator, and agree with the dictators assessment and plan as written, documented as a scribe. Based on total visit time, I have performed more than 50% of this visit. Objective - Vital Signs Vital signs: Vital Signs Temp 97.5 F L 06/10/22 12:32 Pulse 97 06/10/22 12:32 Resp 16 06/10/22 12:32 BP 111/71 06/10/22 12:32 Pulse Ox 96 06/10/22 12:32 FiO2 Intake & Output 06/09/22 06/10/22 06/10/22 18:59 06:59 18:59 Intake Total 200 Balance 200 Weight 88 kg Intake: IV 200 Other: Voiding Method External Catheter External Catheter # Voids 2 2 1 - Labs CBC & Chem 7: 06/10/22 06:39 06/10/22 06:39 Labs: Abnormal Lab Results - Last 24 Hours (Table) 06/10/22 06/10/22 06/10/22 Range/Units 06:39 06:39 07:24 WBC 12.5 H (3.8-10.6) k/uL RBC 2.63 L (4.30-5.90) m/uL Hgb 7.5 L (13.0-17.5) gm/dL Hct 25.1 L (39.0-53.0) % MCHC 29.9 L (31.0-37.0) g/dL RDW 17.2 H (11.5-15.5) % Plt Count 67 L (150-450) k/uL Carbon Dioxide 33 H (22-30) mmol/L BUN 22 H (9-20) mg/dL Glucose 57 L (74-99) mg/dL POC Glucose (mg/dL) 56 L (70-110) mg/dL Calcium 7.1 L (8.4-10.2) mg/dL 06/10/22 06/10/22 Range/Units 11:23 11:51 WBC (3.8-10.6) k/uL RBC (4.30-5.90) m/uL Hgb (13.0-17.5) gm/dL Hct (39.0-53.0) % MCHC (31.0-37.0) g/dL RDW (11.5-15.5) % Plt Count (150-450) k/uL Carbon Dioxide (22-30) mmol/L BUN (9-20) mg/dL Glucose (74-99) mg/dL POC Glucose (mg/dL) 64 L 139 H (70-110) mg/dL Calcium (8.4-10.2) mg/dL Assessment and Plan Time with Patient: Less than 30
[2022-06-10] MEDS: POTASSIUM CHLORIDE 10 MEQ in WATER FOR INJECTION 1 100ML.BAG IVPB SCH ×2 (16:18→17:19)
[2022-06-10] MEDS: DEXTROSE 5% IN WATER 1,000 ML IV SCH (16:19)
[2022-06-10 17:08] LABS: Glucose,Whole Blood 68 mg/dL (70-110)
[2022-06-10] MEDS ORDERED: DEXTROSE 50% SYRINGE 50 ML IVP STA (17:08)
[2022-06-10 17:41] LABS: Glucose,Whole Blood 122 mg/dL (70-110)
[2022-06-10] MEDS: HYDROmorphone 0.5 MG/0.5 ML SYRINGE IVP PRN ×2 (17:45→23:14)
[2022-06-10 20:21] LABS: Glucose,Whole Blood 73 mg/dL (70-110)
[2022-06-10] MEDS: MONTELUKAST 10 MG TAB PO SCH (20:34)
[2022-06-10] MEDS: MELATONIN 5 MG TABLET PO SCH (20:34)
[2022-06-10] MEDS: LORATADINE 10 MG TAB PO SCH (20:34)
[2022-06-10] MEDS: HYDROcodone/APAP 5-325MG 1 EACH TAB PO PRN (20:50)
[2022-06-10] MEDS: FLUTICASONE 50MCG/SPRAY NASAL 16GM EA NOSTRIL SCH (20:55)
[2022-06-11] MEDS: SODIUM CHLORIDE 0.9% 1,000 ML IV SCH (00:28)
[2022-06-11 02:03] LABS: Glucose,Whole Blood 72 mg/dL (70-110)
[2022-06-11 02:50] VITALS: RESP 16
[2022-06-11] MEDS: HYDROcodone/APAP 5-325MG 1 EACH TAB PO PRN (04:12)
[2022-06-11 05:49] LABS: Glucose,Whole Blood 73 mg/dL (70-110)
[2022-06-11] MEDS: SYMBICORT 80-4.5 MCG INHALER INHALATION SCH ×2 (07:15→18:59)
[2022-06-11 07:30] LABS: Glucose,Whole Blood 69 mg/dL (70-110)
[2022-06-11] MEDS: DEXTROSE 50% SYRINGE 50 ML IVP ONE (07:48)
[2022-06-11 08:10] LABS: Glucose,Whole Blood 123 mg/dL (70-110)
[2022-06-11] MEDS: HYDROmorphone 0.5 MG/0.5 ML SYRINGE IVP PRN ×3 (08:21→23:56)
[2022-06-11] MEDS: SENNOSIDES 8.6 MG TAB PO SCH ×2 (09:24→21:47)
[2022-06-11] MEDS: DILTIAZEM ORAL 30 MG TAB PO SCH ×2 (09:24→21:47)
[2022-06-11] MEDS: FUROSEMIDE 40 MG TAB PO SCH ×2 (09:24→17:47)
[2022-06-11] MEDS: PANTOPRAZOLE 40 MG TABLET PO SCH (09:24)
[2022-06-11] MEDS: FAMOTIDINE 20 MG TAB PO SCH ×2 (09:24→21:47)
[2022-06-11] MEDS: MAGNESIUM OXIDE 400 MG TAB PO SCH ×2 (09:24→21:47)
[2022-06-11] MEDS: POTASSIUM CHLORIDE ER 20 MEQ TAB.ER PO SCH ×2 (09:25→21:47)
[2022-06-11] MEDS: DEXTROSE 5% IN WATER 1,000 ML IV SCH (09:26)
[2022-06-11 11:09] LABS: Glucose,Whole Blood 66 mg/dL (70-110)
[2022-06-11] MEDS ORDERED: DEXTROSE 50% SYRINGE 50 ML IVP ONE (11:20)
--- NOTE | 2022-06-11 11:57 | P.PN ---
Subjective Progress Note Date: 06/11/22 CHIEF COMPLAINT: Severe protein calorie malnutrition HISTORY OF PRESENT ILLNESS: Patient is postop day #1 status post PEG tube placement. Patient denies any pain. Denies any nausea vomiting. Tube Feeds to be initiated today. environmental engineering manager working on discharge planning with hospice possibly tomorrow Patient seen and examined with Dr. De Leon PHYSICAL EXAM: VITAL SIGNS: Reviewed. GENERAL: no acute distress. ABDOMEN: Soft. Nondistended. Nontender. PEG tube site clean dry and intact NEUROLOGIC: Alert and oriented. Cranial nerves II through XII grossly intact. ASSESSMENT: 1. Severe protein calorie malnutrition status post PEG tube placement 2. Stage IV renal cancer with metastatic disease to the liver PLAN: -Dietitian to initiate tube feedings today -Continue to titrate to feedings as tolerated -Continue supportive care Physician Retail Branch Manager note has been reviewed by physician. Signing provider agrees with the documented findings, assessment, and plan of care. Objective - Vital Signs Vital signs: Vital Signs Temp 97.7 F 06/11/22 07:30 Pulse 86 06/11/22 07:30 Resp 16 06/11/22 07:30 BP 109/64 06/11/22 07:30 Pulse Ox 92 L 06/11/22 07:30 FiO2 Intake & Output 06/10/22 06/11/22 06/11/22 18:59 06:59 18:59 Intake Total 200 Balance 200 Weight 88 kg 89 kg 89 kg Intake: IV 200 Other: Voiding Method External Catheter External Catheter # Voids 1 0 1 - Labs CBC & Chem 7: 06/10/22 06:39 06/10/22 06:39 Labs: Abnormal Lab Results - Last 24 Hours (Table) 06/10/22 06/10/22 06/11/22 Range/Units 17:06 17:39 07:29 POC Glucose (mg/dL) 68 L 122 H 69 L (70-110) mg/dL 06/11/22 06/11/22 Range/Units 08:09 11:08 POC Glucose (mg/dL) 123 H 66 L (70-110) mg/dL
--- NOTE | 2022-06-11 12:33 | P.PN ---
Subjective Progress Note Date: 06/11/22 Principal diagnosis: RCC, failure to thrive Was contacted by patient's nurse this AM, requesting to speak with the Oncology team regarding patient's status and prognosis. In follow-up today patient is sleeping during our conversation. Patient's wanted to discuss timeline and what to expect regarding the time the patient had left. Objective - Vital Signs Vital signs: Vital Signs Temp 97.7 F 06/11/22 07:30 Pulse 86 06/11/22 07:30 Resp 16 06/11/22 07:30 BP 109/64 06/11/22 07:30 Pulse Ox 92 L 06/11/22 07:30 FiO2 Intake & Output 06/10/22 06/11/22 06/11/22 18:59 06:59 18:59 Intake Total 200 Balance 200 Weight 88 kg 89 kg Intake: IV 200 Other: Voiding Method External Catheter External Catheter # Voids 1 0 - Exam thin, frail pt, resting comfortably, NAD - Constitutional General appearance: Present: no acute distress, thin - Respiratory Details: breathing unlabored - Integumentary Integumentary: Present: pale - Musculoskeletal Musculoskeletal: Present: generalized weakness - Labs CBC & Chem 7: 06/10/22 06:39 06/10/22 06:39 Labs: Abnormal Lab Results - Last 24 Hours (Table) 06/10/22 06/10/22 06/10/22 Range/Units 11:23 11:51 17:06 POC Glucose (mg/dL) 64 L 139 H 68 L (70-110) mg/dL 06/10/22 06/11/22 06/11/22 Range/Units 17:39 07:29 08:09 POC Glucose (mg/dL) 122 H 69 L 123 H (70-110) mg/dL Assessment and Plan (1) Generalized weakness Current Visit: Yes Status: Acute Priority: High Code(s): R53.1 - WEAKNESS SNOMED Code(s): 62745979 (2) History of renal carcinoma Current Visit: No Status: Acute Priority: High Code(s): Z85.528 - PERSONAL HISTORY OF OTHER MALIGNANT NEOPLASM OF KIDNEY SNOMED Code(s): 87734427329909 Plan: Renal cell cancer: -Case previously discussed with Radiation Oncologist who has spoken with Dr Caro. They recommended hospice. Pt and family were reluctant at fiert but, since pt has not improved much despite aggressive supportive care that are wan ting info on prognosis, life expectancy. Discussed prognosis with , life expectancy likely no greater than 3 months, more likely days to weeks as pt has been progressively declining since admit. -Palliative care/hospice team contacted and consulted Generalized weakness -Multifactorial including malignancy, treatment of malignancy, Infection, poor nutrition. -Patient was being treated for pneumonia -Dietitian consulted. PEG tube placed Attests: I have seen and examined pt, performed H&P, developed impression and plan of care. Discussed with dictator. Agree with documentation, dictated as a scribe. Time with Patient: Greater than 30
[2022-06-11 17:06] LABS: Glucose,Whole Blood 76 mg/dL (70-110)
[2022-06-11 20:35] LABS: Glucose,Whole Blood 87 mg/dL (70-110)
[2022-06-11] MEDS: LORATADINE 10 MG TAB PO SCH (21:47)
[2022-06-11] MEDS: MONTELUKAST 10 MG TAB PO SCH (21:47)
[2022-06-11] MEDS: MELATONIN 5 MG TABLET PO SCH (21:47)
[2022-06-11] MEDS: FLUTICASONE 50MCG/SPRAY NASAL 16GM EA NOSTRIL SCH (21:47)
[2022-06-12] MEDS: SODIUM CHLORIDE 0.9% 1,000 ML IV SCH (01:21)
[2022-06-12] MEDS: DEXTROSE 5% IN WATER 1,000 ML IV SCH (04:23)
--- NOTE | 2022-06-12 05:52 | P.PN ---
Subjective Progress Note Date: 06/11/22 This is a 66-year-old male who follows with Dr. Li, medical conditions include asthma, hypertension, sleep apnea, anemia and gastric ulcer, stage IV left kidney cancer patient is currently on immunosuppressive therapy and radiation. Diagnosed with renal cancer back in 2018, he is currently on radiati on cycle 7. Medical records discuss there is liver metastasis and family at bedside reports there is a tumor which is pressing on the IVC. Presents with concern for generalized weakness and fatigue ongoing for the last week, he is also reporting peripheral edema. Denies any leg pain, states he has had lower extremity edema for the last 6 months, and has been taking his oral diuretic at home. Denies shortness of breath, denies chest pain. Denies cough, fever or chills. Last Wednesday he became significant more weak and was unable to ambulate and was taken by EMS to his radiation appointment. His radiologist felt he was to weak to undergo radiation and recommended patient to come into the ER if symptoms did not improve. He had an episode of diarrhea Wednesday night, and has had decreased appetite. He presents to the [facility] yesterday afternoon with worsening weakness. Chest x-ray shows left lower lobe pneumonia and atelectasis and pleural fluid significantly increased compared to old exam with mild pulmonary congestion with mild heart failure possible. There is a retrocardiac infiltrate on lateral view. He is found to have proBNP of 4880 on admission, troponin level is negative. Lactic acid is elevated at 2.4. He does have leukocytosis with left shift. Urine is showing trace blood. He is afebrile and on room air. Has been started on IV azithromycin and IV ceftriaxone, Received a fluid bolus in [facility] as well. Had a prior echocardiogram in January of this year showing an EF of 55- 60% with mild mitral regurgitation, mild aortic regurgitation and mild tricuspid regurgitation. Patient will be admitted and will be started on IV lasix and will repeat echocardiogram. He will continue on antibiotics and check procalcitonin level. Oncology and Radiology have been consulted. 06/03/2022 Patient feels more fatigued today. Denies shortness of breath, no cough, no fever/chills reported. Patient continues on IV Lasix with about 900 mL of urine output overnight. Had an episode of nausea this morning mostly pills per at bedside. He denies feeling nausea, no hematemesis or coffee ground emesis reported. No abdominal pain. Hemoglobin today found to be 6.9 and he will receive 1 unit of PRBC's, lactic acid has normalized to 2.0, blood glucose remains in the 70s. Ferritin and LDH are elevated as well as Procalcitonin level of 1.16. White count stable at 12.20. Blood culture is currently pending. Patient remains on IV azithromycin and IV ceftriaxone. 06/04/2022 Patient evaluated today resting in bed. Working with physical therapy. His oncology team at this time is recommending to hold further treatments secondary to poor overall clinical condition and hospice had been discussed with patient and at this time they do not feel ready for hospice. He does report some difficulty swallowing and coughing with thin liquids today. He has been maintained on IV antibiotics for left lower lobe pneumonia. Chest xray follow up today showing bilateral nodularity better seen on current exam measuring up to 1.6 cm unable to exclude metastatic pulmonary nodules, with ongoing moderate left and small right pleural effusions. Left lower lung consolidation persists. Echocardiogram completed showing an EF of 50 to 55% with mild mitral and tricuspid insufficiency. Possible small pleural effusion. White count today 13.05, hemoglobin improved to 7.8. Platelet count of 63. BUN 18.4, creatinine 1.0. Glucose in the 90s. He remains afebrile, heart rate in the 90s, blood pressure 122/66, and 95% room air. 06/05/2022 Patient is evaluated today lying in bed. No acute events overnight. He continues on IV lasix. Completed 3 days of IV azithromycin. Continues on IV ceftriaxone. Discussed chest xray findings with and patient. When he was first diagnosed with cancer back in 2018 he did have evidence for possible lung cancer however the area seemed to have gone away on follow up imaging. His diet has been downgraded to thickened liquid and has been started on dronabinol for appetite stimulant. Hospice was discussed and they both feel not ready for hospice at this time and hopeful for patient to get stronger and be able to resume cancer treatment. However, the does not want patient to go to rehab and would like him to return home which they would require bed and logan lift at this time. Currently he is total assist and unable to ambulate with poor appetite and dieta ry intake. His oncology team feels he is appropriate for hospice and are currently recommending to hold palliative radiation. The would like him to resume the radiation or have follow up imaging for liver mass hoping that he will eventually be able to have surgery to remove the primary tumor. White count today is 15.30, hemoglobin 8.0, platelet count of 48, INR of 1.5. He is afebrile, heart rate 63, blood pressure 104/67, 96% room air. Followed by hematology/oncology. 06/06/2022 Patient is evaluated today resting in bed. PT/OT on consultation and recommending subacute rehab on discharge. CT of the chest abdomen and pelvis taken today showing progression of diffuse metastatic disease when compared to 03/08/22 with increasing size of left renal fossa, there is size and number of hepatic masses increase in size and number of retroperitoneal and supraclavicular lymph nodes. New pulmonary metastatic disease with diffuse pulmonary nodules. New bilateral small pleural effusions and also diffuse anasarca and trace ascites. He is continued on IV ceftriaxone and also IV lasix and recommend bilateral compression stockings for LE edema. He continues on room air. Incentive spirometer has been ordered and encouraged 10 times a hour. Patient is noted to have weak cough reflex and has been placed on thickened liquids. Findings discussed with patient and at bedside they would like to speak with oncology regarding treatment options etc. Discussed that despite treatment options patient will require rehabilitation and needs to increase his oral intake. Pending further recommendations from oncology. Procalcitonin level improving 0.92. White count today is 12.3, hgb today is 7.5, platelet count today is 54, sodium 136, potassium 3.7, BUN 19, creatinine 0.67 06/07/2022 Patient is evaluated today resting in bed. He is diffusely weak and requiring 2 person to max assist for repositioning in bed. He continues to report decreased appetite, has been started on marinol for this. He is on dysphagia diet with thickened liquids. He continues on IV ceftriaxone and procalcitonin level is improving, and he continues on room air. He is denying pain, no shortness of breath. He continues with pitting lower extremity edema despite being on IV lasix Q12. He was unable to wear the external catheter for intake and output monitoring and has mostly been incontinent which patient and state they feel he is urinating quite a bit. Unable to record accurate output. Recommend to RANDY wrap bilateral lower extremity. Oncology has met with the patient today and discussed current disease progression and currently recommending for comfort measures at this time. 06/08/2022 Patient resting in bed. Reports increased cough yesterday afternoon and was able to expectorate. He continues on IV ceftriaxone at this time and remains on room air. Encouraged to use IS 10 x an hour while awake. He has been placed on marinol for appetite stimulant more at the request of his . He overall is gloria ving difficulty swallowing and has been placed on dysphagia diet with thickened liquid and he continues to report having no appetite. Remains on IV lasix with no improvement in his lower extremity edema. He is tolerating RANDY wraps a few hours at a time. He has diffuse generalized weakness and remains a 2 person/max assist. Oncology recommending hospice. had mentioned PEG tube and subacute rehab. It was discussed again that overall cancer progression limits the strength and functionality patient will gain back from rehab. Patient and are waiting to speak with Dr. Simon at this time before deciding on returning home with hospice in place. 06/09/2022 Patient is resting in bed today. Had some increased pain overnight and received a one time dose of IV dilaudid. Continues on IV ceftriaxone. He will undergo PEG tube placement tomorrow and dietary making recommendations for tube feedings. He will be started on norco for pain management and also bowel regimen to avoid constipation. Hospice has been discussed again with patient. He will need PEG tube placement and initiation on tube feedings before discharge. He is afebrile, heart rate 87, blood pressure 92/58, and 96% on room air. 06/10/2022 Patient is evaluated today with family at the bedside. [facility] has met with patient and family and they have decided on hospice services at this time with plans to return home once he has been initiated and tolerating tube feedings. He underwent PEG tube placement today with Dr De Leon. He has been placed on dextrose at 50 mls/hr for persistent hypoglycemia from poor oral intake. Remains afebrile, heart rate 97, blood pressure 111/71, 96% on room air. 06/11/2022 Patient is seen and evaluated in follow-up this morning with family at bedside. Patient did receive a PEG tube and okay and cleared by surgery to initiate tube feedings. Patient having hypoglycemia requiring amps of D5 recommend continue as needed. Patient is maintained on dextrose although continues to have low blood sugars. Patient and family extremely anxious and nervous about going home today and recommend monitoring overnight for any further hypoglycemic events. Case management following as well and having [facility] evaluate for possible GIP. Patient is stable otherwise. Patient is afebrile and denies chest pain or shortness of breath. Review of Systems Constitutional: Reports fatigue denied any fever. Cardio vascular: denied any chest pain, palpitations Gastrointestinal: denied any nausea, no diarrhea, no emesis, decreased appetite. Pulmonary: Denied any shortness of breath, has weak nonproductive cough. Neurologic: Denied any new focal deficits All inpatient medications were reviewed and appropriate changes in these medications as dictated in the interval history and assessment and plan. PHYSICAL EXAMINATION: GENERAL: The patient is alert and oriented x3, not in any acute distress. Thin built, ill-appearing, appears much older than stated age HEENT: Pupils are round and equally reacting to light. EOMI. No scleral icterus. No conjunctival pallor. Normocephalic, atraumatic. No pharyngeal erythema. No thyromegaly. CARDIOVASCULAR: S1 and S2 present. No murmurs, rubs, or gallops. PULMONARY: Chest is clear to auscultation, no wheezing or crackles. Left base diminished. ABDOMEN: Soft, nontender, nondistended, normoactive bowel sounds. No palpable or ganomegaly. MUSCULOSKELETAL: No joint swelling or deformity. EXTREMITIES: No cyanosis, clubbing. He has +2 lower extremity pitting edema. NEUROLOGICAL: Gross neurological examination did not reveal any focal deficits. Diffuse generalized weakness. SKIN: No rashes. Assessment: Diffuse progressive weakness secondary to cancer progression. Left lower lobe pneumonia, community acquired with sepsis present on admission, there is infiltrate on xray and patient presents with lactic acidosis and e levated white count. Follow up chest xray showing bilateral pulmonary nodules unable to exclude neoplasm. Pneumonia could be post obstructive vs. component of aspiration. Improving. Dysphagia diet will be changed to thickened liquids. Status post PEG tube placement Mild acute heart failure diastolic with preserved EF Lower extremity edema likely combination of CHF and third spacing Bicytopenia Hypoglycemia from poor oral intake Stage 4 left renal cancer with liver metastasis currently undergoing immunotherapy/palliative radiation which current treatments have been placed on hold at this time. CT imaging reveals new multiple areas of pulmonary neoplasm and increase in size in other areas of metastasis. Hypertension currently normotensive Sleep apnea History iron deficiency anemia History asthma stable History of gastric ulcer GI prophylaxis DVT prophylaxis No Code Plan: Continue IV ceftriaxone while inpatient Transition to oral lasix and RANDY wrap bilateral lower extremity Diet has been downgraded to thickened liquid patient underwent PEG tube placement yesterday and tube feedings starting. Recommend to start slowly and monitor for tolerance and any residuals Started on D5 for hypoglycemia and will having lower blood sugars requiring any dextrose. Recommend Cautious fluids and continuing Accu-Cheks and use dextrose amp IV push as needed Case management following and contacting hospice to come evaluate the patient to consider possible GIP Patient extremely anxious about going home family at bedside with concerns of his new tube feedings and continued low blood sugars Patient will be monitored closely overnight while awaiting hospice for consultation Possible Discharge home in 24 hours with hospice services if patient does not qualify for GIP Overall prognosis remains extremely poor and guarded The impression and plan of care has been dictated by Emma Bowie, Nurse Practitioner as directed. Dr. Félix MD I have performed a history and examination and MDM of this patient, discussed the same with the dictator, and agree with the dictator's assessment and plan as written ,documented as a scribe. Based on total visit time, I have performed more than 50% of the visit. Objective - Vital Signs Vital signs: Vital Signs Temp 98.3 F 06/11/22 12:20 Pulse 87 06/11/22 12:20 Resp 16 06/11/22 12:20 BP 104/62 06/11/22 12:20 Pulse Ox 97 06/11/22 12:20 FiO2 Intake & Output 06/10/22 06/11/22 06/11/22 18:59 06:59 18:59 Intake Total 200 Balance 200 Weight 88 kg 89 kg 89 kg Intake: IV 200 Other: Voiding Method External Catheter External Catheter External Catheter # Voids 1 0 1 - Labs CBC & Chem 7: 06/10/22 06:39 06/10/22 06:39 Labs: Abnormal Lab Results - Last 24 Hours (Table) 06/10/22 06/10/22 06/11/22 Range/Units 17:06 17:39 07:29 POC Glucose (mg/dL) 68 L 122 H 69 L (70-110) mg/dL 06/11/22 06/11/22 Range/Units 08:09 11:08 POC Glucose (mg/dL) 123 H 66 L (70-110) mg/dL
[2022-06-12] MEDS: HYDROmorphone 0.5 MG/0.5 ML SYRINGE IVP PRN ×2 (05:54→10:07)
[2022-06-12 07:36] LABS: Glucose,Whole Blood 76 mg/dL (70-110)
[2022-06-12 07:37] VITALS: BP 107/60; PULSE 86; TEMP 97.4
[2022-06-12] MEDS: SYMBICORT 80-4.5 MCG INHALER INHALATION SCH (08:07)
[2022-06-12] MEDS: POTASSIUM CHLORIDE ER 20 MEQ TAB.ER PO SCH (09:53)
[2022-06-12] MEDS: MAGNESIUM OXIDE 400 MG TAB PO SCH (09:53)
[2022-06-12] MEDS: SENNOSIDES 8.6 MG TAB PO SCH (09:53)
[2022-06-12] MEDS: FAMOTIDINE 20 MG TAB PO SCH (09:54)
[2022-06-12] MEDS: DILTIAZEM ORAL 30 MG TAB PO SCH (09:54)
[2022-06-12] MEDS: PANTOPRAZOLE 40 MG TABLET PO SCH (09:54)
[2022-06-12] MEDS: FUROSEMIDE 40 MG TAB PO SCH ×2 (09:54→16:44)
[2022-06-12] MEDS ORDERED: HYDROmorphone 0.5 MG/0.5 ML SYRINGE IVP PRN (10:13)
[2022-06-12 13:36] VITALS: BMI 24.4
--- NOTE | 2022-06-12 14:35 | P.PN ---
Subjective Progress Note Date: 06/12/22 CHIEF COMPLAINT: Severe protein calorie malnutrition HISTORY OF PRESENT ILLNESS: Patient is postop day #2 status post PEG tube placement. Patient denies any abdominal pain. Denies any nausea or vomiting. She is tolerating tube feedings. He scheduled for discharge to home with hospice later today. Patient seen and examined with Dr. De Leon PHYSICAL EXAM: VITAL SIGNS: Reviewed. GENERAL: no acute distress. ABDOMEN: Soft. Nondistended. Nontender. PEG tube site clean dry and intact NEUROLOGIC: Alert and oriented. Cranial nerves II through XII grossly intact. ASSESSMENT: 1. Severe protein calorie malnutrition status post PEG tube placement 2. Stage IV renal cancer with metastatic disease to the liver PLAN: -Continue to titrate tube feedings -Patient scheduled for discharge home with hospice today Physician Tariff Clerk note has been reviewed by physician. Signing provider agrees with the documented findings, assessment, and plan of care. Objective - Vital Signs Vital signs: Vital Signs Temp 97.4 F L 06/12/22 07:00 Pulse 86 06/12/22 07:00 Resp 16 06/12/22 07:00 BP 107/60 06/12/22 07:00 Pulse Ox 95 06/12/22 08:07 FiO2 Intake & Output 06/11/22 06/12/22 06/12/22 18:59 06:59 18:59 Weight 89 kg 91 kg 91 kg Other: Voiding Method External Catheter External Catheter # Voids 1 4 1 - Labs CBC & Chem 7: 06/10/22 06:39 06/10/22 06:39
--- NOTE | 2022-06-13 17:44 | P.DS ---
Providers Date of admission: 06/03/22 09:57 Expected date of discharge: 06/12/22 Attending physician: Malika Fletcher Consults: 06/01/22 23:50 Consult Physician Routine Consulting Provider: Pablo Simon Consult Reason/Comments: your patient Do you want consulting provider notified?: Yes 06/01/22 23:58 Consult Physician Routine Consulting Provider: Pedro Lovell Consult Reason/Comments: Metastatic cancer patient Do you want consulting provider notified?: Yes 06/09/22 15:00 Consult Physician Routine Consulting Provider: Dez De Leon Consult Reason/Comments: PEG tube placement Do you want consulting provider notified?: Yes 06/09/22 17:31 Consult to Palliative Care Routine Consulting Provider: Jane Miguel Consult Reason/Comments: stage IV cancer Do you want consulting provider notified?: Yes Primary care physician: Natividad Li [facility] Course: Final diagnosis Diffuse progressive weakness secondary to cancer progression. Left lower lobe pneumonia, community acquired with sepsis present on admission, there is infiltrate on xray and patient presents with lactic acidosis and elevated white count. Follow up chest xray showing bilateral pulmonary nodules unable to exclude neoplasm. Pneumonia could be post obstructive vs. component of aspiration. Improving. Dysphagia Status post PEG tube placement Mild acute heart failure diastolic with preserved EF Lower extremity edema likely combination of CHF and third spacing Bicytopenia Hypoglycemia from poor oral intake Stage 4 left renal cancer with liver metastasis currently undergoing immunothe rapy/palliative radiation which current treatments have been placed on hold at this time. CT imaging reveals new multiple areas of pulmonary neoplasm and increase in size in other areas of metastasis. Hypertension currently normotensive Sleep apnea History iron deficiency anemia History asthma stable History of gastric ulcer GI prophylaxis DVT prophylaxis No Code Discharge disposition Patient is being discharged in a stable condition with guarded prognosis to home with [facility] hospice service . Patient will any with PEG tube feedings and reaching goal as tolerated with home care hospice services. Total time taken is greater than 35 minutes. Hospital course This is a 66-year-old male who was recently admitted with worsening disease progression of stage IV left renal cancer with liver metastasis and now multiple new pulmonary nodules noted. Patient with significant dysphagia and unable to tolerate oral intake has opted for PEG tube for palliative feedings and is following with visiting nurses and will be going home with hospice services with [facility] hospice. at the bedside and in agreement with this. Patient will be discharged home today. Overall prognosis remains extremely poor and overall guarded. Currently no reports of chest pain, shortness of breath, or palpitations. Patient is afebrile. No reports of nausea or vomiting and patient is tolerating diet. Patient will be discharged home with hospice today. Physical exam: Gen: This is a 66-year-old male who is awake, alert and oriented 3, thin build, ill-appearing HEENT: Head is atraumatic, normocephalic. Pupils equal, round. Sclerae is anicteric. NECK: Supple. No JVD. No lymphadenopathy. No thyromegaly. LUNGS: Diminished breath sounds bilaterally with faint crackles noted. No intercostal retractions. HEART: Regular rate and rhythm. No murmur. ABDOMEN: Soft. Bowel sounds are present. No masses. No tenderness. EXTREMITIES: No pedal edema. No calf tenderness. NEUROLOGICAL: Patient is awake, alert and oriented x3. Cranial nerves 2 through 12 are grossly intact. Please refer to medication reconciliation sheet for a list of medications. The impression and plan of care has been dictated by Emma Bowie, Nurse Practitioner as directed. Dr. jero MD I have performed a history and examination and MDM of this patient, discussed the same with the dictator, and agree with the dictator's assessment and plan as written ,documented as a scribe. Based on total visit time, I have performed more than 50% of the visit. Patient Condition at Discharge: Poor Plan - Discharge Summary Discharge Rx Participant: No New Discharge Prescriptions: New Furosemide [Lasix] 40 mg PO BID@0900,1600 30 Days #60 tab Magnesium Oxide [Mag-Ox] 400 mg PO BID 30 Days #60 tab HYDROcodone/APAP 5-325MG [[place] 5-325] 1 each PO Q6HR PRN #9 tab PRN Reason: Moderate To Severe Pain (4-10) Sennosides [Senokot] 8.6 mg PO BID 30 Days #60 tab Melatonin 5 mg PO HS 30 Days #30 tab Famotidine [Pepcid] 20 mg PO BID 30 Days #60 tab Continue Montelukast [Singulair] 10 mg PO HS Cetirizine HCl [Zyrtec] 10 mg PO HS Acetaminophen [Tylenol Extra Strength] 1,000 mg PO Q6H PRN PRN Reason: Pain Fluticasone Nasal [place] [Flonase Nasal [place]] 1 spr EA NOSTRIL HS Fluticasone Propion/Salmeterol [Advair 250-50 Diskus] 1 puff INHALATION RT-HS Albuterol Inhaler [Ventolin Hfa Inhaler] 1 - 2 puff INHALATION RT-QID PRN PRN Reason: Shortness Of Breath bisacodyL [Dulcolax] 5 mg PO HS Diltiazem Oral [Cardizem*] 30 mg PO BID Potassium Chloride ER [K-Dur 20] 20 meq PO DAILY Triamcinolone 0.1% Ointment [Kenalog 0.1% Ointment] 1 applic TOPICAL TID PRN PRN Reason: Rash Calcium Carbonate [Tums] 500 - 1,000 mg PO QID PRN PRN Reason: Indigestion Simethicone 180 mg PO ACHS Discontinued Furosemide [Lasix] 20 mg PO DAILY hydrALAZINE HCL [Apresoline] 100 mg PO BID predniSONE 5 mg PO DAILY Retinavites 1 tab PO BID Blood Builder Mini Supplement 1 tab PO BID Opdivo(Unknown Dose) 1 dose IV Q28D Discharge Medication List Montelukast [Singulair] 10 mg PO HS 03/29/18 [History] Acetaminophen [Tylenol Extra Strength] 1,000 mg PO Q6H PRN 04/12/18 [History] Cetirizine HCl [Zyrtec] 10 mg PO HS 04/12/18 [History] Fluticasone Nasal [place] [Flonase Nasal [place]] 1 spr EA NOSTRIL HS 04/12/18 [History] Fluticasone Propion/Salmeterol [Advair 250-50 Diskus] 1 puff INHALATION RT-HS 09/25/18 [History] Albuterol Inhaler [Ventolin Hfa Inhaler] 1 - 2 puff INHALATION RT-QID PRN 06/02/22 [History] Calcium Carbonate [Tums] 500 - 1,000 mg PO QID PRN 06/02/22 [History] Diltiazem Oral [Cardizem*] 30 mg PO BID 06/02/22 [History] Potassium Chloride ER [K-Dur 20] 20 meq PO DAILY 06/02/22 [History] Simethicone 180 mg PO ACHS 06/02/22 [History] Triamcinolone 0.1% Ointment [Kenalog 0.1% Ointment] 1 applic TOPICAL TID PRN 06/02/22 [History] bisacodyL [Dulcolax] 5 mg PO HS 06/02/22 [History] Famotidine [Pepcid] 20 mg PO BID 30 Days #60 tab 06/12/22 [Rx] Furosemide [Lasix] 40 mg PO BID@0900,1600 30 Days #60 tab 06/12/22 [Rx] HYDROcodone/APAP 5-325MG [[place] 5-325] 1 each PO Q6HR PRN #9 tab 06/12/22 [Rx] Magnesium Oxide [Mag-Ox] 400 mg PO BID 30 Days #60 tab 06/12/22 [Rx] Melatonin 5 mg PO HS 30 Days #30 tab 06/12/22 [Rx] Sennosides [Senokot] 8.6 mg PO BID 30 Days #60 tab 06/12/22 [Rx] Follow up Appointment(s)/Referral(s): [facility] Visiting Nurse, [NON-STAFF] - 1 Week Patient Instructions/Handouts: Famotidine (By mouth), Furosemide (By mouth), Hydrocodone/Acetaminophen (By mouth), Magnesium (By mouth), Senna (By mouth), [place]ospice ([place]) Activity/Diet/Wound Care/Special Instructions: Patient is going home with [facility] Activity as tolerated Continue tube feeds and slowly titrate as tolerated - 2Cal HN at 20cc/hr at time of discharge. Goal rate is 50cc/hr. Titrate tube feeding to patients comfort level. Stop feeding if it does not agree with him. May monitor for excess tube feed. Pills may be crushed and put into feeding tube. Head of the bed elevated 30-45 at all the time and monitor for any aspiration precautions Discharge Disposition: HOME WITH HOSPICE
== END 2022-06-12 18:30 | disposition hospice, home (50) | DRG 871 ==
LOC: EC 17:44 → 6NMEDSUR 22:51 → 5NMEDONC 06-02 00:58 → OBSVTOIN 06-03 09:57
PROVIDERS: ADMIT Hospitalist; ATTEND Hospitalist
PROC: 30233N1 Transfusion of Nonautologous Red Blood Cells into Peripheral Vein, Percutaneous Approach (ICD-10-PCS; 2022-06-03)
PROC: 3E0G76Z Introduction of Nutritional Substance into Upper GI, Via Natural or Artificial Opening (ICD-10-PCS; principal; 2022-06-05)
PROC: 0DH63UZ Insertion of Feeding Device into Stomach, Percutaneous Approach (ICD-10-PCS; principal; 2022-06-05)
DX: A41.9 Sepsis, unspecified organism (principal); E43 Unspecified severe protein-calorie malnutrition; I50.33 Acute on chronic diastolic (congestive) heart failure; J18.9 Pneumonia, unspecified organism; C64.2 Malignant neoplasm of left kidney, except renal pelvis; C78.00 Secondary malignant neoplasm of unspecified lung; C78.7 Secondary malignant neoplasm of liver and intrahepatic bile duct; C79.51 Secondary malignant neoplasm of bone; D84.821 Immunodeficiency due to drugs; E87.20 Acidosis, unspecified; J98.11 Atelectasis; E87.1 Hypo-osmolality and hyponatremia; I08.3 Combined rheumatic disorders of mitral, aortic and tricuspid valves; Z90.5 Acquired absence of kidney; Z68.24 Body mass index [BMI] 24.0-24.9, adult; Z66 Do not resuscitate; I11.0 Hypertensive heart disease with heart failure; R62.7 Adult failure to thrive; K25.9 Gastric ulcer, unspecified as acute or chronic, without hemorrhage or perforation; D50.9 Iron deficiency anemia, unspecified; Z51.5 Encounter for palliative care; E16.1 Other hypoglycemia; R13.10 Dysphagia, unspecified; Z86.16 Personal history of COVID-19; Z28.21 Immunization not carried out because of patient refusal; G47.30 Sleep apnea, unspecified; Z92.3 Personal history of irradiation; E86.0 Dehydration; Z79.60 Long term (current) use of unspecified immunomodulators and immunosuppressants; Z79.899 Other long term (current) drug therapy; Z87.11 Personal history of peptic ulcer disease
CPT/HCPCS: 36415; 43246; 71046; 71250; 74176; 80048; 80053; 81001; 82533; 82607; 82728; 82747; 83010; 83540; 83550; 83605; 83615; 83735; 83880; 83921; 84145; 84439; 84443; 84481; 84484; 85025; 85027; 85045; 85384; 85610; 85730; 86850; 86900; 86901; 86920; 87040; 87635; 93005; 93306; 93970; 94760; 96361; 96365; 96367; 96368; 99285